=== PATIENT | female | born 1945 | race Caucasian/White ===

== ENCOUNTER 2023-06-02 19:33 | Inpatient (IN) | payer MEDICARE, OTHER, SELFPAY ==
[2023-06-02] VITALS (10 sets, daily range): BP systolic 115–167; BP diastolic 48–99; BMI 25.4; BMI 25.3
[2023-06-02 13:32] LABS: % Immature Granulocytes 0.4 % (0-0.5); % Monocytes 1.4 % (1.7-9.3); % Neutrophils 93.2 % (42.2-75.2); Absolute Lymphocytes 0.4 10^3/uL (1.2-3.4); Absolute Monocytes 0.1 10^3/uL (0.1-0.6); Absolute Neutrophils 6.5 10^3/uL (1.4-6.5); Hematocrit 33.2 % (37.0-47.0); Hemoglobin 11.2 g/dL (12.0-16.0); Mean Corp Hgb Conc. 33.7 g/dL (33.0-37.0); Mean Corpuscular Hgb 29.5 pg (27.0-31.0); Mean Corpuscular Volume 87.4 fL (81.0-99.0); Mean Platelet Volume 9.2 fL (7.4-10.4); Nucleated Red Blood Cells % 0 %; Platelet Count 233 10^3/uL (130-400); Red Cell Dist. Width 14.5 % (11.5-14.5)
--- NOTE | 2023-06-02 13:40 | ED.GENMED ---
History of Present Illness
General
Chief Complaint: Breathing Problem
Source: patient and family
Exam Limitations: none
Time Seen by Provider: 06/02/23 13:26
Nursing documentation reviewed up to this point in time: agreed with
Travel History
Have you had any contact with someone who has COVID-19?: No
Do you have any symptoms of coronavirus? Fever > 100 degrees, chills, cough, shortness of breath, sore throat, loss of taste or smell, muscle aches, or headache?: No
History of Present Illness
History of Present Illness:
77-year-old female presents emergency department complaining of shortness of breath, worsening over the past 3 weeks. She is a history of COPD, CHF, atrial fibrillation. She had a fever last week, but none since. She was hospitalized for similar
shortness of breath at [facility] 3 weeks ago.
Past History
Past History
ED Past Medical History: Arrthythmia, CAD, CHF, COPD, GERD, HTN, Hypercholesterolemia and Other (Peripheral vascular disease)
ED Past Surgical History: Cardiac (Stent), Gynecological (Hysterectomy), Orthopedic and Other (Vascular stents, coronary artery stents)
Social History
Tobacco: Former smoker
Alcohol: Former
Drug: None
Personal:
Living: with family
Review of Systems
Review of Systems
Allergies reviewed?: Yes
All Other Systems: Not applicable
Constitutional: Reports fatigue
EENT: Reports no symptoms
Respiratory: Reports trouble breathing
Cardiac: Reports no symptoms
ABD/GI: Reports no symptoms
: Reports no symptoms
Musculoskeletal: Reports no symptoms
Skin: Reports no symptoms
Endocrine: Reports no symptoms
Hematologic/Lymphatic: Reports no symptoms
Psychiatric: Reports no symptoms
Phy Exam
Physical Exam
Physical Exam:
Physical Exam
General: Moderate respiratory distress, afebrile
Neck: supple. no meningeal signs. normal posterior pharynx
Heart: s1/s2 regular rate and rhythm, no murmur. equal radial
pulses.
HEENT: Pupils equal round reactive to light, EOMI
Lungs: Moderate respiratory distress, decreased breath sounds throughout
Abdomen: normal bowel sounds. not tender. no CVAT
Neuro: alert and oriented. no focal neurological deficits cranial nerves II through XII intact
Skin: no rash
Psychiatric: well kept. interactive and cooperative
Extremities: no edema. no calf tenderness. negative homans. good distal pulses
Scores
Heart Failure Risk
Heart Failure Risk Score: Not Applicable
Course
Orders/Labs/Results
Orders:
Orders
06/02/23 13:01
Electrocardiogram (*1) Urgent
Reason for Study: Shortness of Breath
EKG- Treatment ONCE
06/02/23 13:19
Cardiac Monitoring- Treatment ONCE
IV Insert/Care/Rem.- Treatment PRN
CR Chest - 2 Views Urgent
Comment:
Reason For Exam: respiratory distress
O2 Therapy [RESP] Urgent
Titrate/Wean O2 to maintain O2 sat greater than (%): 93
Special Instructions: TO MAINTAIN CONTINUOUS O2 SATS >/= 93%
Pulse Ox/cont/shift [RESP] Urgent
Quantity: 1
Special Instructions: continuous pulse ox
06/02/23 13:20
Complete Blood Count/With Diff Urgent
Comprehensive Metabolic Panel Urgent
NT-proBNP Urgent
Troponin I Urgent
Blood Culture Q30M
MARLO Source: Blood/Venous
Specimen Description:
06/02/23 13:27
COVID-19 Antigen Urgent
Source: Nasal Swab
INF RAPID [Influenza A+B Rapid Molecular] Urgent
MARLO Source: Nasal Swab
Specimen Description:
06/02/23 13:59
Ipratropium/Albuterol Sulfate [Duoneb] 3 ml INH R NOW STA
06/02/23 14:47
Dexamethasone Sod Phosphate [Decadron] 10 mg IV NOW STA
06/02/23 15:04
Lactic Acid Q4H
Comment: CANCEL 2nd LACTIC ACID IF 1st LACTIC ACID IS LESS THAN 2
06/02/23 15:15
Blood Culture Q30M
MARLO Source: Blood/Venous
Specimen Description:
06/02/23 16:35
Admit/Transfer Patient As Directed
Co-Sign Provider:
Level of Care: Inpatient admission
Assign to:: Telemetry
Physician / Group: dameon metcalf
Diagnosis: acute on chronic copd exac
Reason for Telemetry: Arrhythmia
Date to Stop Telemetry: 06/05/23
Time to Stop Telemetry: 11:00
Reason for Hospitalization: acute on chronic copd exac
Expected length of stay greater than two midnights?: Yes
ELOS- Estimated Length of Stay in days: 4
I certify the patient meets the requirements for IP care: Yes
06/02/23 16:44
PULMONARY CONSULT Routine
Consulting Provider: Emigdio Watt
Was physician already notified: Yes
Reason for consult: acute on chronic copd
06/02/23 16:52
CT Chest Pe Study Urgent
Comment:
Reason For Exam: sob
Potassium Chloride [KCl] 40 meq PO NOW STA
06/02/23 16:56
Sputum Culture [Respiratory Culture/Gram Stain] Routine
MARLO Source: Sputum
Specimen Description:
Date Specimen was Collected: 06/02/23
Time Specimen was Collected: 20:43
06/02/23 17:16
Acapella [Rx Pep / Acapela] [RESP] Routine
06/02/23 17:20
Guaifenesin [Mucinex] 1,200 mg PO Q12
06/02/23 19:31
Code Status As Directed
Resuscitation Status: Do not resuscitate
Reached after discussion with pt or family/Healthcare POA: Yes
Based on pt advanced directive or healthcare POA form: Yes
Decision communicated with: per pt
DNR Bracelet Application ONCE
06/03/23 00:00
Dexamethasone Sod Phosphate [Decadron] 6 mg IV Q8H
06/03/23 06:00
Echo 2D MMode Color/Doppler IN AM
Reason for Study: sob
06/05/23 11:00
DC Protocol for Telemetry ONCE
Abnormal Lab Results
06/02/23
13:20
RBC 3.80 L 10^6/uL
(4.20-5.40)
Hgb 11.2 L g/dL
(12.0-16.0)
Hct 33.2 L %
(37.0-47.0)
Absolute Lymphs (auto) 0.4 L 10^3/uL
(1.2-3.4)
Neutrophils % 93.2 H %
(42.2-75.2)
Lymphocytes % 5.0 L %
(20.5-51.1)
Monocytes % 1.4 L %
(1.7-9.3)
Potassium 3.4 L mmol/L
(3.5-5.1)
BUN 24 H mg/dl
(7-17)
Glucose 116 H mg/dl
(70-99)
Total Protein 6.1 L g/dl
(6.3-8.2)
06/02/23 13:20
06/02/23 13:20
Vital Signs
Initial and Last Documented VS:
Initial Vital Signs
Temp Pulse Resp BP Pulse Ox
98.9 F 78 18 130/59 88
06/02/23 12:54 06/02/23 12:54 06/02/23 12:54 06/02/23 12:54 06/02/23 12:54
Last Documented Vital Signs
Temp Pulse Resp BP Pulse Ox
98.9 F 76 23 124/49 95
06/02/23 12:54 06/02/23 19:24 06/02/23 19:24 06/02/23 19:24 06/02/23 19:24
MDM/Problems Addressed
Differential Diagnosis Includes:
Pneumonia, COPD exacerbation, CHF
MDM/Problems Addressed:
77-year-old female with COPD exacerbation, no signs of CHF, do not suspect PE, no signs of pneumonia on chest x-ray.
Chronic conditions affecting care: COPD
Acute Exacerbation and/or Progression of Chronic Illness: COPD
*Radiology
Radiology exam reviewed: radiology read reviewed (cxr nad)
*Pulse Oximetry
Patient hypoxic: yes
*EKG
Interpreted by ED Provider?: Yes
EKG Intrepretation Date: 06/02/23
EKG Intrepretation Time: 13:03
Interpretation: normal
Comparison EKG: changes noted
Heart Rate: 64
Rate: normal
Rhythm: sinus
[place]: normal axis
Interval: normal interval
QRS Pattern: normal QRS
Ischemia: no ischemia
*Prosthodontist/Owner Interpretation
Rate: normal
Interpretation: normal
Heart Rate: 66
Rhythm: sinus
*Critical Care Note
Total Time (30-74mins, 75-104mins- exclusive of procedures): Not Applicable
Patient Management
Social determinants of health affecting care: Living situation and Strong social support
Discussion with other providers: Hospitalist
Escalation/DeEscalation of care consider admission/obs:
admit indicated
ED Attending Note
-
Portions of this chart may have been created with voice recognition software.� Occasional wrong word or��sound alike� substitutions may have occurred due to the inherent limitations of voice recognition software.
Discharge Plan
Departure
Patient Disposition: Admit
Date of Disposition: 06/02/23
Time of Disposition: 14:47
Admit to: Telemetry
Presentation/result/management discussed w/ accepting MD/DO: Hospitalist
Patient with high blood pressure during this ER visit?: Yes
Discharge Problem:
COPD exacerbation
Interventions
Interventions:
*Risk Screen - Suicide Last Done: 06/02/23 12:59
*General Assessment Last Done: 06/02/23 12:59
*Neglect/Abuse Screening Last Done: 06/02/23 12:59
*ED COVID-19 Vaccine History Last Done: 06/02/23 13:09
ED- Cardiac Assessment Last Done: 06/02/23 15:30
ED- Pulmonary Assessment Last Done: 06/02/23 15:30
[2023-06-02 13:50] LABS: COVID-19 Antigen Negative (Negative)
[2023-06-02 13:55] LABS: ALT (SGPT) 22 U/L (0-35); AST (SGOT) 29 U/L (14-36); Albumin 3.5 g/dl (3.5-5.0); Alkaline Phosphatase 57 U/L (38-126); Blood Urea Nitrogen 24 mg/dl (7-17); Calcium 9.5 mg/dl (8.4-10.2); Carbon Dioxide 26 mmol/L (22-30); Chloride 104 mmol/L (98-107); Estimated Creatinine Clearance 44 ml/min; Glucose 116 mg/dl (70-99); Potassium 3.4 mmol/L (3.5-5.1); Sodium 137 mmol/L (135-145); Total Bilirubin 0.8 mg/dl (0.2-1.3); Total Protein 6.1 g/dl (6.3-8.2); eGFR > 60.00
[2023-06-02 13:56] LABS: NT-proBNP 912 pg/ml; Troponin I < 0.012 ng/ml
[2023-06-02 15:25] LABS: Lactic Acid 1.6 mmol/L (0.7-2.0)
[2023-06-02] MEDS: DECADRON 10 MG IV (15:25)
[2023-06-02] MEDS: DUONEB 3 ML INH ×2 (15:25→22:43)
--- NOTE | 2023-06-02 15:57 | HPS.HSE ---
Addendum entered and electronically signed by Wayne Lopez MD 06/02/23 17:21:
I saw and examined the patient.
The WHEEL BORER or PA's note was reviewed and I agree with the note.
Comment: 77-year-old female with history of COPD, CAD, A-fib, chronic diastolic congestive heart failure, PAD, GERD, arthritis, anxiety, depression, pill esophagitis came to the hospital with shortness of breath. She follows up with ict business development manager
at [facility] and has been on oral steroids. Denies any fever/chills. Consult pulmonary. Continue with IV steroids. Nebs. check chest CT chest. Check echo. proBNP not significantly elevated. Recent watchman in February. Monitor on
telemetry.
General:�Appears in respiratory distress
HEENT:�NormoCephalic, Anicteric, PERRLA and Oxygen
Respiratory:�Wheezes (expiratory) and Decreased Breath Sounds
Cardiac:�S1/S2 and Regular Rhythm; No Murmur, Rub, Gallop or Peripheral Edema
Breast:�Deferred by me
GI:�Soft, Non Tender, Non Distended, Normal Bowel Sounds and No Hepatosplenomegaly
Rectal:�Deferred by Provider
Genito-urinary:�no lake
Musculoskeletal:� No Edema
Neuro:�AO x 3, No Motor Deficits, Nonfocal/grossly intact
Psych:�Calm
I spent a total of 78 minutes with the patient or on the floor. More than 50% of this time involved counseling and coordination of care.
Original Note:
Family Physician
-
Family Physician: Reinier Noel
Chief Complaint
-
Shortness of breath
History of Present Illness
77-year-old female with third episode of COPD exacerbation over the past month. She finished 2 doses of steroids 1 being 2-1/2 weeks ago along with a course of Ceftin to 9 weeks ago. She had a follow-up with her ict business development manager Dr. Hills 1 week
ago with no changes and was recommended that she follow-up with [facility] for further evaluation and options. He was going to schedule some pulmonary function studies. She reports the shortness of breath is worse and not improving at
baseline with 2 to 3 L of oxygen 28/10. She pauses during speaking. She also reports last week she was running a fever several days of 100.8 at nighttime then resolved. Although she is on azithromycin Friday prophylaxis for
recurrent pneumonia over the past 1.5 years.
PMH CAD cardiac stent September 2002, A-fib, chronic diastolic CHF, HTN, HLD, COPD, ex-smoker, home O2 2 to 3 L, sleep apnea, PAD status post fem-femo bypass GERD, arthritis, DJD, anxiety/depression, pill esophagitis.
Medical History
Past Medical History
Past Medical History: Reports Other
Additional Past Medical History:
CAD cardiac stent September 2002
[id number]
chronic diastolic CHF
HTN
HLD
COPD on home O2 3 L
ex-smoker 56 years 1 pack a day quit 2017
sleep apnea
PAD status post fem-femo bypass
GERD
arthritis
DJD
anxiety/depression
pill esophagitis
Past Surgical History: Reports Other
Additional Past Surgical History:
Cardiac stent 09/2002
Watchman device 02/24/2023
Right femorofemoral bypass 2003
Hysterectomy
Left shoulder replacement
Right shoulder replacement
Trigger finger repair
Cataract extraction
Social History
Tobacco: Former Smoker (ex-smoker 56 years 1 pack a day quit 2017)
Alcohol: None
Drug: None
Personal: Single
Living: Alone
Employment: Retired
Family History
Family History: Not pertinent
Allergies / Home Medications
Allergies reflects when Allergies were last updated in [employer].
Home Medications with original date entered in [employer]
Allergy/Medication List:
Allergies
Allergy/AdvReac Type Severity Reaction Status Date / Time
hornet venom Allergy Anaphylaxis Verified 06/02/23 12:54
Penicillins Allergy itching, Verified 06/02/23 12:54
rash,
swelling
sertraline [From Zoloft] Allergy anxiety, Verified 06/02/23 12:54
hyper
venom-honey bee Allergy Anaphylaxis Verified 06/02/23 12:54
Home Medications
metoprolol succinate 25 mg tablet,extended release 24 hr 12.5 mg PO DAILY Blood pressure 06/13/11
aspirin 81 mg tablet,delayed release 81 mg PO DAILY Blood clot prevention/tx 08/01/21
atorvastatin 40 mg tablet 40 mg PO QPM High cholesterol 08/01/21
flecainide 50 mg tablet 50 mg PO Q12H Arrhythmia 08/01/21
furosemide 20 mg tablet 20 mg PO DAILYPRN PRN edema 08/01/21
albuterol sulfate 2.5 mg/3 mL (0.083 %) solution for nebulization 2.5 mg inhalation R DAILY PRN sob 06/02/23
albuterol sulfate 2.5 mg/3 mL (0.083 %) solution for nebulization 2.5 mg inhalation R TID Lung/Breathing Issues 06/02/23
azithromycin 250 mg tablet 250 mg PO MOWEFR@0800 Lung/Breathing Issues 06/02/23
clopidogrel 75 mg tablet 75 mg PO DAILY Blood Clot Prevention/Tx 06/02/23
escitalopram oxalate 20 mg tablet 10 mg PO DAILY depression/anxiety 06/02/23
fluticasone fur. 100 mcg-umeclid 62.5 mcg-vilant 25 mcg inhalat.powder (Trelegy Ellipta) 1 inh inhalation R DAILY Lung/Breathing Issues 06/02/23
fluticasone fur. 200 mcg-umeclid 62.5 mcg-vilant 25 mcg inhalat.powder (Trelegy Ellipta) 1 inh inhalation R DAILY PRN sob 06/02/23
fluticasone propionate 50 mcg/actuation nasal spray,suspension (Flonase Allergy Relief) 2 spray intranasal DAILY PRN allergies 06/02/23
ibuprofen 200 mg tablet (Advil) 400 mg PO BIDPRN PRN mild pain 06/02/23
prednisone 10 mg tablet 10 mg PO .TAPER Anti-Inflammatory 06/02/23
spironolactone 25 mg tablet 25 mg PO DAILY Fluid Retention/Swelling 06/02/23
Review of Systems
-
History Source: Patient and Family (daugther)
A 12 point ROS was completed and negative except as noted: Yes
Constitutional: Denies Fever or Chills
EENT: Denies Tearing, Sore Throat or Mouth Swelling
Respiratory: Reports Trouble Breathing; Denies Cough
Cardiac: Denies Chest Pain, Diaphoresis, Palpitations or Syncope
Abdomen/GI: Denies Abdominal Pain, Nausea, Vomiting, Diarrhea, Constipated, Bloody Stools or Black Stools
: Denies Dysuria, Frequency, Flank Pain, Incontinence or Difficulty Voiding
Musculoskeletal: Denies Joint Pain, Joint Swelling or Edema
Skin: Denies Itching or Rash
Neurological: Denies Dizzy, Headache or Weakness
Endocrine: Reports No Symptoms
Hematologic/Lymphatic: Reports No Symptoms
Psych: Reports Calm
Physical Exam
Vital Signs
Vital Signs
Temp Pulse Resp BP Pulse Ox
98.9 F 62 26 122/89 93
06/02/23 12:54 06/02/23 15:00 06/02/23 15:00 06/02/23 14:27 06/02/23 15:30
Physical Exam
General: Conversant (but short of breath ); No Fever or Chills
HEENT: NormoCephalic, Anicteric, PERRLA and Oxygen (3lnc)
Respiratory: Wheezes (expiratory) and Decreased Breath Sounds
Cardiac: S1/S2 and Regular Rhythm; No Murmur, Rub, Gallop or Peripheral Edema
Breast: Deferred by me
GI: Soft, Non Tender, Non Distended, Normal Bowel Sounds and No Hepatosplenomegaly
Rectal: Deferred by Provider
Genito-urinary: Deferred by me
Musculoskeletal: No Clubbing, No Cyanosis and No Edema
Skin: Warm and Dry; No Rash
Neuro: AO x 3, No Motor Deficits, Nonfocal/grossly intact and No Sensory Deficits; No Slurred Speech, Facial Droop or Tremors
Psych: Calm
Laboratory Results
-
06/02/23 13:20
06/02/23 13:20
Laboratory Results
Lactic Acid 1.6 mmol/L (0.7-2.0) 06/02/23 15:04
Total Bilirubin 0.8 mg/dl (0.2-1.3) 06/02/23 13:20
AST 29 U/L (14-36) 06/02/23 13:20
ALT 22 U/L (0-35) 06/02/23 13:20
Alkaline Phosphatase 57 U/L (38-126) 06/02/23 13:20
Troponin I < 0.012 ng/ml 06/02/23 13:20
Impression/Plan
-
Impression/plan:
Admit to TELE
#Acute on chronic COPD exacerbation on chronic 3 L nasal cannula as needed
#Ex-smoker 56 years 1 pack a day quit 2017
-COVID-negative
93% on 3 liters NC
-Continue DuoNebs scheduled and as needed
-Continue Trelegy Ellipta
-On chronic azithromycin 250 mg Friday
-Sputum culture
-Consult Pulmonary
-Iv decadron 6q 8h
-Patient follows with Dr. Hills at [facility] will obtain records
-2D echo
CXR: No acute cardiopulmonary disease
#Hypokalemia
-K3.4
Will give KCl 40 mEq now
#Sleep apnea Hx
-Used to be on BiPAP several years ago states had additional study years ago no longer needed
-? Repeat outpatient sleep study
#A-fib�paroxysmal
#Watchman device 02/24/2023
-Continue flecainide, aspirin, Plavix
EKG: NSR 64 bpm, QTc 431 MS otherwise normal
#CAD
#Cardiac stents 09/2002
-Continue aspirin, statin, metoprolol succinate 12.5 mg daily
#Chronic diastolic CHF�no acute exacerbation
I/O, daily weight
-Continue spironolactone 25 mg daily, hold prn lasix
#Depression/anxiety
Continue Lexapro
#PAD status post fem-femo bypass
#GERD
#Pill esophagitis Hx
- start protonix 40 mg daily
Other PMH:
arthritis
DJD
dvt proph
Sq lovenox
DNR
[2023-06-02] MEDS: KCL 40 MEQ PO (17:07)
[2023-06-02] MEDS: MUCINEX 1200 MG PO (20:43)
--- NOTE | 2023-06-02 22:15 | PTCARENOTE ---
Received patient from ED via stretcher. Patient stood and pivoted from stretcher to bed with assistance. Patient LYNN, sating 94% on 3L. No current complaints of pain. Oriented patient to room and placed call rangel within reach.
[2023-06-02] MEDS: TAMBOCOR 50 MG PO (22:17)
[2023-06-02] MEDS: LIPITOR 40 MG PO (22:17)
[2023-06-02] MEDS: LOVENOX 40 MG SC (22:18)
[2023-06-03] MEDS: DECADRON 6 MG IV ×2 (00:11→09:45)
[2023-06-03 03:46] VITALS: BP 132/74
[2023-06-03 07:40] VITALS: BP 112/75
[2023-06-03 07:49] LABS: % Immature Granulocytes 0.3 % (0-0.5); % Lymphocytes 7.2 % (20.5-51.1); % Monocytes 2.3 % (1.7-9.3); % Neutrophils 90.2 % (42.2-75.2); Absolute Lymphocytes 0.5 10^3/uL (1.2-3.4); Absolute Monocytes 0.2 10^3/uL (0.1-0.6); Absolute Neutrophils 5.9 10^3/uL (1.4-6.5); Hematocrit 30.4 % (37.0-47.0); Hemoglobin 10.2 g/dL (12.0-16.0); Mean Corp Hgb Conc. 33.6 g/dL (33.0-37.0); Mean Corpuscular Hgb 29.4 pg (27.0-31.0); Mean Corpuscular Volume 87.6 fL (81.0-99.0); Mean Platelet Volume 9.3 fL (7.4-10.4); Nucleated Red Blood Cells % 0 %; Platelet Count 227 10^3/uL (130-400); Red Blood Cell Count 3.47 10^6/uL (4.20-5.40); Red Cell Dist. Width 14.6 % (11.5-14.5); White Blood Cell Count 6.5 10^3/uL (4.8-10.8)
[2023-06-03] MEDS: SYMBICORT 80/4.5 MCG INHALER INH (08:07)
[2023-06-03] MEDS: VENTOLIN NEBULES 2.5 MG INH ×3 (08:07→15:10)
[2023-06-03] MEDS: SPIRIVA RESPIMAT 2.5 MCG INH (08:08)
[2023-06-03 08:23] LABS: Blood Urea Nitrogen 27 mg/dl (7-17); Calcium 9.7 mg/dl (8.4-10.2); Carbon Dioxide 27 mmol/L (22-30); Chloride 104 mmol/L (98-107); Estimated Creatinine Clearance 50 ml/min; Glucose 133 mg/dl (70-99); Sodium 139 mmol/L (135-145); eGFR > 60.00
[2023-06-03] MEDS: TAMBOCOR 50 MG PO ×2 (09:45→20:19)
[2023-06-03] MEDS: ALDACTONE 25 MG PO (09:45)
[2023-06-03] MEDS: PROTONIX 40 MG PO (09:45)
[2023-06-03] MEDS: ASPIR LOW (ENTERIC COATED) 81 MG PO (09:45)
[2023-06-03] MEDS: LEXAPRO 10 MG PO (09:45)
[2023-06-03] MEDS: MUCINEX 1200 MG PO ×2 (09:45→20:18)
[2023-06-03] MEDS: TOPROL XL 12.5 MG PO (09:45)
[2023-06-03] MEDS: PLAVIX 75 MG PO (09:45)
--- NOTE | 2023-06-03 11:24 | CM ---
Patient seen bedside, initial assessment completed. Patient reports she lives with her daughter and son in law in a multiple story home with two steps to enter. Patient reports she has home O2 through [facility] and is typically on 2-3L, denies other
DME. Patient reports she was recently hospitalized at [facility] and was set up with visiting nurses through [facility]. Patient denies SNF. Patient confirms PCP Reinier Noel, pharmacy used [facility] in [place]. CM will continue to follow for
discharge planning needs, watch for PT/OT evaluation.
Plan; home with continuance of [facility] VN.
[2023-06-03 11:30] VITALS: BP 128/74
--- NOTE | 2023-06-03 11:45 | W.PN.HOSP.TC ---
Today's Communication/Plan
-
Monitor vital signs and see plan
Continue with IV steroids,nebs
Pulmonary to see today
echo
Assessment / Plan
Assessment / Plan
General:�Appears in respiratory distress
HEENT:�NormoCephalic, Anicteric, Oxygen
Respiratory:�Wheezes (expiratory) and Decreased Breath Sounds
Cardiac:�S1/S2 and Regular Rhythm; No Murmur, Rub, Gallop or Peripheral Edema
Breast:�Deferred by me
GI:�Soft, Non Tender, Non Distended, Normal Bowel Sounds and No Hepatosplenomegaly
Rectal:�Deferred by Provider
Genito-urinary:�no lake
Musculoskeletal:� No Edema
Neuro:�AO x 3, No Motor Deficits, Nonfocal/grossly intact
Psych:�Calm
Acute on chronic COPD exacerbation on chronic 3 L nasal cannula as needed
#Ex-smoker 56 years 1 pack a day quit 2017
-COVID-negative
93% on 3 liters NC
-Continue DuoNebs scheduled and as needed
-Continue Trelegy Ellipta
-On chronic azithromycin 250 mg Friday
-Sputum culture
-Consult Pulmonary
-Iv decadron 6q 8h
-Patient follows with Dr. Hills at [facility] will obtain records
-2D echo
�� � � CXR: No acute cardiopulmonary disease
#Hypokalemia
Improved
#Sleep apnea Hx
-Used to be on BiPAP several years ago states had additional study years ago no longer needed
-?� Repeat outpatient sleep study, per patient she was told that she does not have sleep apnea anymore
#A-fib�paroxysmal
#Watchman device 02/24/2023
-Continue flecainide, aspirin, Plavix
EKG:�NSR 64 bpm, QTc 431 MS otherwise normal
Check echo
#CAD
#Cardiac stents 09/2002
-Continue aspirin, statin, metoprolol
#Chronic diastolic CHF�no acute exacerbation
I/O, daily weight
-Continue spironolactone, hold prn lasix; give 1 dose Lasix today. Follow clinically
#Depression/anxiety
Continue Lexapro
#PAD status post fem-femo bypass
#GERD
#Pill esophagitis Hx
- start protonix 40 mg daily
Other PMH:
�arthritis
�DJD
dvt proph
Sq lovenox
DNR
I spent a total of 53 minutes with the patient or on the floor. More than 50% of this time involved counseling and coordination of care.
Anticipated Discharge: > 48 hours
Subjective/Interval History
-
Date of Service: June 03, 2023
denies chest pain
Objective Data
-
Labs:
Laboratory Results
06/03/23
07:28
WBC 6.5
Hgb 10.2 L
Hct 30.4 L
Plt Count 227
Sodium 139
Potassium 4.0
Chloride 104
Carbon Dioxide 27
BUN 27 H
Creatinine 0.8
Glucose 133 H
Calcium 9.7
Vital Signs:
Vital Signs
Temp Pulse Resp BP Pulse Ox
98.4 F 76 16 112/75 96
06/03/23 07:40 06/03/23 08:10 06/03/23 08:10 06/03/23 07:40 06/03/23 08:10
I&O
06/02/23 06/03/23 06/04/23
06:59 06:59 06:59
Intake Total 0 / 0
Balance 0 / 0
[2023-06-03] MEDS: SPIRIVA RESPIMAT 2.5 MCG 2 PUFF INH (12:22)
[2023-06-03] MEDS: SYMBICORT 80/4.5 MCG INHALER 2 PUFF INH (12:22)
[2023-06-03] MEDS: LASIX 20 MG PO (12:26)
--- NOTE | 2023-06-03 15:13 | CON.PUL ---
Consultation
Consultation Request
Date/Time Consultation Requested: 06/03/2023
Date/Time Consultation Performed: 06/03/2023
Requesting Provider: Dr. Lopez
Performing Provider: Dr. Emigdio Norton
Reason for Consultation: Acute exacerbation of COPD
Medical History
-
History of Present Illness:
77-year-old woman with history of severe COPD, frequent exacerbations and pulmonary infections, follows up with Dr. Hills. Has been on prolonged course of steroids. Continues to complain shortness of breath. Reported no significant change
despite his steroids. She also is on low-dose azithromycin therapy for anti-inflammatory properties.
She was referred to [facility] for further evaluation.
Past Medical History
Past Medical History: Other (See assessment and plan section)
Social History
Tobacco: Former Smoker ([id number] history quit in 2018)
Alcohol: None
Drug: None
Personal: Single
Living: Alone
Employment: Retired
Family History
Family History: Reviewed & Not Pertinent
Allergies / Home Medications
Allergies
Allergy/AdvReac Type Severity Reaction Status Date / Time
hornet venom Allergy Anaphylaxis Verified 06/02/23 12:54
Penicillins Allergy itching, Verified 06/02/23 12:54
rash,
swelling
sertraline [From Zoloft] Allergy anxiety, Verified 06/02/23 12:54
hyper
venom-honey bee Allergy Anaphylaxis Verified 06/02/23 12:54
Home Medications
Medication Instructions Recorded Confirmed Last Taken Type
metoprolol succinate 25 mg 12.5 mg PO DAILY Blood pressure 06/13/11 06/02/23 06/02/23 History
tablet,extended release 24 hr
aspirin 81 mg tablet,delayed 81 mg PO DAILY Blood clot 08/01/21 06/02/23 06/02/23 History
release prevention/tx
atorvastatin 40 mg tablet 40 mg PO QPM High cholesterol 08/01/21 06/02/2324 History
flecainide 50 mg tablet 50 mg PO Q12H Arrhythmia 08/01/21 06/02/23 06/02/23 History
furosemide 20 mg tablet 20 mg PO DAILYPRN PRN edema 08/01/21 06/02/23 06/01/23 History
albuterol sulfate 2.5 mg/3 mL 2.5 mg inhalation R DAILY PRN sob 06/02/23 06/02/23 Unknown History
(0.083 %) solution for nebulization
albuterol sulfate 2.5 mg/3 mL 2.5 mg inhalation R TID 06/02/23 06/02/23 06/02/23 History
(0.083 %) solution for nebulization Lung/Breathing Issues
azithromycin 250 mg tablet 250 mg PO MOWEFR@0800 06/02/23 06/02/23 05/30/23 History
Lung/Breathing Issues
clopidogrel 75 mg tablet 75 mg PO DAILY Blood Clot 06/02/23 06/02/23 06/02/23 History
Prevention/Tx
escitalopram oxalate 20 mg tablet 10 mg PO DAILY depression/anxiety 06/02/23 06/02/23 06/02/23 History
fluticasone fur. 100 mcg-umeclid 1 inh inhalation R DAILY 06/02/23 06/02/23 06/02/23 History
62.5 mcg-vilant 25 mcg Lung/Breathing Issues
inhalat.powder (Trelegy Ellipta)
fluticasone fur. 200 mcg-umeclid 1 inh inhalation R DAILY PRN sob 06/02/23 06/02/23 1 Week Ago History
62.5 mcg-vilant 25 mcg ~05/26/23
inhalat.powder (Trelegy Ellipta)
fluticasone propionate 50 2 spray intranasal DAILY PRN 06/02/23 06/02/23 Unknown History
mcg/actuation nasal allergies
spray,suspension (Flonase Allergy
Relief)
ibuprofen 200 mg tablet (Advil) 400 mg PO BIDPRN PRN mild pain 0206/02/23 06/02/23 History
prednisone 10 mg tablet 10 mg PO .TAPER Anti-Inflammatory 06/02/23 06/02/23 06/02/23 History
spironolactone 25 mg tablet 25 mg PO DAILY Fluid 06/02/23 06/02/23 06/02/23 History
Retention/Swelling
Review of Systems
-
History Source: Patient
All other systems: Negative unless noted
Vitals / Labs / Diagnostic Testing
Vital Signs
Temp Pulse Resp BP Pulse Ox
98.5 F 84 20 128/74 96
06/03/23 11:30 06/03/23 15:12 06/03/23 15:12 06/03/23 11:30 06/03/23 15:12
Lab Data
06/03/23 07:28
06/03/23 07:28
Microbiology
06/02/23 13:20 Blood/Venous Blood Culture - Preliminary
No Growth in 24 hours- Final report to follow
06/02/23 20:54 Sputum Gram Stain - Preliminary
06/02/23 13:27 Nasal Swab Influenza Types A & B (SOY) - Final
Negative for Influenza A & B, NAAT
Negative results must be combined with clinical observations
and patient history.
Nucleic Acid Amplification test (NAAT)performed on the
[employer] platform.
Diagnostic Testing:
Physical Exam
-
HEENT: Normocephalic
Cardiovascular: S1/S2
Respiratory: Wheeze (n) and Other (Prolonged expiratory phase)
GI: Soft and Non Distended
Neurology: Awake, Oriented, AO x 3 and No Motor Deficits
Skin: Warm
General: Respiratory Distress (n)
Assessment
-
Worsening shortness of breath
CT chest: Reviewed: Showed heterogeneous severe emphysema/stable left upper lobe lung nodule. No evidence for pulmonary embolism.
Acute exacerbation of COPD
Chronic shortness of breath-worsening over time due to COPD and hyperinflation
9 mm NINFA lung nodule stable on 06/02/2023
-
ECHO:
Normal left ventricular chamber size. Normal left ventricular wall thickness.�
�Hyperdynamic left ventricular systolic function. Normal regional wall motion..
�LV ejection fraction is 70-75% by visual assessment. Stage II diastolic
�dysfunction suggestive of abnormal relaxation and increased filling pressures.
�Normal right ventricular size and function.
�Mildly dilated left atrium
�Mild mitral regurgitation.
-
Conditions present prior admission:
Former smoker [id number] history quit in 2018
Severe COPD on 3L NC
Trelegy
Frequent respiratory infection - on Low dose Azithromycin.
Chronic hypoxemic respiratory failure
Frequent exacerbator
Hypertension
Hyperlipidemia
Obstructive sleep apnea- not on CPAP
Peripheral arterial disease with femorofemoral bypass
GERD
DJD
Anxiety depression
Pill esophagitis
Atrial fibrillation-paroxysmal
Coronary Artery disease with a stent in September 2002
Surgical history:
Cardiac stent September 2002
Watchman device 02/2023
Femoral-femoral bypass 2003
Hysterectomy
Left shoulder replacement
Right shoulder replacement
Catheter extraction
Assessment and plan:
Progressive shortness of breath over time, suspect due to hyperinflation-lung function decline with aging on top of her severe COPD.
Possibly currently acute exacerbation.
CT chest noted: No acute infiltrates. Noted hyperinflation and emphysema.
-
Echocardiogram noted: Normal LVEF. Diastolic dysfunction without pulmonary hypertension.
Does not appear volume overloaded
-
Would recommend transition to nebulized therapy as a trial instead of inhalers. DuoNebs/Pulmicort-for better delivery of medication.
Patient has a nebulizer at home.
Whether she is a candidate for lung volume reduction/either surgical or bronchoscopic is not clear at this point. No full PFTs available.
Definitely not a candidate for transplant due to age limitation
Pulmonary rehabilitation recommended if not performed in the past.
Continue with IV corticosteroids with a slow taper.
Continue mucolytic's
Continue low-dose azithromycin for anti-inflammatory properties.
-
Patient stated that she was told by Dr. Hills on the possibly she had asthma. They are willing to discuss biologic therapy.
There is no peripheral eosinophilia on laboratory testing here.
-
Some of the cardiac medications also associated with shortness of breath including metoprolol and flecainide. This will need to be revisited in the outpatient setting.
-
Weight loss recommended.
Obstructive sleep apnea: Not on CPAP therapy. She was told it was not needed in the past.
-
Will continue to follow.
Extensive discussion with patient explaining plan as above.
[2023-06-03 15:50] VITALS: BP 130/76
[2023-06-03] MEDS: DECADRON 4 MG IV (17:42)
[2023-06-03] MEDS: LIPITOR 40 MG PO (17:42)
[2023-06-03] MEDS: LOVENOX 40 MG SC (17:43)
[2023-06-03 19:55] VITALS: BP 165/65
[2023-06-03] MEDS: PULMICORT 0.5 MG INH (20:27)
[2023-06-03] MEDS: DUONEB 3 ML INH (20:27)
[2023-06-03 23:59] VITALS: BP 127/54
[2023-06-04] MEDS: DECADRON 4 MG IV ×3 (01:56→17:43)
[2023-06-04 03:55] VITALS: BP 92/56
[2023-06-04 06:00] VITALS: BMI 25.3
[2023-06-04 07:00] VITALS: BP 116/74
[2023-06-04 07:30] LABS: % Basophils 0.1 % (0-2); % Immature Granulocytes 1.4 % (0-0.5); % Lymphocytes 5.9 % (20.5-51.1); % Monocytes 2.6 % (1.7-9.3); Absolute Immature Granulocytes 0.1 10^3/uL (0-0.05); Absolute Lymphocytes 0.6 10^3/uL (1.2-3.4); Absolute Monocytes 0.3 10^3/uL (0.1-0.6); Hematocrit 31.2 % (37.0-47.0); Hemoglobin 10.5 g/dL (12.0-16.0); Mean Corp Hgb Conc. 33.7 g/dL (33.0-37.0); Mean Corpuscular Volume 86.2 fL (81.0-99.0); Mean Platelet Volume 9.3 fL (7.4-10.4); Nucleated Red Blood Cells % 0 %; Platelet Count 275 10^3/uL (130-400); Red Blood Cell Count 3.62 10^6/uL (4.20-5.40); Red Cell Dist. Width 14.6 % (11.5-14.5)
[2023-06-04] MEDS: DUONEB 3 ML INH ×3 (07:45→19:34)
[2023-06-04] MEDS: PULMICORT 0.5 MG INH ×2 (07:45→19:34)
[2023-06-04 08:32] LABS: Blood Urea Nitrogen 28 mg/dl (7-17); Calcium 9.8 mg/dl (8.4-10.2); Carbon Dioxide 27 mmol/L (22-30); Chloride 105 mmol/L (98-107); Estimated Creatinine Clearance 40 ml/min; Glucose 116 mg/dl (70-99); Sodium 137 mmol/L (135-145); eGFR 57.66
[2023-06-04] MEDS: MUCINEX 1200 MG PO ×2 (09:17→19:47)
[2023-06-04] MEDS: PLAVIX 75 MG PO (09:17)
[2023-06-04] MEDS: TOPROL XL 12.5 MG PO (09:18)
[2023-06-04] MEDS: ZITHROMAX 250 MG PO (09:18)
[2023-06-04] MEDS: PROTONIX 40 MG PO (09:18)
[2023-06-04] MEDS: TAMBOCOR 50 MG PO ×2 (09:18→19:46)
[2023-06-04] MEDS: ASPIR LOW (ENTERIC COATED) 81 MG PO (09:18)
[2023-06-04] MEDS: LEXAPRO 10 MG PO (09:19)
[2023-06-04] MEDS: FLUSH (NSS) 1 FLUSH IV ×2 (10:16→17:43)
[2023-06-04 11:00] VITALS: BP 131/59
[2023-06-04 11:06] VITALS: BMI 25.3
--- NOTE | 2023-06-04 11:44 | CM ---
Patient seen bedside, reports no new concerns at this time. IMM reviewed, signed, placed in patients chart. CM spoke with Cristel from [facility], reports patient is current with VN and PT, [facility]
to [facility] when discharge. CM will continue to follow for discharge planning needs.
Plan; home with [facility] for [facility].
--- NOTE | 2023-06-04 11:48 | CM ---
Patient seen, reports no concerns at this time. CM spoke with Cristel from [facility], patient is current with VN and Pt, will just need updated clinicals sent through [facility] when ready for discharge. CM will continue to follow for discharge
planning needs.
Plan[facility]
--- NOTE | 2023-06-04 12:06 | W.PN.HOSP.TC ---
Today's Communication/Plan
-
Monitor vital signs and see plan
Continue with IV steroids
Continue with nebulizers
Hold aldactone
Assessment / Plan
Assessment / Plan
General:�Appears in respiratory distress
HEENT:�NormoCephalic, Anicteric, Oxygen
Respiratory:�Wheezes (expiratory) and Decreased Breath Sounds
Cardiac:�S1/S2 and Regular Rhythm; No Murmur, Rub, Gallop or Peripheral Edema
GI:�Soft, Non Tender, Non Distended, Normal Bowel Sounds
Genito-urinary:�no lake
Musculoskeletal:� No Edema
Neuro:�AO x 3, No Motor Deficits, Nonfocal/grossly intact
Psych:�Calm
Acute on chronic COPD exacerbation on chronic 3 L nasal cannula as needed
#Ex-smoker 56 years 1 pack a day quit 2017
-COVID-negative
-Continue DuoNebs scheduled and as needed
was on trelegy at home; now switching inhaler to nebulizer. Currently on Pulmicort
-On chronic azithromycin 250 mg Friday
-Sputum culture
-Pulmonary following
-cw decadron
-Patient follows with Dr. Hills at [facility] will obtain records
-2D echo 06/03 with EF 70 to 75%, stage II diastolic dysfunction
�� � � CXR: No acute cardiopulmonary disease
#Hypokalemia
Improved
#Sleep apnea Hx
-Used to be on BiPAP several years ago states had additional study years ago no longer needed
-?� Repeat outpatient sleep study, per patient she was told that she does not have sleep apnea anymore
#A-fib�paroxysmal
#Watchman device 02/24/2023
-Continue flecainide, aspirin, Plavix
#CAD
#Cardiac stents 09/2002
-Continue aspirin, statin, metoprolol
#Chronic diastolic CHF�no acute exacerbation
I/O, daily weight
-hold spironolactone, hold prn lasix; gave 1 dose lasix 06/03. Follow clinically
#Depression/anxiety
Continue Lexapro
#PAD status post fem-femo bypass
#GERD
#Pill esophagitis Hx
- start protonix 40 mg daily
Other PMH:
�arthritis
�DJD
dvt proph
Sq lovenox
DNR
Anticipated Discharge: 24 - 48 hours
Subjective/Interval History
-
Date of Service: June 04, 2023
Denies pain
Objective Data
-
Labs:
Laboratory Results
06/04/23
06:55
WBC 10.0
Hgb 10.5 L
Hct 31.2 L
Plt Count 275 D
Sodium 137
Potassium 4.0
Chloride 105
Carbon Dioxide 27
BUN 28 H
Creatinine 1.0
Glucose 116 H
Calcium 9.8
Vital Signs:
Vital Signs
Temp Pulse Resp BP Pulse Ox
97.8 F 89 16 116/74 94
06/04/23 07:00 06/04/23 09:18 06/04/23 07:50 06/04/23 09:18 06/04/23 10:15
I&O
06/03/23 06/04/23 06/05/23
06:59 06:59 06:59
Intake Total 0 / 0 1200 / 1200
Balance 0 / 0 1200 / 1200
[2023-06-04 15:35] VITALS: BP 139/55
--- NOTE | 2023-06-04 15:48 | W.PN.PUL3 ---
Today's Communication / Plan
-
Continue current medical therapy for 1 additional day
Will try to wean down steroids tomorrow
Increase activity as tolerated
hopefully DC planning soon
Assessment
-
Worsening shortness of breath-over time.
CT chest: Reviewed: Showed heterogeneous severe emphysema/stable left upper lobe lung nodule. No evidence for pulmonary embolism.
Acute exacerbation of COPD
Chronic shortness of breath-worsening over time due to COPD and hyperinflation
9 mm NINFA lung nodule stable on 06/02/2023
-
ECHO:
Normal left ventricular chamber size. Normal left ventricular wall thickness.�
�Hyperdynamic left ventricular systolic function. Normal regional wall motion..
�LV ejection fraction is 70-75% by visual assessment. Stage II diastolic
�dysfunction suggestive of abnormal relaxation and increased filling pressures.
�Normal right ventricular size and function.
�Mildly dilated left atrium
�Mild mitral regurgitation.
-
Conditions present prior admission:
Former smoker [id number] history quit in 2018
Severe COPD on 3L NC
Trelegy
Frequent respiratory infection - on Low dose Azithromycin.
Chronic hypoxemic respiratory failure
Frequent exacerbator
Hypertension
Hyperlipidemia
Obstructive sleep apnea- not on CPAP
Peripheral arterial disease with femorofemoral bypass
GERD
DJD
Anxiety depression
Pill esophagitis
Atrial fibrillation-paroxysmal
Coronary Artery disease with a stent in September 2002
Surgical history:
Cardiac stent September 2002
Watchman device 02/2023
Femoral-femoral bypass 2003
Hysterectomy
Left shoulder replacement
Right shoulder replacement
Catheter extraction
Assessment and plan:
Progressive shortness of breath over time, suspect due to hyperinflation-lung function decline with aging on top of her severe COPD.
Possibly currently acute exacerbation.
CT chest noted: No acute infiltrates. Noted hyperinflation and emphysema.
Echocardiogram noted: Normal LVEF. Diastolic dysfunction without pulmonary hypertension.
Does not appear volume overloaded
-
Would recommend transition to nebulized therapy as a trial instead of inhalers. DuoNebs/Pulmicort-for better delivery of medication.
Patient has a nebulizer at home.
Whether she is a candidate for lung volume reduction/either surgical or bronchoscopic is not clear at this point. No full PFTs available. Patient was referred to [facility] by her primary orthotic assistant.
Definitely not a candidate for transplant due to age limitation
Pulmonary rehabilitation recommended if not performed in the past.
-
Continue with IV corticosteroids with a slow taper. Continue to taper tomorrow.
Continue mucolytic's
Continue low-dose azithromycin for anti-inflammatory properties.
-
Patient stated that she was told by Dr. Hills on the possibly she had asthma. They were discussing biologic therapy.
There is no peripheral eosinophilia on laboratory testing here.
-
Some of the cardiac medications also associated with shortness of breath including metoprolol and flecainide. This will need to be revisited in the outpatient setting.
-
Weight loss recommended.
Obstructive sleep apnea: Not on CPAP therapy. She was told it was not needed in the past.
-
Will continue to follow.
Extensive discussion with patient explaining plan as above.
Subjective Data
-
Date of Service:
Date of Service: June 04, 2023
Chief Complaint: Pulmonary Follow Up (Shortness of breath/COPD with exacerbation)
Subjective:
Continues to report exertional dyspnea
No significant phlegm production
No significant hemoptysis
Her weight has been stable
Review of Systems
General: Fever (n)
Cardiopulmonary: Dyspnea, Dyspnea on Exertion, Cough, Sputum Production (n) and Wheezing (n)
GI: Abdominal Pain (n)
Objective Data
Data Reviewed
Vital Signs / I&O / Oxygen:
Vital Signs
Temp Pulse Resp BP Pulse Ox
97.8 F 76 24 139/55 94
06/04/23 15:35 06/04/23 15:35 06/04/23 15:35 06/04/23 15:35 06/04/23 15:35
Intake and Output
06/03/23 06/04/23 06/05/23
06:59 06:59 06:59
Intake Total 0 / 0 1200 / 1200
Balance 0 / 0 1200 / 1200
SaO2 94
Nasal Cannula flow liters per 1.5
minute
Physical Exam
General: Respiratory Distress (none at rest)
HEENT: Normocephalic
Cardiovascular: S1-S2 and Regular Rhythm
Respiratory: Other (Prolonged expiratory phase.)
GI: Soft and Non Distended
Neurology: Awake, Alert and AO x 3
Skin: Warm
Labs/Micro/Reports
Lab Data
06/04/23 06:55
06/04/23 06:55
Microbiology
06/02/23 13:20 Blood/Venous Blood Culture - Preliminary
No Growth in 48 hours- Final report to follow
06/02/23 20:54 Sputum Respiratory Culture - Preliminary
Usual Respiratory Marta
06/02/23 20:54 Sputum Gram Stain - Preliminary
06/02/23 15:15 Blood/Venous Blood Culture - Preliminary
No Growth in 24 hours- Final report to follow
06/02/23 13:27 Nasal Swab Influenza Types A & B (SOY) - Final
Negative for Influenza A & B, NAAT
Negative results must be combined with clinical observations
and patient history.
Nucleic Acid Amplification test (NAAT)performed on the
[email or web address] platform.
--- NOTE | 2023-06-04 15:58 | PTCARENOTE ---
Pt AAO x3, DAS well, OOB to chair, ambulatory to BR without assistance. VSS. Telemetry:NSR. On nc 2 lpm- pulse ox 94%, pt with (+) LYNN/tachypnea; occ dry, non-productive cough. Abd soft, tal PO well. Voids in BR without difficulty. Resting in
bed at present, no c/o. Will continue to monitor.
[2023-06-04] MEDS: LIPITOR 40 MG PO (17:44)
[2023-06-04] MEDS: LOVENOX 40 MG SC (17:44)
[2023-06-04 19:55] VITALS: BP 133/60
[2023-06-04 23:55] VITALS: BP 130/64
[2023-06-05] VITALS (7 sets, daily range): BP systolic 102–153; BP diastolic 62–105; BMI 25.5
[2023-06-05] MEDS: FLUSH (NSS) 1 FLUSH IV (02:04)
[2023-06-05] MEDS: DECADRON 4 MG IV ×2 (02:04→09:00)
[2023-06-05] MEDS: PULMICORT 0.5 MG INH ×2 (07:05→19:22)
[2023-06-05] MEDS: DUONEB 3 ML INH ×3 (07:05→19:22)
[2023-06-05 08:26] LABS: % Immature Granulocytes 0.5 % (0-0.5); % Lymphocytes 8.1 % (20.5-51.1); % Monocytes 2.8 % (1.7-9.3); % Neutrophils 88.6 % (42.2-75.2); Absolute Lymphocytes 0.7 10^3/uL (1.2-3.4); Absolute Monocytes 0.3 10^3/uL (0.1-0.6); Absolute Neutrophils 7.8 10^3/uL (1.4-6.5); Hematocrit 36.7 % (37.0-47.0); Hemoglobin 11.9 g/dL (12.0-16.0); Mean Corp Hgb Conc. 32.4 g/dL (33.0-37.0); Mean Corpuscular Volume 89.3 fL (81.0-99.0); Mean Platelet Volume 9.3 fL (7.4-10.4); Nucleated Red Blood Cells % 0 %; Platelet Count 307 10^3/uL (130-400); Red Blood Cell Count 4.11 10^6/uL (4.20-5.40); Red Cell Dist. Width 14.5 % (11.5-14.5); White Blood Cell Count 8.8 10^3/uL (4.8-10.8)
[2023-06-05 08:55] LABS: Blood Urea Nitrogen 30 mg/dl (7-17); Calcium 9.7 mg/dl (8.4-10.2); Carbon Dioxide 29 mmol/L (22-30); Chloride 104 mmol/L (98-107); Estimated Creatinine Clearance 36 ml/min; Glucose 133 mg/dl (70-99); Sodium 136 mmol/L (135-145); eGFR 51.43
[2023-06-05] MEDS: TOPROL XL 12.5 MG PO (08:59)
[2023-06-05] MEDS: MUCINEX 1200 MG PO ×2 (08:59→19:53)
[2023-06-05] MEDS: LEXAPRO 10 MG PO (09:00)
[2023-06-05] MEDS: PLAVIX 75 MG PO (09:00)
[2023-06-05] MEDS: ASPIR LOW (ENTERIC COATED) 81 MG PO (09:00)
[2023-06-05] MEDS: TAMBOCOR 50 MG PO ×2 (09:00→19:54)
[2023-06-05] MEDS: PROTONIX 40 MG PO (09:04)
--- NOTE | 2023-06-05 10:10 | CM ---
Patient seen bedside. Referral sent to [facility] for return of care. CM will continue to follow for discharge planning needs.
Plan; home with [facility] VN when stable.
[2023-06-05] MEDS: VENTOLIN NEBULES 2.5 MG INH (11:24)
--- NOTE | 2023-06-05 11:30 | W.PN.HOSP.TC ---
Today's Communication/Plan
-
Monitor vital signs
See plan
Now on 5 L; wean o2 as tolerated
Lasix
Continue with steroids, nebs
Check BNP
bladder scan
Assessment / Plan
Assessment / Plan
General:�Appears in respiratory distress
HEENT:�NormoCephalic, Anicteric, Oxygen
Respiratory:�Wheezes (expiratory) and Decreased Breath Sounds
Cardiac:�S1/S2 and Regular Rhythm
GI:�Soft, Non Tender, Non Distended, Normal Bowel Sounds
Genito-urinary:�no lake
Musculoskeletal:� No Edema
Neuro:�AO x 3, No Motor Deficits, Nonfocal/grossly intact
Psych:�Calm
Acute on chronic COPD exacerbation on chronic 3 L nasal cannula as needed
Acute on chronic hypoxic respiratory failure secondary to above
#Ex-smoker 56 years 1 pack a day quit 2017
-COVID-negative
-Continue DuoNebs scheduled and as needed
was on trelegy at home; now switching inhaler to nebulizer. Currently on Pulmicort
-On chronic azithromycin 250 mg Friday
-Sputum culture
-Pulmonary following
appears more sob today; this morning now put on 5L; trial of lasix
-cw decadron
-Patient follows with Dr. Hills at [facility]
-2D echo 06/03 with EF 70 to 75%, stage II diastolic dysfunction
�� � � CXR: No acute cardiopulmonary disease
#Hypokalemia
Improved
#Sleep apnea Hx
-Used to be on BiPAP several years ago states had additional study years ago no longer needed
-?� Repeat outpatient sleep study, per patient she was told that she does not have sleep apnea anymore
Sandy
monitor
bladder scan
#A-fib�paroxysmal
#Watchman device 02/24/2023
-Continue flecainide, aspirin, Plavix
#CAD
#Cardiac stents 09/2002
-Continue aspirin, statin, metoprolol
#Chronic diastolic CHF�no acute exacerbation
I/O, daily weight
-hold spironolactone, hold prn lasix; gave 1 dose lasix 06/03,. Follow clinically
Check BNP
#Depression/anxiety
Continue Lexapro
#PAD status post fem-femo bypass
#GERD
#Pill esophagitis Hx
- start protonix 40 mg daily
Other PMH:
�arthritis
�DJD
dvt proph
Sq lovenox
DNR
Anticipated Discharge: > 48 hours
Subjective/Interval History
-
Date of Service: June 05, 2023
Shortness of breath right
Objective Data
-
Labs:
Laboratory Results
06/05/23
07:48
WBC 8.8
Hgb 11.9 L
Hct 36.7 L
Plt Count 307
Sodium 136
Potassium 5.0
Chloride 104
Carbon Dioxide 29
BUN 30 H
Creatinine 1.1 H
Glucose 133 H
Calcium 9.7
Vital Signs:
Vital Signs
Temp Pulse Resp BP Pulse Ox
97.7 F 88 22 145/68 97
06/05/23 07:00 06/05/23 11:26 06/05/23 11:26 06/05/23 08:59 06/05/23 11:26
I&O
06/04/23 06/05/23 06/06/23
06:59 06:59 06:59
Intake Total 1200 / 1200 1090 / 1090
Balance 1200 / 1200 1090 / 1090
[2023-06-05] MEDS: LASIX 20 MG PO (12:00)
[2023-06-05 12:55] LABS: NT-proBNP 610 pg/ml
--- NOTE | 2023-06-05 14:31 | W.PN.PUL3 ---
Today's Communication / Plan
-
Transition to prednisone and observe.
Continue nebulizer therapy
So far no evidence of acute abnormalities.
Continue oxygen supplementation-97% on 5 L. Decrease back to 3 to 4 L which is baseline.
Trial of Lasix per primary team, noted proBNP not significantly elevated.
Assessment
-
Worsening shortness of breath-over time.
CT chest: Reviewed: Showed heterogeneous severe emphysema/stable left upper lobe lung nodule. No evidence for pulmonary embolism.
Acute exacerbation of COPD
Chronic shortness of breath-worsening over time due to COPD and hyperinflation
9 mm NINFA lung nodule stable on 06/02/2023
-
ECHO:
Normal left ventricular chamber size. Normal left ventricular wall thickness.�
�Hyperdynamic left ventricular systolic function. Normal regional wall motion..
�LV ejection fraction is 70-75% by visual assessment. Stage II diastolic
�dysfunction suggestive of abnormal relaxation and increased filling pressures.
�Normal right ventricular size and function.
�Mildly dilated left atrium
�Mild mitral regurgitation.
-
Conditions present prior admission:
Former smoker [id number] history quit in 2017
Severe COPD on 3L NC
Trelegy
Frequent respiratory infection - on Low dose Azithromycin.
Chronic hypoxemic respiratory failure
Frequent exacerbator
Hypertension
Hyperlipidemia
Obstructive sleep apnea- not on CPAP
Peripheral arterial disease with femorofemoral bypass
GERD
DJD
Anxiety depression
Pill esophagitis
Atrial fibrillation-paroxysmal
Coronary Artery disease with a stent in September 2002
Surgical history:
Cardiac stent September 2002
Watchman device 02/2023
Femoral-femoral bypass 2003
Hysterectomy
Left shoulder replacement
Right shoulder replacement
Catheter extraction
Assessment and plan:
Progressive shortness of breath over time, suspect due to hyperinflation-lung function decline with aging on top of her severe COPD.
Possibly currently acute exacerbation.
Continues to report shortness of breath. She states that worse than her baseline.
Reports some difficulty expectorating.
-
CT chest noted: No acute infiltrates. Noted hyperinflation and emphysema.
Echocardiogram noted: 06/03/2023, normal LVEF. Diastolic dysfunction without pulmonary hypertension. Stage II diastolic dysfunction.
proBNP not significantly elevated. 06/05/2023
Does not appear volume overloaded
No significant anemia on CBC.
-
From COPD perspective: Lung exam with prolonged expiratory phase, no wheezing.06/05/2023
Transitioned to nebulized therapy: She will continue after discharge. DuoNebs/Pulmicort-for better delivery of medication.
Patient has a nebulizer at home.
Whether she is a candidate for lung volume reduction/either surgical or bronchoscopic is not clear at this point. No full PFTs available. Patient was referred to [facility] by her primary freight service inspector.
Definitely not a candidate for transplant due to age limitation
Pulmonary rehabilitation recommended if not performed in the past.
-
Transition to prednisone 40 mg 06/05/2023, decrease by 10 mg every 72 hours to off. If there is worsening then we will transition back to IV corticosteroids.
Continue mucolytic's
Continue low-dose azithromycin for anti-inflammatory properties.
-
Continue oxygen supplementation usually up to 3-4 L. Earlier today increased to 5 while going to the bathroom developed significant shortness of breath.
Trial of diuretics per primary team
Will obtain a blood gas, evaluate for hypercapnia, doubt. RA in AM
-
Patient stated that she was told by Dr. Hills on the possibly she had asthma. They were discussing biologic therapy.
There is no peripheral eosinophilia on laboratory testing here.
-
Some of the cardiac medications also associated with shortness of breath including metoprolol and flecainide. This will need to be revisited in the outpatient setting. Follows up with cardiology at [facility].
-
Patient was encouraged to engage in physical therapy. She declined to shortness of breath.
-
Weight loss recommended.
Obstructive sleep apnea: Not on CPAP therapy. She was told it was not needed in the past.
-
Will continue to follow.
Extensive discussion with patient explaining plan as above.
-
Dr. Norton updated daughter over the phone extensively.>15 minutes.
Subjective Data
-
Date of Service:
Date of Service: June 05, 2023
Chief Complaint: Pulmonary Follow Up (Shortness of breath/COPD with exacerbation)
Subjective:
Chronic shortness of breath ongoing
No new symptoms
Denies chest pain palpitations
Review of Systems
General: Fever (n)
Cardiopulmonary: Dyspnea, Dyspnea on Exertion, Cough (n) and Sputum Production (n)
GI: Abdominal Pain (n) and Nausea (n)
Objective Data
Data Reviewed
Vital Signs / I&O / Oxygen:
Vital Signs
Temp Pulse Resp BP Pulse Ox
98 F 88 22 148/73 97
06/05/23 11:00 06/05/23 12:00 06/05/23 11:26 06/05/23 12:00 06/05/23 13:01
Intake and Output
06/04/23 06/05/23 06/06/23
06:59 06:59 06:59
Intake Total 1200 / 1200 1090 / 1090
Balance 1200 / 1200 1090 / 1090
SaO2 97
Nasal Cannula flow liters per 5
minute
Physical Exam
General: Respiratory Distress (none at rest)
HEENT: Normocephalic
Cardiovascular: S1-S2 and Regular Rhythm
Respiratory: Other (Prolonged expiratory phase.)
GI: Soft and Non Distended
Neurology: Awake, Alert and AO x 3
Skin: Warm
Labs/Micro/Reports
Lab Data
06/05/23 07:48
06/05/23 07:48
Microbiology
06/02/23 20:54 Sputum Respiratory Culture - Final
Usual Respiratory Marta
06/02/23 20:54 Sputum Gram Stain - Final
06/02/23 15:15 Blood/Venous Blood Culture - Preliminary
No Growth in 48 hours- Final report to follow
06/02/23 13:20 Blood/Venous Blood Culture - Preliminary
No Growth in 48 hours- Final report to follow
06/02/23 13:27 Nasal Swab Influenza Types A & B (SOY) - Final
Negative for Influenza A & B, NAAT
Negative results must be combined with clinical observations
and patient history.
Nucleic Acid Amplification test (NAAT)performed on the
[employer] platform.
[2023-06-05] MEDS: DUONEB INH ×2 (15:04→15:24)
[2023-06-05] MEDS: LOVENOX 40 MG SC (17:02)
[2023-06-05] MEDS: LIPITOR 40 MG PO (17:03)
[2023-06-06] VITALS (7 sets, daily range): BP systolic 113–148; BP diastolic 56–97; PULSE 90; O2SAT 92; BMI 25.2
[2023-06-06] MEDS: VENTOLIN NEBULES 2.5 MG INH (04:10)
[2023-06-06] MEDS: DUONEB 3 ML INH ×4 (07:17→20:10)
[2023-06-06] MEDS: PULMICORT 0.5 MG INH ×2 (07:17→20:10)
[2023-06-06 08:25] LABS: % Basophils 0.1 % (0-2); % Eosinophils 0.2 % (0-6); % Immature Granulocytes 0.8 % (0-0.5); % Lymphocytes 15.3 % (20.5-51.1); % Monocytes 4.9 % (1.7-9.3); % Neutrophils 78.7 % (42.2-75.2); Absolute Immature Granulocytes 0.1 10^3/uL (0-0.05); Absolute Lymphocytes 1.6 10^3/uL (1.2-3.4); Absolute Monocytes 0.5 10^3/uL (0.1-0.6); Hematocrit 35.3 % (37.0-47.0); Hemoglobin 11.7 g/dL (12.0-16.0); Mean Corp Hgb Conc. 33.1 g/dL (33.0-37.0); Mean Corpuscular Hgb 29.3 pg (27.0-31.0); Mean Corpuscular Volume 88.3 fL (81.0-99.0); Mean Platelet Volume 9.3 fL (7.4-10.4); Nucleated Red Blood Cells % 0 %; Platelet Count 310 10^3/uL (130-400); Red Cell Dist. Width 14.5 % (11.5-14.5); White Blood Cell Count 10.1 10^3/uL (4.8-10.8)
[2023-06-06] MEDS: ASPIR LOW (ENTERIC COATED) 81 MG PO (08:33)
[2023-06-06] MEDS: PLAVIX 75 MG PO (08:33)
[2023-06-06] MEDS: LEXAPRO 10 MG PO (08:33)
[2023-06-06] MEDS: ZITHROMAX 250 MG PO (08:33)
[2023-06-06] MEDS: TAMBOCOR 50 MG PO ×2 (08:34→20:32)
[2023-06-06] MEDS: DELTASONE 40 MG PO (08:34)
[2023-06-06] MEDS: MUCINEX 1200 MG PO ×2 (08:34→20:32)
[2023-06-06] MEDS: TOPROL XL 12.5 MG PO (08:34)
[2023-06-06] MEDS: PROTONIX 40 MG PO (08:34)
[2023-06-06 08:51] LABS: Blood Urea Nitrogen 34 mg/dl (7-17); Calcium 9.8 mg/dl (8.4-10.2); Carbon Dioxide 31 mmol/L (22-30); Chloride 99 mmol/L (98-107); Estimated Creatinine Clearance 33 ml/min; Glucose 94 mg/dl (70-99); Potassium 3.5 mmol/L (3.5-5.1); Sodium 136 mmol/L (135-145); eGFR 46.33
--- NOTE | 2023-06-06 11:40 | W.PN.HOSP.TC ---
Today's Communication/Plan
-
monitor vitals
see plan
still with sob;on 5L; wean as tolerated
pulm following
UA
pt/ot
Assessment / Plan
Assessment / Plan
General:�no acute distress
HEENT:�NormoCephalic, Anicteric, Oxygen
Respiratory:�mild Wheezes and Decreased Breath Sounds
Cardiac:�S1/S2 and Regular Rhythm
GI:�Soft, Non Tender, Non Distended, Normal Bowel Sounds
Genito-urinary:�no lake
Musculoskeletal:� No Edema
Neuro:�AO x 3, No Motor Deficits, Nonfocal/grossly intact
Psych:�Calm
Acute on chronic COPD exacerbation on chronic 3 L nasal cannula as needed
Acute on chronic hypoxic respiratory failure secondary to above
#Ex-smoker 56 years 1 pack a day quit 2017
-COVID-negative
-Continue DuoNebs scheduled and as needed
was on trelegy at home; now switching inhaler to nebulizer. Currently on Pulmicort
-On chronic azithromycin 250 mg Friday
-Sputum culture
-Pulmonary following
still has sob; on 5L; wean as tolerated
-decadron changed to prednisone
-Patient follows with Dr. Hills at [facility]
-2D echo 06/03 with EF 70 to 75%, stage II diastolic dysfunction
�� � � CXR: No acute cardiopulmonary disease
vest therapy
#Hypokalemia
Improved
#Sleep apnea Hx
-Used to be on BiPAP several years ago states had additional study years ago no longer needed
-?� Repeat outpatient sleep study, per patient she was told that she does not have sleep apnea anymore
Sandy
monitor
bladder scan
check UA
#A-fib�paroxysmal
#Watchman device 02/24/2023
-Continue flecainide, aspirin, Plavix
#CAD
#Cardiac stents 09/2002
-Continue aspirin, statin, metoprolol
#Chronic diastolic CHF�no acute exacerbation
I/O, daily weight
-hold spironolactone, hold prn lasix; gave 1 dose lasix 06/03,. Follow clinically
Check BNP not significant; hold furhter lasix
#Depression/anxiety
Continue Lexapro
#PAD status post fem-femo bypass
#GERD
#Pill esophagitis Hx
- start protonix 40 mg daily
Other PMH:
�arthritis
�DJD
dvt proph
Sq lovenox
DNR
Anticipated Discharge: 24 - 48 hours
Subjective/Interval History
-
Date of Service: June 06, 2023
denies pain
Objective Data
-
Labs:
Laboratory Results
06/06/23
07:50
WBC 10.1
Hgb 11.7 L
Hct 35.3 L
Plt Count 310
Sodium 136
Potassium 3.5 D
Chloride 99
Carbon Dioxide 31 H
BUN 34 H
Creatinine 1.2 H
Glucose 94
Calcium 9.8
Vital Signs:
Vital Signs
Temp Pulse Resp BP Pulse Ox
97.6 F 90 18 123/90 93
06/06/23 11:28 06/06/23 11:33 06/06/23 11:33 06/06/23 11:28 06/06/23 11:28
I&O
06/05/23 06/06/23 06/07/23
06:59 06:59 06:59
Intake Total 1090 / 1090 1440 / 1440
Balance 1090 / 1090 1440 / 1440
[2023-06-06 14:09] LABS: Urine Albumin Trace (Neg - Trace); Urine Bilirubin Negative (Negative); Urine Character Clear (Clear); Urine Color Yellow; Urine Glucose Negative (Negative); Urine Ketone Negative (Negative); Urine Leukocyte Negative (Negative); Urine Nitrite Negative (Negative); Urine Occult Blood Negative (Negative); Urine Urobilinogen Negative (Neg - 1+)
--- NOTE | 2023-06-06 14:28 | W.PN.PUL3 ---
Today's Communication / Plan
-
Continue with maximal medical therapy for COPD
Physical therapy/Occupational Therapy
Taper prednisone
Eventual follow-up with her oracle analyst Dr. Hills
Assessment
-
77-year-old woman with COPD/emphysema on chronic oxygen therapy. Came to the hospital complaining of shortness of breath. Symptoms have been progressive over time. She sees a oracle analyst at [facility] and supervisor engine repair at [facility].
She underwent a Watchman procedure, started on flecainide last year.
We were consulted for evaluation of her shortness of breath.
Worsening shortness of breath-over time. Suspect progressive COPD/deconditioning.
CT chest: Reviewed: Showed heterogeneous severe emphysema/stable left upper lobe lung nodule. No evidence for pulmonary embolism.
Acute exacerbation of COPD
Chronic shortness of breath-worsening over time due to COPD and hyperinflation
9 mm NINFA lung nodule stable on 06/02/2023
-
ECHO:
Normal left ventricular chamber size. Normal left ventricular wall thickness.�
�Hyperdynamic left ventricular systolic function. Normal regional wall motion..
�LV ejection fraction is 70-75% by visual assessment. Stage II diastolic
�dysfunction suggestive of abnormal relaxation and increased filling pressures.
�Normal right ventricular size and function.
�Mildly dilated left atrium
�Mild mitral regurgitation.
-
Conditions present prior admission:
Former smoker [id number] history quit in 2018
Severe COPD on 3L NC
Trelegy
Frequent respiratory infection - on Low dose Azithromycin.
Chronic hypoxemic respiratory failure
Frequent exacerbator
Hypertension
Hyperlipidemia
Obstructive sleep apnea- not on CPAP
Peripheral arterial disease with femorofemoral bypass
GERD
DJD
Anxiety depression
Pill esophagitis
Atrial fibrillation-paroxysmal
Coronary Artery disease with a stent in September 2002
Surgical history:
Cardiac stent September 2002
Watchman device 02/2023
Femoral-femoral bypass 2003
Hysterectomy
Left shoulder replacement
Right shoulder replacement
Catheter extraction
Assessment and plan:
Progressive shortness of breath over time, suspect due to hyperinflation-lung function decline with aging on top of her severe COPD.
No strong evidence for acute exacerbation. Has remained on steroids since admission.
Reports some difficulty expectorating.
-
Workup so far unrevealing.
CT chest noted: No acute infiltrates. Noted hyperinflation and emphysema.
Echocardiogram noted: 06/03/2023, normal LVEF. Diastolic dysfunction without pulmonary hypertension. Stage II diastolic dysfunction.
proBNP not significantly elevated. 06/05/2023
Does not appear volume overloaded
No significant anemia on CBC.
-
From COPD perspective: Lung exam with prolonged expiratory phase, no wheezing.
on maximal medical therapy.
Transitioned to nebulized therapy: She will continue after discharge. DuoNebs/Pulmicort-for better delivery of medication.
Patient has a nebulizer at home.
Whether she is a candidate for lung volume reduction/either surgical or bronchoscopic is not clear at this point. No full PFTs available. Patient was referred to [facility] by her primary oracle analyst.
Definitely not a candidate for transplant due to age limitation
Pulmonary rehabilitation recommended if not performed in the past.
-
Transitioned to prednisone 40 mg 06/05/2023, decrease by 10 mg every 72 hours to off. If there is worsening then we will transition back to IV corticosteroids.
Continue mucolytic's
Continue low-dose azithromycin for anti-inflammatory properties. Was taking in the outpatient setting)(
-
Continue oxygen supplementation usually up to 3-4 L. Currently on 5 L. Wean down as able.
Trial of diuretics per primary team-no good response at this point.
No evidence for hypercapnia.
-
Patient stated that she was told by Dr. Hills on the possibly she had asthma. They were discussing biologic therapy.
There is no peripheral eosinophilia on laboratory testing here.
-
Some of the cardiac medications also associated with shortness of breath including metoprolol and flecainide. This will need to be revisited in the outpatient setting. Follows up with cardiology at [facility].
-
Patient was encouraged to engage in physical therapy. She declined to shortness of breath.
-
Weight loss recommended.
Obstructive sleep apnea: Not on CPAP therapy. She was told it was not needed in the past.
-
I agree with physical therapy and Occupational Therapy. Patient has been declining due to shortness of breath.
-
Dr. Norton updated daughter over the phone extensively.>15 minutes. On 06/06/2023.
-
Patient was explained that so far no evidence for acute abnormalities. Suspect progressive shortness of breath is mainly due to lung function decline over the years and deconditioning.
Advised her to also make an appointment with her supervisor engine repair upon discharge.
Hopefully can be discharged in the next 24 to 48 hours.
Subjective Data
-
Date of Service:
Date of Service: June 06, 2023
Chief Complaint: Pulmonary Follow Up (Shortness of breath/COPD with exacerbation)
Subjective:
Continues to report exertional dyspnea
No significant phlegm production, feels that at times has difficulty expectorating
Denies back pain or chest pain.
No significant leg edema
Review of Systems
Cardiopulmonary: Dyspnea, Dyspnea on Exertion, Cough, Sputum Production (n) and Wheezing (n low)
GI: Abdominal Pain (n) and Nausea (n)
Objective Data
Data Reviewed
Vital Signs / I&O / Oxygen:
Vital Signs
Temp Pulse Resp BP Pulse Ox
97.6 F 90 18 123/90 93
06/06/23 11:28 06/06/23 11:33 06/06/23 11:33 06/06/23 11:28 06/06/23 11:28
Intake and Output
06/05/23 06/06/2306/06/24
06:59 06:59 06:59
Intake Total 1090 / 1090 1440 / 1440
Balance 1090 / 1090 1440 / 1440
SaO2 93
Nasal Cannula flow liters per 5
minute
Physical Exam
General: Respiratory Distress (none at rest)
HEENT: Normocephalic
Cardiovascular: S1-S2 and Regular Rhythm
Respiratory: Other (Prolonged expiratory phase.)
GI: Soft and Non Distended
Neurology: Awake, Alert and AO x 3
Skin: Warm
Labs/Micro/Reports
Lab Data
06/06/23 07:50
06/06/23 07:50
Microbiology
06/02/23 15:15 Blood/Venous Blood Culture - Preliminary
No Growth in 72 hours- Final report to follow
06/02/23 13:20 Blood/Venous Blood Culture - Preliminary
No Growth in 72 hours- Final report to follow
06/02/23 20:54 Sputum Respiratory Culture - Final
Usual Respiratory Marta
06/02/23 20:54 Sputum Gram Stain - Final
--- NOTE | 2023-06-06 15:19 | CM ---
Chart reviewed
Cont to wean oxygen - now 3L
Known to Jennifer - referral for resumption of service accepted in [facility]
Plan - Jennifer to follow, monitor for home O2 needs
Jennifer -
[2023-06-06] MEDS: LIPITOR 40 MG PO (17:41)
[2023-06-06] MEDS: LOVENOX 40 MG SC (17:41)
[2023-06-07 03:58] VITALS: BP 127/57
[2023-06-07 06:00] VITALS: BMI 25.4
[2023-06-07] MEDS: DUONEB 3 ML INH ×4 (07:56→19:39)
[2023-06-07] MEDS: PULMICORT 0.5 MG INH ×2 (07:56→19:39)
[2023-06-07 07:59] VITALS: BP 116/53
[2023-06-07 08:16] LABS: % Basophils 0.1 % (0-2); % Eosinophils 0.5 % (0-6); % Lymphocytes 13.3 % (20.5-51.1); % Monocytes 3.8 % (1.7-9.3); % Neutrophils 81.3 % (42.2-75.2); Absolute Immature Granulocytes 0.1 10^3/uL (0-0.05); Absolute Lymphocytes 1.2 10^3/uL (1.2-3.4); Absolute Monocytes 0.3 10^3/uL (0.1-0.6); Absolute Neutrophils 7.2 10^3/uL (1.4-6.5); Hematocrit 33.9 % (37.0-47.0); Mean Corp Hgb Conc. 32.4 g/dL (33.0-37.0); Mean Corpuscular Hgb 28.9 pg (27.0-31.0); Mean Corpuscular Volume 89.2 fL (81.0-99.0); Mean Platelet Volume 9.7 fL (7.4-10.4); Nucleated Red Blood Cells % 0 %; Platelet Count 290 10^3/uL (130-400); Red Cell Dist. Width 14.5 % (11.5-14.5); White Blood Cell Count 8.9 10^3/uL (4.8-10.8)
[2023-06-07] MEDS: PLAVIX 75 MG PO (08:47)
[2023-06-07] MEDS: LEXAPRO 10 MG PO (08:47)
[2023-06-07] MEDS: DELTASONE 40 MG PO (08:47)
[2023-06-07] MEDS: TAMBOCOR 50 MG PO ×2 (08:48→20:09)
[2023-06-07] MEDS: TOPROL XL 12.5 MG PO (08:48)
[2023-06-07] MEDS: ASPIR LOW (ENTERIC COATED) 81 MG PO (08:48)
[2023-06-07] MEDS: MUCINEX 1200 MG PO ×2 (08:48→20:09)
[2023-06-07] MEDS: PROTONIX 40 MG PO (08:48)
[2023-06-07 10:15] LABS: Blood Urea Nitrogen 30 mg/dl (7-17); Calcium 9.6 mg/dl (8.4-10.2); Carbon Dioxide 27 mmol/L (22-30); Chloride 104 mmol/L (98-107); Estimated Creatinine Clearance 33 ml/min; Glucose 90 mg/dl (70-99); Potassium 4.9 mmol/L (3.5-5.1); Sodium 136 mmol/L (135-145); eGFR 46.33
--- NOTE | 2023-06-07 11:38 | W.PN.HOSP.TC ---
Today's Communication/Plan
-
Monitor vitals
See plan
Monitor renal function
Continue with prednisone
nebs
Wean oxygen as tolerated
Assessment / Plan
Assessment / Plan
General:�no acute distress
HEENT:�NormoCephalic, Anicteric, Oxygen
Respiratory:�mild Wheezes and Decreased Breath Sounds
Cardiac:�S1/S2 and Regular Rhythm
GI:�Soft, Non Tender, Non Distended, Normal Bowel Sounds
Genito-urinary:�no lake
Musculoskeletal:� No Edema
Neuro:�AO x 3, No Motor Deficits, Nonfocal/grossly intact
Psych:�Calm
Acute on chronic COPD exacerbation on chronic 3 L nasal cannula as needed
Acute on chronic hypoxic respiratory failure secondary to above
#Ex-smoker 56 years 1 pack a day quit 2017
-COVID-negative
-Continue DuoNebs scheduled and as needed
was on trelegy at home; now switching inhaler to nebulizer. Currently on Pulmicort
-On chronic azithromycin 250 mg Friday
-Sputum culture
-Pulmonary following
still has sob; on 5L; wean as tolerated
-decadron changed to prednisone
-Patient follows with Dr. Hills at [facility]
-2D echo 06/03 with EF 70 to 75%, stage II diastolic dysfunction
�� � � CXR: No acute cardiopulmonary disease
vest therapy
#Hypokalemia
Improved
#Sleep apnea Hx
-Used to be on BiPAP several years ago states had additional study years ago no longer needed
-?� Repeat outpatient sleep study, per patient she was told that she does not have sleep apnea anymore
Sandy
monitor
bladder scan
check UA wnl
#A-fib�paroxysmal
#Watchman device 02/24/2023
-Continue flecainide, aspirin, Plavix
#CAD
#Cardiac stents 09/2002
-Continue aspirin, statin, metoprolol
#Chronic diastolic CHF�no acute exacerbation
I/O, daily weight
-hold spironolactone, hold prn lasix; gave 1 dose lasix 06/03,. Follow clinically
Check BNP not significant; hold furhter lasix
#Depression/anxiety
Continue Lexapro
#PAD status post fem-femo bypass
#GERD
#Pill esophagitis Hx
- start protonix 40 mg daily
Other PMH:
�arthritis
�DJD
dvt proph
Sq lovenox
DNR
Anticipated Discharge: Within 24 hours
Subjective/Interval History
-
Date of Service: June 07, 2023
feeling little better today
Objective Data
-
Labs:
Laboratory Results
06/07/23
07:34
WBC 8.9
Hgb 11.0 L
Hct 33.9 L
Plt Count 290
Sodium 136
Potassium 4.9 D
Chloride 104
Carbon Dioxide 27
BUN 30 H
Creatinine 1.2 H
Glucose 90
Calcium 9.6
Vital Signs:
Vital Signs
Temp Pulse Resp BP Pulse Ox
97.9 F 91 18 116/53 94
06/07/23 07:59 06/07/23 11:36 06/07/23 11:36 06/07/23 07:59 06/07/23 11:36
I&O
06/06/23 06/07/23 06/08/23
06:59 06:59 06:59
Intake Total 1440 / 1440
Output Total 580 / 580
Balance 1440 / 1440 -580 / -580
[2023-06-07 11:43] VITALS: BP 110/50
[2023-06-07 15:34] VITALS: BP 128/61
[2023-06-07] MEDS: LIPITOR 40 MG PO (17:18)
[2023-06-07] MEDS: LOVENOX 40 MG SC (17:18)
--- NOTE | 2023-06-07 17:20 | W.PN.PUL3 ---
Today's Communication / Plan
-
Continue with maximal medical therapy for COPD
Physical therapy/Occupational Therapy
Taper prednisone
Eventual follow-up with her tombstone polisher Dr. Hills
Assessment
-
77-year-old woman with COPD/emphysema on chronic oxygen therapy. Came to the hospital complaining of shortness of breath. Symptoms have been progressive over time. She sees a tombstone polisher at [facility] and sulfate drier machine operator at [facility].
She underwent a Watchman procedure, started on flecainide last year.
We were consulted for evaluation of her shortness of breath.
Worsening shortness of breath-over time. Suspect progressive COPD/deconditioning.
CT chest: Reviewed: Showed heterogeneous severe emphysema/stable left upper lobe lung nodule. No evidence for pulmonary embolism.
Acute exacerbation of COPD
Chronic shortness of breath-worsening over time due to COPD and hyperinflation
9 mm NINFA lung nodule stable on 06/02/2023
-
ECHO:
Normal left ventricular chamber size. Normal left ventricular wall thickness.�
�Hyperdynamic left ventricular systolic function. Normal regional wall motion..
�LV ejection fraction is 70-75% by visual assessment. Stage II diastolic
�dysfunction suggestive of abnormal relaxation and increased filling pressures.
�Normal right ventricular size and function.
�Mildly dilated left atrium
�Mild mitral regurgitation.
-
Conditions present prior admission:
Former smoker [id number] history quit in 2018
Severe COPD on 3L NC
Trelegy
Frequent respiratory infection - on Low dose Azithromycin.
Chronic hypoxemic respiratory failure
Frequent exacerbator
Hypertension
Hyperlipidemia
Obstructive sleep apnea- not on CPAP
Peripheral arterial disease with femorofemoral bypass
GERD
DJD
Anxiety depression
Pill esophagitis
Atrial fibrillation-paroxysmal
Coronary Artery disease with a stent in September 2002
Surgical history:
Cardiac stent September 2002
Watchman device 02/2023
Femoral-femoral bypass 2003
Hysterectomy
Left shoulder replacement
Right shoulder replacement
Catheter extraction
Assessment and plan:
Progressive shortness of breath over time, suspect due to hyperinflation-lung function decline with aging on top of her severe COPD.
Has remained on steroids since admission.
Reports some difficulty expectorating.
-
Workup so far unrevealing.
CT chest noted: No acute infiltrates. Noted hyperinflation and emphysema.
Echocardiogram noted: 06/03/2023, normal LVEF. Diastolic dysfunction without pulmonary hypertension. Stage II diastolic dysfunction.
proBNP not significantly elevated. 06/05/2023
Does not appear volume overloaded
No significant anemia on CBC.
-
From COPD perspective: Lung exam with prolonged expiratory phase, no wheezing.
on maximal medical therapy.
Transitioned to nebulized therapy: She will continue after discharge. Kendra/Pulmicort-for better delivery of medication.
Patient has a nebulizer at home.
Whether she is a candidate for lung volume reduction/either surgical or bronchoscopic is not clear at this point. No full PFTs available. Patient was referred to [facility] by her primary tombstone polisher.
Definitely not a candidate for transplant due to age limitation
Pulmonary rehabilitation recommended if not performed in the past.
-
Transitioned to prednisone 40 mg on 06/06/2023 - decrease by 10 mg every 72 hours to off. If there is worsening then we will transition back to IV corticosteroids.
Continue mucolytic's
Continue low-dose azithromycin for anti-inflammatory properties. (Was taking in the outpatient setting)
-
Continue oxygen supplementation usually up to 2-3 L. Currently on 4 L. Wean down as able to maintain SpO2>88%
Trial of diuretics per primary team-no good response at this point.
No evidence for hypercapnia.
-
Patient stated that she was told by Dr. Hills on the possibly she had asthma. They were discussing biologic therapy.
There is no peripheral eosinophilia on laboratory testing here.
-
Some of the cardiac medications also associated with shortness of breath including metoprolol and flecainide. This will need to be revisited in the outpatient setting. Follows up with cardiology at [facility].
-
Patient was encouraged to engage in physical therapy. She declined to shortness of breath.
-
Weight loss recommended.
Obstructive sleep apnea: Not on CPAP therapy. She was told it was not needed in the past.
-
I agree with physical therapy and Occupational Therapy. Patient has been declining due to shortness of breath.
-
Dr. Norton updated daughter over the phone extensively.>15 minutes. On 06/06/2023.
-
Patient was explained that so far no evidence for acute abnormalities. Suspect progressive shortness of breath is mainly due to lung function decline over the years and deconditioning.
Advised her to also make an appointment with her sulfate drier machine operator upon discharge.
Hopefully can be discharged in the next 1-2 days
Pulmonary will continue to follow along while patient remains hospitalized.
Subjective Data
-
Date of Service:
Date of Service: June 07, 2023
Chief Complaint: Pulmonary Follow Up (Shortness of breath/COPD with exacerbation)
Subjective:
Patient seen and evaluated at bedside. Still has dry cough. Overall feels better. Denies chest pain. On 4 L/min nasal cannula (uses 2-3 L/min nasal cannula at home). Denies chest pain, headache, fevers or chills.
Review of Systems
General: Other (Negative unless mentioned above)
Objective Data
Data Reviewed
Vital Signs / I&O / Oxygen:
Vital Signs
Temp Pulse Resp BP Pulse Ox
97.6 F 98 22 137/61 92
06/07/23 19:50 06/07/23 19:50 06/07/23 19:50 06/07/23 19:50 06/07/23 19:50
Intake and Output
03/04/3006/07/23 06/08/23
06:59 06:59 06:59
Intake Total 1440 / 1440 840 / 840
Output Total 580 / 580
Balance 1440 / 1440 -580 / -580 840 / 840
SaO2 92
Nasal Cannula flow liters per 4
minute
Physical Exam
General: Respiratory Distress (none at rest), Comfortable and Good Appetite
HEENT: Normocephalic and Anicteric
Cardiovascular: S1-S2 and Peripheral Edema (+2 LE edema v/l)
Respiratory: Wheeze (negative), Crackles (bilaterally), Non-Labored Respirations and Other (Prolonged expiratory phase.)
GI: Soft and Non Distended
Neurology: AO x 3
Skin: Warm and Dry
Labs/Micro/Reports
Lab Data
06/07/23 07:34
06/07/23 07:34
Microbiology
06/02/23 15:15 Blood/Venous Blood Culture - Final
No Growth - Final Report
06/02/23 13:20 Blood/Venous Blood Culture - Final
No Growth - Final Report
06/02/23 20:54 Sputum Respiratory Culture - Final
Usual Respiratory Marta
06/02/23 20:54 Sputum Gram Stain - Final
[2023-06-07 19:50] VITALS: BP 137/61
[2023-06-07 23:50] VITALS: BP 137/57
[2023-06-08 03:38] VITALS: BP 120/51
[2023-06-08 05:53] VITALS: BMI 25.5
[2023-06-08 07:17] VITALS: BP 123/59
[2023-06-08 07:38] LABS: % Basophils 0.1 % (0-2); % Eosinophils 0.4 % (0-6); % Lymphocytes 11.1 % (20.5-51.1); % Monocytes 3.4 % (1.7-9.3); Absolute Immature Granulocytes 0.1 10^3/uL (0-0.05); Absolute Lymphocytes 0.9 10^3/uL (1.2-3.4); Absolute Monocytes 0.3 10^3/uL (0.1-0.6); Absolute Neutrophils 6.7 10^3/uL (1.4-6.5); Hematocrit 31.9 % (37.0-47.0); Hemoglobin 10.4 g/dL (12.0-16.0); Mean Corp Hgb Conc. 32.6 g/dL (33.0-37.0); Mean Corpuscular Hgb 29.2 pg (27.0-31.0); Mean Corpuscular Volume 89.6 fL (81.0-99.0); Mean Platelet Volume 9.4 fL (7.4-10.4); Nucleated Red Blood Cells % 0 %; Platelet Count 260 10^3/uL (130-400); Red Blood Cell Count 3.56 10^6/uL (4.20-5.40); Red Cell Dist. Width 14.6 % (11.5-14.5)
[2023-06-08] MEDS: PULMICORT 0.5 MG INH ×2 (08:01→19:48)
[2023-06-08] MEDS: DUONEB 3 ML INH ×4 (08:01→19:48)
[2023-06-08] MEDS: TOPROL XL 12.5 MG PO (08:25)
[2023-06-08] MEDS: LEXAPRO 10 MG PO (08:25)
[2023-06-08] MEDS: PROTONIX 40 MG PO (08:25)
[2023-06-08] MEDS: PLAVIX 75 MG PO (08:25)
[2023-06-08] MEDS: TAMBOCOR 50 MG PO ×2 (08:25→20:21)
[2023-06-08] MEDS: DELTASONE 40 MG PO (08:25)
[2023-06-08] MEDS: MUCINEX 1200 MG PO ×2 (08:25→20:21)
[2023-06-08] MEDS: ASPIR LOW (ENTERIC COATED) 81 MG PO (08:25)
[2023-06-08 08:30] LABS: Blood Urea Nitrogen 31 mg/dl (7-17); Calcium 9.5 mg/dl (8.4-10.2); Carbon Dioxide 30 mmol/L (22-30); Chloride 101 mmol/L (98-107); Estimated Creatinine Clearance 40 ml/min; Glucose 78 mg/dl (70-99); Potassium 3.9 mmol/L (3.5-5.1); Sodium 136 mmol/L (135-145); eGFR 57.66
--- NOTE | 2023-06-08 10:51 | CM ---
CM reviewed chart and met with pt at bedside.
Confirmed with pt already on home oxygen, 2-3L baseline through [facility].
Pt accepted by [facility] for Resumption of Care.
Discharge dispo home with [facility].
[2023-06-08 11:10] VITALS: BP 123/51
--- NOTE | 2023-06-08 12:28 | W.PN.HOSP.TC ---
Today's Communication/Plan
-
Monitor vital signs see plan
Oxygen tolerated
Continue with prednisone
Venous Doppler lower extremity
Possible discharge tomorrow if continues to improve
Assessment / Plan
Assessment / Plan
General:�no acute distress
HEENT:�NormoCephalic, Anicteric, Oxygen
Respiratory:�mild Wheezes and Decreased Breath Sounds
Cardiac:�S1/S2 and Regular Rhythm
GI:�Soft, Non Tender, Non Distended, Normal Bowel Sounds
Genito-urinary:�no lake
Musculoskeletal:� No Edema
Neuro:�AO x 3, No Motor Deficits, Nonfocal/grossly intact
Psych:�Calm
Acute on chronic COPD exacerbation on chronic 3 L nasal cannula as needed
Acute on chronic hypoxic respiratory failure secondary to above
#Ex-smoker 56 years 1 pack a day quit 2017
-COVID-negative
-Continue DuoNebs scheduled and as needed
was on trelegy at home; now switching inhaler to nebulizer. Currently on Pulmicort
-On chronic azithromycin 250 mg Friday
-Sputum culture
-Pulmonary following
still has sob; on 4L; wean as tolerated
-decadron changed to prednisone
-Patient follows with Dr. Hills at [facility]
-2D echo 06/03 with EF 70 to 75%, stage II diastolic dysfunction
�� � � CXR: No acute cardiopulmonary disease
vest therapy
#Hypokalemia
Improved
#Sleep apnea Hx
-Used to be on BiPAP several years ago states had additional study years ago no longer needed
-?� Repeat outpatient sleep study, per patient she was told that she does not have sleep apnea anymore
Sandy
monitor
bladder scan
check UA wnl
now improved
LE swelling
US doppler neg
suspect some from renal insufficiency and steroids
#A-fib�paroxysmal
#Watchman device 02/24/2023
-Continue flecainide, aspirin, Plavix
#CAD
#Cardiac stents 09/2002
-Continue aspirin, statin, metoprolol
#Chronic diastolic CHF�no acute exacerbation
I/O, daily weight
-hold spironolactone, hold prn lasix; gave 1 dose lasix 06/03,. Follow clinically
Check BNP not significant; hold furhter lasix
#Depression/anxiety
Continue Lexapro
#PAD status post fem-femo bypass
#GERD
#Pill esophagitis Hx
- start protonix 40 mg daily
Other PMH:
�arthritis
�DJD
dvt proph
Sq lovenox
DNR
Anticipated Discharge: Within 24 hours
Subjective/Interval History
-
Date of Service: June 08, 2023
Denies pain
Objective Data
-
Labs:
Laboratory Results
06/08/23
07:00
WBC 8.0
Hgb 10.4 L
Hct 31.9 L
Plt Count 260
Sodium 136
Potassium 3.9
Chloride 101
Carbon Dioxide 30
BUN 31 H
Creatinine 1.0
Glucose 78
Calcium 9.5
Vital Signs:
Vital Signs
Temp Pulse Resp BP Pulse Ox
97.8 F 84 20 123/51 96
06/08/23 11:10 06/08/23 11:10 06/08/23 11:10 06/08/23 11:10 06/08/23 11:10
I&O
06/07/23 06/08/23 06/09/23
06:59 06:59 06:59
Intake Total 840 / 840
Output Total 580 / 580
Balance -580 / -580 840 / 840
--- NOTE | 2023-06-08 14:10 | W.PN.PUL3 ---
Today's Communication / Plan
-
Continue with maximal medical therapy for COPD
Trial of diuresis
PT/OT
Taper prednisone
CM consult to try to get her chest PT for home
Check CXR in AM and proBNP
Eventual follow-up with her distribution associate Dr. Hills
Assessment
-
77-year-old woman with COPD/emphysema on chronic oxygen therapy. Came to the hospital complaining of shortness of breath. Symptoms have been progressive over time. She sees a distribution associate at [facility] and zipper cutter at [facility].
She underwent a Watchman procedure, started on flecainide last year.
We were consulted for evaluation of her shortness of breath.
Worsening shortness of breath-over time. Suspect progressive COPD/deconditioning vs ADHF (increased filling pressures via TTE from 06/03/2023)
CT chest: Reviewed: Showed heterogeneous severe emphysema/stable left upper lobe lung nodule. No evidence for pulmonary embolism.
Acute exacerbation of COPD
Suspected volume overload
Chronic shortness of breath-worsening over time due to COPD and hyperinflation
9 mm NINFA lung nodule stable on 06/02/2023
-
ECHO:
Normal left ventricular chamber size. Normal left ventricular wall thickness.�
�Hyperdynamic left ventricular systolic function. Normal regional wall motion..
�LV ejection fraction is 70-75% by visual assessment. Stage II diastolic
�dysfunction suggestive of abnormal relaxation and increased filling pressures.
�Normal right ventricular size and function.
�Mildly dilated left atrium
�Mild mitral regurgitation.
-
Conditions present prior admission:
Former smoker [id number] history quit in 2018
Severe COPD on 3L NC
Trelegy
Frequent respiratory infection - on Low dose Azithromycin.
Chronic hypoxemic respiratory failure
Frequent exacerbator
Hypertension
Hyperlipidemia
Obstructive sleep apnea- not on CPAP
Peripheral arterial disease with femorofemoral bypass
GERD
DJD
Anxiety depression
Pill esophagitis
Atrial fibrillation-paroxysmal
Coronary Artery disease with a stent in September 2002
Surgical history:
Cardiac stent September 2002
Watchman device 02/2023
Femoral-femoral bypass 2003
Hysterectomy
Left shoulder replacement
Right shoulder replacement
Catheter extraction
Assessment and plan:
Progressive shortness of breath over time, suspect due to hyperinflation-lung function decline with aging on top of her severe COPD.
She also has increased filling pressures on her echo --> she was given PO and IV lasix on two different occassions --> I will check AM CXR, proBNP and order additional lasix in attempt to diurese and Tx what I feel is volume overload - will give 1st
dose tonight (06/08/2023)
-
CT chest noted: No acute infiltrates. Noted hyperinflation and emphysema.
Echocardiogram noted: 06/03/2023, normal LVEF;Diastolic dysfunction w/o pulmonary hypertension. Stage II diastolic dysfunction; high filling pressures
Does not appear volume overloaded
No significant anemia on CBC.
-
From COPD perspective: Lung exam with prolonged expiratory phase, no wheezing.
on maximal medical therapy.
Transitioned to nebulized therapy: She will continue after discharge. DuoNebs/Pulmicort-for better delivery of medication.
Patient has a nebulizer at home.
Whether she is a candidate for lung volume reduction/either surgical or bronchoscopic is not clear at this point. No full PFTs available. Patient was referred to [facility] by her primary distribution associate.
Definitely not a candidate for transplant due to age limitation
Pulmonary rehabilitation recommended if not performed in the past.
-
Transitioned to prednisone 40 mg on 06/06/2023 - decrease by 10 mg every 72 hours to off. If there is worsening then we will transition back to IV corticosteroids.
Continue mucolytics
Continue low-dose azithromycin for anti-inflammatory properties. (Was taking in the outpatient setting)
-
Continue oxygen supplementation usually up to 2-3 L. Currently on 4 L. Wean down as able to maintain SpO2>88%
Restart diuretics as she appears clinically volume overloaded with orthopnea, bilateral rales on exam and LE edema.
No evidence for hypercapnia.
-
Patient stated that she was told by Dr. Hills on the possibly she had asthma. They were discussing biologic therapy.
There is no peripheral eosinophilia on laboratory testing here.
-
Some of the cardiac medications also associated with shortness of breath including metoprolol and flecainide. This will need to be revisited in the outpatient setting. Follows up with cardiology at [facility].
-
Patient was encouraged to engage in physical therapy.
-
Weight loss recommended.
Obstructive sleep apnea: Not on CPAP therapy. She was told it was not needed in the past.
-
I agree with physical therapy and Occupational Therapy. Patient has been declining due to shortness of breath.
-
Dr. Norton updated daughter over the phone extensively.>15 minutes. On 06/06/2023.
-
Suspect progressive shortness of breath is mainly due to lung function decline over the years and deconditioning.
Advised her to also make an appointment with her zipper cutter upon discharge.
Hopefully can be discharged in the next 24 hrs
Recommend CM consult to help get her set up with vest at home as she says it helps her SOB greatly.
Pulmonary will continue to follow along while patient remains hospitalized.
Patient was seen and examined on 06/08/2023.
Subjective Data
-
Date of Service:
Date of Service: June 08, 2023
Chief Complaint: Pulmonary Follow Up (Shortness of breath/COPD with exacerbation)
Subjective:
Patient seen this afternoon. Says the vest is helping loosen up her phlegm and is making her SOB better. She is currently on 4L/min NC. Sitting in chair, breathing comfortably. Denies chest pain, PIRES, abd pain, N/V/f/c.
Review of Systems
General: Other (negative unless mentioned above)
Objective Data
Data Reviewed
Vital Signs / I&O / Oxygen:
Vital Signs
Temp Pulse Resp BP Pulse Ox
97.8 F 86 18 131/60 94
06/08/23 15:01 06/08/23 15:16 06/08/23 15:16 06/08/23 15:01 06/08/23 15:16
Intake and Output
06/07/23 06/08/23 06/09/23
06:59 06:59 06:59
Intake Total 840 / 840
Output Total 580 / 580
Balance -580 / -580 840 / 840
SaO2 94
Nasal Cannula flow liters per 4
minute
Physical Exam
General: Respiratory Distress (none at rest) and Comfortable
HEENT: Normocephalic and Anicteric
Cardiovascular: S1-S2, Murmur (negative) and Peripheral Edema (+2 LE edema b/l)
Respiratory: Wheeze (negative), Crackles (bilaterally), Rhonchi (negative), Non-Labored Respirations and Other (Prolonged expiratory phase)
GI: Soft, Non Distended, Non Tender and Normal Bowel Sounds
Neurology: AO x 3 and No Motor Deficits
Skin: Warm and Dry
Labs/Micro/Reports
Lab Data
06/08/23 07:00
06/08/23 07:00
Microbiology
06/02/23 15:15 Blood/Venous Blood Culture - Final
No Growth - Final Report
06/02/23 13:20 Blood/Venous Blood Culture - Final
No Growth - Final Report
[2023-06-08 15:01] VITALS: BP 131/60
[2023-06-08] MEDS: LIPITOR 40 MG PO (17:16)
[2023-06-08] MEDS: LOVENOX 40 MG SC (17:16)
[2023-06-08 19:55] VITALS: BP 136/41
[2023-06-08 23:17] VITALS: BP 144/58
[2023-06-09] VITALS (7 sets, daily range): BP systolic 90–133; BP diastolic 58–97; BMI 25.1
[2023-06-09] MEDS: LASIX 40 MG IV ×2 (01:06→09:25)
[2023-06-09] MEDS: PULMICORT 0.5 MG INH ×2 (07:50→19:04)
[2023-06-09] MEDS: DUONEB 3 ML INH ×4 (07:50→19:04)
[2023-06-09 08:14] LABS: % Basophils 0.2 % (0-2); % Eosinophils 0.4 % (0-6); % Immature Granulocytes 1.3 % (0-0.5); % Lymphocytes 11.6 % (20.5-51.1); % Monocytes 3.9 % (1.7-9.3); % Neutrophils 82.6 % (42.2-75.2); Absolute Immature Granulocytes 0.1 10^3/uL (0-0.05); Absolute Lymphocytes 1.1 10^3/uL (1.2-3.4); Absolute Monocytes 0.4 10^3/uL (0.1-0.6); Absolute Neutrophils 7.6 10^3/uL (1.4-6.5); Hematocrit 36.9 % (37.0-47.0); Mean Corp Hgb Conc. 32.5 g/dL (33.0-37.0); Mean Corpuscular Hgb 28.8 pg (27.0-31.0); Mean Corpuscular Volume 88.5 fL (81.0-99.0); Mean Platelet Volume 9.5 fL (7.4-10.4); Nucleated Red Blood Cells % 0 %; Platelet Count 325 10^3/uL (130-400); Red Blood Cell Count 4.17 10^6/uL (4.20-5.40); Red Cell Dist. Width 14.7 % (11.5-14.5); White Blood Cell Count 9.2 10^3/uL (4.8-10.8)
[2023-06-09 08:42] LABS: Blood Urea Nitrogen 30 mg/dl (7-17); Calcium 9.5 mg/dl (8.4-10.2); Carbon Dioxide 31 mmol/L (22-30); Chloride 99 mmol/L (98-107); Estimated Creatinine Clearance 33 ml/min; Glucose 91 mg/dl (70-99); Magnesium 2.3 mg/dl (1.6-2.3); Phosphorus 3.2 mg/dl (2.5-4.5); Potassium 3.9 mmol/L (3.5-5.1); Sodium 136 mmol/L (135-145); eGFR 46.33
[2023-06-09 08:45] LABS: NT-proBNP 529 pg/ml
[2023-06-09] MEDS: ZITHROMAX 250 MG PO (09:24)
[2023-06-09] MEDS: MUCINEX 1200 MG PO ×2 (09:24→21:04)
[2023-06-09] MEDS: PLAVIX 75 MG PO (09:24)
[2023-06-09] MEDS: TOPROL XL 12.5 MG PO (09:24)
[2023-06-09] MEDS: LEXAPRO 10 MG PO (09:24)
[2023-06-09] MEDS: PROTONIX 40 MG PO (09:24)
[2023-06-09] MEDS: TAMBOCOR 50 MG PO ×2 (09:25→21:05)
[2023-06-09] MEDS: ASPIR LOW (ENTERIC COATED) 81 MG PO (09:25)
[2023-06-09] MEDS: DELTASONE 30 MG PO (09:27)
--- NOTE | 2023-06-09 10:02 | W.PN.PUL.V3 ---
Today's Communication / Plan
-
Wean oxygen
Increase activity
Slow steroid taper
Attempt to diurese
Assessment
-
77-year-old woman with COPD/emphysema on chronic oxygen therapy. Came to the hospital complaining of shortness of breath. Symptoms have been progressive over time. She sees a clinical education academic coordinator at [facility] and facing machine operator at [facility].
She underwent a Watchman procedure, started on flecainide last year.
We were consulted for evaluation of her shortness of breath.
Worsening shortness of breath-over time. Suspect progressive COPD/deconditioning vs ADHF (increased filling pressures via TTE from 06/03/2023)
CT chest: Reviewed: Showed heterogeneous severe emphysema/stable left upper lobe lung nodule. No evidence for pulmonary embolism.
Acute exacerbation of COPD
Suspected volume overload
Diastolic CHF-preserved EF
Chronic shortness of breath-worsening over time due to COPD and hyperinflation
9 mm NINFA lung nodule stable on 06/02/2023
-
ECHO:
Normal left ventricular chamber size. Normal left ventricular wall thickness.�
�Hyperdynamic left ventricular systolic function. Normal regional wall motion..
�LV ejection fraction is 70-75% by visual assessment. Stage II diastolic
�dysfunction suggestive of abnormal relaxation and increased filling pressures.
�Normal right ventricular size and function.
�Mildly dilated left atrium
�Mild mitral regurgitation.
-
Conditions present prior admission:
Former smoker [id number] history quit in 2018
Severe COPD on 3L NC
Trelegy
Frequent respiratory infection - on Low dose Azithromycin.
Chronic hypoxemic respiratory failure
Frequent exacerbator
Hypertension
Hyperlipidemia
Obstructive sleep apnea- not on CPAP
Peripheral arterial disease with femorofemoral bypass
GERD
DJD
Anxiety depression
Pill esophagitis
Atrial fibrillation-paroxysmal
Coronary Artery disease with a stent in September 2002
Surgical history:
Cardiac stent September 2002
Watchman device 02/2023
Femoral-femoral bypass 2003
Hysterectomy
Left shoulder replacement
Right shoulder replacement
Catheter extraction
Plan
Respiratory status remains tenuous-significant shortness of breath with minimal exertion-continues to have forced expiratory wheezes and prolonged expiratory time
Supplemental oxygen as needed-on home oxygen 2-3 L and has a POC
DuoNebs 4 times daily
Pulmicort nebulizers
Mucolytic's
Mucus clearing devices
Azithromycin-was taking in the outpatient setting for anti-inflammatory effects
Prednisone-slow taper-was tapered too rapidly at [facility] and was rapidly rehospitalized
Vest therapy continues-patient feels helped significantly-unfortunately would likely not qualify in the outpatient setting due to lack of documented bronchiectasis on CT
Bedside PFT-suspect severe obstruction with significant BD response
Diuresis as tolerated
Monitor renal function, electrolytes, intake/output, lower extremity edema and weight
Replace electrolytes as needed
Chest x-ray 06/09/2023-reviewed mild interstitial edema minimally increased
Echocardiogram 06/03/2023-EF 70-75%, stage II diastolic dysfunction
Outpatient setting transition to nebulizers-DuoNebs and Pulmicort for better education delivery
Patient does have a home nebulizer
Outpatient pulmonary rehabilitation also recommended
Outpatient follow-up by Dr. Hills-has been referred to [facility] for possible bronchoscopic lung volume reduction, etc.
Some of the cardiac medications also associated with shortness of breath including metoprolol and flecainide. This will need to be revisited in the outpatient setting. Follows up with cardiology at [facility].
Weight loss recommended.
Obstructive sleep apnea: Not on CPAP therapy. She was told it was not needed in the past.
DVT prophylaxis-on Lovenox
Nutrition
Physical therapy/Occupational Therapy
Reviewed with nursing
Outpatient cardiology [id number] [facility]
Outpatient pulmonary follow-up- Dr Hills
Subjective Data
-
Date of Service:
Date of Service: June 09, 2023
Chief Complaint: Pulmonary Follow Up (Shortness of breath/COPD with exacerbation) and Dyspnea Follow Up
Subjective:
Still significant shortness of breath with minimal exertion, no chest pain, productive cough, some chest congestion, no abdominal pain and improved lower extremity edema
Review of Systems
General: Other (Per HPI)
Objective Data
Data Reviewed
Vital Signs / I&O:
Vital Signs
Temp Pulse Resp BP Pulse Ox
97.4 F 104 22 133/65 91
06/09/23 07:25 06/09/23 09:30 06/09/23 07:54 06/09/23 09:30 06/09/23 07:54
Intake and Output
06/08/23 06/09/23 06/10/23
06:59 06:59 06:59
Intake Total 840 / 840 660 / 660
Output Total 1050 / 1050
Balance 840 / 840 660 / 660 -1050 / -1050
SaO2: 91
Nasal Cannula flow liters per minute: 4
Physical Exam
General: Respiratory Distress (none at rest) and Comfortable
HEENT: Normocephalic and Anicteric
Cardiovascular: Regular Rhythm, Murmur (negative) and Peripheral Edema (+2 LE edema b/l)
Respiratory: Wheeze (negative), Crackles (bilaterally), Rhonchi (negative), Non-Labored Respirations and Other (Prolonged expiratory phase)
GI: Soft, Non Distended, Non Tender and Normal Bowel Sounds
Neurology: Awake, Alert and No Motor Deficits
Skin: Warm, Dry, Good Color, Cyanosis (n), Jaundice (n) and Rash (n)
Labs/Micro/Reports
Lab Data
06/09/23 07:43
06/09/23 07:43
Microbiology
06/02/23 15:15 Blood/Venous Blood Culture - Final
No Growth - Final Report
06/02/23 13:20 Blood/Venous Blood Culture - Final
No Growth - Final Report
--- NOTE | 2023-06-09 10:54 | W.PN.HOSP.TC ---
Today's Communication/Plan
-
Monitor vital signs and see plan
CXR
wean o2 as tolerated
cw steroids
nebs
pulmonary to see today
Assessment / Plan
Assessment / Plan
General:�no acute distress
HEENT:�NormoCephalic, Anicteric, Oxygen
Respiratory:�mild Wheezes and Decreased Breath Sounds
Cardiac:�S1/S2 and Regular Rhythm
GI:�Soft, Non Tender, Non Distended, Normal Bowel Sounds
Genito-urinary:�no lake
Musculoskeletal:� No Edema
Neuro:�AO x 3, No Motor Deficits, Nonfocal/grossly intact
Psych:�Calm
Acute on chronic COPD exacerbation on chronic 3 L nasal cannula as needed
Acute on chronic hypoxic respiratory failure secondary to above
#Ex-smoker 56 years 1 pack a day quit 2017
-COVID-negative
-Continue DuoNebs scheduled and as needed
was on trelegy at home; now switching inhaler to nebulizer. Currently on Pulmicort
-On chronic azithromycin 250 mg Friday
-Pulmonary following
still has sob; on 4-5L; wean as tolerated
-decadron changed to prednisone
-Patient follows with Dr. Hills at [facility]
-2D echo 06/03 with EF 70 to 75%, stage II diastolic dysfunction
CXR again 06/08
vest therapy
#Hypokalemia
Improved
#Sleep apnea Hx
-Used to be on BiPAP several years ago states had additional study years ago no longer needed
-?� Repeat outpatient sleep study, per patient she was told that she does not have sleep apnea anymore
Sandy
monitor; started on IV lasix by pulmonary 06/07
probnp not high
bladder scan
check UA wnl
LE swelling
US doppler neg
suspect some from renal insufficiency and steroids
#A-fib�paroxysmal
#Watchman device 02/24/2023
-Continue flecainide, aspirin, Plavix
#CAD
#Cardiac stents 09/2002
-Continue aspirin, statin, metoprolol
#Chronic diastolic CHF�no acute exacerbation
I/O, daily weight
-hold spironolactone, hold prn lasix; started on IV lasix by pulmonary 3/3 for couple doses
probnp not high. Follow clinically
CXR
#Depression/anxiety
Continue Lexapro
#PAD status post fem-femo bypass
#GERD
#Pill esophagitis Hx
- start protonix 40 mg daily
Other PMH:
�arthritis
�DJD
dvt proph
Sq lovenox
DNR
Anticipated Discharge: Within 24 hours
Subjective/Interval History
-
Date of Service: June 09, 2023
denies pain
Objective Data
-
Labs:
Laboratory Results
06/09/23
07:43
WBC 9.2
Hgb 12.0
Hct 36.9 L
Plt Count 325 D
Sodium 136
Potassium 3.9
Chloride 99
Carbon Dioxide 31 H
BUN 30 H
Creatinine 1.2 H
Glucose 91
Calcium 9.5
Vital Signs:
Vital Signs
Temp Pulse Resp BP Pulse Ox
97.4 F 104 22 133/65 91
06/09/23 07:25 06/09/23 09:30 06/09/23 07:54 06/09/23 09:30 06/09/23 10:02
I&O
06/08/23 06/09/23 06/10/23
06:59 06:59 06:59
Intake Total 840 / 840 660 / 660
Output Total 1050 / 1050
Balance 840 / 840 660 / 660 -1050 / -1050
--- NOTE | 2023-06-09 11:51 | RESPNOTE ---
Patient currently on 4L wears 2.5L O2 at home. patient sats on 3L 95% sitting in chair. During walk she became extremely SOB only making it to the bathroom door (25ft) and asked to stop. Her sats were 81%. I increased her to 4L O2 to recover.
[2023-06-09] MEDS: LIPITOR 40 MG PO (17:50)
[2023-06-09] MEDS: LOVENOX 40 MG SC (17:50)
[2023-06-10] VITALS (7 sets, daily range): BP systolic 119–137; BP diastolic 52–63; PULSE 94; O2SAT 90; BMI 25.0
[2023-06-10 07:07] LABS: % Basophils 0.1 % (0-2); % Eosinophils 0.5 % (0-6); % Immature Granulocytes 1.4 % (0-0.5); % Lymphocytes 11.6 % (20.5-51.1); % Neutrophils 82.4 % (42.2-75.2); Absolute Immature Granulocytes 0.1 10^3/uL (0-0.05); Absolute Monocytes 0.4 10^3/uL (0.1-0.6); Absolute Neutrophils 7.2 10^3/uL (1.4-6.5); Hematocrit 32.6 % (37.0-47.0); Hemoglobin 10.8 g/dL (12.0-16.0); Mean Corp Hgb Conc. 33.1 g/dL (33.0-37.0); Mean Corpuscular Hgb 28.9 pg (27.0-31.0); Mean Corpuscular Volume 87.2 fL (81.0-99.0); Mean Platelet Volume 9.3 fL (7.4-10.4); Nucleated Red Blood Cells % 0 %; Platelet Count 296 10^3/uL (130-400); Red Blood Cell Count 3.74 10^6/uL (4.20-5.40); Red Cell Dist. Width 14.7 % (11.5-14.5); White Blood Cell Count 8.7 10^3/uL (4.8-10.8)
[2023-06-10] MEDS: PULMICORT 0.5 MG INH ×2 (07:28→19:26)
[2023-06-10] MEDS: DUONEB 3 ML INH ×4 (07:28→19:27)
[2023-06-10 07:31] LABS: Blood Urea Nitrogen 33 mg/dl (7-17); Calcium 9.5 mg/dl (8.4-10.2); Carbon Dioxide 34 mmol/L (22-30); Chloride 97 mmol/L (98-107); Estimated Creatinine Clearance 31 ml/min; Glucose 66 mg/dl (70-99); Potassium 3.6 mmol/L (3.5-5.1); Sodium 135 mmol/L (135-145); eGFR 42.09
[2023-06-10] MEDS: TAMBOCOR 50 MG PO ×2 (09:05→20:42)
[2023-06-10] MEDS: ASPIR LOW (ENTERIC COATED) 81 MG PO (09:06)
[2023-06-10] MEDS: PLAVIX 75 MG PO (09:06)
[2023-06-10] MEDS: LEXAPRO 10 MG PO (09:06)
[2023-06-10] MEDS: PROTONIX 40 MG PO (09:06)
[2023-06-10] MEDS: DELTASONE 30 MG PO (09:07)
[2023-06-10] MEDS: TOPROL XL 12.5 MG PO (09:07)
[2023-06-10] MEDS: MUCINEX 1200 MG PO ×2 (09:08→20:42)
--- NOTE | 2023-06-10 09:54 | W.PN.HOSP.TC ---
Today's Communication/Plan
-
see bold
Assessment / Plan
Assessment / Plan
Gen: NAD, AAOx3.
Eyes: EOMI, PERRLA, no scleral icterus.
Neck: supple.
CV: RRR, +S1/S2, no m/r/g.
Resp: distant BS, CTAB, no rales, wheezes, or rhonchi.
Abd: +BS, soft, NT, ND
Skin: No rashes. 2+ B/L LE edema
Neuro: CN 2-12 intact, non-focal.
Psych: Normal mood and affect.
Acute on chronic hypoxemic respiratory failure due to acute COPD exacerbation:
-on 3L NC O2 at baseline
-COVID-negative
-Continue DuoNebs
-was on IV decadron, now on Prednisone taper
-currently on 4L NC O2
-On chronic azithromycin 250 mg Friday
-Pulmonary following
-CXR 06/09/23AM: Findings suggest very mild interstitial edema/pulmonary edema and minimal pleural fluid, minimally increased compared to the previous exam.
Chronic HFpEF:
-proBNP 529
-CXR above
-s/p 2 doses 40mg IV lasix
-will have cards eval re:opinion on acute HF component. In my opinion the pt currently has acute on chronic HFpEF. Will d/w cards continuing with IV lasix (discussed with AP who is evaluating now).
Other problems:
BRISEYDA: Monitor Cr while on lasix
Hypokalemia, resolved
ASHU, was on BIPAP prior
LE swelling, US doppler neg
PAF: s/p watchman 02/24/2023. Continue flecainide/BB
CAD with h/o stents: cont ASA/plavix/statin/BB
Depression/anxiety: Continue Lexapro
PAD s/p fem-femo bypass: cont ASA/plavix/statin
GERD, h/o pill induced esophagitis: cont PPI
DNR/Lovenox
Anticipated Discharge: 24 - 48 hours
Subjective/Interval History
-
Date of Service: June 10, 2023
Reports SOB has not significantly improved.
Objective Data
-
Labs:
Laboratory Results
06/10/23
06:44
WBC 8.7
Hgb 10.8 L
Hct 32.6 L
Plt Count 296
Sodium 135
Potassium 3.6
Chloride 97 L
Carbon Dioxide 34 H
BUN 33 H
Creatinine 1.3 H
Glucose 66 L
Calcium 9.5
Vital Signs:
Vital Signs
Temp Pulse Resp BP Pulse Ox
97.9 F 101 24 134/57 94
06/10/23 07:00 06/10/23 07:37 06/10/23 07:37 06/10/23 07:00 06/10/23 07:37
I&O
06/09/23 06/10/23 06/11/23
06:59 06:59 06:59
Intake Total 660 / 660 1080 / 1080
Output Total 2700 / 2700
Balance 660 / 660 -1620 / -1620
--- NOTE | 2023-06-10 10:32 | CON.CAR ---
Addendum entered and electronically signed by Pipo Mcdonald MD 06/10/23 12:48:
I saw and examined the patient.
The STICK ROLLER's note was reviewed and I agree with the note.
Comment: Her CXR could be consistent with some congestion. She certainly has LE edema. Some of her dyspnea may well be from acute on chronic HFpEF. Some of her dyspnea may include an orthopnea type of component. Let's see if dyspnea improves with
IV diuresis. If so we will suggest she use daily furosemide and may pursue adding SGLT2-I. She is already on MRA (Aldactone).
Original Note:
Consultation
Consultation Request
Date/Time Consultation Requested: 06/10/23 10:00
Date/Time Consultation Performed: 06/10/23 10:30
Requesting Provider: Dr. Moss
Performing Provider: ROBBY Chinchilla for Dr. Mcdonald
Reason for Consultation: Heart failure
Medical History
-
Chief Complaint: Shortness of breath
History of Present Illness:
Cortney Brewer is a 77-year-old female (known to Dr. Milner [facility]), with paroxysmal atrial fibrillation (on flecainide, with Watchman device), coronary artery disease (left circumflex stenting), HFpEF, COPD, GERD, hypertension, dyslipidemia, and PAD
with prior femorofemoral bypass presented to the emergency department 06/02/2023 with a chief complaint of shortness of breath. She was admitted for acute COPD exacerbation. This would be her third exacerbation in 5 weeks. She has been receiving
intravenous steroids. She has developed lower extremity edema. She received intravenous furosemide 40 mg on 07/05/2023 and again yesterday. Cardiology has been consulted for concern with acute heart failure. Her proBNP has been declining since
hospitalization. CXR does not show overwhelming heart failure.
Past Medical History
Past Medical History: Arrhythmias (Paroxysmal atrial fibrillation [status post watchman]), CAD (With prior stenting), CHF, COPD, GERD, HTN and Hypercholesterolemia
Past Surgical History: Gynecological, Orthopedic and Tonsilectomy
Social History
Tobacco: Former Smoker
Drug: None
Employment: Retired
Family History
Family History: Reviewed & Not Pertinent
Allergies / Home Medications
Allergy/AdvReac Type Severity Reaction Status Date / Time
hornet venom Allergy Anaphylaxis Verified 06/02/23 12:54
Penicillins Allergy itching, Verified 06/02/23 12:54
rash,
swelling
sertraline [From Zoloft] Allergy anxiety, Verified 06/02/23 12:54
hyper
venom-honey bee Allergy Anaphylaxis Verified 06/02/23 12:54
Medication Instructions Recorded Confirmed Type
metoprolol succinate 25 mg 12.5 mg PO DAILY Blood pressure 06/13/11 06/02/23 History
tablet,extended release 24 hr
aspirin 81 mg tablet,delayed 81 mg PO DAILY Blood clot 08/01/21 06/02/23 History
release prevention/tx
atorvastatin 40 mg tablet 40 mg PO QPM High cholesterol 08/01/21 06/02/23 History
flecainide 50 mg tablet 50 mg PO Q12H Arrhythmia 08/01/21 06/02/23 History
furosemide 20 mg tablet 20 mg PO DAILYPRN PRN edema 08/01/21 06/02/23 History
albuterol sulfate 2.5 mg/3 mL 2.5 mg inhalation R DAILY PRN sob 06/02/23 06/02/23 History
(0.083 %) solution for nebulization
albuterol sulfate 2.5 mg/3 mL 2.5 mg inhalation R TID 06/02/23 06/02/23 History
(0.083 %) solution for nebulization Lung/Breathing Issues
azithromycin 250 mg tablet 250 mg PO MOWEFR@0800 06/02/23 06/02/23 History
Lung/Breathing Issues
clopidogrel 75 mg tablet 75 mg PO DAILY Blood Clot 06/02/23 06/02/23 History
Prevention/Tx
escitalopram oxalate 20 mg tablet 10 mg PO DAILY depression/anxiety 06/02/23 06/02/23 History
fluticasone fur. 100 mcg-umeclid 1 inh inhalation R DAILY 06/02/23 06/02/23 History
62.5 mcg-vilant 25 mcg Lung/Breathing Issues
inhalat.powder (Trelegy Ellipta)
fluticasone fur. 200 mcg-umeclid 1 inh inhalation R DAILY PRN sob 06/02/23 06/02/23 History
62.5 mcg-vilant 25 mcg
inhalat.powder (Trelegy Ellipta)
fluticasone propionate 50 2 spray intranasal DAILY PRN 06/02/23 06/02/23 History
mcg/actuation nasal allergies
spray,suspension (Flonase Allergy
Relief)
ibuprofen 200 mg tablet (Advil) 400 mg PO BIDPRN PRN mild pain 06/02/23 06/02/23 History
prednisone 10 mg tablet 10 mg PO .TAPER Anti-Inflammatory 06/02/23 06/02/23 History
spironolactone 25 mg tablet 25 mg PO DAILY Fluid 06/02/23 06/02/23 History
Retention/Swelling
Review of Systems
-
History Source: Patient
All other systems: Negative unless noted
Respiratory: Trouble Breathing
Musculoskeletal: Edema
Physical Exam
Vital Signs
Temp Pulse Resp BP Pulse Ox
97.9 F 101 24 134/57 94
06/10/23 07:00 06/10/23 07:37 06/10/23 07:37 06/10/23 07:00 06/10/23 07:37
Lab Results
06/10/23 06:44
06/10/23 06:44
Troponin I < 0.012 ng/ml 06/02/23 13:20
Vso-F-Dwtybrclfvv Pept 529 pg/ml 06/09/23 07:43
Physical Exam
General: Well Developed, Well Nourished, No Apparent Distress and Comfortable
HEENT: Normocephalic, Anicteric and Moist Mucous Membranes
Respiratory: Accessory Resp Muscle Use
Cardiac: S1/S2, Regular Rhythm and Peripheral Edema (+1 ankle edema)
Breast: Deferred by me
GI: Soft, Non Tender, Non Distended and Normal Bowel Sounds
Rectal: Deferred by Provider
Genito-urinary: No Costovertebral Tender
Musculoskeletal: No Clubbing and No Cyanosis
Skin: Warm and Dry
Neuro: AO x 3
Hematologic/Lymphatic: No Lymphadenopathy
Psych: Calm
Impression / Plan
-
Shortness of breath, multifactorial
-In the setting of acute HFpEF and COPD exac
-Negative for COVID-19
-On Azithromycin MW outpatient
-Echo stable
-CT angio negative for PE 05/16/2023 ([facility])
HFpEF, acute on chronic
-LE edema on exam
-She would benefit from compression
-Follow daily weight, I/Os, and BMP with diuresis
COPD, per pulmonary
Paroxysmal atrial fibrillation
-Maintaining sinus on flecainide
-Oral Anticoagulation: Prior Watchman (on clopidogrel and aspirin)
-[id number]: Score at least 6 (Heart failure, HTN, age 75 or more, Vascular disease, female gender)
CAD
-Prior PCI to left circumflex (2002), continue aspirin
-Outpatient stress testing negative for ischemia in 2021
HTN
PAD with prior fem-fem
Pericardial effusion (2018)
Dyslipidemia, on atorvastatin
Former smoker, continued cessation recommended
Data Reviewed
-
EKG: Report Reviewed by me (Sinus rhythm, rate 64)
Radiology: Report Reviewed by me (CXR: Findings suggest very mild interstitial edema/pulmonary edema and minimal pleural fluid, minimally increased compared to the previous exam.)
Medical Tests (Nuc Med, Echo etc): Report Reviewed by me (Echocardiogram as above)
Labs: Labs Reviewed by me
Old Records: Requested (Outpatient records)
--- NOTE | 2023-06-10 10:52 | W.PN.PUL.V3 ---
Today's Communication / Plan
-
Wean oxygen.
Increase activity.
Diuresis as tolerated.
Cardiology evaluation
Very slow prednisone taper-see note.
Outpatient pulmonary follow-up
Assessment
-
77-year-old woman with COPD/emphysema on chronic oxygen therapy. Came to the hospital complaining of shortness of breath. Symptoms have been progressive over time. She sees a learning and development consultant at [facility] and driver education road instructor at [facility].
She underwent a Watchman procedure, started on flecainide last year.
We were consulted for evaluation of her shortness of breath.
Worsening shortness of breath-over time. Suspect progressive COPD/deconditioning vs ADHF (increased filling pressures via TTE from 06/03/2023)
CT chest: Reviewed: Showed heterogeneous severe emphysema/stable left upper lobe lung nodule. No evidence for pulmonary embolism.
Acute exacerbation of COPD
Suspected volume overload
Diastolic CHF-preserved EF
Chronic shortness of breath-worsening over time due to COPD and hyperinflation
9 mm NINFA lung nodule stable on 06/02/2023
-
ECHO:
Normal left ventricular chamber size. Normal left ventricular wall thickness.�
�Hyperdynamic left ventricular systolic function. Normal regional wall motion..
�LV ejection fraction is 70-75% by visual assessment. Stage II diastolic
�dysfunction suggestive of abnormal relaxation and increased filling pressures.
�Normal right ventricular size and function.
�Mildly dilated left atrium
�Mild mitral regurgitation.
-
Conditions present prior admission:
Former smoker [id number] history quit in 2018
Severe COPD on 3L NC
Trelegy
Frequent respiratory infection - on Low dose Azithromycin.
Chronic hypoxemic respiratory failure
Frequent exacerbator
Hypertension
Hyperlipidemia
Obstructive sleep apnea- not on CPAP
Peripheral arterial disease with femorofemoral bypass
GERD
DJD
Anxiety depression
Pill esophagitis
Atrial fibrillation-paroxysmal
Coronary Artery disease with a stent in September 2002
Surgical history:
Cardiac stent September 2002
Watchman device 02/2023
Femoral-femoral bypass 2003
Hysterectomy
Left shoulder replacement
Right shoulder replacement
Catheter extraction
Plan
Respiratory status improving but remains somewhat tenuous-significant shortness of breath with minimal exertion-continues to have forced expiratory wheezes and prolonged expiratory time
Supplemental oxygen as needed-on home oxygen 2-3 L and has a POC
DuoNebs 4 times daily In addition to Pulmicort nebulizers and mucolytic's continue
Mucus clearing devices
Azithromycin-was taking in the outpatient setting for anti-inflammatory effects
Prednisone-slow taper-was tapered too rapidly at [facility] and was rapidly rehospitalized
Vest therapy continues-patient feels helped significantly-unfortunately would likely not qualify in the outpatient setting due to lack of documented bronchiectasis on CT-Dr. Jerome explained this to her at length
Bedside PFT-suspect severe obstruction with significant BD response
.
Agree with attempts at diuresis
Continue to follow renal function, electrolytes, intake/output, lower extremity edema and weight
Replace electrolytes as needed
Chest x-ray 06/09/2023-reviewed mild interstitial edema minimally increased
Note: Echocardiogram 06/03/2023-EF 70-75%, stage II diastolic dysfunction.
Cardiology consulted 06/10/23-pending
Outpatient setting transition to nebulizers-DuoNebs and Pulmicort for better lower respiratory tract delivery
Patient does have a home nebulizer
Outpatient pulmonary rehabilitation also recommended
Outpatient follow-up by Dr. Hills-has been referred to [place] for possible bronchoscopic lung volume reduction, etc.
Some of the cardiac medications also associated with shortness of breath including metoprolol and flecainide. This will need to be revisited in the outpatient setting. Follows up with cardiology at [facility].
Weight loss recommended.
Obstructive sleep apnea: Not on CPAP therapy. She was told it was not needed in the past.
DVT prophylaxis-on Lovenox
Nutrition
Physical therapy/Occupational Therapy
At the time of discharge, I would discharge her on a very slow prednisone taper-prednisone 40 mg daily for 5 days, then 30 mg daily for 5 days, then 20 mg daily for 5 days and then 10 mg daily until seen by learning and development consultant
Reviewed with nursing
Outpatient cardiology [id number] [facility]
Outpatient pulmonary follow-up- Dr Hills
Subjective Data
-
Date of Service:
Date of Service: June 10, 2023
Chief Complaint: Pulmonary Follow Up (Shortness of breath/COPD with exacerbation) and Dyspnea Follow Up
Subjective:
Still quite short of breath with minimal exertion, still has some wheezing, no chest pain or abdominal pain
Review of Systems
General: Other ( per HPI)
Objective Data
Data Reviewed
Vital Signs / I&O:
Vital Signs
Temp Pulse Resp BP Pulse Ox
97.9 F 101 24 134/57 94
06/10/23 07:00 06/10/23 07:37 06/10/23 07:37 06/10/23 07:00 06/10/23 07:37
Intake and Output
06/09/23 06/10/23 06/11/23
06:59 06:59 06:59
Intake Total 660 / 660 1080 / 1080
Output Total 2700 / 2700
Balance 660 / 660 -1620 / -1620
SaO2: 94
Nasal Cannula flow liters per minute: 4
Physical Exam
General: Respiratory Distress (none at rest) and Comfortable
HEENT: Normocephalic and Anicteric
Cardiovascular: Regular Rhythm, Murmur (negative) and Peripheral Edema (+2 LE edema b/l)
Respiratory: Wheeze (negative), Crackles (bilaterally), Rhonchi (negative), Non-Labored Respirations and Other (Prolonged expiratory phase)
GI: Soft, Non Distended, Non Tender and Normal Bowel Sounds
Neurology: Awake, Alert and No Motor Deficits
Skin: Warm, Dry, Good Color, Cyanosis (n), Jaundice (n) and Rash (n)
Labs/Micro/Reports
Lab Data
06/10/23 06:44
06/10/23 06:44
Microbiology
06/02/23 15:15 Blood/Venous Blood Culture - Final
No Growth - Final Report
06/02/23 13:20 Blood/Venous Blood Culture - Final
No Growth - Final Report
[2023-06-10] MEDS: LASIX 40 MG IV (12:24)
[2023-06-10] MEDS: LOVENOX 40 MG SC (17:57)
[2023-06-10] MEDS: LIPITOR 40 MG PO (17:58)
[2023-06-11] VITALS (7 sets, daily range): BP systolic 99–138; BP diastolic 45–68; PULSE 103; O2SAT 90; BMI 24.8
[2023-06-11] MEDS: DUONEB 3 ML INH ×4 (08:26→19:14)
[2023-06-11] MEDS: PULMICORT 0.5 MG INH ×2 (08:26→19:14)
--- NOTE | 2023-06-11 08:32 | W.PN.PUL.V3 ---
Today's Communication / Plan
-
, very slow prednisone taper.
Diuresis per cardiology.
Wean oxygen.
Increase activity
Assessment
-
77-year-old woman with COPD/emphysema on chronic oxygen therapy. Came to the hospital complaining of shortness of breath. Symptoms have been progressive over time. She sees a traffic monitor specialist at [facility] and tele marketing executive at [facility].
She underwent a Watchman procedure, started on flecainide last year.
We were consulted for evaluation of her shortness of breath.
Worsening shortness of breath-over time. Suspect progressive COPD/deconditioning vs ADHF (increased filling pressures via TTE from 06/03/2023)
CT chest: Reviewed: Showed heterogeneous severe emphysema/stable left upper lobe lung nodule. No evidence for pulmonary embolism.
Acute exacerbation of COPD
Suspected volume overload
Diastolic CHF-preserved EF
Chronic shortness of breath-worsening over time due to COPD and hyperinflation
9 mm NINFA lung nodule stable on 06/02/2023
-
ECHO:
Normal left ventricular chamber size. Normal left ventricular wall thickness.�
�Hyperdynamic left ventricular systolic function. Normal regional wall motion..
�LV ejection fraction is 70-75% by visual assessment. Stage II diastolic
�dysfunction suggestive of abnormal relaxation and increased filling pressures.
�Normal right ventricular size and function.
�Mildly dilated left atrium
�Mild mitral regurgitation.
-
Conditions present prior admission:
Former smoker [id number] history quit in 2018
Severe COPD on 3L NC
Trelegy
Frequent respiratory infection - on Low dose Azithromycin.
Chronic hypoxemic respiratory failure
Frequent exacerbator
Hypertension
Hyperlipidemia
Obstructive sleep apnea- not on CPAP
Peripheral arterial disease with femorofemoral bypass
GERD
DJD
Anxiety depression
Pill esophagitis
Atrial fibrillation-paroxysmal
Coronary Artery disease with a stent in September 2002
Surgical history:
Cardiac stent September 2002
Watchman device 02/2023
Femoral-femoral bypass 2003
Hysterectomy
Left shoulder replacement
Right shoulder replacement
Catheter extraction
Plan
Respiratory status improving but remains somewhat tenuous-significant shortness of breath with minimal exertion-continues to have forced expiratory wheezes and prolonged expiratory time
Supplemental oxygen as needed-on home oxygen 2-3 L and has a POC
DuoNebs 4 times daily In addition to Pulmicort nebulizers and mucolytic's continue
Mucus clearing devices
Azithromycin-was taking in the outpatient setting for anti-inflammatory effects
Prednisone-slow taper-was tapered too rapidly at [facility] and was rapidly rehospitalized-we'll slowly reduce here
Vest therapy continues-patient feels helped significantly-unfortunately would likely not qualify in the outpatient setting due to lack of documented bronchiectasis on CT-Dr. Jerome explained this to her at length
Bedside PFT-suspect severe obstruction with significant BD response
Diuresis as tolerated.
Monitor renal function, electrolytes, intake/output, lower extremity edema and weight
Replace electrolytes as needed
Chest x-ray 06/09/2023-reviewed mild interstitial edema minimally increased
Note: Echocardiogram 06/03/2023-EF 70-75%, stage II diastolic dysfunction.
Cardiology consulted 06/10/23-pending
Outpatient setting transition to nebulizers-DuoNebs and Pulmicort for better lower respiratory tract delivery
Patient does have a home nebulizer
Outpatient pulmonary rehabilitation also recommended
Outpatient follow-up by Dr. Hills-has been referred to [place] for possible bronchoscopic lung volume reduction, etc.
Some of the cardiac medications also associated with shortness of breath including metoprolol and flecainide. This will need to be revisited in the outpatient setting. Follows up with cardiology at [facility].
Weight loss recommended.
Obstructive sleep apnea: Not on CPAP therapy. She was told it was not needed in the past.
DVT prophylaxis-on Lovenox
Nutrition
Physical therapy/Occupational Therapy
At the time of discharge, I would discharge her on a very slow prednisone taper-prednisone 40 mg daily for 5 days, then 30 mg daily for 5 days, then 20 mg daily for 5 days and then 10 mg daily until seen by traffic monitor specialist-Dr. Jerome reviewed this
with patient in detail. On 06/11/23
Reviewed with nursing
Outpatient cardiology [id number] [facility]
Outpatient pulmonary follow-up- Dr Hills
Subjective Data
-
Date of Service:
Date of Service: June 11, 2023
Chief Complaint: Pulmonary Follow Up (Shortness of breath/COPD with exacerbation) and Dyspnea Follow Up
Subjective:
Still with shortness of breath with exertion, no chest pain, some chest congestion, no abdominal pain, leg swelling, improved
Review of Systems
General: Other ( per HPI)
Objective Data
Data Reviewed
Vital Signs / I&O:
Vital Signs
Temp Pulse Resp BP Pulse Ox
98.3 F 87 19 127/58 93
06/11/23 03:37 06/11/23 03:37 06/11/23 03:37 06/11/23 03:37 06/11/23 04:21
Intake and Output
06/10/23 06/11/23 06/12/23
06:59 06:59 06:59
Intake Total 1080 / 1080 1320 / 1320
Output Total 2700 / 2700 325 / 325
Balance -1620 / -1620 995 / 995
SaO2: 93
Nasal Cannula flow liters per minute: 3
Physical Exam
General: Respiratory Distress (none at rest) and Comfortable
HEENT: Normocephalic and Anicteric
Cardiovascular: Regular Rhythm, Murmur (negative) and Peripheral Edema (+2 LE edema b/l)
Respiratory: Wheeze (negative), Crackles (bilaterally), Rhonchi (negative), Non-Labored Respirations and Other (Prolonged expiratory phase)
GI: Soft, Non Distended, Non Tender and Normal Bowel Sounds
Neurology: Awake, Alert and No Motor Deficits
Skin: Warm, Dry, Good Color, Cyanosis (n), Jaundice (n) and Rash (n)
Labs/Micro/Reports
Lab Data
06/10/23 06:44
06/10/23 06:44
[2023-06-11] MEDS: MUCINEX 1200 MG PO ×2 (10:28→21:08)
[2023-06-11] MEDS: TOPROL XL 12.5 MG PO (10:28)
[2023-06-11] MEDS: PROTONIX 40 MG PO (10:28)
[2023-06-11] MEDS: LEXAPRO 10 MG PO (10:29)
[2023-06-11] MEDS: PLAVIX 75 MG PO (10:29)
[2023-06-11] MEDS: ASPIR LOW (ENTERIC COATED) 81 MG PO (10:29)
[2023-06-11] MEDS: ZITHROMAX 250 MG PO (10:29)
[2023-06-11] MEDS: TAMBOCOR 50 MG PO ×2 (10:29→21:08)
--- NOTE | 2023-06-11 11:02 | W.PN.HOSP.TC ---
Today's Communication/Plan
-
see bold
Assessment / Plan
Assessment / Plan
Gen: NAD, AAOx3.
Eyes: EOMI, PERRLA, no scleral icterus.
Neck: supple.
CV: remains RRR, +S1/S2, no m/r/g.
Resp: B/L wheezes
Abd: +BS, soft, NT, ND
Skin: No rashes. 1+ B/L LE edema
Neuro: CN 2-12 intact, non-focal.
Psych: Normal mood and affect.
Acute on chronic hypoxemic respiratory failure due to acute COPD exacerbation and acute on chronic HFpEF:
-on 3L NC O2 at baseline, now weaned down to 3L NC O2
-COVID-negative
-Continue DuoNebs
-was on IV decadron, now on Prednisone taper
-currently on 4L NC O2
-On chronic azithromycin 250 mg Friday
-Pulmonary following
-CXR 06/09/23AM: Findings suggest very mild interstitial edema/pulmonary edema and minimal pleural fluid, minimally increased compared to the previous exam.
-proBNP 529
-s/p 3 doses 40mg IV lasix
-cardiology following
Other problems:
BRISEYDA: Monitor Cr while on lasix
Hypokalemia, resolved
ASHU, was on BIPAP prior
LE swelling, US doppler neg
PAF: s/p watchman 02/24/2023. Continue flecainide/BB
CAD with h/o stents: cont ASA/plavix/statin/BB
Depression/anxiety: Continue Lexapro
PAD s/p fem-femo bypass: cont ASA/plavix/statin
GERD, h/o pill induced esophagitis: cont PPI
DNR/Lovenox
Anticipated Discharge: Within 24 hours
Subjective/Interval History
-
Date of Service: June 11, 2023
Reports shortness of breath might be slightly better than yesterday. States lower extremity edema improving
Objective Data
-
Vital Signs:
Vital Signs
Temp Pulse Resp BP Pulse Ox
98.3 F 103 22 123/68 91
06/11/23 07:10 06/11/23 10:28 06/11/23 08:33 06/11/23 10:28 06/11/23 08:33
I&O
06/10/23 06/11/23 06/12/23
06:59 06:59 06:59
Intake Total 1080 / 1080 1320 / 1320
Output Total 2700 / 2700 325 / 325
Balance -1620 / -1620 995 / 995
--- NOTE | 2023-06-11 12:24 | W.PN.CD ---
Addendum entered and electronically signed by Pipo Mcdonald MD 06/11/23 12:32:
Likely move to PO Lasix tomorrow or the next day
Original Note:
Today's Communication / Plan
-
-Daily Lasix now and at discharge
-Will consider SGLT2-I and MRA as outpatient
-BMP/pBNP in 7-10 days
-She wishes to see me in the outpatient setting. We will arrange F/U
-She has had a ANTHONY post Watchman and plans to stop Plavix in several months
Impression / Plan
-
Shortness of breath, multifactorial
-In the setting of severe COPD with exacerbation and suspected mild acute on chronic HFpEF
-Negative for COVID-19
-On Azithromycin MWF outpatient
-Echo stable
-CT angio negative for PE 05/16/2023 ([facility])
HFpEF, acute on chronic
-LE edema on exam
-She would benefit from compression
-Follow daily weight, I/Os, and BMP with diuresis
-Move Lasix from PRN to daily
-Will consider SGLT2-I as outpatient. She is on MRA (Aldactone)
-BMP/pBNP in 7-10 days
COPD, per pulmonary
Paroxysmal atrial fibrillation
-Maintaining sinus on flecainide
-Oral Anticoagulation: Prior Watchman (on clopidogrel and aspirin)
-[id number]: Score at least 6 (Heart failure, HTN, age 75 or more, Vascular disease, female gender)
CAD
-Prior PCI to left circumflex (2002), continue aspirin
-Outpatient stress testing negative for ischemia in 2021
HTN
PAD with prior fem-fem
Pericardial effusion (2018)
Dyslipidemia, on atorvastatin
Former smoker, continued cessation recommended
Subjective:
Not sure Lasix has improved her symptoms.
Echo 06/10/2023:
Normal left ventricular chamber size. Normal left ventricular wall thickness.�
�Hyperdynamic left ventricular systolic function. Normal regional wall motion..
�LV ejection fraction is 70-75% by visual assessment. Stage II diastolic
�dysfunction suggestive of abnormal relaxation and increased filling pressures.
�Normal right ventricular size and function.
�Mildly dilated left atrium
�Mild mitral regurgitation.
Physical Exam
Vital Signs/Labs
Vital Signs
Temp Pulse Resp BP Pulse Ox
98.3 F 88 18 124/68 96
06/11/23 11:11 06/11/23 11:24 06/11/23 11:24 06/11/23 11:11 06/11/23 11:24
06/10/23 06/11/23 06/12/23
06:59 06:59 06:59
Actual Weight 65.969 kg 65.516 kg
06/10/23 06:44
Magnesium 2.3 mg/dl (1.6-2.3) 06/09/23 07:43
06/02/23 06/05/23 06/09/23
13:20 07:48 07:43
Lml-F-Yngipfgnknv Pept [phone]
Physical Exam
Constitutional: No acute distress
EENT: Anicteric
Cardiovascular: Rhythm & rate is regular and Pedal edema present
Respiratory: Respiratory effort normal and Lungs clear to auscul. (decreased)
GI: Soft and Distention absent
Neuro/Psych: AO x 3
Data Reviewed
-
Date of Service: June 11, 2023
[2023-06-11 12:26] LABS: Blood Urea Nitrogen 32 mg/dl (7-17); Calcium 9.7 mg/dl (8.4-10.2); Carbon Dioxide 33 mmol/L (22-30); Chloride 95 mmol/L (98-107); Estimated Creatinine Clearance 31 ml/min; Glucose 92 mg/dl (70-99); Potassium 3.6 mmol/L (3.5-5.1); Sodium 134 mmol/L (135-145); eGFR 42.09
[2023-06-11] MEDS: LASIX 40 MG IV (13:01)
--- NOTE | 2023-06-11 16:31 | CM ---
Patient seen bedside, patient reports she is hopeful to discharge tomorrow. CM discussed she will update [facility] care on patients discharge so services can resume. IMM reviewed, signed, placed in patients chart. CM will continue to follow for
discharge planning needs.
Plan; home with [facility] -
[2023-06-11] MEDS: LIPITOR 40 MG PO (16:44)
[2023-06-11] MEDS: TYLENOL 650 MG PO (16:44)
[2023-06-11] MEDS: LOVENOX 40 MG SC (16:44)
[2023-06-12] VITALS (7 sets, daily range): BP systolic 101–134; BP diastolic 54–71; PULSE 98; BMI 24.6
[2023-06-12] MEDS: TYLENOL 650 MG PO (05:43)
--- NOTE | 2023-06-12 06:05 | PTCARENOTE ---
Patient c/o body aches, tylenol given. Patient expresses that she is tired of not feeling well and not being home. Emotional support provided, encouraged her to speak with her physician and family today.
[2023-06-12 07:19] LABS: Hematocrit 33.3 % (37.0-47.0); Hemoglobin 11.1 g/dL (12.0-16.0); Mean Corp Hgb Conc. 33.3 g/dL (33.0-37.0); Mean Corpuscular Hgb 28.9 pg (27.0-31.0); Mean Corpuscular Volume 86.7 fL (81.0-99.0); Mean Platelet Volume 9.5 fL (7.4-10.4); Platelet Count 258 10^3/uL (130-400); Red Blood Cell Count 3.84 10^6/uL (4.20-5.40); Red Cell Dist. Width 14.6 % (11.5-14.5); White Blood Cell Count 7.1 10^3/uL (4.8-10.8)
[2023-06-12] MEDS: PULMICORT 0.5 MG INH ×2 (07:45→19:49)
[2023-06-12] MEDS: DUONEB 3 ML INH ×4 (07:45→19:49)
[2023-06-12 08:16] LABS: Blood Urea Nitrogen 36 mg/dl (7-17); Calcium 9.6 mg/dl (8.4-10.2); Carbon Dioxide 31 mmol/L (22-30); Chloride 91 mmol/L (98-107); Estimated Creatinine Clearance 33 ml/min; Glucose 114 mg/dl (70-99); Potassium 3.5 mmol/L (3.5-5.1); Sodium 131 mmol/L (135-145); eGFR 46.33
[2023-06-12] MEDS: LASIX 40 MG IV ×2 (08:51→13:12)
[2023-06-12] MEDS: TOPROL XL 12.5 MG PO (08:51)
[2023-06-12] MEDS: PLAVIX 75 MG PO (08:52)
[2023-06-12] MEDS: MUCINEX 1200 MG PO ×2 (08:52→20:40)
[2023-06-12] MEDS: ASPIR LOW (ENTERIC COATED) 81 MG PO (08:52)
[2023-06-12] MEDS: LEXAPRO 10 MG PO (08:53)
[2023-06-12] MEDS: TAMBOCOR 50 MG PO ×2 (08:53→20:41)
[2023-06-12] MEDS: PROTONIX 40 MG PO (08:53)
--- NOTE | 2023-06-12 08:54 | W.PN.CD ---
Today's Communication / Plan
-
BID diuretics today, likely switch to daily oral diuretics tomorrow
Impression / Plan
-
Shortness of breath, multifactorial
-In the setting of severe COPD with exacerbation and suspected mild acute on chronic HFpEF
-Negative for COVID-19
-On Azithromycin MWF outpatient
-Echo stable
-CT angio negative for PE 05/16/2023 ([facility])
HFpEF, acute on chronic
-LE edema on exam
-She would benefit from compression
-Follow daily weight, I/Os, and BMP with diuresis
-Move Lasix from PRN to daily
-Will consider SGLT2-I as outpatient. She is on MRA (Aldactone)
-BMP/pBNP in 7-10 days
- recommend increasing lasix to 40 bid today and then likely transition to daily tomorrow
COPD, per pulmonary
Paroxysmal atrial fibrillation
-Maintaining sinus on flecainide
-Oral Anticoagulation: Prior Watchman (on clopidogrel and aspirin)
-[id number]: Score at least 6 (Heart failure, HTN, age 75 or more, Vascular disease, female gender)
CAD
-Prior PCI to left circumflex (2002), continue aspirin
-Outpatient stress testing negative for ischemia in 2021
HTN
PAD with prior fem-fem
Pericardial effusion (2018)
Dyslipidemia, on atorvastatin
Former smoker, continued cessation recommended
Subjective:
SOB possibly mildly improved?
Not sleeping well anxious to leave
Echo 06/10/2023:
Normal left ventricular chamber size. Normal left ventricular wall thickness.�
�Hyperdynamic left ventricular systolic function. Normal regional wall motion..
�LV ejection fraction is 70-75% by visual assessment. Stage II diastolic
�dysfunction suggestive of abnormal relaxation and increased filling pressures.
�Normal right ventricular size and function.
�Mildly dilated left atrium
�Mild mitral regurgitation.
Physical Exam
Vital Signs/Labs
Vital Signs
Temp Pulse Resp BP Pulse Ox
98.4 F 93 18 101/59 96
06/12/23 07:00 06/12/23 07:48 06/12/23 07:48 06/12/23 07:00 06/12/23 07:48
06/11/23 06/12/23 06/13/23
06:59 06:59 06:59
Actual Weight 144 lb 7 oz 143 lb 7 oz
06/12/23 06:59
06/12/23 06:59
Magnesium 2.3 mg/dl (1.6-2.3) 06/09/23 07:43
06/02/23 06/05/23 06/09/23
13:20 07:48 07:43
Dev-F-Rpqfhcalrle Pept [phone]
Physical Exam
Constitutional: No acute distress
EENT: Anicteric
Cardiovascular: Rhythm & rate is regular and Pedal edema present (1+ b/l )
Respiratory: Respiratory effort normal (poor air movement b/l)
GI: Soft
Neuro/Psych: AO x 3
Data Reviewed
-
Date of Service: June 12, 2023
EKG: Tracing Personally Visualized and interpreted
Echo: Report Reviewed by me
Labs: Labs Reviewed by me
--- NOTE | 2023-06-12 09:52 | W.PN.PUL.V3 ---
Today's Communication / Plan
-
.
Cardiology consultation noted.
Diuresis
Wean FiO2
Slow prednisone
Assessment
-
77-year-old woman with COPD/emphysema on chronic oxygen therapy. Came to the hospital complaining of shortness of breath. Symptoms have been progressive over time. She sees a pressure tester at [facility] and precision dyer at [facility].
She underwent a Watchman procedure, started on flecainide last year.
We were consulted for evaluation of her shortness of breath.
Worsening shortness of breath-over time. Suspect progressive COPD/deconditioning vs ADHF (increased filling pressures via TTE from 06/03/2023)
CT chest: Reviewed: Showed heterogeneous severe emphysema/stable left upper lobe lung nodule. No evidence for pulmonary embolism.
Acute exacerbation of COPD
Suspected volume overload
Diastolic CHF-preserved EF
Chronic shortness of breath-worsening over time due to COPD and hyperinflation
9 mm NINFA lung nodule stable on 06/02/2023
-
ECHO:
Normal left ventricular chamber size. Normal left ventricular wall thickness.�
�Hyperdynamic left ventricular systolic function. Normal regional wall motion..
�LV ejection fraction is 70-75% by visual assessment. Stage II diastolic
�dysfunction suggestive of abnormal relaxation and increased filling pressures.
�Normal right ventricular size and function.
�Mildly dilated left atrium
�Mild mitral regurgitation.
-
Conditions present prior admission:
Former smoker [id number] history quit in 2018
Severe COPD on 3L NC
Trelegy
Frequent respiratory infection - on Low dose Azithromycin.
Chronic hypoxemic respiratory failure
Frequent exacerbator
Hypertension
Hyperlipidemia
Obstructive sleep apnea- not on CPAP
Peripheral arterial disease with femorofemoral bypass
GERD
DJD
Anxiety depression
Pill esophagitis
Atrial fibrillation-paroxysmal
Coronary Artery disease with a stent in September 2002
Surgical history:
Cardiac stent September 2002
Watchman device 02/2023
Femoral-femoral bypass 2003
Hysterectomy
Left shoulder replacement
Right shoulder replacement
Catheter extraction
Plan
Respiratory status is slowly improving, still has significant dyspnea exertion, no chest pain or abdominal pain
Supplemental oxygen as needed-on home oxygen 2-3 L and has a POC
DuoNebs 4 times daily In addition to Pulmicort nebulizers and mucolytic's continue
Mucus clearing devices
Azithromycin-was taking in the outpatient setting for anti-inflammatory effects
Prednisone-slow taper-was tapered too rapidly at [facility] and was rapidly rehospitalized-we'll slowly reduce here
Vest therapy continues-patient feels helped significantly-unfortunately would likely not qualify in the outpatient setting due to lack of documented bronchiectasis on CT-Dr. Jerome explained this to her at length
Bedside PFT-suspect severe obstruction with significant BD response
Continue diuresis as tolerated.
Follow renal function, electrolytes, intake/output, lower extremity edema and weight
Continue to replace electrolytes as needed
Chest x-ray 06/09/2023-reviewed mild interstitial edema minimally increased
Note: Echocardiogram 06/03/2023-EF 70-75%, stage II diastolic dysfunction.
Cardiology following-correspondence reviewed
Outpatient setting transition to nebulizers-DuoNebs and Pulmicort for better lower respiratory tract delivery
Patient does have a home nebulizer
Outpatient pulmonary rehabilitation also recommended
Outpatient follow-up by Dr. Hills-has been referred to [place] for possible bronchoscopic lung volume reduction, etc.
Some of the cardiac medications also associated with shortness of breath including metoprolol and flecainide. This will need to be revisited in the outpatient setting. Follows up with cardiology at [facility].
Obstructive sleep apnea: Not on CPAP therapy. She was told it was not needed in the past.
DVT prophylaxis-on Lovenox
Nutrition
Physical therapy/Occupational Therapy
At the time of discharge, I would discharge her on a very slow prednisone taper-prednisone 40 mg daily for 5 days, then 30 mg daily for 5 days, then 20 mg daily for 5 days and then 10 mg daily until seen by pressure tester-Dr. Jerome reviewed this
with patient in detail. On 06/11/23
Reviewed with nursing
Outpatient cardiology [id number] [facility]
Outpatient pulmonary follow-up- Dr Hills
Subjective Data
-
Date of Service:
Date of Service: June 12, 2023
Chief Complaint: Pulmonary Follow Up (Shortness of breath/COPD with exacerbation) and Dyspnea Follow Up
Subjective:
Still with some shortness of breath, no chest pain, some nonproductive cough, no abdominal pain
Review of Systems
General: Other ( per HPI)
Objective Data
Data Reviewed
Vital Signs / I&O:
Vital Signs
Temp Pulse Resp BP Pulse Ox
98.4 F 101 18 122/57 96
06/12/23 07:00 06/12/23 08:51 06/12/23 07:48 06/12/23 08:51 06/12/23 09:00
Intake and Output
06/11/23 06/12/23 06/13/23
06:59 06:59 06:59
Intake Total 1320 / 1320 960 / 960
Output Total 325 / 325 1000 / 1000
Balance 995 / 995 -40 / -40
SaO2: 96
Nasal Cannula flow liters per minute: 3
Physical Exam
General: Respiratory Distress (none at rest) and Comfortable
HEENT: Normocephalic and Anicteric
Cardiovascular: Regular Rhythm, Murmur (negative) and Peripheral Edema (+2 LE edema b/l)
Respiratory: Wheeze (negative), Crackles (bilaterally), Rhonchi (negative), Non-Labored Respirations and Other (Prolonged expiratory phase)
GI: Soft, Non Distended, Non Tender and Normal Bowel Sounds
Neurology: Awake, Alert and No Motor Deficits
Skin: Warm, Dry, Good Color, Cyanosis (n), Jaundice (n) and Rash (n)
Labs/Micro/Reports
Lab Data
06/12/23 06:59
06/12/23 06:59
--- NOTE | 2023-06-12 11:34 | W.PN.HOSP.TC ---
Today's Communication/Plan
-
see bold
Assessment / Plan
Assessment / Plan
Gen: NAD, AAOx3.
Eyes: EOMI, PERRLA, no scleral icterus.
Neck: supple.
CV: continues to remain RRR, +S1/S2, no m/r/g.
Resp: remains B/L wheezes
Abd: +BS, soft, NT, ND
Skin: No rashes. trace B/L foot edema
Neuro: CN 2-12 intact, non-focal.
Psych: Normal mood and affect.
Acute on chronic hypoxemic respiratory failure due to acute COPD exacerbation and acute on chronic HFpEF:
-on 3L NC O2 at baseline, now weaned down to 3L NC O2
-COVID-negative
-Continue DuoNebs
-was on IV decadron, now on Prednisone taper
-On chronic azithromycin 250 mg Friday
-Pulmonary following
-CXR 06/09/23AM: Findings suggest very mild interstitial edema/pulmonary edema and minimal pleural fluid, minimally increased compared to the previous exam.
-proBNP 529
-Lasix increased to 40mg IV BID
-wt down 2kg
-cardiology following
Other problems:
Hyponatremia, trend
BRISEYDA: Monitor Cr while on lasix
Hypokalemia, resolved
ASHU, was on BIPAP prior
LE swelling, US doppler neg
PAF: s/p watchman 02/24/2023. Continue flecainide/BB
CAD with h/o stents: cont ASA/plavix/statin/BB
Depression/anxiety: Continue Lexapro
PAD s/p fem-femo bypass: cont ASA/plavix/statin
GERD, h/o pill induced esophagitis: cont PPI
DNR/Lovenox
Anticipated Discharge: 24 - 48 hours
Subjective/Interval History
-
Date of Service: June 12, 2023
SOB is similar to yesterday. c/o cough.
Objective Data
-
Labs:
Laboratory Results
06/12/23
06:59
WBC 7.1
Hgb 11.1 L
Hct 33.3 L
Plt Count 258
Sodium 131 L
Potassium 3.5
Chloride 91 L
Carbon Dioxide 31 H
BUN 36 H
Creatinine 1.2 H
Glucose 114 H
Calcium 9.6
Vital Signs:
Vital Signs
Temp Pulse Resp BP Pulse Ox
98.4 F 96 18 122/57 98
06/12/23 07:00 06/12/23 11:18 06/12/23 11:18 06/12/23 08:51 06/12/23 11:18
I&O
06/11/23 06/12/23 06/13/23
06:59 06:59 06:59
Intake Total 1320 / 1320 960 / 960
Output Total 325 / 325 1000 / 1000
Balance 995 / 995 -40 / -40
[2023-06-12] MEDS: DELTASONE 30 MG PO (12:31)
[2023-06-12] MEDS: LOVENOX 40 MG SC (17:23)
[2023-06-12] MEDS: LIPITOR 40 MG PO (17:23)
[2023-06-13 05:39] VITALS: BMI 24.1
[2023-06-13 07:00] VITALS: BP 115/65
[2023-06-13] MEDS: DUONEB 3 ML INH ×2 (07:22→11:29)
[2023-06-13] MEDS: PULMICORT 0.5 MG INH (07:22)
--- NOTE | 2023-06-13 07:54 | W.PN.CD ---
Today's Communication / Plan
-
- goal weight is 140 lbs. (she feels better today and LE edema much less)
- cardiac issues improved and I will sign off
- Med change: lasix prn goes to Lasix 40 po qd
- Follow up: Rehanamike Lackey Jun 24 at 9:20
- Labs: BMP in 7 days
Impression / Plan
-
Shortness of breath, multifactorial
-In the setting of severe COPD with exacerbation and suspected mild acute on chronic HFpEF
-Negative for COVID-19
-On Azithromycin MWF outpatient
-Echo stable
-CT angio negative for PE 05/16/2023 ([facility])
HFpEF, acute on chronic
-Follow daily weight, I/Os, and BMP with diuresis
-Move Lasix from PRN to 40 po daily
-Will consider SGLT2-I as outpatient. She is on MRA (Aldactone)
-BMP/pBNP in 7-10 days
-goal weight is 140 lbs. (she feels better today and LE edema much less)
COPD, per pulmonary
Paroxysmal atrial fibrillation
-Maintaining sinus on flecainide
-Oral Anticoagulation: Prior Watchman (on clopidogrel and aspirin)
-[id number]: Score at least 6 (Heart failure, HTN, age 75 or more, Vascular disease, female gender)
CAD
-Prior PCI to left circumflex (2002), continue aspirin
-Outpatient stress testing negative for ischemia in 2021
HTN
PAD with prior fem-fem
Pericardial effusion (2018)
Dyslipidemia, on atorvastatin
Former smoker, continued cessation recommended
Dispo
- cardiac issues improved and I will sign off
- Med change: lasix prn goes to Lasix 40 po qd
- Follow up: Rehana Lackey Jun 24 at 9:20
- Labs: BMP in 7 days
Subjective:
Dyspnea clearly improved
Echo 06/10/2023:
Normal left ventricular chamber size. Normal left ventricular wall thickness.�
�Hyperdynamic left ventricular systolic function. Normal regional wall motion..
�LV ejection fraction is 70-75% by visual assessment. Stage II diastolic
�dysfunction suggestive of abnormal relaxation and increased filling pressures.
�Normal right ventricular size and function.
�Mildly dilated left atrium
�Mild mitral regurgitation.
Selected Entries
06/13/23
05:39
Actual Weight 140 lb 7 oz
Generic Name Dose Route Start Last Admin
Trade Name Freq PRN Reason Stop Dose Admin
Clopidogrel Bisulfate 75 mg 06/03/23 08:00
Clopidogrel 75 Mg Tablet PO 07/01/23 07:59
DAILY JOHANNE
Atorvastatin Calcium 40 mg 06/02/23 21:47
Atorvastatin (Lipitor) 40 Mg Tablet PO 06/30/23 21:46
QPM JOHANNE
Flecainide Acetate 50 mg 06/02/23 21:47
Flecainide 50 Mg Tablet PO 06/30/23 21:46
Q12 JOHANNE
Metoprolol Succinate 12.5 mg 06/03/23 08:00
Metoprolol 12.5 Mg Extended Release Dose (1/2 Of 25 Mg Xl Tablet) PO 07/01/23 07:59
DAILY JOHANNE
Aspirin 81 mg 06/03/23 08:00
Aspirin 81 Mg (Enteric Coated) Tablet PO 07/01/23 07:59
DAILY JOHANNE
Furosemide 40 mg 06/12/23 14:00
Furosemide 40 Mg (10 Mg/Ml) 4 Ml Vial IV 07/10/23 13:59
BID@0800,1400 JOHANNE
Physical Exam
Vital Signs/Labs
Vital Signs
Temp Pulse Resp BP Pulse Ox
36.7 C 92 18 116/57 96
06/12/23 23:46 06/13/23 07:26 06/13/23 07:26 06/12/23 23:46 06/13/23 07:26
06/12/23 06/13/23 06/14/23
06:59 06:59 06:59
Actual Weight 143 lb 7 oz 140 lb 7 oz
06/12/23 06:59
Magnesium 2.3 mg/dl (1.6-2.3) 06/09/23 07:43
06/02/23 06/05/23 06/09/23
13:20 07:48 07:43
Dak-Y-Iwcapfjfpmq Pept [phone]
Physical Exam
Constitutional: No acute distress
EENT: Anicteric
Cardiovascular: Rhythm & rate is regular, Systolic murmur absent, Diastolic murmur absent and Pedal edema present
Respiratory: Other (markedly decreased BS)
GI: Soft
Neuro/Psych: Alert
Data Reviewed
-
Date of Service: June 13, 2023
--- NOTE | 2023-06-13 08:06 | W.PN.PUL.V3 ---
Today's Communication / Plan
-
Slow prednisone taper
Diuresis as tolerated
Wean oxygen
Outpatient pulmonary follow-up
Assessment
-
77-year-old woman with COPD/emphysema on chronic oxygen therapy. Came to the hospital complaining of shortness of breath. Symptoms have been progressive over time. She sees a superintendent menagerie at [facility] and classer at [facility].
She underwent a Watchman procedure, started on flecainide last year.
We were consulted for evaluation of her shortness of breath.
Worsening shortness of breath-over time. Suspect progressive COPD/deconditioning vs ADHF (increased filling pressures via TTE from 06/03/2023)
CT chest: Reviewed: Showed heterogeneous severe emphysema/stable left upper lobe lung nodule. No evidence for pulmonary embolism.
Acute exacerbation of Gold stage IV COPD
Suspected volume overload
Diastolic CHF-preserved EF
Chronic shortness of breath-worsening over time due to COPD and hyperinflation
9 mm NINFA lung nodule stable on 06/02/2023
-
ECHO:
Normal left ventricular chamber size. Normal left ventricular wall thickness.�
�Hyperdynamic left ventricular systolic function. Normal regional wall motion..
�LV ejection fraction is 70-75% by visual assessment. Stage II diastolic
�dysfunction suggestive of abnormal relaxation and increased filling pressures.
�Normal right ventricular size and function.
�Mildly dilated left atrium
�Mild mitral regurgitation.
-
Conditions present prior admission:
Former smoker [id number] history quit in 2018
Severe COPD-Gold stage IV on 3L NC
Trelegy
Frequent respiratory infection - on Low dose Azithromycin.
FEV1 750 mL - 38%
Chronic hypoxemic respiratory failure
Frequent exacerbator
Hypertension
Hyperlipidemia
Obstructive sleep apnea- not on CPAP
Peripheral arterial disease with femorofemoral bypass
GERD
DJD
Anxiety depression
Pill esophagitis
Atrial fibrillation-paroxysmal
Coronary Artery disease with a stent in September 2002
Surgical history:
Cardiac stent September 2002
Watchman device 02/2023
Femoral-femoral bypass 2003
Hysterectomy
Left shoulder replacement
Right shoulder replacement
Catheter extraction
Plan
Respiratory status slowly improving-states moving more air and able to mobilize secretions
Supplemental oxygen as needed-on home oxygen 2-3 L and already has a POC
Continue with DuoNebs 4 times daily In addition to Pulmicort nebulizers and mucolytic's
Mucus clearing devices continue as well
Azithromycin-was taking in the outpatient setting for anti-inflammatory effects
Prednisone-slow taper-was tapered too rapidly at [facility] and was rapidly rehospitalized-we'll slowly reduce here
Vest therapy continues-patient feels helped significantly-unfortunately would likely not qualify in the outpatient setting due to lack of documented bronchiectasis on CT-Dr. Jerome explained this to her at length
Bedside PFT- severe obstruction-FEV1 750 mL - 38%
Responding to diuresis
Follow renal function, electrolytes, intake/output, lower extremity edema and weight
Continue to replace electrolytes as needed
Chest x-ray 06/09/2023-reviewed mild interstitial edema minimally increased
Note: Echocardiogram 06/03/2023-EF 70-75%, stage II diastolic dysfunction.
Cardiology following-correspondence reviewed
Outpatient setting transition to nebulizers-DuoNebs and Pulmicort for better lower respiratory tract delivery
Patient does have a home nebulizer
Outpatient pulmonary rehabilitation also recommended
Outpatient follow-up by Dr. Hills-has been referred to [facility] for possible bronchoscopic lung volume reduction, etc.
Some of the cardiac medications also associated with shortness of breath including metoprolol and flecainide. This will need to be revisited in the outpatient setting. Follows up with cardiology at [facility].
Obstructive sleep apnea: Not on CPAP therapy. She was told it was not needed in the past.
DVT prophylaxis-on Lovenox
Nutrition
Physical therapy/Occupational Therapy
At the time of discharge, I would discharge her on a very slow prednisone taper-prednisone 40 mg daily for 5 days, then 30 mg daily for 5 days, then 20 mg daily for 5 days and then 10 mg daily until seen by superintendent menagerie-Dr. Jerome reviewed this
with patient in detail. On 06/11/23
Reviewed with nursing
Outpatient cardiology [id number]
Outpatient pulmonary follow-up- Dr Hills
Subjective Data
-
Date of Service:
Date of Service: June 13, 2023
Chief Complaint: Pulmonary Follow Up (Shortness of breath/COPD with exacerbation) and Dyspnea Follow Up
Subjective:
Feels a little better, less short of breath, diuresing, moving more air, increased mucus production, no chest pain or abdominal pain
Review of Systems
General: Other (Per HPI)
Objective Data
Data Reviewed
Vital Signs / I&O:
Vital Signs
Temp Pulse Resp BP Pulse Ox
98.0 F 92 18 116/57 96
06/12/23 23:46 06/13/23 07:26 06/13/23 07:26 06/12/23 23:46 06/13/23 07:26
Intake and Output
06/12/23 06/13/23 06/14/23
06:59 06:59 06:59
Intake Total 960 / 960 1280 / 1280
Output Total 1000 / 1000 1350 / 1350
Balance -40 / -40 -70 / -70
SaO2: 96
Nasal Cannula flow liters per minute: 3
Physical Exam
General: Respiratory Distress (none at rest) and Comfortable
HEENT: Normocephalic and Anicteric
Cardiovascular: Regular Rhythm, Murmur (negative) and Peripheral Edema (+2 LE edema b/l)
Respiratory: Wheeze (negative), Crackles (bilaterally), Rhonchi (negative), Non-Labored Respirations and Other (Prolonged expiratory phase)
GI: Soft, Non Distended, Non Tender and Normal Bowel Sounds
Neurology: Awake, Alert and No Motor Deficits
Skin: Warm, Dry, Good Color, Cyanosis (n), Jaundice (n) and Rash (n)
Labs/Micro/Reports
Lab Data
06/12/23 06:59
[2023-06-13 08:12] LABS: Blood Urea Nitrogen 32 mg/dl (7-17); Calcium 9.4 mg/dl (8.4-10.2); Carbon Dioxide 33 mmol/L (22-30); Chloride 94 mmol/L (98-107); Estimated Creatinine Clearance 33 ml/min; Glucose 87 mg/dl (70-99); Potassium 3.4 mmol/L (3.5-5.1); Sodium 133 mmol/L (135-145); eGFR 46.33
[2023-06-13] MEDS: TOPROL XL 12.5 MG PO (08:30)
[2023-06-13] MEDS: TAMBOCOR 50 MG PO (08:30)
[2023-06-13] MEDS: PLAVIX 75 MG PO (08:30)
[2023-06-13] MEDS: MUCINEX 1200 MG PO (08:30)
[2023-06-13] MEDS: DELTASONE 30 MG PO (08:30)
[2023-06-13] MEDS: ZITHROMAX 250 MG PO (08:30)
[2023-06-13] MEDS: LASIX 40 MG IV (08:31)
[2023-06-13] MEDS: PROTONIX 40 MG PO (08:31)
[2023-06-13] MEDS: ASPIR LOW (ENTERIC COATED) 81 MG PO (08:31)
[2023-06-13] MEDS: LEXAPRO 10 MG PO (08:31)
--- NOTE | 2023-06-13 09:32 | W.PN.HOSP.TC ---
Today's Communication/Plan
-
d/c
Assessment / Plan
Assessment / Plan
Gen: remains NAD, AAOx3.
Eyes: EOMI, PERRLA, no scleral icterus.
Neck: supple.
CV: RRR, +S1/S2, no m/r/g.
Resp: B/L expiratory wheezes
Skin: No rashes. trace LE edema
Neuro: CN 2-12 intact, non-focal.
Psych: Normal mood and affect.
Acute on chronic hypoxemic respiratory failure due to acute COPD exacerbation and acute on chronic HFpEF:
-on 3L NC O2 at baseline, now weaned down to 3L NC O2
-COVID-negative
-Continue DuoNebs
-was on IV decadron, now on Prednisone taper
-On chronic azithromycin 250 mg Friday
-Pulmonary following
-CXR 06/09/23AM: Findings suggest very mild interstitial edema/pulmonary edema and minimal pleural fluid, minimally increased compared to the previous exam.
-proBNP 529
-has been on IV lasix, change to Lasix 40mg PO daily on d/c
-wt down ~3.5kg
-cardiology following
Other problems:
Hyponatremia, trend
Hypokalemia: PO K
BRISEYDA: Monitor Cr while on lasix
Hypokalemia, resolved
ASHU, was on BIPAP prior
LE swelling, US doppler neg
PAF: s/p watchman 02/24/2023. Continue flecainide/BB
CAD with h/o stents: cont ASA/plavix/statin/BB
Depression/anxiety: Continue Lexapro
PAD s/p fem-femo bypass: cont ASA/plavix/statin
GERD, h/o pill induced esophagitis: cont PPI
DNR/Lovenox
Medically stable for d/c.
Total time spent on d/c = 33 min. This included today's physical exam, progress note, review of laboratory and diagnostic data, preparation of discharge documents and prescriptions, and discussions about the pt's hospital course and discharge plan
with the patient and other medical scientific liaison involved in the patient's care.
Anticipated Discharge: Today
Subjective/Interval History
-
Date of Service: June 13, 2023
Reports SOB has significantly improved.
Objective Data
-
Labs:
Laboratory Results
06/13/23
07:06
Sodium 133 L
Potassium 3.4 L
Chloride 94 L
Carbon Dioxide 33 H
BUN 32 H
Creatinine 1.2 H
Glucose 87
Calcium 9.4
Vital Signs:
Vital Signs
Temp Pulse Resp BP Pulse Ox
97.8 F 64 18 115/65 96
06/13/23 07:00 06/13/23 08:31 06/13/23 07:26 06/13/23 08:31 06/13/23 08:06
I&O
06/12/23 06/13/23 06/14/23
06:59 06:59 06:59
Intake Total 960 / 960 1280 / 1280
Output Total 1000 / 1000 1350 / 1350
Balance -40 / -40 -70 / -70
[2023-06-13] MEDS: KCL 40 MEQ PO (10:11)
--- NOTE | 2023-06-13 10:56 | CM ---
Patient seen beside, reports no new concerns. CM reviewed IMM, signed, placed in patients chart. CM will update [facility] home care upon discharge. CM will continue to follow for discharge planning needs.
Plan; home with restart of [facility]
fax upon discharge:
[facility] -
--- NOTE | 2023-06-13 17:52 | W.DCSUMMARY ---
Discharge Summary
Discharge Data
Date of Admission: 06/02/23
Date of Discharge: 06/13/23
-
Pending Results: No
Hospital Course
Primary diagnoses:
Acute on chronic hypoxemic respiratory failure due to acute chronic obstructive pulmonary disease exacerbation and acute on chronic heart failure with preserved ejection fraction
Secondary diagnoses:
Hyponatremia
Hypokalemia
Acute kidney injury
Obstructive sleep apnea
Paroxysmal atrial fibrillation s/p watchman 02/24/2023
Coronary disease with h/o stents
Depression
Anxiety
Peripheral arterial disease s/p fem-femo bypass
Gastroesophageal reflux disease
H/o pill induced esophagitis
Consultants:
Pulmonary
Cardiology
Imaging:
CTA chest: No evidence of pulmonary embolus. No aortic dissection. Left upper lobe pulmonary nodule/nodules. Stable. This would better be evaluated by PET imaging. Findings suggesting mild emphysematous disease. Stable.
B/L LE U/S: No sonographic evidence for lower extremity venous thrombosis.
CXR: 06/09/23: Findings suggest very mild interstitial edema/pulmonary edema and minimal pleural fluid, minimally increased compared to the previous exam.
Echo: Normal left ventricular chamber size. Normal left ventricular wall thickness.
Hyperdynamic left ventricular systolic function. Normal regional wall motion..
LV ejection fraction is 70-75% by visual assessment. Stage II diastolic
dysfunction suggestive of abnormal relaxation and increased filling pressures.
Normal right ventricular size and function.
Mildly dilated left atrium
Mild mitral regurgitation.
69-year-old female who initially presented with a chief complaint of shortness of breath as outlined in the H&P done on admission. Hospital course by problem list:
Acute on chronic hypoxemic respiratory failure due to acute chronic obstructive pulmonary disease exacerbation and acute on chronic heart failure with preserved ejection fraction: The patient required is much as 5 L nasal cannula oxygen while
hospitalized. By discharge she was weaned down to her baseline 3L NC O2. COVID testing was negative. She was placed on DuoNebs and IV Decadron. She was then transitioned to a prednisone taper. As her shortness of breath was not improving
significantly she had a chest x-ray on June 09, 2023 showing very mild interstitial edema/pulmonary edema and minimal pleural fluid, minimally increased compared to the previous exam. proBNP was 529. Patient was diuresed with IV Lasix and her
symptoms improved significantly. She was transitioned to oral Lasix on discharge.
Discharge Plan
-
Patient Disposition: Home (Routine Discharge)
Discharge Diagnosis/Procedures: Acute on chronic hypoxemic respiratory failure due to acute chronic obstructive pulmonary disease exacerbation and acute on chronic heart failure with preserved ejection fraction
Acute kidney injury
Diet: Other diet
Additional Diets: heart healthy, fluid restrict to 1500cc/day
Activity: With assistance
Driving Restrictions: As prior to admission
Bathing Restrictions: None
Blood Work: BMP in 1 week, script from PCP
Specialty Instructions: Weigh Daily- Call MD for wt gain/loss 3 lbs overnight/5 lbs in 1 week
Activity Restrictions/Additional Instructions:
Please follow-up with your clutch mechanic outpatient
Referrals:
Rehana Lackey CRNP [Specified Professional Personl] - 06/25/23 9:20 am
Reinier Noel DO [Family Provider] - in less than 1 week
Neva Landry MD [Active] - (palliative care eval)
Prescriptions:
New
ipratropium-albuterol 0.5 mg-3 mg(2.5 mg base)/3 mL Solution For Nebulization
3 ml inhalation TID Qty: 180 0RF
guaifenesin 600 mg Tablet Extended Release 12hr
1,200 mg PO Q12 Qty: 28 0RF
budesonide 0.5 mg/2 mL Suspension For Nebulization
0.5 mg inhalation R BID Qty: 60 0RF
albuterol sulfate 2.5 mg /3 mL (0.083 %) Solution For Nebulization
2.5 mg inhalation R Q4HPRN PRN (Reason: SOB/WHEEZING) Qty: 180 0RF
pantoprazole 40 mg Tablet,Delayed Release (Dr/Ec)
40 mg PO DAILY Qty: 30 0RF
furosemide [Lasix] 40 mg tablet
40 mg PO DAILY Qty: 30 0RF
prednisone 10 mg tablet
10 mg PO DAILY Qty: 18 0RF
Rx Instructions:
Taper: 30mg daily x 3 days, 20mg daily x 3 days, 10mg daily x 3 days
Continued
metoprolol succinate 25 MG tablet extended release 24 hr
12.5 mg PO DAILY
Patient Comments:
atorvastatin 40 MG tablet
40 mg PO QPM
aspirin 81 MG tablet,delayed release (DR/EC)
81 mg PO DAILY
flecainide 50 MG tablet
50 mg PO Q12H
azithromycin 250 mg Tablet
250 mg PO MOWEFR@0800
clopidogrel 75 mg Tablet
75 mg PO DAILY
fluticasone propionate [Flonase Allergy Relief] 50 mcg/actuation [place],Suspension
2 spray INTRANASAL DAILY PRN (Reason: allergies)
escitalopram oxalate 20 mg Tablet
10 mg PO DAILY
Trelegy Ellipta 100-62.5-25 mcg Blister With Device
1 inh INHALATION R DAILY
Trelegy Ellipta 200-62.5-25 mcg Blister With Device
1 inh INHALATION R DAILY PRN (Reason: sob)
Patient Comments:
06/02/2023, per pt., they alternate between this med. and the 100-62.5-25 mcg strength of this med., but they use the 100-62.5-25 mcg one more.
Discontinued
furosemide 20 MG tablet
20 mg PO DAILYPRN PRN (Reason: edema)
spironolactone 25 mg Tablet
25 mg PO DAILY
ibuprofen [Advil] 200 mg Tablet
400 mg PO BIDPRN PRN (Reason: mild pain)
albuterol sulfate 2.5 mg /3 mL (0.083 %) Solution For Nebulization
2.5 mg INHALATION R TID
Patient Comments:
06/02/2023, called [facility] to confirm this med.; pt. had this med. shipped to them on 04/29/2023.
albuterol sulfate 2.5 mg /3 mL (0.083 %) Solution For Nebulization
2.5 mg INHALATION R DAILY PRN (Reason: sob)
Patient Comments:
06/02/2023, called [facility] to confirm this med.; pt. had this med. shipped to them on 04/29/2023.
prednisone 10 MG tablet
10 mg PO .TAPER
Patient Comments:
06/02/2023, per pt., they took 2nd day of 30 mg dose today; tomorrow is last dose of 30 mg before starting 20 mg x 3 days.
Rx Instructions:
06/02/2023,
40 mg x 3 days
30 mg x 3 days
20 mg x 3 days
10 mg x 3 days
Discharge Orders:
Discharge Patient (As Directed); Ordered 06/13/23
Ordered By: Ja Moss
Discharge Date and Time
Discharge Date/Time: 06/13/23 13:53
== END 2023-06-13 13:53 | disposition home health service (06) | DRG 190 ==
LOC: 4 EAST ACU 19:33
PROVIDERS: Clinical Nurse Specialist Family Health; Emergency Medicine; Internal Medicine Critical Care Medicine; ADMITTING PHYSICIAN Internal Medicine; ATTENDING PHYSICIAN Internal Medicine; CONSULT PHYSICIAN Internal Medicine Critical Care Medicine; EMERGENCY PHYSICIAN Emergency Medicine; FAMILY PHYSICIAN Family Medicine; OTHER PHYSICIAN Internal Medicine Cardiovascular Disease
DX: J44.1 Chronic obstructive pulmonary disease with (acute) exacerbation (principal); I50.33 Acute on chronic diastolic (congestive) heart failure; J96.21 Acute and chronic respiratory failure with hypoxia; N17.9 Acute kidney failure, unspecified; E87.1 Hypo-osmolality and hyponatremia; Z87.891 Personal history of nicotine dependence; E87.6 Hypokalemia; F41.9 Anxiety disorder, unspecified; F32.A Depression, unspecified; K21.9 Gastro-esophageal reflux disease without esophagitis; Z66 Do not resuscitate; I11.0 Hypertensive heart disease with heart failure; Z79.82 Long term (current) use of aspirin; I25.10 Atherosclerotic heart disease of native coronary artery without angina pectoris; Z95.5 Presence of coronary angioplasty implant and graft; I48.0 Paroxysmal atrial fibrillation; Z11.52 Encounter for screening for COVID-19; E78.00 Pure hypercholesterolemia, unspecified; G47.33 Obstructive sleep apnea (adult) (pediatric); Z95.818 Presence of other cardiac implants and grafts; I73.9 Peripheral vascular disease, unspecified
CPT/HCPCS: 71046; 71275; 80048; 80053; 81003; 83605; 83735; 83880; 84100; 84484; 85025; 85027; 87040; 87070; 87205; 87502; 87811; 93005; 93306; 93970; 94060; 94640; 94669; 96374; 97116; 97162; 97166; 97530; 97535; 99285; Q9967

== ENCOUNTER 2023-10-31 13:33 | Emergency (ER) | payer MEDICARE, OTHER, SELFPAY ==
[2023-10-31] VITALS (8 sets, daily range): BP systolic 109–144; BP diastolic 54–66; BMI 23.9
[2023-10-31 14:00] LABS: % Basophils 0.1 % (0-2); % Eosinophils 0.1 % (0-6); % Immature Granulocytes 0.6 % (0-0.5); % Lymphocytes 10.6 % (20.5-51.1); % Monocytes 2.8 % (1.7-9.3); % Neutrophils 85.8 % (42.2-75.2); Absolute Immature Granulocytes 0.1 10^3/uL (0-0.05); Absolute Lymphocytes 1.6 10^3/uL (1.2-3.4); Absolute Monocytes 0.4 10^3/uL (0.1-0.6); Absolute Neutrophils 12.6 10^3/uL (1.4-6.5); Hematocrit 40.2 % (37.0-47.0); Hemoglobin 13.5 g/dL (12.0-16.0); Mean Corp Hgb Conc. 33.6 g/dL (33.0-37.0); Mean Corpuscular Hgb 28.2 pg (27.0-31.0); Mean Corpuscular Volume 84.1 fL (81.0-99.0); Mean Platelet Volume 8.9 fL (7.4-10.4); Nucleated Red Blood Cells % 0 %; Platelet Count 250 10^3/uL (130-400); Red Blood Cell Count 4.78 10^6/uL (4.20-5.40); Red Cell Dist. Width 15.7 % (11.5-14.5); White Blood Cell Count 14.7 10^3/uL (4.8-10.8)
[2023-10-31 14:16] LABS: APTT 24.6 Sec (23.4-35.0)
[2023-10-31 14:33] LABS: ALT (SGPT) 20 U/L (0-35); AST (SGOT) 24 U/L (14-36); Albumin 4.3 g/dl (3.5-5.0); Alkaline Phosphatase 98 U/L (38-126); Blood Urea Nitrogen 49 mg/dl (7-17); Carbon Dioxide 25 mmol/L (22-30); Chloride 102 mmol/L (98-107); Estimated Creatinine Clearance 27 ml/min; Glucose 103 mg/dl (70-99); Potassium 3.4 mmol/L (3.5-5.1); Sodium 139 mmol/L (135-145); Total Bilirubin 0.6 mg/dl (0.2-1.3); Total Protein 6.6 g/dl (6.3-8.2); eGFR 38.27
[2023-10-31 14:42] LABS: Troponin I < 0.012 ng/ml
--- NOTE | 2023-10-31 16:22 | ED.GENMED ---
History of Present Illness
<Anna Cabello PA-C - Last Filed: 11/01/23 00:11>
General
Chief Complaint: Chest Pain
Source: patient and family
Exam Limitations: none
Time Seen by Provider: 10/31/23 15:48
Nursing documentation reviewed up to this point in time: agreed with
History of Present Illness
History of Present Illness:
Patient is a 78-year-old female with history of COPD on chronic oxygen, CHF, CAD, hypertension, hyperlipidemia presenting to the emergency department for evaluation of left-sided chest pain. Patient states that approximately 2 days ago she started
to feel an intermittent gradual onset pain in her left chest made worse with movement and coughing. Pain progressively worsened and today was extremely intense and constant. Patient states pain is definitely worse with movement, coughing, deep
breathing. Patient did report that last week she started to notice some increasing cough which prompted her primary care provider to prescribe a course of steroids and doxycycline to prevent a developing pneumonia. Cough has improved although she
still is intermittently coughing cream-colored sputum. No associated fever or chills. Patient is on 2 to 3 L oxygen via nasal cannula at her baseline.
Patient denies any increase in shortness of breath from her baseline. Patient denies any exertional chest pain. Patient denies any recent changes in her weight. No recent travel or surgeries.
Patient has been taking ibuprofen without much improvement.
Past History
<Anna Cabello PA-C - Last Filed: 11/01/23 00:11>
Past History
ED Past Medical History: Arrthythmia, CAD, CHF, COPD, GERD, HTN, Hypercholesterolemia and Other (Peripheral vascular disease)
ED Past Surgical History: Cardiac (Stent), Gynecological (Hysterectomy), Orthopedic and Other (Vascular stents, coronary artery stents)
Social History
Tobacco: Former smoker
Alcohol: Former
Drug: None
Personal:
Living: with family
Review of Systems
<Anna Cabello PA-C - Last Filed: 11/01/23 00:11>
Review of Systems
Allergies reviewed?: Yes
All Other Systems: ROS reviewed and negative except as documented in HPI and ROS
Phy Exam
<Anna Cabello PA-C - Last Filed: 11/01/23 00:11>
Physical Exam
Physical Exam:
Vitals: Patient's vital signs are stable. Oxygen 97 on 3 L O2.
General: Patient appears mildly uncomfortable due to pain.
Skin: Warm and dry, no rashes or lesions
Head: Normocephalic, atraumatic
Eyes: Sclera nonicteric. EOMs intact. No nystagmus.
Throat: Protecting airway
Neck: Normal ROM, no cervical spine tenderness, no meningismus
Cardiac: Significant tenderness to left chest wall without any overlying ecchymoses or erythema. Regular rate and rhythm, no murmurs.
Pulm: No apparent respiratory distress. On 3 L nasal cannula with oxygen 97. Decreased breath sounds bilaterally w/ expiratory wheeze.
Abdomen: Abdomen soft. No abdominal tenderness.
Extremities: No evidence of cyanosis or edema. Great distal pulses
Neuro: AAOx3. CN II-XII intact. No focal neurologic deficits.
Psychiatric: Normal affect.
Scores
<Anna Cabello PA-C - Last Filed: 11/01/23 00:11>
Heart Score for Chest Pain Patients
STEMI patient?: No
History: Slightly or Non-Suspicious
ECG: Normal
Age: >/= 65 years
Risk Factors: >/= 3 Risk Factors or History of CAD
Troponin: </= Normal Limit
Heart Score for Chest Pain Patients: 4
Heart Score Risk: 20.3% MACE over next 6 weeks
Course
<Anna Cabello PA-C - Last Filed: 11/01/23 00:11>
Orders/Labs/Results
Orders:
Orders
10/31/23 13:35
Electrocardiogram (*1) Urgent
Reason for Study: Chest Pain
EKG- Treatment ONCE
10/31/23 13:47
CMP [Comprehensive Metabolic Panel] Urgent
Complete Blood Count/With Diff Urgent
D-Dimer Urgent
Comment: D DIMER ADDED ON BY FLOOR 4:30PM 10-31-23
PTT Urgent
Troponin I Urgent
10/31/23 16:13
Acetaminophen [Tylenol] 650 mg PO NOW STA
10/31/23 16:14
CR Chest - 2 Views Urgent
Comment:
Reason For Exam: left sided reproducible chest pain
10/31/23 16:34
Add On- LAB Urgent
Tests Added?: d-dimer
10/31/23 16:41
Morphine Sulfate 2 mg IV NOW STA
10/31/23 17:04
0.9% Sodium Chloride 250 ml [Nss] 250 ml IV BOLUS
10/31/23 17:06
CT Chest Pe Study Urgent
Comment:
Reason For Exam: pleuritic chest pain, elevated dimer
10/31/23 18:43
Morphine Sulfate 2 mg IV NOW STA
10/31/23 19:43
Troponin I Urgent
10/31/23 21:03
Oxycodone/Acetaminophen [Percocet 5/325] 1 tablet PO NOW STA
Abnormal Lab Results
10/31/23
13:47
WBC 14.7 H 10^3/uL
(4.8-10.8)
RDW 15.7 H %
(11.5-14.5)
Abs Immat Gran (auto) 0.1 H 10^3/uL
(0-0.05)
Absolute Neuts (auto) 12.6 H 10^3/uL
(1.4-6.5)
Immature Gran % 0.6 H %
(0-0.5)
Neutrophils % 85.8 H %
(42.2-75.2)
Lymphocytes % 10.6 L %
(20.5-51.1)
D-Dimer 3.42 H ug/mlFEU
(0.00-0.50)
Potassium 3.4 L mmol/L
(3.5-5.1)
BUN 49 H mg/dl
(7-17)
Creatinine 1.4 H mg/dL
(0.6-1.0)
Glucose 103 H mg/dl
(70-99)
10/31/23 13:47
10/31/23 13:47
Vital Signs
Initial and Last Documented VS:
Initial Vital Signs
Temp Pulse Resp BP Pulse Ox
98.2 F 80 16 114/66 94
10/31/23 13:39 10/31/23 13:39 10/31/23 13:39 10/31/23 13:39 10/31/23 13:39
Last Documented Vital Signs
Temp Pulse Resp BP Pulse Ox
98.2 F 54 21 110/66 95
10/31/23 16:46 10/31/23 21:15 10/31/23 21:15 10/31/23 21:00 10/31/23 21:00
<Kaity Juarez MD - Last Filed: 10/31/23 19:48>
Orders/Labs/Results
Orders:
Orders
10/31/23 13:35
Electrocardiogram (*1) Urgent
Reason for Study: Chest Pain
EKG- Treatment ONCE
10/31/23 13:47
CMP [Comprehensive Metabolic Panel] Urgent
Complete Blood Count/With Diff Urgent
D-Dimer Urgent
Comment: D DIMER ADDED ON BY FLOOR 4:30PM 10-31-23
PTT Urgent
Troponin I Urgent
10/31/23 16:13
Acetaminophen [Tylenol] 650 mg PO NOW STA
10/31/23 16:14
CR Chest - 2 Views Urgent
Comment:
Reason For Exam: left sided reproducible chest pain
10/31/23 16:34
Add On- LAB Urgent
Tests Added?: d-dimer
10/31/23 16:41
Morphine Sulfate 2 mg IV NOW STA
10/31/23 17:04
0.9% Sodium Chloride 250 ml [Nss] 250 ml IV BOLUS
10/31/23 17:06
CT Chest Pe Study Urgent
Comment:
Reason For Exam: pleuritic chest pain, elevated dimer
10/31/23 18:43
Morphine Sulfate 2 mg IV NOW STA
10/31/23 19:43
Troponin I Urgent
10/31/23 21:03
Oxycodone/Acetaminophen [Percocet 5/325] 1 tablet PO NOW STA
Abnormal Lab Results
10/31/23
13:47
WBC 14.7 H 10^3/uL
(4.8-10.8)
RDW 15.7 H %
(11.5-14.5)
Abs Immat Gran (auto) 0.1 H 10^3/uL
(0-0.05)
Absolute Neuts (auto) 12.6 H 10^3/uL
(1.4-6.5)
Immature Gran % 0.6 H %
(0-0.5)
Neutrophils % 85.8 H %
(42.2-75.2)
Lymphocytes % 10.6 L %
(20.5-51.1)
D-Dimer 3.42 H ug/mlFEU
(0.00-0.50)
Potassium 3.4 L mmol/L
(3.5-5.1)
BUN 49 H mg/dl
(7-17)
Creatinine 1.4 H mg/dL
(0.6-1.0)
Glucose 103 H mg/dl
(70-99)
10/31/23 13:47
10/31/23 13:47
Vital Signs
Initial and Last Documented VS:
Initial Vital Signs
Temp Pulse Resp BP Pulse Ox
98.2 F 80 16 114/66 94
10/31/23 13:39 10/31/23 13:39 10/31/23 13:39 10/31/23 13:39 10/31/23 13:39
Last Documented Vital Signs
Temp Pulse Resp BP Pulse Ox
98.2 F 54 21 110/66 95
10/31/23 16:46 10/31/23 21:15 10/31/23 21:15 10/31/23 21:00 10/31/23 21:00
<Anna Cabello PA-C - Last Filed: 11/01/23 00:11>
MDM/Problems Addressed
Differential Diagnosis Includes:
Not limited to: Muscle strain, muscle spasm, fractured rib, PE, pneumonia, pneumothorax, COPD exacerbation, myocarditis, pericarditis
MDM/Problems Addressed:
78-year-old female presenting with worsening left-sided chest pain exacerbated by certain movements, coughing, deep breathing. Started gradually earlier this week but has been acutely worsening today. No recent trauma or fall patient does have
COPD and is on 2 to 3 L of O2 at baseline. She denies any worsening in shortness of breath from baseline, exertional chest pain, dizziness, lightheadedness, fever, or chills. Has had mild productive cough since last week for which she was started
on prophylactic course of prednisone and doxycycline by her primary care provider with improvement in symptoms. Vital stable. Patient is saturating well on 3 L nasal cannula in no apparent distress. Physical exam as above. Heart regular rate and
rhythm. Decreased breath sounds bilaterally with scattered wheezing. Patient does have significant tenderness to left chest wall without any overlying erythema, ecchymoses, or obvious deformity. No focal neurologic deficits. Labs were initiated
in triage show a leukocytosis of 14.7�which I suspect to be from current steroid use. Otherwise no clinically significant abnormalities. Initial troponin is normal. ECG with no acute ischemic findings. Given significant discomfort�will check
chest x-ray, D-dimer to rule out PE. Will treat pain symptomatically.
Patient did have improvement following morphine. Unfortunately�D-dimer was elevated 3.42. Will proceed with CTA chest to rule out PE. Patient does have a decreased GFR of 38.27 which I discussed with the radiologist. He is comfortable proceeding
with PE study with some fluids.
CT report reviewed. No evidence of pulmonary embolism no other acute abnormalities noted. There is a 6 mm nodule in the left lower lobe noted for which patient should have followed up with in approximately 6 months. Did print out copy of report
to give to patient and her daughter to ensure is appropriately followed up with imaging.
Workup here essentially negative. A repeat troponin was sent which remained negative. Patient remains with improvement in symptoms following morphine. No indication for admission at this time. Patient oxygen is at baseline. Will discharge with
close return precautions, pain management. Suspect likely musculoskeletal versus pleurisy. Possible costochondritis component given patient's recent coughing. She will follow with primary care and cardiology on Friday.
Chronic conditions affecting care:
COPD on chronic O2
Acute Exacerbation and/or Progression of Chronic Illness:
N/A
<Anna Cabello PA-C - Last Filed: 11/01/23 00:11>
*Radiology
Radiology exam reviewed: preliminary read by ED provider (CXR without any acute abnormality) and radiology read reviewed
*Pulse Oximetry
Patient hypoxic: no
Comment: O2 95 on 3L NC which is baseline per pt
*EKG
Interpreted by ED Provider?: Yes
EKG Intrepretation Date: 10/31/23
Interpretation: normal
Comparison EKG: no changes
Heart Rate: 67
Rate: normal
Rhythm: sinus
Ischemia: no ischemia
*Engineering Surveyor Interpretation
Rate: normal
Interpretation: normal
Heart Rate: 68
Rhythm: sinus
*Critical Care Note
Total Time (30-74mins, 75-104mins- exclusive of procedures): Not Applicable
<Kaity Juarez MD - Last Filed: 10/31/23 19:48>
Update Note
Update Note:
CT REPORT READ BY RADS No evidence of pulmonary embolism.
COPD. Stable 8.5 mm slightly irregular/lobular small nodular wall in the left upper lobe.
In the posterolateral left lower lobe there is a part solid nodule measuring 6 mm, not present previously. Possible focal atelectasis. Recommend follow-up in 6 months.
Mild reflux of injected contrast material into the inferior vena cava, suggesting possibility of elevated right-sided heart pressure or tricuspid valve insufficiency. Also present previously.
Pulmonary Nodule Advisory Board
ED Attending Note
<Anna Cabello PA-C - Last Filed: 11/01/23 00:11>
-
Portions of this chart may have been created with voice recognition software.� Occasional wrong word or��sound alike� substitutions may have occurred due to the inherent limitations of voice recognition software.
<Kaity Juarez MD - Last Filed: 10/31/23 19:48>
ED Attending Note
Patient seen and examined by attending physician: Yes
I performed the substantive portion of visit, reviewed & personally made and approve the management plan that is documented in note by myself or ESHA.: Yes
ED Attending Note:
78-year-old female presents emergency department with complaints of progressive left-sided chest pain, much worse with certain movements and deep breath, associated with slightly worse shortness of breath. Patient has chronic dyspnea and wears
oxygen at home for her COPD. She denies new fever, cough, sore throat, central chest pain, back pain, neck pain, headache, dizziness, leg swelling, recent trauma, or other complaints. Pain got worse today, started earlier in the week, which
prompted her visit here. On exam, patient is obviously very uncomfortable especially with certain movements. She is not acutely dyspneic at this time. No rash noted, no chest wall findings, no bruising redness warmth or swelling of the thorax
area. The area is exquisitely tender to palpation directly at the lateral thorax mid chest area. Workup in progress, will need a PE rule out.
Workup generally unremarkable here, nonspecific white blood cell count elevation. No PE noted. Patient feels better status post morphine. Case discussed with patient, granddaughter who is bedside, and daughter via telephone that I thought aware
of workup, and recommendation for discharge presuming second troponin is unremarkable with a short course of pain medication which they will take with great caution and under supervision. Patient states that she does cough very very hard and
wonders if her symptoms are related to that.
Discharge Plan
Departure
Patient Disposition: Home (Routine Discharge)
Date of Disposition: 10/31/23
Time of Disposition: 20:48
Patient with high blood pressure during this ER visit?: No
Condition: Good
Covid-19: Not Applicable
Discharge Problem:
Chest pain
Instructions: Chest pain, Pleurisy
Prescriptions:
New
oxycodone-acetaminophen [Percocet] 5-325 mg tablet
1 tab PO Q6H PRN (Reason: Pain) Qty: 10 0RF
No Action
metoprolol succinate 25 MG tablet extended release 24 hr
12.5 mg PO DAILY
Patient Comments:
atorvastatin 40 MG tablet
40 mg PO QPM
aspirin 81 MG tablet,delayed release (DR/EC)
81 mg PO DAILY
flecainide 50 MG tablet
50 mg PO Q12H
azithromycin 250 mg Tablet
250 mg PO MOWEFR@0800
clopidogrel 75 mg Tablet
75 mg PO DAILY
fluticasone propionate [Flonase Allergy Relief] 50 mcg/actuation [place],Suspension
2 spray INTRANASAL DAILY PRN (Reason: allergies)
escitalopram oxalate 20 mg Tablet
10 mg PO DAILY
Trelegy Ellipta 100-62.5-25 mcg Blister With Device
1 inh INHALATION R DAILY
Trelegy Ellipta 200-62.5-25 mcg Blister With Device
1 inh INHALATION R DAILY PRN (Reason: sob)
Patient Comments:
06/02/2023, per pt., they alternate between this med. and the 100-62.5-25 mcg strength of this med., but they use the 100-62.5-25 mcg one more.
ipratropium-albuterol 0.5 mg-3 mg(2.5 mg base)/3 mL Solution For Nebulization
3 ml inhalation TID Qty: 180 0RF
guaifenesin 600 mg Tablet Extended Release 12hr
1,200 mg PO Q12 Qty: 28 0RF
budesonide 0.5 mg/2 mL Suspension For Nebulization
0.5 mg inhalation R BID Qty: 60 0RF
albuterol sulfate 2.5 mg /3 mL (0.083 %) Solution For Nebulization
2.5 mg inhalation R Q4HPRN PRN (Reason: SOB/WHEEZING) Qty: 180 0RF
pantoprazole 40 mg Tablet,Delayed Release (Dr/Ec)
40 mg PO DAILY Qty: 30 0RF
furosemide [Lasix] 40 mg tablet
40 mg PO DAILY Qty: 30 0RF
prednisone 10 mg tablet
10 mg PO DAILY Qty: 18 0RF
Rx Instructions:
Taper: 30mg daily x 3 days, 20mg daily x 3 days, 10mg daily x 3 days
Referrals:
Reinier Noel DO [Family Provider] - Follow up in 1 week
Activity Restrictions/Additional Instructions:
RETURN TO THE EMERGENCY DEPARTMENT WITH ANY FEVERS, CHILLS, WORSENING CHEST PAIN, WORSENING SHORTNESS OF BREATH, COUGHING UP BLOOD, DIZZINESS/LIGHTHEADEDNESS, WORSENING IN CURRENT SYMPTOMS, OR ANY OTHER CONCERNS
-A prescription for Percocet has been sent to your pharmacy. You can take this up to every 6 hours as needed for severe pain. This may cause drowsiness. You should not when you are alone you should avoid any NSAIDs including Motrin, ibuprofen,
Aleve, naproxen due to your aspirin and Plavix use.
-Continue all your other medications as prescribed.
-You should keep your follow-up appointment scheduled with cardiology for Friday.
Closely monitor your symptoms and return to department with any acute worsening/new symptom
Interventions
Interventions:
*Risk Screen - Suicide Last Done: 10/31/23 13:39
*General Assessment Last Done: 10/31/23 16:47
*Neglect/Abuse Screening Last Done: 10/31/23 13:39
ED- Fall Risk Assessment Last Done: 10/31/23 13:39
*ED COVID-19 Vaccine History Last Done: 10/31/23 16:47
*Nursing Disposition Last Done: 10/31/23 21:29
ED- Cardiac Assessment Last Done: 10/31/23 17:00
Discharge Date and Time
Discharge Date/Time: 10/31/23 21:30
Print Language: YEMENI
[2023-10-31 16:53] LABS: D-Dimer 3.42 ug/mlFEU (0.00-0.50)
[2023-10-31] MEDS: TYLENOL 650 MG PO (17:12)
[2023-10-31] MEDS: MORPHINE SULFATE 2 MG IV ×2 (17:13→19:02)
[2023-10-31] MEDS: NSS 250 IV (17:24)
[2023-10-31 20:19] LABS: Troponin I < 0.012 ng/ml
[2023-10-31] MEDS: PERCOCET 5/325 1 TABLET PO (21:11)
== END 2023-10-31 21:30 | disposition home or self-care (01) ==
LOC: EMR 13:33
PROVIDERS: Emergency Medicine; EMERGENCY PHYSICIAN Emergency Medicine; FAMILY PHYSICIAN Family Medicine
DX: R07.89 Other chest pain (principal)
CPT/HCPCS: 99285; 96374; 96361; 96376; 71046; 71275; 80053; 84484; 85025; 85379; 85730; 93005; Q9967

== ENCOUNTER 2023-11-30 20:25 | Emergency (ER) | payer MEDICARE, OTHER, SELFPAY ==
[2023-11-30 20:29] VITALS: BP 114/50
[2023-11-30 21:27] VITALS: BP 84/52; BMI 22.7
--- NOTE | 2023-11-30 21:43 | ED.GENMED ---
History of Present Illness
General
Chief Complaint: Ear Problem
Time Seen by Provider: 11/30/23 21:28
History of Present Illness
History of Present Illness:
Patient presents to the emergency department with bleeding from left ear. Symptoms started after she cleaned her ears with Q-tips. She denies any pain. Denies any difficulty hearing. States she uses Q-tips daily to clean her ears. Denies
lightheadedness or shortness of breath worse than baseline
Past History
Past History
ED Past Medical History: Arrthythmia, CAD, CHF, COPD, GERD, HTN, Hypercholesterolemia and Other (Peripheral vascular disease)
ED Past Surgical History: Cardiac (Stent), Gynecological (Hysterectomy), Orthopedic and Other (Vascular stents, coronary artery stents)
Social History
Tobacco: Former smoker
Alcohol: Former
Drug: None
Personal:
Living: with family
Phy Exam
Physical Exam
Physical Exam:
GENERAL APPEARANCE: NAD, well developed/ well nourished
EYES lids/conjunctiva normal
EARS/NOSE/THROAT there is small amount of blood in the left external auditory canal. The TM is intact not erythematous. There is no middle ear effusion. The right external canal has some irritation and excoriations with. TM is normal-appearing
HEAD/NECK normocephalic atraumatic, neck is supple.
RESPIRATORY respiratory effort normal, speaks in full sentences, no accessory muscle use. Lungs clear to auscultation without rhonchi, wheezes, rales
MUSCLES/EXTREMITIES No abnormal range of motion, no swelling.
SKIN Warm, pink and dry. No rashes
NEUROLOGICAL Speech is clear and appropriate. Normal level of consciousness. 5/5 strength in all extremities.
PSYCH Normal mood and affect. Judgement/competence is appropriate
Course
Vital Signs
Initial and Last Documented VS:
Initial Vital Signs
Temp Pulse Resp BP Pulse Ox
98 F 85 24 114/50 92
11/30/23 20:29 11/30/23 20:29 11/30/23 20:29 11/30/23 20:29 11/30/23 20:29
Last Documented Vital Signs
Temp Pulse Resp BP Pulse Ox
98 F 78 20 108/48 92
11/30/23 20:29 11/30/23 21:27 11/30/23 21:27 11/30/23 21:56 11/30/23 21:29
*Critical Care Note
Total Time (30-74mins, 75-104mins- exclusive of procedures): Not Applicable
ED Attending Note
ED Attending Note
ED Attending Note:
Patient with superficial injury to external auditory canal on the left induced by cleaning. TM is intact. Bleeding is minimal. Will prescribe antibiotic eardrops to prevent infection. Will refer to ENT. Instructed patient and counseled her to
avoid the use of Q-tips to clean ear. Patient noted to have isolated low blood pressure while in the ER. She is asymptomatic. Blood pressure improved without intervention.
-
Portions of this chart may have been created with voice recognition software.� Occasional wrong word or��sound alike� substitutions may have occurred due to the inherent limitations of voice recognition software.
Discharge Plan
Departure
Patient Disposition: Home (Routine Discharge)
Date of Disposition: 11/30/23
Time of Disposition: 21:56
Patient with high blood pressure during this ER visit?: No
Discharge Problem:
Injury of external auditory canal
Prescriptions:
New
ofloxacin 0.3 % drops
10 drp otic (ear) DAILY 7 Days Qty: 5 0RF
No Action
metoprolol succinate 25 MG tablet extended release 24 hr
12.5 mg PO DAILY
Patient Comments:
atorvastatin 40 MG tablet
40 mg PO QPM
aspirin 81 MG tablet,delayed release (DR/EC)
81 mg PO DAILY
flecainide 50 MG tablet
50 mg PO Q12H
azithromycin 250 mg Tablet
250 mg PO MOWEFR@0800
clopidogrel 75 mg Tablet
75 mg PO DAILY
fluticasone propionate [Flonase Allergy Relief] 50 mcg/actuation [place],Suspension
2 spray INTRANASAL DAILY PRN (Reason: allergies)
escitalopram oxalate 20 mg Tablet
10 mg PO DAILY
Trelegy Ellipta 100-62.5-25 mcg Blister With Device
1 inh INHALATION R DAILY
Trelegy Ellipta 200-62.5-25 mcg Blister With Device
1 inh INHALATION R DAILY PRN (Reason: sob)
Patient Comments:
06/02/2023, per pt., they alternate between this med. and the 100-62.5-25 mcg strength of this med., but they use the 100-62.5-25 mcg one more.
ipratropium-albuterol 0.5 mg-3 mg(2.5 mg base)/3 mL Solution For Nebulization
3 ml inhalation TID Qty: 180 0RF
guaifenesin 600 mg Tablet Extended Release 12hr
1,200 mg PO Q12 Qty: 28 0RF
budesonide 0.5 mg/2 mL Suspension For Nebulization
0.5 mg inhalation R BID Qty: 60 0RF
albuterol sulfate 2.5 mg /3 mL (0.083 %) Solution For Nebulization
2.5 mg inhalation R Q4HPRN PRN (Reason: SOB/WHEEZING) Qty: 180 0RF
pantoprazole 40 mg Tablet,Delayed Release (Dr/Ec)
40 mg PO DAILY Qty: 30 0RF
furosemide [Lasix] 40 mg tablet
40 mg PO DAILY Qty: 30 0RF
prednisone 10 mg tablet
10 mg PO DAILY Qty: 18 0RF
Rx Instructions:
Taper: 30mg daily x 3 days, 20mg daily x 3 days, 10mg daily x 3 days
oxycodone-acetaminophen [Percocet] 5-325 mg tablet
1 tab PO Q6H PRN (Reason: Pain) Qty: 10 0RF
Referrals:
Reinier Noel DO [Family Provider] -
Augustine Somers MD [Active] -
(trauma to external auditory canal with bleeding
started on ofloxacin ear drops)
Interventions
Interventions:
*Risk Screen - Suicide Last Done: 11/30/23 20:29
*General Assessment Last Done: 11/30/23 21:28
*Neglect/Abuse Screening Last Done: 11/30/23 20:29
ED- Fall Risk Assessment Last Done: 11/30/23 21:29
*ED COVID-19 Vaccine History Last Done: 11/30/23 21:28
Discharge Date and Time
Print Language: LITHUANIAN
[2023-11-30 21:56] VITALS: BP 108/48
[2023-11-30 22:14] VITALS: BP 112/60
== END 2023-11-30 22:15 | disposition home or self-care (01) ==
LOC: EMR 20:25
PROVIDERS: EMERGENCY PHYSICIAN Emergency Medicine; FAMILY PHYSICIAN Family Medicine
DX: S09.91XA Unspecified injury of ear, initial encounter (principal); X58.XXXA Exposure to other specified factors, initial encounter; I25.10 Atherosclerotic heart disease of native coronary artery without angina pectoris; I11.0 Hypertensive heart disease with heart failure; I50.9 Heart failure, unspecified; E78.00 Pure hypercholesterolemia, unspecified; I73.9 Peripheral vascular disease, unspecified; J44.9 Chronic obstructive pulmonary disease, unspecified; K21.9 Gastro-esophageal reflux disease without esophagitis; Z87.891 Personal history of nicotine dependence; Z90.710 Acquired absence of both cervix and uterus; Z95.5 Presence of coronary angioplasty implant and graft
CPT/HCPCS: 99282

== ENCOUNTER 2024-12-17 17:34 | Inpatient (IN) | payer MEDICARE, OTHER, SELFPAY ==
[2024-12-17] VITALS (8 sets, daily range): BP systolic 107–124; BP diastolic 47–76; BMI 23.4; BMI 22.1
--- NOTE | 2024-12-17 15:12 | ED.GENMED ---
History of Present Illness
<Jose Enrique Avila PA-C - Last Filed: 12/17/24 20:30>
General
Chief Complaint: Breathing Problem
Time Seen by Provider: 12/17/24 15:05
History of Present Illness
History of Present Illness:
79-year-old female with history of paroxysmal A-fib, CHF, CAD, hypertension, and hyperlipidemia as well as COPD on chronic oxygen presents to the emergency department for evaluation of general malaise, shortness of breath, and severe weakness.
Diagnosed with COVID-19 as of December 07, began with symptoms the day prior. Denies chest pain or leg swelling. Denies significant coughing at this time. Reports poor p.o. intake. 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
Past History
<Jose Enrique Avila PA-C - Last Filed: 12/17/24 20:30>
Past History
ED Past Medical History: Arrthythmia, CAD, CHF, COPD, GERD, HTN, Hypercholesterolemia and Other (Peripheral vascular disease)
ED Past Surgical History: Cardiac (Stent), Gynecological (Hysterectomy), Orthopedic and Other (Vascular stents, coronary artery stents)
Social History
Tobacco: Former smoker
Alcohol: Former
Drug: None
Personal:
Living: with family
Review of Systems
<Jose Enrique Avila PA-C - Last Filed: 12/17/24 20:30>
Review of Systems
Allergies reviewed?: Yes
All Other Systems: ROS reviewed and negative except as documented in HPI and ROS
Phy Exam
<Jose Enrique Avila PA-C - Last Filed: 12/17/24 20:30>
Physical Exam
Physical Exam:
GEN: Well appearing, NAD, WDWN
HEENT: Oral mucosa moist, no scleral icterus
Cardiac: Regular rate and rhythm, no murmur
Lung: Tachypneic however no accessory muscle use, lungs globally clear
MSK: No gross deformity or injuries, no leg edema
Skin: Good color, no pallor or jaundice, no rashes
Neuro: AO x3, moves all extremities freely
Psych: Calm, cooperative
Scores
<Jose Enrique Avila PA-C - Last Filed: 12/17/24 20:30>
Heart Failure Risk
Heart Failure Risk Score: Not Applicable
Course
<Jose Enrique Avila PA-C - Last Filed: 12/17/24 20:30>
Orders/Labs/Results
Orders:
Orders
12/17/24 Dinner
Cholesterol Lowering
At Your Request: Full Participation
Cholesterol Lowering: Sodium, 2 Gram
12/17/24 15:11
0.9% Sodium Chloride 1000 ml [Nss] 1,000 ml IV BOLUS
12/17/24 15:12
Electrocardiogram (*1) Urgent
Reason for Study: Shortness of Breath
EKG- Treatment ONCE
CR Chest - 2 Views Urgent
Comment:
Reason For Exam: SOB
12/17/24 15:26
Complete Blood Count/With Diff Urgent
Comprehensive Metabolic Panel Urgent
NT-proBNP Urgent
Troponin I Urgent
12/17/24 16:16
CefTRIAXone [Rocephin] 1,000 mg IV NOW STA
Dexamethasone Sod Phosphate [Decadron] 10 mg IV NOW STA
12/17/24 16:41
Admit/Transfer Patient As Directed
Co-Sign Provider:
Level of Care: Inpatient admission
Assign to:: Telemetry
Physician / Group: Tanya
Diagnosis: Pneumonia
Reason for Telemetry: Arrhythmia
Date to Stop Telemetry: 12/20/24
Time to Stop Telemetry: 11:00
Reason for Hospitalization: IV abx
Expected length of stay greater than two midnights?: Yes
ELOS- Estimated Length of Stay in days: 3
I certify the patient meets the requirements for IP care: Yes
PRN Pain Medication Management As Directed
May give lesser potent ordered pain med per pt: Yes
preference::
Protocol:: Medication orders for pain may be administered in a
manner that supports deferring to patient preference
when the pt is:
- Requesting an ordered lesser potent pain medication.
Least to most potent pain medications are defined
as: acetaminophen < NSAID < tramadol < opioids
(morphine, oxycodone, hydromorphone).
- Requesting a lesser dose of the same medication IF
ORDERED.
- Requesting a less intrusive route of administration
if both routes are prescribed by the provider (PO <
IV).
12/17/24 16:51
Code Status As Directed
Resuscitation Status: Do not resuscitate
Reached after discussion with pt or family/Healthcare POA: Yes
STOOL [C difficile Antigen & Toxins] Urgent
MARLO Source: Feces/Stool
Specimen Description:
DNR Bracelet Application ONCE
12/17/24 16:52
Potassium Chloride [KCl] 40 meq PO NOW STA
12/17/24 16:53
Sputum Culture [Respiratory Culture/Gram Stain] Urgent
MARLO Source: Sputum
Specimen Description:
12/17/24 18:23
0.9% Sodium Chloride 1000 ml [Nss] 1,000 ml IV 60 mls/hr
Acetaminophen [Tylenol] 650 mg PO Q4HPRN PRN
Atorvastatin [Lipitor] 40 mg PO QPM
Ipratropium/Albuterol Sulfate [Duoneb] 3 ml INH R Q4HPRN PRN
VANCOMYCIN Pharmacy to Dose [VANCOCIN Pharmacy to Dose] 1 each Pharmacy To Prepare [Call Pharmacy To Prepare] 0 ml IV PER PROTOCOL
12/17/24 18:23
Activity As Directed
Activity Level: Out of Bed-Early Mobility
Intake/ Output As Directed
Frequency: Per unit guidelines
Pneumatic Compression Sleeves As Directed
Type: Knee high
Vital Signs As Directed
Frequency: Per unit guidelines
Weight As Directed
Frequency: Daily
Comment: on admission
O2 Therapy [RESP] Routine
Titrate/Wean O2 to maintain O2 sat greater than (%): 92
Wean Oxygen to Pre Admission Baseline Therapy-if applicable: Yes
Special Instructions: 2-3L at baseline
Pt Eval And Treat Routine
Activity Level: Out of Bed-Early Mobility
DX Deep Vein Thrombosis Video Routine
DX Deep Vein Thrombosis Video Routine
12/17/24 20:00
Budesonide [Pulmicort] 0.5 mg INH R BID
Flecainide [Tambocor] 50 mg PO Q12
Guaifenesin [Mucinex] 600 mg PO Q12
Ipratropium/Albuterol Sulfate [Duoneb] 3 ml INH R QID
12/17/24 22:00
Melatonin 5 mg PO HS
12/18/24 06:00
Basic Metabolic Panel IN AM
Complete Blood Count/No Diff IN AM
Magnesium IN AM
Cefepime HCl [Maxipime] 1,000 mg IV Q12H
12/18/24 08:00
Clopidogrel Bisulfate [Plavix] 75 mg PO DAILY
Dapagliflozin [Farxiga] 10 mg PO DAILY
Escitalopram Oxalate [Lexapro] 10 mg PO DAILY
Metoprolol Xl [Toprol Xl] 12.5 mg PO DAILY
Spironolactone [Aldactone] 12.5 mg PO DAILY
12/20/24 08:00
Azithromycin [Zithromax] 250 mg PO MOWEFR@0800
12/20/24 11:00
DC Protocol for Telemetry ONCE
Abnormal Lab Results
12/17/24
15:26
Abs Immat Gran (auto) 0.1 H 10^3/uL
(0-0.05)
Immature Gran % 1.2 H %
(0-0.5)
Neutrophils % 78.3 H %
(42.2-75.2)
Lymphocytes % 16.5 L %
(20.5-51.1)
Potassium 3.3 L mmol/L
(3.5-5.1)
BUN 27 H mg/dl
(7-17)
Creatinine 1.2 H mg/dL
(0.6-1.0)
12/17/24 15:26
12/17/24 15:26
Vital Signs
Initial and Last Documented VS:
Initial Vital Signs
Temp Pulse Resp BP Pulse Ox
98.2 F 93 22 118/63 94
12/17/24 14:33 12/17/24 14:33 12/17/24 14:33 12/17/24 14:33 12/17/24 14:33
Last Documented Vital Signs
Temp Pulse Resp BP Pulse Ox
98.5 F 92 20 124/65 92
12/17/24 19:47 12/17/24 19:47 12/17/24 19:47 12/17/24 19:47 12/17/24 19:47
<Edward Barba, DO - Last Filed: 12/17/24 16:17>
Orders/Labs/Results
Orders:
Orders
12/17/24 Dinner
Cholesterol Lowering
At Your Request: Full Participation
Cholesterol Lowering: Sodium, 2 Gram
12/17/24 15:11
0.9% Sodium Chloride 1000 ml [Nss] 1,000 ml IV BOLUS
12/17/24 15:12
Electrocardiogram (*1) Urgent
Reason for Study: Shortness of Breath
EKG- Treatment ONCE
CR Chest - 2 Views Urgent
Comment:
Reason For Exam: SOB
12/17/24 15:26
Complete Blood Count/With Diff Urgent
Comprehensive Metabolic Panel Urgent
NT-proBNP Urgent
Troponin I Urgent
12/17/24 16:16
CefTRIAXone [Rocephin] 1,000 mg IV NOW STA
Dexamethasone Sod Phosphate [Decadron] 10 mg IV NOW STA
12/17/24 16:41
Admit/Transfer Patient As Directed
Co-Sign Provider:
Level of Care: Inpatient admission
Assign to:: Telemetry
Physician / Group: Tanya
Diagnosis: Pneumonia
Reason for Telemetry: Arrhythmia
Date to Stop Telemetry: 12/20/24
Time to Stop Telemetry: 11:00
Reason for Hospitalization: IV abx
Expected length of stay greater than two midnights?: Yes
ELOS- Estimated Length of Stay in days: 3
I certify the patient meets the requirements for IP care: Yes
PRN Pain Medication Management As Directed
May give lesser potent ordered pain med per pt: Yes
preference::
Protocol:: Medication orders for pain may be administered in a
manner that supports deferring to patient preference
when the pt is:
- Requesting an ordered lesser potent pain medication.
Least to most potent pain medications are defined
as: acetaminophen < NSAID < tramadol < opioids
(morphine, oxycodone, hydromorphone).
- Requesting a lesser dose of the same medication IF
ORDERED.
- Requesting a less intrusive route of administration
if both routes are prescribed by the provider (PO <
IV).
12/17/24 16:51
Code Status As Directed
Resuscitation Status: Do not resuscitate
Reached after discussion with pt or family/Healthcare POA: Yes
STOOL [C difficile Antigen & Toxins] Urgent
MARLO Source: Feces/Stool
Specimen Description:
DNR Bracelet Application ONCE
12/17/24 16:52
Potassium Chloride [KCl] 40 meq PO NOW STA
12/17/24 16:53
Sputum Culture [Respiratory Culture/Gram Stain] Urgent
MARLO Source: Sputum
Specimen Description:
12/17/24 18:23
0.9% Sodium Chloride 1000 ml [Nss] 1,000 ml IV 60 mls/hr
Acetaminophen [Tylenol] 650 mg PO Q4HPRN PRN
Atorvastatin [Lipitor] 40 mg PO QPM
Ipratropium/Albuterol Sulfate [Duoneb] 3 ml INH R Q4HPRN PRN
VANCOMYCIN Pharmacy to Dose [VANCOCIN Pharmacy to Dose] 1 each Pharmacy To Prepare [Call Pharmacy To Prepare] 0 ml IV PER PROTOCOL
12/17/24 18:23
Activity As Directed
Activity Level: Out of Bed-Early Mobility
Intake/ Output As Directed
Frequency: Per unit guidelines
Pneumatic Compression Sleeves As Directed
Type: Knee high
Vital Signs As Directed
Frequency: Per unit guidelines
Weight As Directed
Frequency: Daily
Comment: on admission
O2 Therapy [RESP] Routine
Titrate/Wean O2 to maintain O2 sat greater than (%): 92
Wean Oxygen to Pre Admission Baseline Therapy-if applicable: Yes
Special Instructions: 2-3L at baseline
Pt Eval And Treat Routine
Activity Level: Out of Bed-Early Mobility
DX Deep Vein Thrombosis Video Routine
DX Deep Vein Thrombosis Video Routine
12/17/24 20:00
Budesonide [Pulmicort] 0.5 mg INH R BID
Flecainide [Tambocor] 50 mg PO Q12
Guaifenesin [Mucinex] 600 mg PO Q12
Ipratropium/Albuterol Sulfate [Duoneb] 3 ml INH R QID
12/17/24 22:00
Melatonin 5 mg PO HS
12/18/24 06:00
Basic Metabolic Panel IN AM
Complete Blood Count/No Diff IN AM
Magnesium IN AM
Cefepime HCl [Maxipime] 1,000 mg IV Q12H
12/18/24 08:00
Clopidogrel Bisulfate [Plavix] 75 mg PO DAILY
Dapagliflozin [Farxiga] 10 mg PO DAILY
Escitalopram Oxalate [Lexapro] 10 mg PO DAILY
Metoprolol Xl [Toprol Xl] 12.5 mg PO DAILY
Spironolactone [Aldactone] 12.5 mg PO DAILY
12/20/24 08:00
Azithromycin [Zithromax] 250 mg PO MOWEFR@0800
12/20/24 11:00
DC Protocol for Telemetry ONCE
Abnormal Lab Results
12/17/24
15:26
Abs Immat Gran (auto) 0.1 H 10^3/uL
(0-0.05)
Immature Gran % 1.2 H %
(0-0.5)
Neutrophils % 78.3 H %
(42.2-75.2)
Lymphocytes % 16.5 L %
(20.5-51.1)
Potassium 3.3 L mmol/L
(3.5-5.1)
BUN 27 H mg/dl
(7-17)
Creatinine 1.2 H mg/dL
(0.6-1.0)
12/17/24 15:26
12/17/24 15:26
Vital Signs
Initial and Last Documented VS:
Initial Vital Signs
Temp Pulse Resp BP Pulse Ox
98.2 F 93 22 118/63 94
12/17/24 14:33 12/17/24 14:33 12/17/24 14:33 12/17/24 14:33 12/17/24 14:33
Last Documented Vital Signs
Temp Pulse Resp BP Pulse Ox
98.5 F 92 20 124/65 92
12/17/24 19:47 12/17/24 19:47 12/17/24 19:47 12/17/24 19:47 12/17/24 19:47
<Jose Enrique Avila PA-C - Last Filed: 12/17/24 20:30>
MDM/Problems Addressed
MDM/Problems Addressed:
79-year-old female presents with general malaise and shortness of breath. Recently over COVID-19. Chest x-ray suspicious for multifocal pneumonia, given compromised pulmonary health at baseline coupled with advanced age and current poor functional
status will admit for IV antibiotics
<Jose Enrique Avila PA-C - Last Filed: 12/17/24 20:30>
*Pulse Oximetry
SaO2: 94
Nasal Cannula flow liters per minute: 2
Patient hypoxic: no
*Critical Care Note
Total Time (30-74mins, 75-104mins- exclusive of procedures): Not Applicable
ED Attending Note
<Jose Enrique Avila PA-C - Last Filed: 12/17/24 20:30>
-
Portions of this chart may have been created with voice recognition software.� Occasional wrong word or��sound alike� substitutions may have occurred due to the inherent limitations of voice recognition software.
<Edward Barba DO - Last Filed: 12/17/24 16:17>
ED Attending Note
Patient seen and examined by attending physician: Yes
I performed the substantive portion of visit, reviewed & personally made and approve the management plan that is documented in note by myself or ESHA.: Yes
ED Attending Note:
I evaluated the patient bedside. Prominent wet sounding cough. Will admit for IV antibiotics and will also add IV steroids.
Discharge Plan
Departure
Patient Disposition: Admit
Date of Disposition: 12/17/24
Time of Disposition: 16:17
Presentation/result/management discussed w/ accepting MD/DO: Hospitalist
Discharge Problem:
Bilateral pneumonia
Interventions
Interventions:
*Risk Screen - Suicide Last Done: 12/17/24 14:33
*General Assessment Last Done: 12/17/24 14:33
*Neglect/Abuse Screening Last Done: 12/17/24 15:33
*ED- Fall Risk Assessment Last Done: 12/17/24 15:33
*ED COVID-19 Vaccine History Last Done: 12/17/24 15:33
*Nursing Disposition Last Done: 12/17/24 17:49
ED- Cardiac Assessment Last Done: 12/17/24 15:33
ED- Pulmonary Assessment Last Done: 12/17/24 15:33
Discharge Date and Time
Discharge Date/Time: 12/17/24 18:23
[2024-12-17] MEDS: NSS 1000 IV ×2 (15:42→23:58)
[2024-12-17 15:46] LABS: Hematocrit 38.2 % (37.0-47.0); Hemoglobin 13.0 g/dL (12.0-16.0); Mean Corp Hgb Conc. 34.0 g/dL (33.0-37.0); Mean Corpuscular Volume 83.4 fL (81.0-99.0); Nucleated Red Blood Cells % 0 %; Platelet Count 178 10^3/uL (130-400); Red Cell Dist. Width 13.9 % (11.5-14.5)
[2024-12-17 15:54] LABS: ALT (SGPT) 21 U/L (0-35); AST (SGOT) 28 U/L (14-36); Albumin 3.7 g/dl (3.5-5.0); Alkaline Phosphatase 88 U/L (38-126); Blood Urea Nitrogen 27 mg/dl (7-17); Calcium 9.7 mg/dl (8.4-10.2); Carbon Dioxide 30 mmol/L (22-30); Chloride 102 mmol/L (98-107); Estimated Creatinine Clearance 27 ml/min; Glucose 93 mg/dl (70-99); Potassium 3.3 mmol/L (3.5-5.1); Sodium 140 mmol/L (135-145); Total Protein 6.3 g/dl (6.3-8.2); eGFR 45.76
[2024-12-17 16:05] LABS: Troponin I < 0.012 ng/ml
[2024-12-17] MEDS: DECADRON 10 MG IV (16:21)
[2024-12-17] MEDS: ROCEPHIN 1000 MG IV (16:21)
--- NOTE | 2024-12-17 16:41 | HPS.HSE ---
Family Physician
-
Family Physician: Reinier Noel
Chief Complaint
-
Shortness of breath and cough
History of Present Illness
Pleasant 79-year-old female accompanied by the daughter and son at the bedside who lives with the daughter and daughter is her POA with known history of chronic hypoxic respiratory failure secondary to COPD on 2 to 3 L oxygen, recent diagnosis of
COVID, A-fib status post Watchman device, chronic congestive heart failure with preserved ejection fraction, presented to the hospital complaining of generalized weakness, worsening shortness of breath with exertion with cough productive of
yellowish phlegm, subjective fever and chill, admitted poor appetite generalized fatigue and malaise and poor sleep.
She was treated by primary care physician and buhr dresser with a course of steroids and doxycycline which she just completed without much relief.
Looks dry and dehydrated, admits poor appetite as mentioned. Also has diarrhea over the last 4 days initially was nonbloody but later on became bloody which per patient this is up in the regular after diarrhea because of hemorrhoids.
Chest x-ray in the ER showed bilateral pneumonia.
Medical History
Past Medical History
Past Medical History: Reports Other
Additional Past Medical History:
Past medical history:
Chronic hypoxic spectra failure secondary to COPD on 2 to 3 L oxygen continuously
A-fib status post Watchman device and on Plavix
Coronary artery disease status post placement
Peripheral vascular disease status femorofemoral bypass
Chronic and intermittent diarrhea
Dyslipidemia
Surgical history:
Cardiac cath and stenting
Femorofemoral bypass
Bilateral shoulder replacement
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
Family history: Positive for hypertension, coronary artery disease
Past Surgical History: Reports Other
Social History
Unable to obtain full social history at this time due to: Other
Family History
Family History: Other
Allergies / Home Medications
Allergies reflects when Allergies were last updated in [employer].
Home Medications with original date entered in [employer]
Allergy/Medication List:
Allergies
Allergy/AdvReac Type Severity Reaction Status Date / Time
hornet venom Allergy Anaphylaxis Verified 12/17/24 14:33
Penicillins Allergy itching, Verified 12/17/24 14:33
rash,
swelling
sertraline (From Zoloft) Allergy anxiety, Verified 12/17/24 14:33
hyper
venom-honey bee Allergy Anaphylaxis Verified 12/17/24 14:33
Home Medications
metoprolol succinate 25 mg tablet,extended release 24 hr 12.5 mg PO DAILY Blood pressure 06/13/11
atorvastatin 40 mg tablet 40 mg PO QPM High cholesterol 08/01/21
flecainide 50 mg tablet 50 mg PO Q12 Arrhythmia 08/01/21
azithromycin 250 mg tablet 250 mg PO MOWEFR@0800 Lung/Breathing Issues 06/02/23
clopidogrel 75 mg tablet 75 mg PO DAILY Blood Clot Prevention/Tx 06/02/23
escitalopram oxalate 20 mg tablet 10 mg PO DAILY depression/anxiety 06/02/23
budesonide 0.5 mg/2 mL suspension for nebulization 0.5 mg (2 mL) inhalation R BID #60 mL 06/08/23
furosemide 40 mg tablet (Lasix) 40 mg PO DAILY #30 tabs 06/13/23
albuterol sulfate 90 mcg/actuation aerosol inhaler 2 puff inhalation Q4HPRN PRN shortness of breath 12/17/24
dapagliflozin propanediol 10 mg tablet (Farxiga) 10 mg PO DAILY 12/17/24
famotidine 20 mg tablet (Pepcid) 20 mg PO BIDPRN PRN acid reflux 12/17/24
guaifenesin 600 mg tablet, extended release 12 hr 1,200 mg PO [id number] PRN congestion 12/17/24
ipratropium 0.5 mg-albuterol 3 mg (2.5 mg base)/3 mL nebulization soln 3 ml inhalation BID 12/17/24
spironolactone 25 mg tablet 12.5 mg PO DAILY 12/17/24
Review of Systems
-
A 12 point ROS was completed and negative except as noted: Yes
Physical Exam
Vital Signs
Vital Signs
Temp Pulse Resp BP Pulse Ox
98.1 F 76 26 109/61 93
12/17/24 15:33 12/17/24 15:33 12/17/24 15:33 12/17/24 15:33 12/17/24 15:33
Physical exam:
General: Awake, tired looking but oriented x3, not in distress and holds appropriate conversation. Cachectic
HEENT: On nasal cannula, no active discharge, ecchymosis or bruising, moist lips, tongue and mucous membrane.
Eyes: No discharge or red conjunctiva, no nystagmus, pupils are reactive and equal
Neck:Supple, no JVD no bruit no goiter.
Respiratory: Normal AP contour and diameter, normal chest wall movement, normal respiratory effort, no respiratory distress,
Lungs: Good air entry bilaterally, no wheezing or rhonchi, fine basilar rales
Heart: S1, S2 regular, normal rate, no added sound.
Gastrointestinal: Positive bowel sounds, soft, nontender, no guarding or rigidity or organomegaly
Musculoskeletal: , no chest wall abnormality or tenderness. All joints and extremities have good range of motion, no muscle tenderness or any joint swelling or tenderness.
Extremities: No pitting edema, good peripheral pulses, good range of motion
Skin: Warm and dry, no ulceration, normal color.
Neurological: Awake, alert and oriented x3, no facial droop,, speech clear and comprehensive, good muscle tone, moves extremities freely
Psychiatric: Normal mood, normal thought and judgment, normal affect,
Physical Exam
General: Other
Laboratory Results
-
12/17/24 15:26
12/17/24 15:26
Laboratory Results
Total Bilirubin 0.9 mg/dl (0.2-1.3) 12/17/24 15:26
AST 28 U/L (14-36) 12/17/24 15:26
ALT 21 U/L (0-35) 12/17/24 15:26
Alkaline Phosphatase 88 U/L (38-126) 12/17/24 15:26
Troponin I < 0.012 ng/ml 12/17/24 15:26
Chest x-ray:Emphysematous changes, similar to prior. There are new opacities within the left lower lung and right perihilar region suspicious for pneumonia.
EKG: Showed normal sinus rhythm rate around 70, MA 200, QT 426 slow progression of the already mentioned in lead II evidence of the prior septal infarct otherwise no acute abnormalities.
Data Reviewed
-
Diagnostic Radiology: Image Personally Visualized and interpreted and Discussed with Patient
Lab Data: Labs Reviewed by me and Discussed with Patient
Old Records: Reviewed
Impression/Plan
-
IMPRESSION:
79-year-old female with multiple comorbidities including COPD and recently had COVID basically a week ago presented to the hospital with worsening shortness of breath and productive cough despite completing a course of prednisone and doxycycline,
CONCERNING FOR BILATERAL PNEUMONIA POST COVID INFECTION.
Bilateral pneumonia: Post COVID
- In immunocompromised patient with history of COPD and recent COVID, concerning for post-COVID bacterial pneumonia.
- Cover with a burst recommended biotic to cover Pseudomonas and MRSA, which usually MRSA, and after viral infection.
- Continue oxygen currently on 4 L usually in 2-3
- Cough medication with Mucinex twice daily
- DuoNeb 4 times daily
- Continue her home dose of the Pulmicort nebulizers
- Hold steroid for now she just completed a course and there is no wheezing
- Sputum culture
Hypokalemia:
- Likely secondary to poor oral intake and diarrhea
- Replace and recheck
Chronic diarrhea:
Bloody diarrhea:
- Patient admitted she had intermittent diarrhea and initially nonbloody but later became bloody because of hemorrhoids.
- Of recent antibiotic intake also get a stool workup to rule out a C. difficile
- Encourage oral hydration
- IV fluid
Acute on chronic COPD exacerbation:
- Likely secondary to pneumonia
- Just completed a course of steroid and last dose was yesterday we will hold off further steroids as she has no wheezing
- DuoNeb 4 times daily
- Pulmicort
- Monitor vital sign
Atrial fibrillation:
- Status post Watchman device
- Continue flecainide
- Plavix and metoprolol
- Monitor vital sign closely.
All discussed with the patient and the daughter in detail at the bedside and expressed understanding and all the question answered
CODE STATUS is discussed with the patient and the daughter, daughter POA she wanted to be DNR/DNI
DVT prophylaxis SCD because of bloody diarrhea.
--- NOTE | 2024-12-17 17:50 | EDRN ---
this RN called the receiving unit and notified them that paper report was going to be tubed up
[2024-12-17] MEDS: KCL 40 MEQ PO (18:26)
--- NOTE | 2024-12-17 18:43 | PHA.VAN.IN ---
Assessment
- Assessment
Renal Function: Appears similar to baseline
Concomitant Antimicrobials: cefepime, azithromycin (for COPD)
Plan
- Plan
Initial / Loading Dose: will give load of 1500mg IV x 1 dose
Maintenance Regimen: dose by level
Monitoring: Random level 12/18 0600
MRSA Screen: Ordered per protocol
Pharmacokinetics Vancomycin I
- -
Patient Age: 79
Patient Sex: Female
Vancomycin Day #: 1
Indication: Pulmonary/Respiratory
Requesting Provider: Isaías Kearns
Pertinent Antimicrobial Allergies:
penicillins - itching, rash, swelling
Height / Weight:
Height 5 ft
Actual Weight 54.431 kg
Pertinent Past Medical History: COPD with recent COVID-19 infection
- Vital Signs / Lab Results
Temp Pulse Resp BP Pulse Ox
97.5 F 82 26 119/49 93
12/17/24 17:54 12/17/24 17:54 12/17/24 17:54 12/17/24 17:54 12/17/24 17:54
Lab Results - Hematology
12/17/24 12/17/24
14:39 15:26
WBC Cancelled 7.3
Lab Results - Chemistry
12/17/24 12/17/24
14:39 15:26
BUN Cancelled 27 H
Creatinine Cancelled 1.2 H
Estimated Creat Clear Cancelled 27
Albumin Cancelled 3.7
[2024-12-17] MEDS: SYMBICORT 80/4.5 MCG INHALER 2 PUFF INH (20:44)
[2024-12-17] MEDS: VANCOCIN 530 MG IV (21:33)
[2024-12-17] MEDS: LIPITOR 40 MG PO (21:35)
[2024-12-17] MEDS: TAMBOCOR 50 MG PO (21:35)
[2024-12-17] MEDS: MUCINEX 600 MG PO (21:35)
[2024-12-17] MEDS: MELATONIN 5 MG PO (23:58)
[2024-12-17] MEDS: OCEAN, SALINE MIST 2 SPRAYS NASAL (23:59)
[2024-12-18] VITALS (9 sets, daily range): BP systolic 87–126; BP diastolic 45–99; BMI 22.3
[2024-12-18] MEDS: STERILE WATER FOR INJECTION 10 ML IV ×2 (06:23→17:02)
[2024-12-18] MEDS: MAXIPIME 1000 MG IV ×2 (06:23→17:02)
--- NOTE | 2024-12-18 07:19 | W.PN.HOSP.TC ---
Today's Communication/Plan
-
Upgraded to IMU
Continue antibiotics, pulmonary toilet
Hypotension -- pulmonary doing bedside echo -- appreciate pulmonary
CT Chest PE study with no PE
Assessment / Plan
Assessment / Plan
Physical Exam
General: Not in acute distress
HEENT: Normocephalic
Neck: Supple
Lungs: Coarse breath sounds
Heart: S1, S2 Regular Rhythm
Gastrointestinal: Positive bowel sounds, soft, nontender
Extremities: No cyanosis
Skin: Warm and dry
Neurological: Awake, alert and oriented x3, nonfocal/grossly intact
Psychiatric: Calm
Assessment/Plan
79-year-old female, her daughter is her POA, with known history of chronic hypoxic respiratory failure secondary to COPD on 2 to 3 L oxygen at home, recent diagnosis of COVID, A-fib status post Watchman device and chronic congestive heart failure
with preserved ejection fraction, presented to the hospital complaining of generalized weakness, worsening shortness of breath with exertion with cough productive of yellowish phlegm, subjective fever and chill, admitted poor appetite generalized
fatigue and malaise and poor sleep. She was treated by primary care physician and composition weatherboard applier with a course of steroids and doxycycline which she just completed without much relief. At the time of admission, she appeared dry and dehydrated, in the
setting of poor appetite. Patient also had diarrhea over the 4 days (prior to presentation) -- initially was nonbloody but later on became bloody which per patient this is up in the regular after diarrhea because of hemorrhoids. Chest x-ray in the
ER showed bilateral pneumonia.
Presentation with generalized weakness, worsening shortness of breath with exertion with cough productive of yellowish phlegm, subjective fever and chill, admitted poor appetite generalized fatigue and malaise and poor sleep
Bilateral pneumonia -- post COVID (COVID diagnosed about 1 week prior to presentation)
Acute Hypoxic Respiratory Failure Secondary to Pneumonia vs. Acute COPD Exacerbation vs. PE vs. other
Acute on chronic COPD exacerbation (on chronic home 2 to 3 L of oxygen)
- Patient received Prednisone and Doxycycline outpatient without much relief
- Continue Cefepime
- Stop Vancomycin as MRSA negative
- Oxygen requirements increased significantly this morning to 12 L mid-flow, patient needed to be transferred on 12/18/24 to IMU where she needed 15 L
- CT Chest ordered given oxygen requirements seem much more than would be explained by CT Chest
- Also recheck EKG and troponins
- Cough medication with Mucinex twice daily
- DuoNeb 4 times daily
- Continue home inhalers
- Solumedrol IV 40 mg daily
- Sputum culture
- Pulmonary consultation appreciated
Hypotension Episodes
- Suspected at least in part secondary to dehydration
- Check CT Chest PE study
- Continue antibiotics
- Dr. Woo will do bedside echo -- very much appreciate Dr. Woo's assistance
History of Pericardial Effusion in 2019
Hypokalemia - RESOLVED
- Likely secondary to poor oral intake and diarrhea
- Replaced
- Continue to monitor BMP
Concern for Acute Kidney Injury
- IV fluids small amount given CHF history
Chronic diarrhea
Bloody diarrhea (bloody because hemorrhoids)
- Patient admitted she had intermittent diarrhea and initially nonbloody but later became bloody because of hemorrhoids.
- Of recent antibiotic intake also get a stool workup to rule out a C. difficile
- Encourage oral hydration
- IV fluids
Paroxysmal Atrial Fibrillation status post Watchman Device 02/24/2023
- Continue flecainide
- Plavix and metoprolol
- Monitor vital sign closely
HFpEF
- proBNP was unremarkable
- Home Lasix on hold for now given history sounding like dehydration
- Continue Aldactone
- Continue Toprol XL
Coronary disease with h/o stents
Peripheral arterial disease s/p fem-femo bypass
- Continue Atorvastatin and Plavix
Hypertension
Obstructive sleep apnea
Depression
Anxiety
-Continue Lexapro
Gastroesophageal reflux disease
H/o pill induced esophagitis
- Can continue PRN Pepcid
CODE STATUS Dr. Martínez discussed with the patient and the daughter, daughter MAKENNA said patient wants to be DNR/DNI. Patient confirmed to me on 12/18/24 that she is DNR/DNI
DVT prophylaxis SCDs only for now because of bloody diarrhea -- if Hgb stable, then will consider ordering chemical DVT prophylaxis
Patient needing 15 L of midflow nasal cannula and monitoring in the IMU is a high risk encounter.
Anticipated Discharge: > 48 hours
Subjective/Interval History
-
Date of Service: December 18, 2024
Patient was seen and examined. She reported not feeling well, and having on and off shortness of breath.
Objective Data
-
Labs:
Laboratory Results
12/18/24
07:18
WBC Pending
Hgb Pending
Hct Pending
Plt Count Pending
Sodium Pending
Potassium Pending
Chloride Pending
Carbon Dioxide Pending
BUN Pending
Creatinine Pending
Glucose Pending
Calcium Pending
Vital Signs:
Vital Signs
Temp Pulse Resp BP Pulse Ox
98.4 F 72 20 108/57 95
12/18/24 07:16 12/18/24 07:16 12/18/24 07:16 12/18/24 07:16 12/18/24 07:16
[2024-12-18 07:31] LABS: Hematocrit 35.0 % (37.0-47.0); Hemoglobin 11.7 g/dL (12.0-16.0); Mean Corp Hgb Conc. 33.4 g/dL (33.0-37.0); Mean Corpuscular Volume 84.1 fL (81.0-99.0); Platelet Count 176 10^3/uL (130-400); Red Cell Dist. Width 14.1 % (11.5-14.5)
[2024-12-18 07:55] LABS: Blood Urea Nitrogen 27 mg/dl (7-17); Calcium 9.2 mg/dl (8.4-10.2); Carbon Dioxide 24 mmol/L (22-30); Chloride 109 mmol/L (98-107); Estimated Creatinine Clearance 34 ml/min; Glucose 155 mg/dl (70-99); Magnesium 2.0 mg/dl (1.6-2.3); Potassium 3.9 mmol/L (3.5-5.1); Sodium 140 mmol/L (135-145); eGFR 50.80
[2024-12-18] MEDS: ALDACTONE 12.5 MG PO (08:11)
[2024-12-18] MEDS: LEXAPRO 10 MG PO (08:11)
[2024-12-18] MEDS: TOPROL XL 12.5 MG PO (08:12)
[2024-12-18] MEDS: PLAVIX 75 MG PO (08:12)
[2024-12-18] MEDS: MUCINEX 600 MG PO ×2 (08:12→20:24)
[2024-12-18] MEDS: FARXIGA 10 MG PO (08:12)
[2024-12-18] MEDS: TAMBOCOR 50 MG PO ×2 (08:12→20:24)
[2024-12-18] MEDS: SYMBICORT 80/4.5 MCG INHALER 2 PUFF INH ×2 (08:16→19:43)
[2024-12-18] MEDS: SOLU-MEDROL PF 40 MG IV (10:09)
[2024-12-18] MEDS: FLUSH (NSS) 2 FLUSH IV (10:10)
[2024-12-18] MEDS: DUONEB INH ×2 (11:45→15:49)
--- NOTE | 2024-12-18 12:29 | PTCARENOTE ---
Patient arrived to IMU from 2N. Patient slid from stretcher to bed. AOx3. Unable to lay flat due to shortness of breath. SpO2 96% on 12L midflow. BP soft, but MAP >65. NSR on monitor. Call rangel within reach, bed in lowest position, and bed of wheels
locked.
--- NOTE | 2024-12-18 15:09 | PTCARENOTE ---
Increased patient to 15L midflow due to SpO2 88%. SpO2 93% after increase liter flow. Patient c/o being short of breath, but she says 'it is nothing new'. Care ongoing.
--- NOTE | 2024-12-18 15:40 | CON.PUL ---
Consultation
Consultation Request
Date/Time Consultation Requested: 12/18/2024907
Date/Time Consultation Performed: 12/18/2024 - 1140
Requesting Provider: Dr. Enriquez
Performing Provider: Dr. Woo
Reason for Consultation: SOB/hypoxia
Medical History
-
Chief Complaint: SOB
History of Present Illness:
79-year-old female former tobacco smoker with [id number] history (quit 2017) with past medical history of COPD on chronic oxygen on 2 L/min ATC, CAD s/p PCI, A-fib on flecainide, chronic HFpEF and hyperlipidemia who presents with worsening SOB,
body aches, fatigue and reduced appetite. Patient's son, Robinson, is present at bedside and assisted with the HPI. Patient was recently diagnosed with COVID-19 on 12/07/2024. The patient has a cancer researcher, Dr. Hills, and she has prednisone +
doxycycline that she can take if needed. She took this which included a 10-day prednisone course when she felt sick on 12/07 although she did not feel markedly improved as she expected. She normally uses this combination of Doxy + prednisone about 2
times a year when she feels like she is having a flareup of her COPD. At home she takes DuoNebs, zithromax TIW and Ohtuvayre. She has been having diarrhea over the last 4 days. In the ER she was afebrile with pulse rate 93, respiratory rate 22,
BP 118/63 and saturating 94% on 2 L/min nasal cannula. Labs showed normal WBC at 7.3, Hb 13, potassium 3.3, creatinine 1.2, proBNP <0.012, proBNP 601, and COVID-19 antigen negative. Blood cultures collected. CXR showed opacities in the left lower
lung and right perihilar region suspicious for pneumonia. CTA chest was negative for an acute PE with patchy parenchymal opacities within both lungs suspicious for pneumonia. In the ER she was given 1 L NS 0.9%, Decadron and ceftriaxone. She was
initially admitted to telemetry for further care and started on antibiotics with ceftriaxone + IV vancomycin. She initially required 4-6 L/min on admission however on 12/18 her oxygen requirements worsened up to 12-15 L/min via mid flow nasal
cannula. She was transferred to the IMU and pulmonary service now consulted for additional management/recommendations.
When I saw the patient she was resting in bed, in no acute distress. Current heart rate 79, BP 119/75 and she was saturating 96% on 15 L/min via mid flow nasal cannula. She continues to feel short of breath. She has also had a worsening cough
over the last 2 weeks with increased amount of phlegm. She currently denies chest pain, PIRES, nausea, fevers or chills
PMHx: Severe COPD on chronic oxygen (2 L/min ATC) on chronic Zithromax + Ohtuvayre, CAD s/p PCI, diarrhea, A-fib, hyperlipidemia, ASHU not on CPAP, PAD, GERD, anxiety/depression, history of pill esophagitis, chronic HFpEF
PSHx: Stent placement (2002), fem-fem bypass, bilateral shoulder replaced, Watchman device (02/2023), hysterectomy, cataract extraction
Past Medical History
Past Medical History: Other (Above as per HPI)
Past Surgical History: Other (Above as per HPI)
Social History
Tobacco: Former Smoker (1 PPD x 50 years, quit approximately in 2017)
Alcohol: None
Drug: None
Family History
Family History: CAD (Father) and Other (Mother: Hypercholesterolemia)
Allergies / Home Medications
Allergies
Allergy/AdvReac Type Severity Reaction Status Date / Time
hornet venom Allergy Anaphylaxis Verified 12/17/24 14:33
Penicillins Allergy itching, Verified 12/17/24 14:33
rash,
swelling
sertraline (From Zoloft) Allergy anxiety, Verified 12/17/24 14:33
hyper
venom-honey bee Allergy Anaphylaxis Verified 12/17/24 14:33
Home Medications
�Medication �Instructions �Recorded �Confirmed �Last Taken �Type
metoprolol succinate 25 mg 12.5 mg PO DAILY Blood pressure 06/13/11 12/17/24 12/17/24 History
tablet,extended release 24 hr
atorvastatin 40 mg tablet 40 mg PO QPM High cholesterol 08/01/21 12/17/24 12/16/24 History
flecainide 50 mg tablet 50 mg PO Q12 Arrhythmia 08/01/21 12/17/24 12/17/24 History
azithromycin 250 mg tablet 250 mg PO MOWEFR@0800 06/02/23 12/17/24 12/17/24 History
Lung/Breathing Issues
clopidogrel 75 mg tablet 75 mg PO DAILY Blood Clot 06/02/23 12/17/24 12/17/24 History
Prevention/Tx
escitalopram oxalate 20 mg tablet 10 mg PO DAILY depression/anxiety 06/02/23 12/17/24 12/17/24 History
budesonide 0.5 mg/2 mL suspension 0.5 mg (2 mL) inhalation R BID #60 06/08/23 12/17/24 12/17/24 Rx
for nebulization mL
furosemide 40 mg tablet (Lasix) 40 mg PO DAILY #30 tabs 06/13/23 12/17/24 12/17/24 Rx
albuterol sulfate 90 mcg/actuation 2 puff inhalation Q4HPRN PRN 12/17/24 12/17/24 12/17/24 History
aerosol inhaler shortness of breath
dapagliflozin propanediol 10 mg 10 mg PO DAILY Diabetes 12/17/24 12/17/24 12/17/24 History
tablet (Farxiga)
famotidine 20 mg tablet (Pepcid) 20 mg PO BIDPRN PRN acid reflux 12/17/24 12/17/24 12/17/24 History
guaifenesin 600 mg tablet, 1,200 mg PO [id number] PRN congestion 12/17/24 12/17/24 12/17/24 History
extended release 12 hr
ipratropium 0.5 mg-albuterol 3 mg 3 ml inhalation BID Lung/Breathing 12/17/24 12/17/24 12/17/24 History
(2.5 mg base)/3 mL nebulization Issues
soln
spironolactone 25 mg tablet 12.5 mg PO DAILY Heart 12/17/24 12/17/24 12/17/24 History
Disease/Condition
Review of Systems
-
History Source: Patient
All other systems: Negative unless noted
Vitals / Labs / Diagnostic Testing
Vital Signs
Temp Pulse Resp BP Pulse Ox
97.9 F 73 21 89/68 95
12/18/24 12:30 12/18/24 17:00 12/18/24 17:00 12/18/24 16:07 12/18/24 17:00
Lab Data
12/18/24 07:18
12/18/24 07:18
Microbiology
12/17/24 23:54 Nose Nasal Screen MRSA (PCR) - Final
MRSA not detected - performed by PCR methodology.
Diagnostic Testing:
Physical Exam
-
HEENT: Normocephalic and Anicteric
Cardiovascular: S1/S2, Peripheral Edema (negative) and Other (Distant cardiac sounds)
Respiratory: Wheeze (negative), Rales (negative), Rhonchi (negative), Non-Labored Respirations and Other (Diminished breath sounds bilaterally)
GI: Soft, Non Distended, Non Tender and Normal Bowel Sounds
Neurology: AO x 3 and Tremors (negative)
Skin: Warm and Dry
General: Respiratory Distress (negative), Comfortable, Fever (negative) and Chills (negative)
Assessment
-
Assessment: 79-year-old female former tobacco smoker with [id number] history (quit 2017) with past medical history of COPD on chronic oxygen on 2 L/min ATC, CAD s/p PCI, A-fib on flecainide, chronic HFpEF and hyperlipidemia who presents with
worsening SOB, body aches, fatigue and reduced appetite. Patient's son, Robinson, is present at bedside and assisted with the HPI. Patient was recently diagnosed with COVID-19 on 12/07/2024. The patient has a cancer researcher, Dr. Hills, and she has
prednisone + doxycycline that she can take if needed. She took this which included a 10-day prednisone course when she felt sick on 12/07 although she did not feel markedly improved as she expected. She normally uses this combination of Doxy +
prednisone about 2 times a year when she feels like she is having a flareup of her COPD. At home she takes DuoNebs, zithromax TIW and Ohtuvayre. She has been having diarrhea over the last 4 days. In the ER she was afebrile with pulse rate 93,
respiratory rate 22, BP 118/63 and saturating 94% on 2 L/min nasal cannula. Labs showed normal WBC at 7.3, Hb 13, potassium 3.3, creatinine 1.2, proBNP <0.012, proBNP 601, and COVID-19 antigen negative. Blood cultures collected. CXR showed
opacities in the left lower lung and right perihilar region suspicious for pneumonia. CTA chest was negative for an acute PE with patchy parenchymal opacities within both lungs suspicious for pneumonia. In the ER she was given 1 L NS 0.9%,
Decadron and ceftriaxone. She was initially admitted to telemetry for further care and started on antibiotics with ceftriaxone + IV vancomycin. She initially required 4-6 L/min on admission however on 12/18 her oxygen requirements worsened up to
12-15 L/min via mid flow nasal cannula. She was transferred to the IMU and pulmonary service now consulted for additional management/recommendations.
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
Impression:
#Community-acquired pneumonia involving posterior right upper lobe + posterior left upper lobe1
#Significant centrilobular emphysema/COPD with acute exacerbation due to above
#Leukopenia
#Anemia
#CKD (baseline creatinine 1.2)
#A-fib on flecainide
#ASHU not on CPAP
#PAD s/p fem-fem bypass
#Anxiety/depression
#Chronic HFpEF
Plan:
- Agree with treatment for pneumonia and COPD exacerbation
- CTA chest today negative for an acute PE as the cause of her worsening hypoxia
- Continue supplemental O2 and titrate to keep SpO2 88-95%
- Aspiration precautions; keep HOB>30-45�
- Continue with systemic steroids and wean as she clinically improves � currently on Solu-Medrol 40 mg IV daily
- Maintain euglycemia with goal BG 140�180 while on steroids
- Continue zithromax TIW (home med)
- Ceftriaxone was increased to cefepime; MRSA swab negative hence IV vancomycin discontinued
- She takes nebulizers at home --> will change her Symbicort to budesonide 0.5mg BID, and continue DuoNebs QID with prn doses in between for breakthrough symptoms
- Continue mucolytics
- If SOB persists/worsens then change to high-flow nasal cannula
- Clinically euvolemic and not in an acute CHF exacerbation
- Given Hx of HFpEF, monitor volume status and rec'd sodium and fluid restricted diet
- Incentive spirometer encouraged q1hr while awake
- Replete electrolytes with K>4, Mg>2
- Trend H/H and transfuse if needed to keep Hb>7g/dL; keep plt>20k, unless there is concern for bleeding then keep plt>50k
- DVT ppx: recommend to start HSQ
Code status: DNR/DNI
Pulmonary service will continue to follow along. She has a cancer researcher at [place] via Dr. Hills, however he is retiring soon. She can follow up with us in [facility] office, which she agreed with.
Data:
CTA Chest 12/18/2024:
Streak artifact from bilateral shoulder prostheses, with streak artifact projecting over the pulmonary arteries, slightly limiting evaluation.
Given this limitation, no convincing evidence for pulmonary embolism.
There is no evidence for thoracic aortic dissection or aneurysm.
Changes of emphysema within both lungs.
Comparing to prior CT angiography of the chest, development of patchy parenchymal opacity within both lungs, most likely pneumonia. No significant pleural effusion bilaterally.
Total time spent today was 78 minutes for this encounter. Time includes reviewing laboratory test/imaging results, reviewing pertinent medical records, obtaining and reviewing medical history, performing an appropriate exam, ordering medications,
tests and procedures. Time also includes documentation of this encounter, coordinating patient care and communicating with other healthcare professionals. Total time does not include separately billed tests performed on this date of service.
[2024-12-18] MEDS: LIPITOR 40 MG PO (17:02)
[2024-12-18 17:21] LABS: COVID-19 Antigen Negative (Negative)
[2024-12-18 17:29] LABS: Troponin I < 0.012 ng/ml
[2024-12-18] MEDS: DUONEB 3 ML INH (19:43)
[2024-12-18] MEDS: MELATONIN 5 MG PO (20:24)
[2024-12-19] VITALS (15 sets, daily range): BP systolic 99–119; BP diastolic 35–72; BMI 22.8
[2024-12-19 01:36] LABS: Hematocrit 34.5 % (37.0-47.0); Hemoglobin 11.8 g/dL (12.0-16.0); Mean Corp Hgb Conc. 34.2 g/dL (33.0-37.0); Mean Corpuscular Volume 84.4 fL (81.0-99.0); Platelet Count 212 10^3/uL (130-400); Red Cell Dist. Width 14.0 % (11.5-14.5)
[2024-12-19 01:42] LABS: Blood Urea Nitrogen 25 mg/dl (7-17); Calcium 9.4 mg/dl (8.4-10.2); Carbon Dioxide 22 mmol/L (22-30); Chloride 110 mmol/L (98-107); Estimated Creatinine Clearance 37 ml/min; Glucose 129 mg/dl (70-99); Potassium 3.9 mmol/L (3.5-5.1); Sodium 140 mmol/L (135-145); eGFR 56.95
[2024-12-19] MEDS: MAXIPIME 1000 MG IV ×2 (06:01→17:01)
[2024-12-19] MEDS: STERILE WATER FOR INJECTION 10 ML IV ×2 (06:02→17:00)
[2024-12-19] MEDS: FLUSH (NSS) 2 FLUSH IV (06:02)
[2024-12-19] MEDS: DUONEB 3 ML INH ×4 (07:34→19:46)
[2024-12-19] MEDS: PULMICORT 0.5 MG INH ×2 (07:34→19:46)
--- NOTE | 2024-12-19 08:34 | W.PN.HOSP.TC ---
Today's Communication/Plan
-
Continue to need significant amount of oxygen
May need high flow oxygen
Continue IV steroids
Continue antibiotics
Assessment / Plan
Assessment / Plan
Physical Exam
General: Not in acute distress
HEENT: Normocephalic
Neck: Supple
Lungs: Coarse breath sounds
Heart: S1, S2 Regular Rhythm
Gastrointestinal: Positive bowel sounds, soft, nontender
Extremities: No cyanosis
Skin: Warm and dry
Neurological: Awake, alert and oriented x3, nonfocal/grossly intact
Psychiatric: Calm
Assessment/Plan
79-year-old female, her daughter is her POA, with known history of chronic hypoxic respiratory failure secondary to COPD on 2 to 3 L oxygen at home, recent diagnosis of COVID, A-fib status post Watchman device and chronic congestive heart failure
with preserved ejection fraction, presented to the hospital complaining of generalized weakness, worsening shortness of breath with exertion with cough productive of yellowish phlegm, subjective fever and chill, admitted poor appetite generalized
fatigue and malaise and poor sleep. She was treated by primary care physician and intermediate manager with a course of steroids and doxycycline which she just completed without much relief. At the time of admission, she appeared dry and dehydrated, in the
setting of poor appetite. Patient also had diarrhea over the 4 days (prior to presentation) -- initially was nonbloody but later on became bloody which per patient this is up in the regular after diarrhea because of hemorrhoids. Chest x-ray in the
ER showed bilateral pneumonia.
Presentation with generalized weakness, worsening shortness of breath with exertion with cough productive of yellowish phlegm, subjective fever and chill, admitted poor appetite generalized fatigue and malaise and poor sleep
Bilateral pneumonia -- post COVID (COVID diagnosed about 1 week prior to presentation)
Acute Hypoxic Respiratory Failure Secondary to Pneumonia vs. Acute COPD Exacerbation vs. PE vs. other
Acute on chronic COPD exacerbation (on chronic home 2 to 3 L of oxygen)
- Patient received Prednisone and Doxycycline outpatient without much relief
- Continue Cefepime
- Stop Vancomycin as MRSA negative
- Oxygen requirements increased significantly to 12 L mid-flow, patient needed to be transferred on 12/18/24 to IMU where she needed 15 L
- CT Chest ordered given oxygen requirements seem much more than would be explained by CT Chest -- no PE, but bilateral pneumonia is confirmed
- Cough medication with Mucinex twice daily
- DuoNeb 4 times daily
- Pulmicort
- Continue home inhalers
- Solumedrol IV 40 mg daily
- Sputum culture
- Pulmonary consultation appreciated
- If SOB persists/worsens then change to high-flow nasal cannula
Hypotension Episodes
- Suspected at least in part secondary to dehydration
- Patient says she has BP fluctuations and gets hypotension sometimes
- Continue antibiotics
- Given history of pericardial effusion, and in setting of significant hypoxia as well as episodes of low BP, check echo
First Degree Heart Block?
- Repeat EKG ordered for tomorrow AM
History of Pericardial Effusion in 2019
Hypokalemia - RESOLVED
- Likely secondary to poor oral intake and diarrhea
- Replaced
- Continue to monitor BMP
Chronic diarrhea
Bloody diarrhea (bloody because hemorrhoids)
- Patient admitted she had intermittent diarrhea and initially nonbloody but later became bloody because of hemorrhoids.
- Of recent antibiotic intake also get a stool workup to rule out a C. difficile
- Encourage oral hydration
Paroxysmal Atrial Fibrillation status post Watchman Device 02/24/2023
- Continue flecainide
- Plavix and metoprolol
- Monitor vital sign closely
HFpEF
- proBNP was unremarkable
- Home Lasix on hold for now given history sounding like dehydration
- Continue Aldactone
- Continue Toprol XL]
- Checking echo as above
Coronary disease with h/o stents
Peripheral arterial disease s/p fem-femo bypass
- Continue Atorvastatin and Plavix
Hypertension
Obstructive sleep apnea
Depression
Anxiety
-Continue Lexapro
Gastroesophageal reflux disease
H/o pill induced esophagitis
- Can continue PRN Pepcid
CODE STATUS Dr. Mratínez discussed with the patient and the daughter, daughter MAKENNA said patient wants to be DNR/DNI. Patient confirmed to me on 12/18/24 that she is DNR/DNI
DVT prophylaxis SCDs. Lovenox (stop Lovenox if patient has more episodes of bloody diarrhea or if Hgb drops)
Patient needing 10 to 15 L of midflow nasal cannula and monitoring in the IMU is a high risk encounter.
Anticipated Discharge: > 48 hours
Subjective/Interval History
-
Date of Service: December 19, 2024
Patient was seen and examined. She was easily SOB on exertion, improved with bronchodilator treatments and rest.
Objective Data
-
Labs:
Laboratory Results
12/19/24
01:19
WBC 12.4 H
Hgb 11.8 L
Hct 34.5 L
Plt Count 212 D
Sodium 140
Potassium 3.9
Chloride 110 H
Carbon Dioxide 22
BUN 25 H
Creatinine 1.0
Glucose 129 H
Calcium 9.4
Vital Signs:
Vital Signs
Temp Pulse Resp BP Pulse Ox
98.0 F 95 24 103/72 90
12/19/24 03:00 12/19/24 08:15 12/19/24 08:15 12/19/24 08:00 12/19/24 08:15
I&O
12/18/24 12/19/24 12/20/24
06:59 06:59 06:59
Intake Total 1080 / 1080 680 / 680
Output Total 600 / 600
Balance 1080 / 1080 80 / 80
[2024-12-19] MEDS: LEXAPRO 10 MG PO (08:42)
[2024-12-19] MEDS: PLAVIX 75 MG PO (08:42)
[2024-12-19] MEDS: FARXIGA 10 MG PO (08:43)
[2024-12-19] MEDS: SOLU-MEDROL PF 40 MG IV ×2 (08:43→23:01)
[2024-12-19] MEDS: MUCINEX 600 MG PO ×2 (08:43→20:05)
[2024-12-19] MEDS: TAMBOCOR 50 MG PO ×2 (08:43→20:05)
[2024-12-19] MEDS: TOPROL XL 12.5 MG PO (08:43)
[2024-12-19] MEDS: ALDACTONE 12.5 MG PO (08:44)
--- NOTE | 2024-12-19 11:04 | CM ---
district sales manager reviewed patient's chart and met with patient and patient reports that she lives with her daughter and son in law in a 2 story home, patient is independent with adl's and ambulation, patient has home oxygen at 2-3 liters from [facility] [employer]
equipment company, patient is current with [facility] and plan is to return to home with visiting nurses, referral sent in [facility].
PCP: Reinier Noel
Pharmacy: [facility]
Plan; Home with [facility] with [facility]
[phone]
--- NOTE | 2024-12-19 15:44 | W.PN.PUL3 ---
Today's Communication / Plan
-
Start NRB during exertion to help hypoxia
Raise steroids to solumedrol 40mg IV q8hr
Budesonide + DuoNebs
Mucolytics
Goal BG >100 and <180mg/dL
Morphine for significant air hunger
Would hold off for another 1-2 days of PT/OT given severe SOB with exertion currently
She will need prolonged steroid taper once ready for discharge
May benefit from biologic therapy given her Group E COPD
Pulmonary service will continue to follow along
Assessment
-
Assessment: 79-year-old female former tobacco smoker with [id number] history (quit 2017) with past medical history of COPD on chronic oxygen on 2 L/min ATC, CAD s/p PCI, A-fib on flecainide, chronic HFpEF and hyperlipidemia who presents with
worsening SOB, body aches, fatigue and reduced appetite. Patient's son, Robinson, is present at bedside and assisted with the HPI. Patient was recently diagnosed with COVID-19 on 12/07/2024. The patient has a bryologist, Dr. Hills, and she has
prednisone + doxycycline that she can take if needed. She took this which included a 10-day prednisone course when she felt sick on 12/07 although she did not feel markedly improved as she expected. She normally uses this combination of Doxy +
prednisone about 2 times a year when she feels like she is having a flareup of her COPD. At home she takes DuoNebs, zithromax TIW and Ohtuvayre. She has been having diarrhea over the last 4 days. In the ER she was afebrile with pulse rate 93,
respiratory rate 22, BP 118/63 and saturating 94% on 2 L/min nasal cannula. Labs showed normal WBC at 7.3, Hb 13, potassium 3.3, creatinine 1.2, proBNP <0.012, proBNP 601, and COVID-19 antigen negative. Blood cultures collected. CXR showed
opacities in the left lower lung and right perihilar region suspicious for pneumonia. CTA chest was negative for an acute PE with patchy parenchymal opacities within both lungs suspicious for pneumonia. In the ER she was given 1 L NS 0.9%,
Decadron and ceftriaxone. She was initially admitted to telemetry for further care and started on antibiotics with ceftriaxone + IV vancomycin. She initially required 4-6 L/min on admission however on 12/18 her oxygen requirements worsened up to
12-15 L/min via mid flow nasal cannula. She was transferred to the IMU and pulmonary service now consulted for additional management/recommendations.
Chronic conditions BIT BENDER: Severe COPD on chronic oxygen (2 L/min ATC) on chronic Zithromax + Ohtuvayre, CAD s/p PCI, diarrhea, A-fib, hyperlipidemia, ASHU not on CPAP, PAD, GERD, anxiety/depression, history of pill esophagitis, chronic HFpEF
Impression:
#Community-acquired pneumonia involving posterior right upper lobe + posterior left upper lobe
#Significant centrilobular emphysema/COPD with acute exacerbation due to above
#Leukopenia
#Anemia
#CKD (baseline creatinine 1.2)
#A-fib on flecainide
#ASHU not on CPAP
#PAD s/p fem-fem bypass
#Anxiety/depression
#Chronic HFpEF
Plan:
- Agree with treatment for pneumonia and COPD exacerbation
- CTA chest on 12/18 negative for an acute PE
- Continue supplemental O2 and titrate to keep SpO2 88-95%
- Recommend to use NRB when she is walking to bathroom to help reduce LYNN and improved hypoxia
- Would also add prn morphine for severe SOB episodes
- Aspiration precautions; keep HOB>30-45�
- Continue with systemic steroids and wean as she clinically improves � currently on Solu-Medrol 40 mg IV daily --> raise to 40mg IV q8hr
- Maintain euglycemia with goal BG >100 and <180 while on steroids
- Continue zithromax TIW (home med)
- Ceftriaxone was broadened to cefepime; MRSA swab negative hence IV vancomycin discontinued
- She takes nebulizers at home --> changed her Symbicort to budesonide 0.5mg BID, and continue DuoNebs QID with prn doses in between for breakthrough symptoms
- Continue mucolytics - she has wet sounding cough
- If SOB persists/worsens then change to high-flow nasal cannula; her hypoxia is mainly exertion-related
- Clinically euvolemic and not in an acute CHF exacerbation
- Given Hx of HFpEF, monitor volume status and rec'd sodium and fluid restricted diet
- Incentive spirometer encouraged q1hr while awake
- Replete electrolytes with K>4, Mg>2
- Trend H/H and transfuse if needed to keep Hb>7g/dL; keep plt>20k, unless there is concern for bleeding then keep plt>50k
- DVT ppx: recommend to start HSQ
Code status: DNR/DNI
Pulmonary service will continue to follow along. She has a bryologist at [place] via Dr. Hills, however he is retiring soon. She can follow up with us in [facility] office, which she agreed with.
Data:
CTA Chest 12/18/2024:
Streak artifact from bilateral shoulder prostheses, with streak artifact projecting over the pulmonary arteries, slightly limiting evaluation.
Given this limitation, no convincing evidence for pulmonary embolism.
There is no evidence for thoracic aortic dissection or aneurysm.
Changes of emphysema within both lungs.
Comparing to prior CT angiography of the chest, development of patchy parenchymal opacity within both lungs, most likely pneumonia. No significant pleural effusion bilaterally.
Total time spent today was 52 minutes for this encounter. Time includes reviewing laboratory test/imaging results, reviewing pertinent medical records, obtaining and reviewing medical history, performing an appropriate exam, ordering medications,
tests and procedures. Time also includes documentation of this encounter, coordinating patient care and communicating with other healthcare professionals. Total time does not include separately billed tests performed on this date of service.
Subjective Data
-
Date of Service:
Date of Service: December 19, 2024
Chief Complaint: Pulmonary Follow Up
Subjective:
Patient was seen and evaluated today bedside (late note entry). Afebrile overnight. Patient down to 12 L/min via mid flow nasal cannula this morning, and then weaned to 10L/min after a neb treatment. She did become severely SOB after walking to
the bathroom, and once she settled down and sat for a few minutes she began to feel better. She otherwise felt well this AM when she woke up. Currently HR 74, SpO2 95% on 15L/min and BP 119/51. She denies chest pain, PIRES, abd pain, N/V/f/c.
Review of Systems
General: Other (Negative unless mentioned above)
Objective Data
Data Reviewed
Vital Signs / I&O / Oxygen:
Vital Signs
Temp Pulse Resp BP Pulse Ox
98.3 F 72 23 102/54 97
12/19/24 07:56 12/19/24 10:15 12/19/24 10:15 12/19/24 10:00 12/19/24 10:15
Intake and Output
12/18/24 12/19/24 12/20/24
06:59 06:59 06:59
Intake Total 1080 / 1080 680 / 680
Output Total 600 / 600
Balance 1080 / 1080 80 / 80
SaO2 97
Nasal Cannula flow liters per 15
minute
Physical Exam
General: Respiratory Distress (negative) and Chills (negative)
HEENT: Normocephalic and Anicteric
Cardiovascular: S1-S2 and Peripheral Edema (trace DANIELLA)
Respiratory: Wheeze (negative), Crackles (negative), Rhonchi (negative), Accessory Resp Muscle Use (mild with exertion) and Other (Severely reduced breath sounds)
GI: Soft, Non Distended, Non Tender and Normal Bowel Sounds
Neurology: Awake, Alert, Oriented and Tremors (negative)
Skin: Warm, Dry, Cyanosis (negative) and Jaundice (negative)
Labs/Micro/Reports
Lab Data
12/19/24 01:19
12/19/24 01:19
Microbiology
12/18/24 18:59 Urine Legionella Urinary Antigen - Final
Negative for Legionella pneumophila Serogroup 1 antigen.
A negative result does not rule out the possiblity of
Legionella infection due to other serogroups or species of
Legionella. Clinical correlation is recommended.
12/18/24 18:59 Urine Streptococcus pneumoniae Antigen (M - Final
Negative for Streptococcus pneumoniae antigen.
A negative result does not exclude infection with
Streptococcus pneumoniae. Clinical correlation is
recommended.
12/17/24 23:54 Nose Nasal Screen MRSA (PCR) - Final
MRSA not detected - performed by PCR methodology.
[2024-12-19] MEDS: LIPITOR 40 MG PO (17:00)
--- NOTE | 2024-12-19 17:39 | PTCARENOTE ---
Patient AOx3. NSR with first degree on monitor. BP stable. 10L midflow. LYNN. Poor appetite. Call ranegl within reach, bed in lowest position, and bed of wheels locked.
[2024-12-19] MEDS: MELATONIN 5 MG PO (20:06)
[2024-12-19] MEDS: LOVENOX 40 MG SC (21:31)
[2024-12-20] VITALS (25 sets, daily range): BP systolic 85–140; BP diastolic 42–99; BMI 23.2
--- NOTE | 2024-12-20 02:14 | PTCARENOTE ---
Pt continues with 10L MF, titrated as tolerated. Denies new complaints at this time. VSS. Call rangel within reach. Care ongoing.
[2024-12-20] MEDS: STERILE WATER FOR INJECTION 10 ML IV ×2 (05:00→18:12)
[2024-12-20] MEDS: SOLU-MEDROL PF 40 MG IV ×3 (05:00→21:21)
[2024-12-20] MEDS: MAXIPIME 1000 MG IV ×2 (05:01→18:11)
[2024-12-20 05:21] LABS: Hematocrit 33.6 % (37.0-47.0); Hemoglobin 11.5 g/dL (12.0-16.0); Mean Corp Hgb Conc. 34.2 g/dL (33.0-37.0); Mean Corpuscular Volume 85.5 fL (81.0-99.0); Platelet Count 220 10^3/uL (130-400); Red Cell Dist. Width 14.0 % (11.5-14.5)
[2024-12-20 06:15] LABS: Blood Urea Nitrogen 24 mg/dl (7-17); Calcium 8.8 mg/dl (8.4-10.2); Carbon Dioxide 20 mmol/L (22-30); Chloride 110 mmol/L (98-107); Estimated Creatinine Clearance 37 ml/min; Glucose 161 mg/dl (70-99); Magnesium 2.2 mg/dl (1.6-2.3); Potassium 4.2 mmol/L (3.5-5.1); Sodium 138 mmol/L (135-145); eGFR 56.95
[2024-12-20] MEDS: PULMICORT 0.5 MG INH ×2 (07:12→19:07)
[2024-12-20] MEDS: DUONEB 3 ML INH ×4 (07:12→19:07)
[2024-12-20] MEDS: MORPHINE SULFATE 1 MG IV (07:59)
[2024-12-20 08:03] LABS: Venous Blood Gas B.E. -1.9 mmol/L (-4 to +4); Venous Blood Gas O2 Sat % 100.0 %
[2024-12-20] MEDS: LOPRESSOR 5 MG IV (08:20)
[2024-12-20 08:25] LABS: Troponin I 0.014 ng/ml
--- NOTE | 2024-12-20 08:28 | W.PN.HOSP.TC ---
Today's Communication/Plan
-
Rapid Afib in 150s, improved to 110s after IV lopressor.
Check CXR
Give oral lopressor in 30 min if BP stable.
echo pending
cardiology eval
continue steroids and abx
Assessment / Plan
Assessment / Plan
Assessment/Plan
79F with COPD on 2L, recent diagnosis of COVID, A-fib status post Watchman device and chronic CHFpEF, p/w SOB and cough, failed outpt steroids and doxycycline.
Acute Hypoxic Respiratory Failure
Pneumonia/Acute COPD Exacerbation
- Failed outpt course of Prednisone and Doxycycline
- Continue Cefepime
- CT Chest shows no PE, but bilateral pneumonia is confirmed
- Cough medication with Mucinex twice daily
- DuoNeb 4 times daily change to xopenex due to rapid AFib
- Pulmicort
- Continue home inhalers
- Solumedrol IV
bcx NGTD, legionella/strep negative
- Pulmonary consultation
recheck CXR given acute onset Afib see below
Afib with RVR
h/o Afib s/p watchman 2022
occurred 12/20 in AM, HR to 150s
treated with IV lopressor 5mg x1
Will recheck BP in 3- min and give oral lopressor
if needed will trial diltiazem
echo is already ordered and pending
cardiology consult
Continue flecainide, Plavix and metoprolol
Hypotension episodes
- Patient says she has BP fluctuations and gets hypotension sometimes
- Given history of pericardial effusion 2018, and in setting of significant hypoxia as well as episodes of low BP, checking echo
Chronic diarrhea
hematochezia 2/2 hemorrhoids
- Encourage oral hydration
HFpEF
- proBNP was unremarkable
- Home Lasix on hold for now given history sounding like dehydration
- Continue Aldactone
- Continue Toprol XL
- Checking echo as above
Coronary disease with h/o stents
Peripheral arterial disease s/p fem-femo bypass
- Continue Atorvastatin and Plavix
Obstructive sleep apnea
Depression
Anxiety
-Continue Lexapro
prn ativan po
Gastroesophageal reflux disease
H/o pill induced esophagitis
PRN Pepcid
CODE STATUS DNR/DNI
DVT prophylaxis SCDs. Lovenox
35 minutes spent in critcal care at patients bedside
Anticipated Discharge: > 48 hours
Subjective/Interval History
-
Date of Service: December 20, 2024
Called to bedside for ANALYTICS SPECIALIST for HR 130s, EKG showed rapid afib with RVR. ON my arrival HR was 150s, pt reported no chest pain, noted anxiety and SOB with difficulty bringin up mucus. She had already received morphine at the time of my arrival. BP was
124/99. 5mg IV lopressor x1 was given and HR improved to low 100s to 110s.
Objective Data
-
Labs:
Laboratory Results
12/20/24
05:05
WBC 9.0
Hgb 11.5 L
Hct 33.6 L
Plt Count 220
Sodium 138
Potassium 4.2
Chloride 110 H
Carbon Dioxide 20 L
BUN 24 H
Creatinine 1.0
Glucose 161 H
Calcium 8.8
Vital Signs:
Vital Signs
Temp Pulse Resp BP Pulse Ox
97.8 F 119 24 115/58 94
12/20/24 02:59 12/20/24 07:17 12/20/24 07:17 12/20/24 06:00 12/20/24 07:59
I&O
12/19/24 12/20/24 12/21/24
06:59 06:59 06:59
Intake Total 680 / 680 480 / 480
Output Total 600 / 600
Balance 80 / 80 480 / 480
--- NOTE | 2024-12-20 08:31 | RR ---
A Rapid Response was called on this patient, please see Rapid Response form.
Pt with increasing SOB, increased to 15L MFNC by disbursing agent RN . Pt unable to recover, sats in the 80's with HR up to 160-170's. Pt in tripod position with increased WOB and in distress. RR called. [employer] to bedside and MD Ibrahim notified via TT.
Orders placed by provider and [employer]. Pt placed on HFNC by RT, sats recovering to mid 90s. EKG showing afib. Stat Lopressor ordered and administered, HR in the 110-120's at this time.
--- NOTE | 2024-12-20 08:55 | CON.CAR ---
Addendum entered and electronically signed by Rajat Jain MD 12/20/24 12:12:
I saw and examined the patient.
The SUPERVISING FIRE MARSHAL's note was reviewed and I agree with the note.
79-year-old woman with history of paroxysmal atrial fibrillation, maintained on flecainide, (not on anticoagulation ),Watchman device, coronary artery disease history of left circumflex stenting heart failure preserved ejection fraction COPD and
PAD. Patient had COVID on 12/07/2024. Outpatient treatment with doxycycline and prednisone and has had progressive shortness of breath and is now admitted with respiratory insufficiency chest x-ray also raising suspicion for pneumonia. Patient
initially in sinus rhythm but then went into atrial fibrillation. Currently on high flow O2 sitting up at bedside awake alert cooperative. Does not appear in strep distress. Cardiac exam is irregular lungs with decreased breath sounds
bilaterally. No significant edema on exam.
.
A-fib. PAF
- [id number] - 5 (age greater than 75, female, hypertension, CAD)
- Watchman device.
- Initially in sinus rhythm but has gone into atrial fibrillation. Currently heart rates reasonably controlled. Heart rate 105 which is appropriate her current illness and respiratory status.
- Continue with current dosing of beta-oli and flecainide. Will monitor on telemetry and see if she spontaneously converts back to sinus rhythm.
Respiratory insufficiency. Patient with a history of O2 dependent COPD, recent COVID and now being treated for pneumonia.
- Treatment of pneumonia and optimization of respiratory status as directed by pulmonary and hospitalist
CAD. Previous history of coronary stenting. Stable without angina continue with medical therapy
HFpEF-patient on Lasix as an outpatient. Continue to monitor volume status and assess need for additional IV Lasix. Can resume outpatient dosing of Lasix.
Original Note:
Consultation
Consultation Request
Date/Time Consultation Requested: 12/20/2024 08:50
Date/Time Consultation Performed: 12/20/2024 08:55
Requesting Provider: Dr. Ibrahim
Performing Provider: ROBBY Chinchilla for Dr. Jain
Reason for Consultation: Atrial fibrillation with rapid ventricular response
Medical History
-
Chief Complaint: Shortness of breath
History of Present Illness:
Cortney Brewer is an 79-year-old female (known to Dr. Wilkins), with paroxysmal atrial fibrillation (on flecainide, with Watchman device), coronary artery disease (left circumflex stenting), HFpEF, COPD, GERD, hypertension, dyslipidemia, and PAD
with prior femorofemoral bypass presented to the emergency department on 12/17/2024 with shortness of breath. She endorsed associated weakness and cough productive of yellow sputum. She also endorsed subjective chills and poor oral intake. She
completed a course of doxycycline and prednisone which was prescribed after she tested positive for COVID-19 on 12/07/2024. CXR suspicious for pneumonia. She reports shortness of breath. No chest pain. No palpitations.
Past Medical History
Past Medical History: Arrhythmias (Paroxysmal atrial fibrillation [status post watchman]), CAD (With prior stenting), CHF, COPD, GERD, HTN, Hypercholesterolemia and Other (PAD)
Past Surgical History: Gynecological, Orthopedic and Tonsilectomy
Social History
Tobacco: Former Smoker
Alcohol: None
Drug: None
Employment: Retired
Family History
Family History: Reviewed & Not Pertinent
Allergies / Home Medications
Allergy/AdvReac Type Severity Reaction Status Date / Time
hornet venom Allergy Anaphylaxis Verified 12/17/24 14:33
Penicillins Allergy itching, Verified 12/17/24 14:33
rash,
swelling
sertraline (From Zoloft) Allergy anxiety, Verified 12/17/24 14:33
hyper
venom-honey bee Allergy Anaphylaxis Verified 12/17/24 14:33
�Medication �Instructions �Recorded �Confirmed �Type
metoprolol succinate 25 mg 12.5 mg PO DAILY Blood pressure 06/13/11 12/17/24 History
tablet,extended release 24 hr
atorvastatin 40 mg tablet 40 mg PO QPM High cholesterol 08/01/21 12/17/24 History
flecainide 50 mg tablet 50 mg PO Q12 Arrhythmia 08/01/21 12/17/24 History
azithromycin 250 mg tablet 250 mg PO MOWEFR@0800 06/02/23 12/17/24 History
Lung/Breathing Issues
clopidogrel 75 mg tablet 75 mg PO DAILY Blood Clot 06/02/23 12/17/24 History
Prevention/Tx
escitalopram oxalate 20 mg tablet 10 mg PO DAILY depression/anxiety 06/02/23 12/17/24 History
budesonide 0.5 mg/2 mL suspension 0.5 mg (2 mL) inhalation R BID #60 06/08/23 12/17/24 Rx
for nebulization mL
furosemide 40 mg tablet (Lasix) 40 mg PO DAILY #30 tabs 06/13/23 12/17/24 Rx
albuterol sulfate 90 mcg/actuation 2 puff inhalation Q4HPRN PRN 12/17/24 12/17/24 History
aerosol inhaler shortness of breath
dapagliflozin propanediol 10 mg 10 mg PO DAILY Diabetes 12/17/24 12/17/24 History
tablet (Farxiga)
famotidine 20 mg tablet (Pepcid) 20 mg PO BIDPRN PRN acid reflux 12/17/24 12/17/24 History
guaifenesin 600 mg tablet, 1,200 mg PO [id number] PRN congestion 12/17/24 12/17/24 History
extended release 12 hr
ipratropium 0.5 mg-albuterol 3 mg 3 ml inhalation BID Lung/Breathing 12/17/24 12/17/24 History
(2.5 mg base)/3 mL nebulization Issues
soln
spironolactone 25 mg tablet 12.5 mg PO DAILY Heart 12/17/24 12/17/24 History
Disease/Condition
Review of Systems
-
History Source: Patient
All other systems: Negative unless noted
Constitutional: Fatigue
EENT: No Symptoms
Respiratory: Cough and Trouble Breathing
Cardiac: No Symptoms
Abdomen/GI: No Symptoms
: No Symptoms
Musculoskeletal: Edema (B/L feet)
Skin: No Symptoms
Neurological: No Symptoms
Endocrine: No Symptoms
Hematologic/Lymphatic: No Symptoms
Physical Exam
Vital Signs
Temp Pulse Resp BP Pulse Ox
97.8 F 119 24 115/58 94
12/20/24 02:59 12/20/24 07:17 12/20/24 07:17 12/20/24 06:00 12/20/24 07:59
Lab Results
12/20/24 05:05
12/20/24 05:05
Troponin I 0.014 ng/ml 12/20/24 07:51
Yal-G-Xwelvhorzps Pept 1880 pg/ml 12/20/24 07:51
Physical Exam
General: Well Developed and Respiratory Distress
HEENT: Normocephalic, Anicteric and Moist Mucous Membranes
Respiratory: Wheezes and Accessory Resp Muscle Use
Cardiac: S1/S2 and Irregular Rhythm
Breast: Deferred by me
GI: Soft, Non Tender, Non Distended and Normal Bowel Sounds
Rectal: Deferred by Provider
Genito-urinary: No Costovertebral Tender
Musculoskeletal: No Clubbing and No Cyanosis
Skin: Warm and Dry
Neuro: Awake and Alert
Hematologic/Lymphatic: No Lymphadenopathy
Psych: Calm
Impression / Plan
-
I/P: 79F with paroxysmal atrial fibrillation (on flecainide, with Watchman device), coronary artery disease (left circumflex stenting), HFpEF, COPD, GERD, hypertension, dyslipidemia, and PAD with prior femorofemoral bypass presented to the emergency
department on 12/17/2024 with shortness of breath.
Primary complaint adjuster: Dr. Wilkins
Acute on chronic hypoxic respiratory failure
- Requiring HFNC (80% FiO2/60LPM)
Atrial fibrillation with rapid ventricular response
- Rates improving
- Continue flecainide 50 mg twice daily and metoprolol succinate 12.5 mg daily
- She has CAD but had a negative stress test in 2021, perhaps flecainide was chosen due to the fact she is on standing doses of azithromycin (interaction with dofetilide)
- Oral Anticoagulation: Watchman (02/2023 at [facility]), on clopidogrel
- [id number]: score at least 6 (Heart failure, HTN, age 75 or more, Vascular disease, female gender)
Heart failure, chronic
- Concerned with dehydration on admission, furosemide on hold, she states her feet feel 'puffy' without significant edema
- CXR and CT did not demonstrate pleural effusions
- Continue dapagliflozin and spironolactone
- Her weight is stable compared to her recent office visit (11/2024, 60 kg)
Hypertension, with hypotension
- No significant hypotension over the last 24 hours
- Primary service concerned about pericardial effusion, nothing significant on CT 12/18/2024
Pneumonia, on antibiotics, per primary/pulmonary
COPD, severe, acute exacerbation, per primary/pulmonary
CAD, stable without chest pain, prior left circumflex stenting, on clopidogrel, no ischemia on stress test in 2021
Pericardial effusion (2018)
PAD, prior femorofemoral bypass
Dyslipidemia, continue atorvastatin 40 mg
Former smoker, continued cessation recommended
SUBJECTIVE:
As above.
Data Reviewed
-
EKG: Report Reviewed by me
Radiology: Report Reviewed by me
Labs: Labs Reviewed by me
Old Records: Reviewed
--- NOTE | 2024-12-20 09:09 | W.PN.PUL3 ---
Today's Communication / Plan
-
Remains on HFNC, wean to baseline O2 use as able
PCT negative, less likely infection, would stop abx
CT findings more interstitial pattern, possible ILD--on IV steroids
proBNP elevated, resume home lasix
Speech eval
Assessment
-
79-year-old female former tobacco smoker with [id number]-vant history (quit 2017) with past medical history of COPD on chronic oxygen on 2 L/min ATC, CAD s/p PCI, A-fib on flecainide, chronic HFpEF and hyperlipidemia who presents with worsening SOB,
body aches, fatigue and reduced appetite. Patient's son, Robinson, is present at bedside and assisted with the HPI. Patient was recently diagnosed with COVID-19 on 12/07/2024. The patient has a spring fitter, Dr. Hills, and she has prednisone +
doxycycline that she can take if needed. She took this which included a 10-day prednisone course when she felt sick on 12/07 although she did not feel markedly improved as she expected. She normally uses this combination of Doxy + prednisone about 2
times a year when she feels like she is having a flareup of her COPD. At home she takes DuoNebs, zithromax TIW and Ohtuvayre. She has been having diarrhea over the last 4 days. In the ER she was afebrile with pulse rate 93, respiratory rate 22,
BP 118/63 and saturating 94% on 2 L/min nasal cannula. Labs showed normal WBC at 7.3, Hb 13, potassium 3.3, creatinine 1.2, proBNP <0.012, proBNP 601, and COVID-19 antigen negative. Blood cultures collected. CXR showed opacities in the left lower
lung and right perihilar region suspicious for pneumonia. CTA chest was negative for an acute PE with patchy parenchymal opacities within both lungs suspicious for pneumonia. In the ER she was given 1 L NS 0.9%, Decadron and ceftriaxone. She was
initially admitted to telemetry for further care and started on antibiotics with ceftriaxone + IV vancomycin. She initially required 4-6 L/min on admission however on 12/18 her oxygen requirements worsened up to 12-15 L/min via mid flow nasal
cannula. She was transferred to the IMU and pulmonary service now consulted for additional management/recommendations.
Impression:
Acute on chronic hypoxic respiratory failure, on HFNC
Acute congestive HF on chronic involving posterior right upper lobe + posterior left upper lobe, proBNP 188
Significant centrilobular emphysema/COPD with acute exacerbation due to above
Leukopenia
Anemia
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
Former smoker [id number] history quit in 2018
Severe COPD-Gold stage IV on 3L NC
Trelegy/chronic Zithromax + Ohtuvayre
Frequent respiratory infection - on Low dose Azithromycin.
Frequent exacerbator
FEV1 750 mL - 38%
Chronic hypoxemic respiratory failure, 3L
Hypertension
Hyperlipidemia
Obstructive sleep apnea- not on CPAP
CAD s/p PCI 2002
Diarrhea
A-fib
CKD (baseline creatinine 1.2)
PAD s/p fem-fem bypass
GERD
anxiety/depression
history of pill esophagitis
Chronic HFpEF
9 mm NINFA lung nodule stable on 06/02/2023
Hysterectomy
Left shoulder replacement
Right shoulder replacement
Catheter extraction
Plan:
Remains on HFNC, but satting 98%--wean as tolerated
She has baseline use of 3L
Empirically treated for pneumonia and COPD exacerbation
CTA chest on 12/18 negative for an acute PE--findings read as possible PNA, but in my opinion appears like interstitial changes possible early ILD findings
PCT negative, this is less likely PNA
On abx, which can be discontinued
R/o aspiration, speech eval
Last VSE 2021 seemed WNL
Aspiration precautions; keep HOB>30-45�
Placed on systemic steroids and wean as she clinically improves � currently on Solu-Medrol 40 mg IV daily --> raised to 40mg IV q8hr
Maintain euglycemia with goal BG >100 and <180 while on steroids
Continue zithromax TIW (home med)
She takes nebulizers at home --> changed her Symbicort to budesonide 0.5mg BID, and continue DuoNebs QID with prn doses in between for breakthrough symptoms
Continue mucolytics - she has wet sounding cough
If SOB persists/worsens then change to high-flow nasal cannula; her hypoxia is mainly exertion-related
proBNP 1879
likely mild acute CHF exacerbation
She takes lasix at home which was not resumed
Given Hx of HFpEF, monitor volume status and rec'd sodium and fluid restricted diet
Incentive spirometer encouraged q1hr while awake
Replete electrolytes with K>4, Mg>2
Trend H/H and transfuse if needed to keep Hb>7g/dL; keep plt>20k, unless there is concern for bleeding then keep plt>50k
DVT ppx: recommend to start HSQ
Code status: DNR/DNI
Pulmonary service will continue to follow along. She has a spring fitter at [place] via Dr. Hills, however he is retiring soon.
She can follow up with us in [facility] office, which she agreed with.
Data:
CTA Chest 12/18/2024: Streak artifact from bilateral shoulder prostheses, with streak artifact projecting over the pulmonary arteries, slightly limiting evaluation. Given this limitation, no convincing evidence for pulmonary embolism.There is no
evidence for thoracic aortic dissection or aneurysm. Changes of emphysema within both lungs. Comparing to prior CT angiography of the chest, development of patchy parenchymal opacity within both lungs, most likely pneumonia. No significant pleural
effusion bilaterally.
ECHO:: Normal left ventricular chamber size. Normal left ventricular wall thickness.��Hyperdynamic left ventricular systolic function. Normal regional wall motion..�LV ejection fraction is 70-75% by visual assessment. Stage II diastolic
dysfunction suggestive of abnormal relaxation and increased filling pressures.�Normal right ventricular size and function.�Mildly dilated left atrium
Mild mitral regurgitation.
-----
Total time spent today was 52 minutes for this encounter. Time includes reviewing laboratory test/imaging results, reviewing pertinent medical records, obtaining and reviewing medical history, performing an appropriate exam, ordering medications,
tests and procedures. Time also includes documentation of this encounter, coordinating patient care and communicating with other healthcare professionals. Total time does not include separately billed tests performed on this date of service.
Subjective Data
-
Date of Service:
Date of Service: December 20, 2024
Chief Complaint: Pulmonary Follow Up
Subjective:
No new complaints, SOB is somewhat improving
Remains on 80% HFNC
Objective Data
Data Reviewed
Vital Signs / I&O / Oxygen:
Vital Signs
Temp Pulse Resp BP Pulse Ox
97.8 F 119 24 115/58 94
12/20/24 07:07 12/20/24 07:17 12/20/24 07:17 12/20/24 06:00 12/20/24 07:59
Intake and Output
12/19/24 12/20/24 12/21/24
06:59 06:59 06:59
Intake Total 680 / 680 480 / 480
Output Total 600 / 600
Balance 80 / 80 480 / 480
SaO2 94
Nasal Cannula flow liters per 60
minute
Physical Exam
General: Respiratory Distress (negative) and Chills (negative)
HEENT: Normocephalic and Anicteric
Cardiovascular: S1-S2, Regular Rhythm and Peripheral Edema (trace DANIELLA)
Respiratory: Wheeze (negative), Crackles (negative), Rhonchi (negative), Accessory Resp Muscle Use (mild with exertion) and Other (Severely reduced breath sounds)
GI: Soft, Non Distended, Non Tender and Normal Bowel Sounds
Neurology: Awake, Alert, Oriented and Tremors (negative)
Skin: Warm, Dry, Cyanosis (negative) and Jaundice (negative)
Labs/Micro/Reports
Lab Data
12/20/24 05:05
12/20/24 05:05
Microbiology
12/18/24 19:30 Blood/Venous Blood Culture - Preliminary
No Growth in 24 hours- Final report to follow
12/18/24 18:53 Blood/Venous Blood Culture - Preliminary
No Growth in 24 hours- Final report to follow
12/18/24 18:59 Urine Legionella Urinary Antigen - Final
Negative for Legionella pneumophila Serogroup 1 antigen.
A negative result does not rule out the possiblity of
Legionella infection due to other serogroups or species of
Legionella. Clinical correlation is recommended.
12/18/24 18:59 Urine Streptococcus pneumoniae Antigen (M - Final
Negative for Streptococcus pneumoniae antigen.
A negative result does not exclude infection with
Streptococcus pneumoniae. Clinical correlation is
recommended.
12/17/24 23:54 Nose Nasal Screen MRSA (PCR) - Final
MRSA not detected - performed by PCR methodology.
[2024-12-20] MEDS: LEXAPRO 10 MG PO (09:31)
[2024-12-20] MEDS: ALDACTONE 12.5 MG PO (09:31)
[2024-12-20] MEDS: MUCINEX 600 MG PO ×2 (09:31→19:52)
[2024-12-20] MEDS: TAMBOCOR 50 MG PO ×2 (09:31→19:52)
[2024-12-20] MEDS: TOPROL XL 12.5 MG PO (09:31)
[2024-12-20] MEDS: PLAVIX 75 MG PO (09:31)
[2024-12-20] MEDS: FARXIGA 10 MG PO (09:31)
[2024-12-20] MEDS: ZITHROMAX 250 MG PO (09:32)
[2024-12-20 11:33] LABS: Procalcitonin < 0.05 ng/ml (0.0-0.25)
[2024-12-20] MEDS: NSS 250 IV (12:25)
--- NOTE | 2024-12-20 12:32 | PTCARENOTE ---
Pt now hypotensive with SBP in the 80's, asymptomatic. Dr. Ibrahim and cardiology VENEER REDRIER notified via TT. Order received for IVF bolus, administered as ordered, see MAR. Pt updated on POC. Pt's daughter updated via phone.
[2024-12-20] MEDS: LASIX 40 MG IV (14:19)
[2024-12-20] MEDS: LIPITOR 40 MG PO (18:12)
[2024-12-20] MEDS: LOVENOX 40 MG SC (18:12)
--- NOTE | 2024-12-20 18:32 | PTCARENOTE ---
HR elevated to the 120-130's, and BP soft. Pt reports feeling well. Dr. Ibrahim notified, no further orders received at this time.
[2024-12-20] MEDS: MELATONIN 5 MG PO (21:20)
[2024-12-21] VITALS (25 sets, daily range): BP systolic 84–148; BP diastolic 39–118; BMI 23.3
[2024-12-21 04:55] LABS: Hematocrit 34.1 % (37.0-47.0); Hemoglobin 11.3 g/dL (12.0-16.0); Mean Corp Hgb Conc. 33.1 g/dL (33.0-37.0); Mean Corpuscular Volume 85.3 fL (81.0-99.0); Platelet Count 252 10^3/uL (130-400); Red Cell Dist. Width 14.1 % (11.5-14.5)
[2024-12-21] MEDS: MAXIPIME 1000 MG IV (05:04)
[2024-12-21] MEDS: STERILE WATER FOR INJECTION 10 ML IV (05:04)
[2024-12-21] MEDS: SOLU-MEDROL PF 40 MG IV ×2 (05:04→20:49)
[2024-12-21 05:21] LABS: Blood Urea Nitrogen 32 mg/dl (7-17); Calcium 9.0 mg/dl (8.4-10.2); Carbon Dioxide 25 mmol/L (22-30); Chloride 109 mmol/L (98-107); Estimated Creatinine Clearance 34 ml/min; Glucose 140 mg/dl (70-99); Potassium 4.0 mmol/L (3.5-5.1); Sodium 139 mmol/L (135-145); eGFR 50.80
--- NOTE | 2024-12-21 06:08 | PTCARENOTE ---
Pt tolerating HFNC. BPs remain soft, but stable. SR-ST on CM. Pt denies new complaints at this time. Call rangel within reach. Care ongoing.
[2024-12-21] MEDS: PULMICORT 0.5 MG INH ×2 (08:07→19:20)
[2024-12-21] MEDS: DUONEB 3 ML INH ×4 (08:07→19:20)
[2024-12-21] MEDS: PLAVIX 75 MG PO (08:33)
[2024-12-21] MEDS: MUCINEX 600 MG PO ×2 (08:34→20:49)
[2024-12-21] MEDS: LEXAPRO 10 MG PO (08:34)
[2024-12-21] MEDS: TAMBOCOR 50 MG PO ×2 (08:34→20:49)
[2024-12-21] MEDS: ALDACTONE 12.5 MG PO (08:34)
[2024-12-21] MEDS: FARXIGA 10 MG PO (08:34)
--- NOTE | 2024-12-21 09:26 | W.PN.PUL3 ---
Today's Communication / Plan
-
HFNC requirements weaning down from 80% to 55%
Lasix resumed, improving oxygenation
Weaned IV steroids today to q12
Encouraged continued IS, OOB, PT
Slow progress
Assessment
-
79-year-old female former tobacco smoker with [id number] history (quit 2017) with past medical history of COPD on chronic oxygen on 2 L/min ATC, CAD s/p PCI, A-fib on flecainide, chronic HFpEF and hyperlipidemia who presents with worsening SOB,
body aches, fatigue and reduced appetite. Patient's son, Robinson, is present at bedside and assisted with the HPI. Patient was recently diagnosed with COVID-19 on 12/07/2024. The patient has a mint wafer depositor, Dr. Hills, and she has prednisone +
doxycycline that she can take if needed. She took this which included a 10-day prednisone course when she felt sick on 12/07 although she did not feel markedly improved as she expected. She normally uses this combination of Doxy + prednisone about 2
times a year when she feels like she is having a flareup of her COPD. At home she takes DuoNebs, zithromax TIW and Ohtuvayre. She has been having diarrhea over the last 4 days. In the ER she was afebrile with pulse rate 93, respiratory rate 22,
BP 118/63 and saturating 94% on 2 L/min nasal cannula. Labs showed normal WBC at 7.3, Hb 13, potassium 3.3, creatinine 1.2, proBNP <0.012, proBNP 601, and COVID-19 antigen negative. Blood cultures collected. CXR showed opacities in the left lower
lung and right perihilar region suspicious for pneumonia. CTA chest was negative for an acute PE with patchy parenchymal opacities within both lungs suspicious for pneumonia. In the ER she was given 1 L NS 0.9%, Decadron and ceftriaxone. She was
initially admitted to telemetry for further care and started on antibiotics with ceftriaxone + IV vancomycin. She initially required 4-6 L/min on admission however on 12/18 her oxygen requirements worsened up to 12-15 L/min via mid flow nasal
cannula. She was transferred to the IMU and pulmonary service now consulted for additional management/recommendations.
Impression:
Acute on chronic hypoxic respiratory failure, on HFNC
Acute congestive HF on chronic involving posterior right upper lobe + posterior left upper lobe, proBNP 188
Significant centrilobular emphysema/COPD with acute exacerbation due to above
Leukopenia
Anemia
Chronic conditions [employer]IVER:
Former smoker [id number] history quit in 2018
Severe COPD-Gold stage IV on 3L NC
Trelegy/chronic Zithromax + Ohtuvayre
Frequent respiratory infection - on Low dose Azithromycin.
Frequent exacerbator
FEV1 750 mL - 38%
Chronic hypoxemic respiratory failure, 3L
Hypertension
Hyperlipidemia
Obstructive sleep apnea- not on CPAP
CAD s/p PCI 2002
Diarrhea
A-fib
CKD (baseline creatinine 1.2)
PAD s/p fem-fem bypass
GERD
anxiety/depression
history of pill esophagitis
Chronic HFpEF
9 mm NINFA lung nodule stable on 06/02/2023
Hysterectomy
Left shoulder replacement
Right shoulder replacement
Catheter extraction
Plan:
Remains on HFNC, but satting 98%--wean as tolerated
HFNC has been weaned from 80% to 55%--transition to midflow as able
She has baseline use of 3L
Empirically treated for pneumonia and COPD exacerbation
CTA chest on 12/18 negative for an acute PE--findings read as possible PNA, but in my opinion appears like interstitial changes possible early ILD findings
PCT negative, this is less likely PNA
On abx, which can be discontinued
R/o aspiration, speech eval
Last VSE 2021 seemed WNL
Aspiration precautions; keep HOB>30-45�
Placed on systemic steroids and wean as she clinically improves � currently on Solu-Medrol 40 mg IV daily --> raised to 40mg IV q8hr
Maintain euglycemia with goal BG >100 and <180 while on steroids
Continue zithromax TIW (home med)
She takes nebulizers at home --> changed her Symbicort to budesonide 0.5mg BID, and continue DuoNebs QID with prn doses in between for breakthrough symptoms
Continue mucolytics - she has wet sounding cough
If SOB persists/worsens then change to high-flow nasal cannula; her hypoxia is mainly exertion-related
proBNP 1879
likely mild acute CHF exacerbation
She takes lasix at home which was not resumed
Given Hx of HFpEF, monitor volume status and rec'd sodium and fluid restricted diet
Resumed on home lasix
Midodrine continued for hypotension
Incentive spirometer encouraged q1hr while awake
Replete electrolytes with K>4, Mg>2
Trend H/H and transfuse if needed to keep Hb>7g/dL; keep plt>20k, unless there is concern for bleeding then keep plt>50k
DVT ppx: recommend to start HSQ
Code status: DNR/DNI
Pulmonary service will continue to follow along. She has a mint wafer depositor at [place] via Dr. Hills, however he is retiring soon.
She can follow up with us in [facility] office, which she agreed with.
Data:
CTA Chest 12/18/2024: Streak artifact from bilateral shoulder prostheses, with streak artifact projecting over the pulmonary arteries, slightly limiting evaluation. Given this limitation, no convincing evidence for pulmonary embolism.There is no
evidence for thoracic aortic dissection or aneurysm. Changes of emphysema within both lungs. Comparing to prior CT angiography of the chest, development of patchy parenchymal opacity within both lungs, most likely pneumonia. No significant pleural
effusion bilaterally.
ECHO:: Normal left ventricular chamber size. Normal left ventricular wall thickness.��Hyperdynamic left ventricular systolic function. Normal regional wall motion..�LV ejection fraction is 70-75% by visual assessment. Stage II diastolic
dysfunction suggestive of abnormal relaxation and increased filling pressures.�Normal right ventricular size and function.�Mildly dilated left atrium
Mild mitral regurgitation.
-----
Total time spent today was 52 minutes for this encounter. Time includes reviewing laboratory test/imaging results, reviewing pertinent medical records, obtaining and reviewing medical history, performing an appropriate exam, ordering medications,
tests and procedures. Time also includes documentation of this encounter, coordinating patient care and communicating with other healthcare professionals. Total time does not include separately billed tests performed on this date of service.
Subjective Data
-
Date of Service:
Date of Service: December 21, 2024
Chief Complaint: Pulmonary Follow Up
Subjective:
Remains on HFNC, improving on FiO2--weaned from 80% to 55%
Sats are tenuous
Objective Data
Data Reviewed
Vital Signs / I&O / Oxygen:
Vital Signs
Temp Pulse Resp BP Pulse Ox
97.9 F 94 21 85/61 94
12/21/24 07:11 12/21/24 08:10 12/21/24 08:10 12/21/24 08:34 12/21/24 08:10
Intake and Output
12/20/24 12/21/24 12/22/24
06:59 06:59 06:59
Intake Total 480 / 480
Output Total 600 / 600
Balance 480 / 480 -600 / -600
SaO2 94
Nasal Cannula flow liters per 45
minute
Physical Exam
General: Respiratory Distress (negative) and Chills (negative)
HEENT: Normocephalic and Anicteric
Cardiovascular: S1-S2, Regular Rhythm and Peripheral Edema (trace DANIELLA)
Respiratory: Wheeze (negative), Crackles (negative), Rhonchi (negative), Accessory Resp Muscle Use (mild with exertion) and Other (Severely reduced breath sounds)
GI: Soft, Non Distended, Non Tender and Normal Bowel Sounds
Neurology: Awake, Alert, Oriented and Tremors (negative)
Skin: Warm, Dry, Cyanosis (negative) and Jaundice (negative)
Labs/Micro/Reports
Lab Data
12/21/24 04:43
12/21/24 04:43
Microbiology
12/18/24 19:30 Blood/Venous Blood Culture - Preliminary
No Growth in 48 hours- Final report to follow
12/18/24 18:53 Blood/Venous Blood Culture - Preliminary
No Growth in 48 hours- Final report to follow
12/18/24 18:59 Urine Legionella Urinary Antigen - Final
Negative for Legionella pneumophila Serogroup 1 antigen.
A negative result does not rule out the possiblity of
Legionella infection due to other serogroups or species of
Legionella. Clinical correlation is recommended.
12/18/24 18:59 Urine Streptococcus pneumoniae Antigen (M - Final
Negative for Streptococcus pneumoniae antigen.
A negative result does not exclude infection with
Streptococcus pneumoniae. Clinical correlation is
recommended.
12/17/24 23:54 Nose Nasal Screen MRSA (PCR) - Final
MRSA not detected - performed by PCR methodology.
--- NOTE | 2024-12-21 09:41 | W.PN.CD ---
Addendum entered and electronically signed by Rajat Jain MD 12/21/24 11:09:
I saw and examined the patient.
The COST MANAGER's note was reviewed and I agree with the note.
Overall patient is feeling better. More energetic. Remains on high flow O2 but decreased from yesterday. Currently on 45 L at 55%. Remains in A-fib with some accelerated rates. Patient has not received her beta-oli this morning. Patient
has a history of a Watchman device but is not currently on anticoagulation only on Plavix. Now the patient is back in A-fib may need to consider short-term use of anticoagulation to give us additional options to get her back in sinus rhythm. In
the meantime we will continue with current dosing of flecainide and metoprolol. Some limitations to metoprolol titration due to blood pressure.
Original Note:
Today's Communication / Plan
-
BP limiting HR management
Follow BPs
Impression / Plan
-
I/P: 79F with paroxysmal atrial fibrillation (on flecainide, with Watchman device), coronary artery disease (left circumflex stenting), HFpEF, COPD, GERD, hypertension, dyslipidemia, and PAD with prior femorofemoral bypass presented to the emergency
department on 12/17/2024 with shortness of breath.
Primary applications developer: Dr. Wilkins
Acute on chronic hypoxic respiratory failure - in the setting of pneumonia
- Requiring HFNC 80% FiO2/60 LPM yesterday, now 55% FiO2/45 LPM
Atrial fibrillation with rapid ventricular response
- Rates above goal
- Continue flecainide 50 mg twice daily and metoprolol succinate 12.5 mg daily - consider increasing flecainide dose
- She has CAD but had a negative stress test in 2021, perhaps flecainide was chosen due to the fact she is on standing doses of azithromycin (interaction with dofetilide)
- Oral Anticoagulation: Watchman (02/2023 at [facility]), on clopidogrel
- [id number]: score at least 6 (Heart failure, HTN, age 75 or more, Vascular disease, female gender)
HFpEF, chronic
- Concerned with dehydration on admission, furosemide on hold, she states her feet feel 'puffy' without significant edema
- CXR and CT did not demonstrate pleural effusions
- Continue dapagliflozin and spironolactone, furosemide resumed by pulmonary
- Her weight is stable compared to her recent office visit (11/2024, 60 kg)
Hypertension, with hypotension
- Not requiring vasopressor support, follow
Pneumonia, on antibiotics, per primary/pulmonary
COPD, severe, oxygen dependent, acute exacerbation, per primary/pulmonary
CAD, stable without chest pain, prior left circumflex stenting, on clopidogrel, no ischemia on stress test in 2021
Pericardial effusion (2018)
PAD, prior femorofemoral bypass
Dyslipidemia, continue atorvastatin 40 mg
Former smoker, continued cessation recommended
SUBJECTIVE:
Denies CP, SOB, and palpitations.
Physical Exam
Vital Signs/Labs
Vital Signs
Temp Pulse Resp BP Pulse Ox
97.9 F 94 21 85/61 94
12/21/24 07:11 12/21/24 08:10 12/21/24 08:10 12/21/24 08:34 12/21/24 08:10
12/20/24 12/21/24 12/22/24
06:59 06:59 06:59
Actual Weight 59.5 kg 59.6 kg
12/21/24 04:43
12/21/24 04:43
Magnesium 2.2 mg/dl (1.6-2.3) 12/20/24 05:05
12/17/24 12/20/24
15:26 07:51
Ero-A-Eenjnhzrqqo Pept 601 1880
LAB Results
12/18/24 12/18/24 12/20/24
16:59 22:30 07:51
Troponin I < 0.012 Cancelled 0.014
Physical Exam
Constitutional: No acute distress and Comfortable
EENT: Anicteric and Moist mucous membranes
Cardiovascular: Pedal edema is absent, Rhythm/rate is irregular and S1S2 is normal
Respiratory: Labored respirations and Rhonchi Present
GI: Soft, Distention absent, Flat, Non tender and Normal bowel sounds
Neuro/Psych: Alert and Oriented
Other: Skin (warm and dry)
Data Reviewed
-
Date of Service: December 21, 2024
EKG: Report Reviewed by me
Echo: Report Reviewed by me
Labs: Labs Reviewed by me
Old Records: Reviewed
--- NOTE | 2024-12-21 10:07 | PTOTSP ---
Dysphagia Evaluation:
Pt at risk for silent aspiration given PMH (COPD Stage IV) and at risk for dysphagia given (current AHRF secondary to PNA, COPD, GERD, pill esophagitis). No immediate overt s/s of aspiration observed during evaluation. Pt demonstrated delayed,
prolonged coughing episode immediately after evaluation.
Recommendations:
1. Regular, Thins.
2. Medications as best tolerated.
3. Strategies: Single sips/small bites, slowed rate of eating, alternating liquid washes, reflux precautions.
4. FEES if concerned for presence of silent aspiration given risk factors.
[2024-12-21] MEDS: LASIX 40 MG IV (10:33)
--- NOTE | 2024-12-21 10:53 | W.PN.HOSP.TC ---
Addendum entered and electronically signed by Lynda Ibrahim MD 12/21/24 15:41:
For CDI�chronic CHF
Original Note:
Today's Communication/Plan
-
wean off HFNC
off abx
BP low but on midodrine
cont metoprolol
change lasix to oral
Assessment / Plan
Assessment / Plan
Assessment/Plan
79F with COPD on 2L, recent diagnosis of COVID, A-fib status post Watchman device and chronic CHFpEF, p/w SOB and cough, failed outpt steroids and doxycycline.
Acute Hypoxic Respiratory Failure
Pneumonia/Acute COPD Exacerbation
- Failed outpt course of Prednisone and Doxycycline
- s/p course of Cefepime, now off
- CT Chest shows no PE, but bilateral pneumonia is confirmed
- Cough medication with Mucinex twice daily
- DuoNeb 4 times daily change to xopenex due to rapid AFib
- Pulmicort
- Continue home inhalers
- Solumedrol IV increased frequency per pulm
bcx NGTD, legionella/strep negative
repeat CXR shows persistent multifocal opacities
wean off HFNC
Afib with RVR
h/o Afib s/p watchman 2022
occurred 12/20 in AM, HR to 150s
treated with IV lopressor 5mg x1. Improved to 100s.
continue oral lopressor
if needed will trial diltiazem
echo 12/20 EF 68%, no RWMA, limited by AF
cardiology consulted appreciate recs/mgmt
Continue flecainide, Plavix and metoprolol
Hypotension episodes
- Patient says she has BP fluctuations and gets hypotension sometimes
on midodrine as well
- Given history of pericardial effusion 2018, and in setting of significant hypoxia as well as episodes of low BP, checked echo as above. No effusions noted.
Chronic diarrhea
hematochezia 2/2 hemorrhoids
- Encourage oral hydration
HFpEF
- proBNP was unremarkable
- Home Lasix on hold for now given history sounding like dehydration
- Continue Aldactone
- Continue Toprol XL
- echo as above EF 68%
Coronary disease with h/o stents
Peripheral arterial disease s/p fem-femo bypass
- Continue Atorvastatin and Plavix
Obstructive sleep apnea
Depression
Anxiety
-Continue Lexapro
prn ativan po
Gastroesophageal reflux disease
H/o pill induced esophagitis
PRN Pepcid
CODE STATUS DNR/DNI
DVT prophylaxis SCDs. Lovenox
Anticipated Discharge: > 48 hours
Subjective/Interval History
-
Date of Service: December 21, 2024
Pt states she is feeling much better.
Objective Data
-
Labs:
Laboratory Results
12/21/24
04:43
WBC 9.8
Hgb 11.3 L
Hct 34.1 L
Plt Count 252
Sodium 139
Potassium 4.0
Chloride 109 H
Carbon Dioxide 25
BUN 32 H
Creatinine 1.1 H
Glucose 140 H
Calcium 9.0
Vital Signs:
Vital Signs
Temp Pulse Resp BP Pulse Ox
97.9 F 94 21 85/61 94
12/21/24 07:11 12/21/24 08:10 12/21/24 08:10 12/21/24 08:34 12/21/24 08:10
I&O
12/20/24 12/21/24 12/22/24
06:59 06:59 06:59
Intake Total 480 / 480
Output Total 600 / 600
Balance 480 / 480 -600 / -600
Review of Systems
-
All other systems: Reviewed and negative
Physical Exam
-
General: No Apparent Distress
HEENT: Moist Mucous Membranes, Anicteric and PERRLA
Respiratory: Clear to Auscultation; Negative Wheezes, Rales or Rhonchi
Cardiac: S1/S2, Irregular Rhythm and Tachycardic; Negative Murmur, Rub or Gallop
GI: Soft, Nontender, Nondistended and Normal Bowel Sounds
Musculoskeletal: No Edema
Skin: Warm and Dry; Negative Rash, Ulcers or Lesions
Neuro: Awake and AO x 3
Hematologic / Lymphatic: No Lymphadenopathy
Psych: Calm
Data Reviewed
-
Diagnostic Radiology: Report Reviewed by me
Labs: Labs Reviewed by me
--- NOTE | 2024-12-21 11:25 | CM ---
Following up on Patient. RN stated that patient is on HFNC. Patient is an upgrade to this floor. VIVIANA Garcia is waiting for PT/OT to evaluate the patient.
PLAN: Home w/ PT/OT vs SNF
--- NOTE | 2024-12-21 14:28 | PN.CDI ---
CDI
- -
CDI:
Physician Documentation Request
Admit Date: 12/17/24 17:34
Dear Doctor Patrice,
Clinical Indicators:
Patient admitted with acute hypoxic respiratory failure.
12/20, 12/21: Lasix 40 mg IV x 2 doses.
12/21 Pulmonary PN, 'likely mild acute CHF exacerbation'
12/21 Cardiology PN, 'HFpEF, chronic'
BNP trend:
12/17/24 12/20/24
07:51
Dcl-O-Cyolzzynnwt Pept 601 1880
Due to potentially conflicting documentation, please clarify the most likely acuity of CHF you are evaluating, treating or monitoring:
Acute on chronic HFpEF
Chronic HFpEF
Other, please specify
Use of terms such as suspected, likely, concern for, or probable (associated with a specific diagnosis that is being evaluated, monitored, or treated as if it exists) are acceptable and can be coded in the inpatient setting, when documented at the
time of discharge.
Thank you,
INDU Gabriel RN
CDI Specialist
available via tiger text
Please use your independent medical judgment in providing your response.
[2024-12-21] MEDS: TOPROL XL 12.5 MG PO (16:37)
[2024-12-21] MEDS: LOVENOX 40 MG SC (18:21)
[2024-12-21] MEDS: LIPITOR 40 MG PO (18:21)
[2024-12-21] MEDS: MELATONIN 5 MG PO (20:49)
--- NOTE | 2024-12-21 21:40 | PTCARENOTE ---
Caring for pt overnight. aaox3, afib on monitor 110-130bpm, continues to have soft blood pressures. Denies pain. C/o LYNN. Continues on HFNC 50% 50L. OOB to BSCX1. No assessment changes. No other issues at this time. Willl monitor.
[2024-12-22] VITALS (23 sets, daily range): BP systolic 89–124; BP diastolic 19–81; BMI 23.1
--- NOTE | 2024-12-22 02:28 | DOWNTIME ---
There was a [employer] Client Processing Lead Downtime on 12/22/2024 from 0100 to 12/22/2024 at 0215. Downtime documentation of patient's care, including medication administrations, has been reconciled in the electronic record per guidelines. Refer to the
patient's paper chart under the miscellaneous tab to see printed paper medication records and downtime forms.
[2024-12-22 05:53] LABS: Hematocrit 35.2 % (37.0-47.0); Hemoglobin 12.0 g/dL (12.0-16.0); Mean Corp Hgb Conc. 34.1 g/dL (33.0-37.0); Mean Corpuscular Volume 85.2 fL (81.0-99.0); Platelet Count 281 10^3/uL (130-400); Red Cell Dist. Width 14.2 % (11.5-14.5)
[2024-12-22 06:27] LABS: Blood Urea Nitrogen 43 mg/dl (7-17); Calcium 9.2 mg/dl (8.4-10.2); Carbon Dioxide 26 mmol/L (22-30); Chloride 106 mmol/L (98-107); Estimated Creatinine Clearance 29 ml/min; Glucose 160 mg/dl (70-99); Potassium 4.0 mmol/L (3.5-5.1); Sodium 138 mmol/L (135-145); eGFR 41.57
[2024-12-22] MEDS: SOLU-MEDROL PF 40 MG IV ×2 (07:20→20:02)
[2024-12-22] MEDS: LEXAPRO 10 MG PO (07:20)
[2024-12-22] MEDS: MUCINEX 600 MG PO ×2 (07:20→20:01)
[2024-12-22] MEDS: PLAVIX 75 MG PO (07:20)
[2024-12-22] MEDS: ZITHROMAX 250 MG PO (07:21)
[2024-12-22] MEDS: FARXIGA 10 MG PO (07:21)
[2024-12-22] MEDS: TAMBOCOR 50 MG PO ×2 (07:22→20:02)
[2024-12-22] MEDS: ALDACTONE PO (07:22)
[2024-12-22] MEDS: TOPROL XL PO (07:23)
[2024-12-22] MEDS: DUONEB 3 ML INH (07:39)
[2024-12-22] MEDS: PULMICORT 0.5 MG INH ×2 (07:42→19:08)
[2024-12-22] MEDS: LASIX 40 MG PO (07:56)
--- NOTE | 2024-12-22 09:07 | W.PN.PUL3 ---
Today's Communication / Plan
-
FEES testing today
Remains on HFNC, weaning down--transition to midflow as tolerated
Will transition IV steroids to PO if clinically improving
Lasix continued
Continue PT/OT, IS
Assessment
-
79-year-old female former tobacco smoker with [id number]-eoln history (quit 2017) with past medical history of COPD on chronic oxygen on 2 L/min ATC, CAD s/p PCI, A-fib on flecainide, chronic HFpEF and hyperlipidemia who presents with worsening SOB,
body aches, fatigue and reduced appetite. Patient's son, Robinson, is present at bedside and assisted with the HPI. Patient was recently diagnosed with COVID-19 on 12/07/2024. The patient has a sales account manager, Dr. Hills, and she has prednisone +
doxycycline that she can take if needed. She took this which included a 10-day prednisone course when she felt sick on 12/07 although she did not feel markedly improved as she expected. She normally uses this combination of Doxy + prednisone about 2
times a year when she feels like she is having a flareup of her COPD. At home she takes DuoNebs, zithromax TIW and Ohtuvayre. She has been having diarrhea over the last 4 days. In the ER she was afebrile with pulse rate 93, respiratory rate 22,
BP 118/63 and saturating 94% on 2 L/min nasal cannula. Labs showed normal WBC at 7.3, Hb 13, potassium 3.3, creatinine 1.2, proBNP <0.012, proBNP 601, and COVID-19 antigen negative. Blood cultures collected. CXR showed opacities in the left lower
lung and right perihilar region suspicious for pneumonia. CTA chest was negative for an acute PE with patchy parenchymal opacities within both lungs suspicious for pneumonia. In the ER she was given 1 L NS 0.9%, Decadron and ceftriaxone. She was
initially admitted to telemetry for further care and started on antibiotics with ceftriaxone + IV vancomycin. She initially required 4-6 L/min on admission however on 12/18 her oxygen requirements worsened up to 12-15 L/min via mid flow nasal
cannula. She was transferred to the IMU and pulmonary service now consulted for additional management/recommendations.
Impression:
Acute on chronic hypoxic respiratory failure, on HFNC
Acute congestive HF on chronic involving posterior right upper lobe + posterior left upper lobe, proBNP 188
Significant centrilobular emphysema/COPD with acute exacerbation due to above
Leukopenia
Anemia
Chronic conditions [employer] INST[employer]ER:
Former smoker [id number] history quit in 2018
Severe COPD-Gold stage IV on 3L NC
Trelegy/chronic Zithromax + Ohtuvayre
Frequent respiratory infection - on Low dose Azithromycin.
Frequent exacerbator
FEV1 750 mL - 38%
Chronic hypoxemic respiratory failure, 3L
Hypertension
Hyperlipidemia
Obstructive sleep apnea- not on CPAP
CAD s/p PCI 2002
Diarrhea
A-fib
CKD (baseline creatinine 1.2)
PAD s/p fem-fem bypass
GERD
anxiety/depression
history of pill esophagitis
Chronic HFpEF
9 mm NINFA lung nodule stable on 06/02/2023
Hysterectomy
Left shoulder replacement
Right shoulder replacement
Catheter extraction
Plan:
Remains on HFNC, but satting 98%--wean as tolerated
HFNC has been weaned from 80% to 50%--transition to midflow as able
She has baseline use of 3L
Empirically treated for pneumonia and COPD exacerbation
CTA chest on 12/18 negative for an acute PE--findings read as possible PNA, but in my opinion appears like interstitial changes possible early ILD findings
PCT negative, this is less likely PNA
On abx, which can be discontinued
IV steroids, weaning down --can likely transition to PO course in next 24 hours if continually improving
R/o aspiration, speech eval
Last VSE 2021 seemed WNL
Aspiration precautions; keep HOB>30-45�
FEES testing at bedside today
Placed on systemic steroids and wean as she clinically improves � currently on Solu-Medrol 40 mg IV daily --> raised to 40mg IV q8hr
Maintain euglycemia with goal BG >100 and <180 while on steroids
Continue zithromax TIW (home med)
She takes nebulizers at home --> changed her Symbicort to budesonide 0.5mg BID, and continue DuoNebs QID with prn doses in between for breakthrough symptoms
Continue mucolytics - she has wet sounding cough
If SOB persists/worsens then change to high-flow nasal cannula; her hypoxia is mainly exertion-related
proBNP 1879
likely mild acute CHF exacerbation
She takes lasix at home which was not resumed
Given Hx of HFpEF, monitor volume status and rec'd sodium and fluid restricted diet
Resumed on home lasix
Midodrine continued for hypotension
Incentive spirometer encouraged q1hr while awake
Replete electrolytes with K>4, Mg>2
Trend H/H and transfuse if needed to keep Hb>7g/dL; keep plt>20k, unless there is concern for bleeding then keep plt>50k
DVT ppx: recommend to start HSQ
Code status: DNR/DNI
Pulmonary service will continue to follow along. She has a sales account manager at [employer] via Dr. Hills, however he is retiring soon.
She can follow up with us in [facility] office, which she agreed with.
Data:
CTA Chest 12/18/2024: Streak artifact from bilateral shoulder prostheses, with streak artifact projecting over the pulmonary arteries, slightly limiting evaluation. Given this limitation, no convincing evidence for pulmonary embolism.There is no
evidence for thoracic aortic dissection or aneurysm. Changes of emphysema within both lungs. Comparing to prior CT angiography of the chest, development of patchy parenchymal opacity within both lungs, most likely pneumonia. No significant pleural
effusion bilaterally.
ECHO:: Normal left ventricular chamber size. Normal left ventricular wall thickness.��Hyperdynamic left ventricular systolic function. Normal regional wall motion..�LV ejection fraction is 70-75% by visual assessment. Stage II diastolic
dysfunction suggestive of abnormal relaxation and increased filling pressures.�Normal right ventricular size and function.�Mildly dilated left atrium
Mild mitral regurgitation.
-----
Total time spent today was 51 minutes for this encounter. Time includes reviewing laboratory test/imaging results, reviewing pertinent medical records, obtaining and reviewing medical history, performing an appropriate exam, ordering medications,
tests and procedures. Time also includes documentation of this encounter, coordinating patient care and communicating with other healthcare professionals. Total time does not include separately billed tests performed on this date of service.
Subjective Data
-
Date of Service:
Date of Service: December 22, 2024
Chief Complaint: Pulmonary Follow Up
Subjective:
Remains on HFNC but sats are better this AM
No changes in her SOB
Objective Data
Data Reviewed
Vital Signs / I&O / Oxygen:
Vital Signs
Temp Pulse Resp BP Pulse Ox
98.4 F 97 26 98/52 93
12/22/24 07:00 12/22/24 07:43 12/22/24 07:43 12/22/24 06:00 12/22/24 07:47
Intake and Output
12/21/24 12/22/24 12/23/24
06:59 06:59 06:59
Output Total 600 / 600 550 / 550
Balance -600 / -600 -550 / -550
SaO2 93
Nasal Cannula flow liters per 50
minute
Physical Exam
General: Respiratory Distress (negative) and Chills (negative)
HEENT: Normocephalic and Anicteric
Cardiovascular: S1-S2, Regular Rhythm and Peripheral Edema (trace DANIELLA)
Respiratory: Wheeze (negative), Crackles (negative), Rhonchi (negative), Accessory Resp Muscle Use (mild with exertion) and Other (Severely reduced breath sounds)
GI: Soft, Non Distended, Non Tender and Normal Bowel Sounds
Neurology: Awake, Alert, Oriented and Tremors (negative)
Skin: Warm, Dry, Cyanosis (negative) and Jaundice (negative)
Labs/Micro/Reports
Lab Data
12/22/24 05:40
12/22/24 05:40
Microbiology
12/18/24 19:30 Blood/Venous Blood Culture - Preliminary
No Growth in 72 hours- Final report to follow
12/18/24 18:53 Blood/Venous Blood Culture - Preliminary
No Growth in 72 hours- Final report to follow
12/18/24 18:59 Urine Legionella Urinary Antigen - Final
Negative for Legionella pneumophila Serogroup 1 antigen.
A negative result does not rule out the possiblity of
Legionella infection due to other serogroups or species of
Legionella. Clinical correlation is recommended.
12/18/24 18:59 Urine Streptococcus pneumoniae Antigen (M - Final
Negative for Streptococcus pneumoniae antigen.
A negative result does not exclude infection with
Streptococcus pneumoniae. Clinical correlation is
recommended.
--- NOTE | 2024-12-22 09:35 | W.PN.CD ---
Today's Communication / Plan
-
change clopidogrel to eliquis 2.5mg bid (age, weight) in anticipation of need for possible DCCV, inpatient vs outpatient to be determined
furosemide was resumed today; elevated BUN/Cr noted
-hold furosemide order for 12/23 AM until labs reviewed in AM
Impression / Plan
-
I/P: 79F with paroxysmal atrial fibrillation (on flecainide, with Watchman device), coronary artery disease (left circumflex stenting), HFpEF, COPD, GERD, hypertension, dyslipidemia, and PAD with prior femorofemoral bypass presented to the emergency
department on 12/17/2024 with shortness of breath.
Primary crop specialist: Dr. Wilkins
Acute on chronic hypoxic respiratory failure - in the setting of pneumonia/COPD
- continues on high flow nasal cannula
Atrial fibrillation with rapid ventricular response
- Rates above goal, but remains on high flow NC
- Continue flecainide 50 mg twice daily and metoprolol succinate 12.5 mg daily - dose limited by BP
- She has CAD but had a negative stress test in 2021, perhaps flecainide was chosen due to the fact she is on standing doses of azithromycin (interaction with dofetilide)
- Oral Anticoagulation: Watchman (02/2023 at [facility]), on clopidogrel as outpatient
-change clopidogrel to eliquis 2.5mg bid (age, weight) in anticipation of need for possible DCCV, inpatient vs outpatient to be determined
-if done as inpatient, would likely need ANTHONY to look at Watchman vs waiting until outpatient after 3-4 wks AC
- [id number]: score at least 6 (Heart failure, HTN, age 75 or more, Vascular disease, female gender)
HFpEF, chronic
-echo 12/20: EF 65-70%, no sig valve abnl
- Concerned with dehydration on admission, furosemide on hold, she states her feet feel 'puffy' without significant edema
- CXR and CT did not demonstrate pleural effusions
- Her weight is stable compared to her recent office visit (11/2024, 60 kg)
- Continue dapagliflozin and spironolactone, furosemide was resumed today; elevated BUN/Cr noted
-hold furosemide order for 12/23 AM until labs reviewed in AM
Prior Hypertension, now with hypotension
- Not requiring vasopressor support, follow
Pneumonia, on antibiotics, per primary/pulmonary
COPD, severe, oxygen dependent, acute exacerbation, per primary/pulmonary
CAD, stable without chest pain, prior left circumflex stenting, on clopidogrel, no ischemia on stress test in 2021
Pericardial effusion (2018)
PAD, prior femorofemoral bypass
Dyslipidemia, continue atorvastatin 40 mg
Former smoker, continued cessation recommended
Physical Exam
Vital Signs/Labs
Vital Signs
Temp Pulse Resp BP Pulse Ox
98.4 F 97 26 98/52 93
12/22/24 07:00 12/22/24 07:43 12/22/24 07:43 12/22/24 06:00 12/22/24 07:47
12/21/24 12/22/24 12/23/24
06:59 06:59 06:59
Actual Weight 59.6 kg 59.1 kg
12/22/24 05:40
12/22/24 05:40
Magnesium 2.2 mg/dl (1.6-2.3) 12/20/24 05:05
12/17/24 12/20/24
15:26 07:51
Ije-R-Hycuczswvky Pept 601 1880
LAB Results
12/20/24
07:51
Troponin I 0.014
Physical Exam
Constitutional: No acute distress
EENT: Moist mucous membranes
Cardiovascular: JVD pressure is normal, Systolic murmur absent, Rhythm/rate is irregular and Pedal edema present
Respiratory: Labored respirations and Wheeze Present
Neuro/Psych: AO x 3
Data Reviewed
-
Date of Service: December 22, 2024
EKG: Other (Tele: A fib 110s)
Labs: Labs Reviewed by me
[2024-12-22] MEDS: ELIQUIS 2.5 MG PO ×2 (09:59→20:01)
--- NOTE | 2024-12-22 15:38 | W.PN.HOSP.TC ---
Today's Communication/Plan
-
wean off HFNC
Plavix changed to Eliquis per cardiology
Weaning IV steroids
Assessment / Plan
Assessment / Plan
Assessment/Plan
79F with COPD on 2L, recent diagnosis of COVID, A-fib status post Watchman device and chronic CHFpEF, p/w SOB and cough, failed outpt steroids and doxycycline.
Acute Hypoxic Respiratory Failure
Pneumonia/Acute COPD Exacerbation
- Failed outpt course of Prednisone and Doxycycline
- s/p course of Cefepime, now off
- CT Chest shows no PE, but bilateral pneumonia is confirmed
- Cough medication with Mucinex twice daily
- DuoNeb 4 times daily change to xopenex due to rapid AFib
- Pulmicort
- Continue home inhalers
- Solumedrol IV frequency per pulm, changed to oral when improving
bcx NGTD, legionella/strep negative
repeat CXR shows persistent multifocal opacities
wean off HFNC as tolerated
Afib with RVR
h/o Afib s/p watchman 2022
occurred 12/20 in AM, HR to 150s
treated with IV lopressor 5mg x1. Improved to 100s.
continue oral lopressor
if needed will trial diltiazem
echo 12/20 EF 68%, no RWMA, limited by AF
cardiology consulted appreciate recs/mgmt
Continue flecainide, and metoprolol
Plavix changed to Eliquis as per cardiology
Possible DCCV, TBD if inpatient versus outpatient
Hypotension episodes
- Patient says she has BP fluctuations and gets hypotension sometimes
on midodrine as well
- Given history of pericardial effusion 2018, and in setting of significant hypoxia as well as episodes of low BP, checked echo as above. No effusions noted.
Chronic diarrhea
hematochezia 2/2 hemorrhoids
- Encourage oral hydration
HFpEF
- proBNP was unremarkable
- Home Lasix on hold pending morning labs, appreciate cardiology management
- Continue Aldactone
- Continue Toprol XL
- echo as above EF 68%
Coronary disease with h/o stents
Peripheral arterial disease s/p fem-femo bypass
- Continue Atorvastatin and Plavix
Obstructive sleep apnea
Depression
Anxiety
-Continue Lexapro
prn ativan po
Gastroesophageal reflux disease
H/o pill induced esophagitis
PRN Pepcid
CODE STATUS DNR/DNI
DVT prophylaxis SCDs. Eliquis
Anticipated Discharge: > 48 hours
Subjective/Interval History
-
Date of Service: December 22, 2024
Feeling overall better
Objective Data
-
Labs:
Laboratory Results
12/22/24
05:40
WBC 8.4
Hgb 12.0
Hct 35.2 L
Plt Count 281
Sodium 138
Potassium 4.0
Chloride 106
Carbon Dioxide 26
BUN 43 H
Creatinine 1.3 H
Glucose 160 H
Calcium 9.2
Vital Signs:
Vital Signs
Temp Pulse Resp BP Pulse Ox
98.5 F 115 26 90/57 97
12/22/24 11:20 12/22/24 13:49 12/22/24 07:43 12/22/24 13:49 12/22/24 11:51
I&O
12/21/24 12/22/24 12/23/24
06:59 06:59 06:59
Output Total 600 / 600 550 / 550
Balance -600 / -600 -550 / -550
Review of Systems
-
All other systems: Reviewed and negative
Physical Exam
-
General: No Apparent Distress
HEENT: Moist Mucous Membranes, Anicteric and PERRLA
Respiratory: Clear to Auscultation and Decreased Breath Sounds; Negative Wheezes, Rales or Rhonchi
Cardiac: S1/S2, Irregular Rhythm and Tachycardic; Negative Murmur, Rub or Gallop
GI: Soft, Nontender, Nondistended and Normal Bowel Sounds
Musculoskeletal: No Edema
Skin: Warm and Dry; Negative Rash, Ulcers or Lesions
Neuro: Awake and AO x 3
Hematologic / Lymphatic: No Lymphadenopathy
Psych: Calm
Data Reviewed
-
Diagnostic Radiology: Report Reviewed by me
Labs: Labs Reviewed by me
--- NOTE | 2024-12-22 16:45 | PTCARENOTE ---
Pt up to side of bed for breakfast and OOB to chair for most of shift. Continues with LYNN, but recovering quickly. Minimal drop in SpO2 with exertion; Was on Highflow nasal cannula 50L/50% with SpO2 ~ 98%; RT notified and Pt placed on Midflow
cannula @ 10L and bale to wean to 6L with sat of 96%; Will continue to monitor and assess.
[2024-12-22] MEDS: LIPITOR 40 MG PO (18:00)
[2024-12-22] MEDS: MELATONIN 5 MG PO (20:01)
--- NOTE | 2024-12-22 21:39 | PTCARENOTE ---
Caring for pt overnight. aaox3, pleasant. Continues on 6LNC, tolerating well, sitting up in chair. VSS, hypotensive at times. Denies pain. No other assessment changes. Will continue to monitor.
[2024-12-23] VITALS (14 sets, daily range): BP systolic 94–136; BP diastolic 48–99; PULSE 103–105; O2SAT 92–94; BMI 23.1
[2024-12-23 04:45] LABS: Hematocrit 38.5 % (37.0-47.0); Hemoglobin 12.9 g/dL (12.0-16.0); Mean Corp Hgb Conc. 33.5 g/dL (33.0-37.0); Mean Corpuscular Volume 85.4 fL (81.0-99.0); Platelet Count 336 10^3/uL (130-400); Red Cell Dist. Width 14.3 % (11.5-14.5)
[2024-12-23 05:20] LABS: Blood Urea Nitrogen 42 mg/dl (7-17); Calcium 9.3 mg/dl (8.4-10.2); Carbon Dioxide 26 mmol/L (22-30); Chloride 107 mmol/L (98-107); Estimated Creatinine Clearance 31 ml/min; Glucose 143 mg/dl (70-99); Potassium 4.0 mmol/L (3.5-5.1); Sodium 140 mmol/L (135-145); eGFR 45.76
[2024-12-23] MEDS: LEXAPRO 10 MG PO (08:32)
[2024-12-23] MEDS: MUCINEX 600 MG PO ×2 (08:36→20:30)
[2024-12-23] MEDS: ELIQUIS 2.5 MG PO ×2 (08:38→20:30)
[2024-12-23] MEDS: TOPROL XL 12.5 MG PO (08:38)
[2024-12-23] MEDS: FARXIGA 10 MG PO (08:39)
[2024-12-23] MEDS: TAMBOCOR 50 MG PO ×2 (08:40→20:30)
[2024-12-23] MEDS: SOLU-MEDROL PF 40 MG IV (08:40)
--- NOTE | 2024-12-23 08:48 | W.PN.HOSP.TC ---
Addendum entered and electronically signed by Lynda Ibrahim MD 12/23/24 11:37:
for cdi: elevated creatinine only
Original Note:
Today's Communication/Plan
-
weaned off HFNC, will attempt to wean down to 2 L as is her baseline
Plavix changed to Eliquis per cardiology anticipation of possible DCCV, however patient is refusing due to risk of intubation which he finds unacceptable
Change IV steroids to oral when okay with pulm
Assessment / Plan
Assessment / Plan
Assessment/Plan
79F with COPD on 2L, recent diagnosis of COVID, A-fib status post Watchman device and chronic CHFpEF, p/w SOB and cough, failed outpt steroids and doxycycline.
Acute Hypoxic Respiratory Failure
Pneumonia/Acute COPD Exacerbation
- Failed outpt course of Prednisone and Doxycycline
- s/p course of Cefepime, now off
- CT Chest shows no PE, but bilateral pneumonia is confirmed
- Cough medication with Mucinex twice daily
- DuoNeb 4 times daily change to xopenex due to rapid AFib
- Pulmicort
- Continue home inhalers
- On Solumedrol IV, patient is improving, change to oral when okay with pulm
bcx NGTD, legionella/strep negative
repeat CXR shows persistent multifocal opacities
Now off HFNC, weaned down back to 2 L as able
Afib with RVR
h/o Afib s/p watchman 2022
occurred 12/20 in AM, HR to 150s
treated with IV lopressor 5mg x1. Improved to 100s.
continue oral lopressor, dose increased to 25 mg daily as per cardiology
if needed will trial diltiazem
echo 12/20 EF 68%, no RWMA, limited by AF
cardiology consulted appreciate recs/mgmt
Continue flecainide, and metoprolol
Plavix changed to Eliquis as per cardiology
Patient is not interested in DCCV due to needing ANTHONY which comes with risk of intubation
Hypotension episodes
- Patient says she has BP fluctuations and gets hypotension sometimes
on midodrine as well
- Given history of pericardial effusion 2018, and in setting of significant hypoxia as well as episodes of low BP, checked echo as above. No effusions noted.
Chronic diarrhea
hematochezia 2/2 hemorrhoids
- Encourage oral hydration
HFpEF
- proBNP was unremarkable
- Home Lasix on hold per cardiology,, appreciate management
- Also holding Aldactone
- Continue Toprol XL
- echo as above EF 68%
Coronary disease with h/o stents
Peripheral arterial disease s/p fem-femo bypass
- Continue Atorvastatin and Plavix
Obstructive sleep apnea
Depression
Anxiety
-Continue Lexapro
prn ativan po
Gastroesophageal reflux disease
H/o pill induced esophagitis
PRN Pepcid
CODE STATUS DNR/DNI
DVT prophylaxis SCDs. Eliquis
Anticipated Discharge: > 48 hours
Subjective/Interval History
-
Date of Service: December 23, 2024
Patient feels overall better, breathing has been off and on
She reports to me that she is not interested in having a ANTHONY, because she does not want to be on the ventilator for the GA
Objective Data
-
Labs:
Laboratory Results
12/23/24
04:27
WBC 11.8 H
Hgb 12.9
Hct 38.5
Plt Count 336
Sodium 140
Potassium 4.0
Chloride 107
Carbon Dioxide 26
BUN 42 H
Creatinine 1.2 H
Glucose 143 H
Calcium 9.3
Vital Signs:
Vital Signs
Temp Pulse Resp BP Pulse Ox
98.1 F 87 21 120/72 96
12/23/24 07:34 12/23/24 06:00 12/23/24 06:00 12/23/24 06:00 12/23/24 06:00
I&O
12/22/24 12/23/24 12/24/24
06:59 06:59 06:59
Output Total 550 / 550 300 / 300
Balance -550 / -550 -300 / -300
Review of Systems
-
All other systems: Reviewed and negative
Physical Exam
-
General: No Apparent Distress
HEENT: Moist Mucous Membranes, Anicteric and PERRLA
Respiratory: Clear to Auscultation and Decreased Breath Sounds; Negative Wheezes, Rales or Rhonchi
Cardiac: S1/S2, Irregular Rhythm and Tachycardic; Negative Murmur, Rub or Gallop
GI: Soft, Nontender, Nondistended and Normal Bowel Sounds
Musculoskeletal: No Edema
Skin: Warm and Dry; Negative Rash, Ulcers or Lesions
Neuro: Awake and AO x 3
Hematologic / Lymphatic: No Lymphadenopathy
Psych: Calm
Data Reviewed
-
Diagnostic Radiology: Report Reviewed by me
Labs: Labs Reviewed by me
--- NOTE | 2024-12-23 08:55 | W.PN.CD ---
Today's Communication / Plan
-
- Rates suboptimally controlled in 100-130s.
- Continue flecainide 50 mg twice daily.
- ANTHONY/cardioversion discussed with patient; however, patient will be at increased risk given her underlying lung disease, which could lead to intubation.
- Patient states that she does not accept that risk of intubation; therefore, she will be managed medically from a cardiac standpoint, and patient understands that her heart rates would likely not be adequately controlled.
- Will increase Toprol-XL from 12.5 mg daily to 25 mg daily; further uptitration will likely be limited secondary to low blood pressure (will discontinue spironolactone as below).
- Can consider elective cardioversion as an outpatient after 3-4 wks AC to avoid ANTHONY.
- Will discontinue spironolactone given renal insufficiency and low blood pressure (patient is on midodrine).
- Hold Lasix again this morning; reevaluate tomorrow--may be able to resume home dose of Lasix 40 mg PO daily.
Impression / Plan
-
I/P: 79F with paroxysmal atrial fibrillation (on flecainide, with Watchman device), coronary artery disease (left circumflex stenting), HFpEF, COPD, GERD, hypertension, dyslipidemia, and PAD with prior femorofemoral bypass presented to the emergency
department on 12/17/2024 with shortness of breath.
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
Acute on chronic hypoxic respiratory failure - in the setting of pneumonia/COPD
- Remains on high flow nasal cannula
- Antibiotics and management as per primary team.
Atrial fibrillation with rapid ventricular response s/p Watchmandevice (02/2023 at [facility]):
- She has CAD but had a negative stress test in 2021, perhaps flecainide was chosen due to the fact she is on standing doses of azithromycin (interaction with dofetilide)
- Rates suboptimally controlled in 100-130s.
- Continue flecainide 50 mg twice daily.
- ANTHONY/cardioversion discussed with patient; however, patient will be at increased risk given her underlying lung disease, which could lead to intubation.
- Patient states that she does not accept that risk of intubation; therefore, she will be managed medically from a cardiac standpoint, and patient understands that her heart rates would likely not be adequately controlled.
- Will increase Toprol-XL from 12.5 mg daily to 25 mg daily; further uptitration will likely be limited secondary to low blood pressure (will discontinue spironolactone as below).
- Can consider elective cardioversion as an outpatient after 3-4 wks AC to avoid ANTHONY.
- [id number]: score at least 6 (Heart failure, HTN, age 75 or more, Vascular disease, female gender)
HFpEF, chronic
- echo 12/20: EF 65-70%, no sig valve abnl
- Concerned with dehydration on admission, furosemide on hold, she states her feet feel 'puffy' without significant edema
- CXR and CT did not demonstrate pleural effusions
- Her weight is stable compared to her recent office visit (11/2024, 60 kg)
- Continue dapagliflozin.
- Will discontinue spironolactone given renal insufficiency and low blood pressure (patient is on midodrine).
- Hold Lasix again this morning; reevaluate tomorrow--may be able to resume home dose of Lasix 40 mg PO daily.
Prior Hypertension, now with hypotension
- Not requiring vasopressor support, follow
- Patient is on midodrine.
Pneumonia, on antibiotics, per primary/pulmonary
COPD, severe, oxygen dependent, acute exacerbation, per primary/pulmonary
CAD, stable without chest pain, no ischemia on stress test in 2021
Pericardial effusion (2018)
PAD, prior femorofemoral bypass
Dyslipidemia, continue atorvastatin 40 mg
Former smoker, continued cessation recommended
Physical Exam
Vital Signs/Labs
Vital Signs
Temp Pulse Resp BP Pulse Ox
98.1 F 87 21 105/58 96
12/23/24 07:34 12/23/24 06:00 12/23/24 06:00 12/23/24 08:38 12/23/24 06:00
12/22/24 12/23/24 12/24/24
06:59 06:59 06:59
Actual Weight 59.1 kg 59.2 kg
12/23/24 04:27
12/23/24 04:27
Magnesium 2.2 mg/dl (1.6-2.3) 12/20/24 05:05
12/17/24 12/20/24
15:26 07:51
Iuk-[id number]-Gymxckikioq Pept 601 1880
Physical Exam
Constitutional: No acute distress and Comfortable
EENT: Anicteric
Cardiovascular: Systolic murmur absent, Rhythm/rate is irregular, Pedal edema present (trace) and S1S2 is normal
Respiratory: Respiratory effort normal and Lungs clear to auscul.
GI: Soft
Neuro/Psych: AO x 3
Other: Skin (Warm, dry, intact)
Data Reviewed
-
Date of Service: December 23, 2024
Labs: Labs Reviewed by me
--- NOTE | 2024-12-23 09:11 | W.PN.PUL3 ---
Today's Communication / Plan
-
Transitioned to midflow 6L, baseline use of 3L
Will transition steroids to PO course
Continue lasix per team
PT/OT, IS ongoing
Slow progress but she is improving
Assessment
-
79-year-old female former tobacco smoker with [id number] history (quit 2017) with past medical history of COPD on chronic oxygen on 2 L/min ATC, CAD s/p PCI, A-fib on flecainide, chronic HFpEF and hyperlipidemia who presents with worsening SOB,
body aches, fatigue and reduced appetite. Patient's son, Robinson, is present at bedside and assisted with the HPI. Patient was recently diagnosed with COVID-19 on 12/07/2024. The patient has a contact lens blocker and cutter, Dr. Hills, and she has prednisone +
doxycycline that she can take if needed. She took this which included a 10-day prednisone course when she felt sick on 12/07 although she did not feel markedly improved as she expected. She normally uses this combination of Doxy + prednisone about 2
times a year when she feels like she is having a flareup of her COPD. At home she takes DuoNebs, zithromax TIW and Ohtuvayre. She has been having diarrhea over the last 4 days. In the ER she was afebrile with pulse rate 93, respiratory rate 22,
BP 118/63 and saturating 94% on 2 L/min nasal cannula. Labs showed normal WBC at 7.3, Hb 13, potassium 3.3, creatinine 1.2, proBNP <0.012, proBNP 601, and COVID-19 antigen negative. Blood cultures collected. CXR showed opacities in the left lower
lung and right perihilar region suspicious for pneumonia. CTA chest was negative for an acute PE with patchy parenchymal opacities within both lungs suspicious for pneumonia. In the ER she was given 1 L NS 0.9%, Decadron and ceftriaxone. She was
initially admitted to telemetry for further care and started on antibiotics with ceftriaxone + IV vancomycin. She initially required 4-6 L/min on admission however on 12/18 her oxygen requirements worsened up to 12-15 L/min via mid flow nasal
cannula. She was transferred to the IMU and pulmonary service now consulted for additional management/recommendations.
Impression:
Acute on chronic hypoxic respiratory failure, on HFNC
Acute congestive HF on chronic involving posterior right upper lobe + posterior left upper lobe, proBNP 188
Significant centrilobular emphysema/COPD with acute exacerbation due to above
Leukopenia
Anemia
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
Former smoker [id number] history quit in 2018
Severe COPD-Gold stage IV on 3L NC
Trelegy/chronic Zithromax + Ohtuvayre
Frequent respiratory infection - on Low dose Azithromycin.
Frequent exacerbator
FEV1 750 mL - 38%
Chronic hypoxemic respiratory failure, 3L
Hypertension
Hyperlipidemia
Obstructive sleep apnea- not on CPAP
CAD s/p PCI 2002
Diarrhea
A-fib
CKD (baseline creatinine 1.2)
PAD s/p fem-fem bypass
GERD
anxiety/depression
history of pill esophagitis
Chronic HFpEF
9 mm NINFA lung nodule stable on 06/02/2023
Hysterectomy
Left shoulder replacement
Right shoulder replacement
Catheter extraction
Plan:
Remains on HFNC, but satting 98%--wean as tolerated
HFNC has been weaned from 80% to 50%--transitioned to 6L midflow
She has baseline use of 3L, can wean further as tolerated
Empirically treated for pneumonia and COPD exacerbation
CTA chest on 12/18 negative for an acute PE--findings read as possible PNA, but in my opinion appears like interstitial changes possible early ILD findings
PCT negative, this is less likely PNA
On abx, which can be discontinued
IV steroids, weaning down --transition to PO prednisone today
R/o aspiration, speech eval
Last VSE 2021 seemed WNL
Aspiration precautions; keep HOB>30-45�
FEES testing at bedside today--appears WNL
Placed on systemic steroids and wean as she clinically improves � currently on Solu-Medrol 40 mg IV daily --> raised to 40mg IV q8hr
Maintain euglycemia with goal BG >100 and <180 while on steroids
Continue zithromax TIW (home med)
She takes nebulizers at home --> changed her Symbicort to budesonide 0.5mg BID, and continue DuoNebs QID with prn doses in between for breakthrough symptoms
Continue mucolytics PRN
proBNP 188
likely mild acute CHF exacerbation
She takes lasix at home which was not resumed
Given Hx of HFpEF, monitor volume status and rec'd sodium and fluid restricted diet
Resumed on home lasix
Midodrine continued for hypotension
Incentive spirometer encouraged q1hr while awake
Replete electrolytes with K>4, Mg>2
Trend H/H and transfuse if needed to keep Hb>7g/dL; keep plt>20k, unless there is concern for bleeding then keep plt>50k
DVT ppx: recommend to start HSQ
Code status: DNR/DNI
Pulmonary service will continue to follow along. She has a contact lens blocker and cutter at [address] via Dr. Hills, however he is retiring soon.
She can follow up with us in [facility] office, which she agreed with.
Data:
CTA Chest 12/18/2024: Streak artifact from bilateral shoulder prostheses, with streak artifact projecting over the pulmonary arteries, slightly limiting evaluation. Given this limitation, no convincing evidence for pulmonary embolism.There is no
evidence for thoracic aortic dissection or aneurysm. Changes of emphysema within both lungs. Comparing to prior CT angiography of the chest, development of patchy parenchymal opacity within both lungs, most likely pneumonia. No significant pleural
effusion bilaterally.
ECHO 06/03/2023: Normal left ventricular chamber size. Normal left ventricular wall thickness.��Hyperdynamic left ventricular systolic function. Normal regional wall motion..�LV ejection fraction is 70-75% by visual assessment. Stage II diastolic
dysfunction suggestive of abnormal relaxation and increased filling pressures.�Normal right ventricular size and function.�Mildly dilated left atrium
Mild mitral regurgitation.
-----
Total time spent today was 51 minutes for this encounter. Time includes reviewing laboratory test/imaging results, reviewing pertinent medical records, obtaining and reviewing medical history, performing an appropriate exam, ordering medications,
tests and procedures. Time also includes documentation of this encounter, coordinating patient care and communicating with other healthcare professionals. Total time does not include separately billed tests performed on this date of service.
Subjective Data
-
Date of Service:
Date of Service: December 23, 2024
Chief Complaint: Pulmonary Follow Up
Subjective:
Improving, now on 6L midflow, off HFNC
She notes she feels steadily better each day
Objective Data
Data Reviewed
Vital Signs / I&O / Oxygen:
Vital Signs
Temp Pulse Resp BP Pulse Ox
98.1 F 87 21 105/58 96
12/23/24 07:34 12/23/24 06:00 12/23/24 06:00 12/23/24 08:38 12/23/24 06:00
Intake and Output
12/22/24 12/23/24 12/24/24
06:59 06:59 06:59
Output Total 550 / 550 300 / 300
Balance -550 / -550 -300 / -300
SaO2 96
Nasal Cannula flow liters per 50
minute
Physical Exam
General: Respiratory Distress (negative) and Chills (negative)
HEENT: Normocephalic and Anicteric
Cardiovascular: S1-S2, Regular Rhythm and Peripheral Edema (trace DANIELLA)
Respiratory: Wheeze (negative), Crackles (negative), Rhonchi (negative), Accessory Resp Muscle Use (mild with exertion) and Other (Severely reduced breath sounds)
GI: Soft, Non Distended, Non Tender and Normal Bowel Sounds
Neurology: Awake, Alert, Oriented and Tremors (negative)
Skin: Warm, Dry, Cyanosis (negative) and Jaundice (negative)
Labs/Micro/Reports
Lab Data
12/23/24 04:27
12/23/24 04:27
Microbiology
12/18/24 19:30 Blood/Venous Blood Culture - Preliminary
No Growth in 4 days- Final report to follow
12/18/24 18:53 Blood/Venous Blood Culture - Preliminary
No Growth in 4 days- Final report to follow
[2024-12-23] MEDS: ALDACTONE PO (09:23)
--- NOTE | 2024-12-23 10:08 | PN.CDI ---
CDI
- -
CDI:
Physician Documentation Request
Admit Date: 12/17/24 17:34
Dear Doctor Patrice,
Clinical Indicators:
Patient admitted with acute hypoxic respiratory failure.
12/20, 12/21: Lasix 40 mg IV x 2 doses.
Cr/GFR trend:
12/17/24 12/18/24 12/19/24
15:26 07:18 01:19
Creatinine 1.2 H 1.1 H 1.0
eGFR 45.76 50.80 56.95
12/20/24 12/21/24 12/22/24
05:05 04:43 05:40
Creatinine 1.0 1.1 H 1.3 H
eGFR 56.95 50.80 41.57
Please clarify which of the following accurately represents the patient's renal status:
BRISEYDA on CKD (please specify stage)
CKD only (please specify stage)
Elevated creatinine only
Other, please specify
Criteria for BRISEYDA*
1 Increase in serum creatinine by > or = to 0.3 mg/dL (> or = to 26.5 micromol/L) within 48 hours, OR
2 Increase in serum creatinine to > or = to 1.5 times baseline, which is known or presumed to have occurred within 7 days, OR
3 Urine volume < 0.5 nL/kg/hour for six hours
Stages of Chronic Kidney Disease*
Level Description GFR
G1 Normal or High >90
G2 Mildly decreased 60-89
G3a Mildly to moderately decreased 45-59
G3b Moderately to severely decreased 30-44
G4 Severely decreased 15-29
G5 Kidney failure <15
Use of terms such as suspected, likely, concern for, or probable (associated with a specific diagnosis that is being evaluated, monitored, or treated as if it exists) are acceptable and can be coded in the inpatient setting, when documented at the
time of discharge.
Thank you,
INDU Gabriel RN
CDI Specialist
available via tiger text
Please use your independent medical judgment in providing your response.
*Source: Kidney Disease: Improving Global Outcomes (KDIGO) 2012
[2024-12-23] MEDS: LIPITOR 40 MG PO (19:14)
[2024-12-23] MEDS: MELATONIN 5 MG PO (20:30)
[2024-12-24] VITALS (15 sets, daily range): BP systolic 85–116; BP diastolic 40–69; BMI 22.9
[2024-12-24 05:46] LABS: Hematocrit 37.4 % (37.0-47.0); Hemoglobin 12.3 g/dL (12.0-16.0); Mean Corp Hgb Conc. 32.9 g/dL (33.0-37.0); Mean Corpuscular Volume 86.0 fL (81.0-99.0); Platelet Count 333 10^3/uL (130-400); Red Cell Dist. Width 14.3 % (11.5-14.5)
--- NOTE | 2024-12-24 05:53 | PTCARENOTE ---
Caring for pt overnight. Afib 80-140's. bp stable. Pt now has a productive cough and is bringing up sputum, sputum culture sent. No other assessment changes. Continues on 6L, desats when moving. No other issues. will monitor.
[2024-12-24 06:14] LABS: Blood Urea Nitrogen 40 mg/dl (7-17); Calcium 9.0 mg/dl (8.4-10.2); Carbon Dioxide 26 mmol/L (22-30); Chloride 109 mmol/L (98-107); Estimated Creatinine Clearance 34 ml/min; Glucose 85 mg/dl (70-99); Potassium 3.7 mmol/L (3.5-5.1); Sodium 138 mmol/L (135-145); eGFR 50.80
[2024-12-24] MEDS: MUCINEX 600 MG PO ×2 (08:22→20:18)
[2024-12-24] MEDS: TOPROL XL 25 MG PO (08:22)
[2024-12-24] MEDS: DELTASONE 50 MG PO (08:22)
[2024-12-24] MEDS: ELIQUIS 2.5 MG PO ×2 (08:23→20:19)
[2024-12-24] MEDS: LEXAPRO 10 MG PO (08:23)
[2024-12-24] MEDS: FARXIGA 10 MG PO (08:23)
[2024-12-24] MEDS: ZITHROMAX 250 MG PO (08:23)
[2024-12-24] MEDS: TAMBOCOR 50 MG PO ×2 (08:23→20:19)
--- NOTE | 2024-12-24 09:03 | W.PN.PUL3 ---
Addendum entered and electronically signed by Jeanne Burgess DO 12/24/24 16:09:
She is back on baseline settings, 3L
No further recommendations
Hopeful discharge per team, we will sign off at this time-pls call with questions
Original Note:
Today's Communication / Plan
-
Wean O2 back to baseline, reviewed with staff
PT/OT assessments ongoing for discharge
Prednisone taper
Can transfer out of IMU
Outpatient FU recommended
Hopeful discharge planning per team
Assessment
-
79-year-old female former tobacco smoker with [id number] history (quit 2017) with past medical history of COPD on chronic oxygen on 2 L/min ATC, CAD s/p PCI, A-fib on flecainide, chronic HFpEF and hyperlipidemia who presents with worsening SOB,
body aches, fatigue and reduced appetite. Patient's son, Robinson, is present at bedside and assisted with the HPI. Patient was recently diagnosed with COVID-19 on 12/07/2024. The patient has a community health representative, Dr. Hills, and she has prednisone +
doxycycline that she can take if needed. She took this which included a 10-day prednisone course when she felt sick on 12/07 although she did not feel markedly improved as she expected. She normally uses this combination of Doxy + prednisone about 2
times a year when she feels like she is having a flareup of her COPD. At home she takes DuoNebs, zithromax TIW and Ohtuvayre. She has been having diarrhea over the last 4 days. In the ER she was afebrile with pulse rate 93, respiratory rate 22,
BP 118/63 and saturating 94% on 2 L/min nasal cannula. Labs showed normal WBC at 7.3, Hb 13, potassium 3.3, creatinine 1.2, proBNP <0.012, proBNP 601, and COVID-19 antigen negative. Blood cultures collected. CXR showed opacities in the left lower
lung and right perihilar region suspicious for pneumonia. CTA chest was negative for an acute PE with patchy parenchymal opacities within both lungs suspicious for pneumonia. In the ER she was given 1 L NS 0.9%, Decadron and ceftriaxone. She was
initially admitted to telemetry for further care and started on antibiotics with ceftriaxone + IV vancomycin. She initially required 4-6 L/min on admission however on 12/18 her oxygen requirements worsened up to 12-15 L/min via mid flow nasal
cannula. She was transferred to the IMU and pulmonary service now consulted for additional management/recommendations.
Impression:
Acute on chronic hypoxic respiratory failure, on HFNC
Acute congestive HF on chronic involving posterior right upper lobe + posterior left upper lobe, proBNP 1879
Significant centrilobular emphysema/COPD with acute exacerbation due to above
Leukopenia
Anemia
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
Former smoker [id number] history quit in 2018
Severe COPD-Gold stage IV on 3L NC
Trelegy/chronic Zithromax + Ohtuvayre
Frequent respiratory infection - on Low dose Azithromycin.
Frequent exacerbator
FEV1 750 mL - 38%
Chronic hypoxemic respiratory failure, 3L
Hypertension
Hyperlipidemia
Obstructive sleep apnea- not on CPAP
CAD s/p PCI 2002
Diarrhea
A-fib
CKD (baseline creatinine 1.2)
PAD s/p fem-fem bypass
GERD
anxiety/depression
history of pill esophagitis
Chronic HFpEF
9 mm NINFA lung nodule stable on 06/02/2023
Hysterectomy
Left shoulder replacement
Right shoulder replacement
Catheter extraction
Plan:
Remains on HFNC, but satting 98%--wean as tolerated
HFNC has been weaned from 80% to 50%--transitioned to 6L midflow
She has baseline use of 3L, can wean further as tolerated
Empirically treated for pneumonia and COPD exacerbation
CTA chest on 12/18 negative for an acute PE--findings read as possible PNA, but in my opinion appears like interstitial changes possible early ILD findings
PCT negative, this is less likely PNA
On abx, which can be discontinued
IV steroids, weaning down --transitioned to PO prednisone
R/o aspiration, speech eval
Last VSE 2021 seemed WNL
Aspiration precautions; keep HOB>30-45�
FEES testing at bedside today--appears WNL
Placed on systemic steroids and wean as she clinically improves � currently on Solu-Medrol 40 mg IV daily --> raised to 40mg IV q8hr
Maintain euglycemia with goal BG >100 and <180 while on steroids
Continue zithromax TIW (home med)
She takes nebulizers at home --> changed her Symbicort to budesonide 0.5mg BID, and continue DuoNebs QID with prn doses in between for breakthrough symptoms
Continue mucolytics PRN
proBNP 1879
likely mild acute CHF exacerbation
She takes lasix at home which was not resumed
Given Hx of HFpEF, monitor volume status and rec'd sodium and fluid restricted diet
Resumed on home lasix
Midodrine continued for hypotension
Incentive spirometer encouraged q1hr while awake
Replete electrolytes with K>4, Mg>2
Trend H/H and transfuse if needed to keep Hb>7g/dL; keep plt>20k, unless there is concern for bleeding then keep plt>50k
DVT ppx: recommend to start HSQ
Code status: DNR/DNI
Pulmonary service will continue to follow along. She has a community health representative at [place] via Dr. Hills, however he is retiring soon.
She can follow up with us in [facility] office, which she agreed with.
Data:
CTA Chest 12/18/2024: Streak artifact from bilateral shoulder prostheses, with streak artifact projecting over the pulmonary arteries, slightly limiting evaluation. Given this limitation, no convincing evidence for pulmonary embolism.There is no
evidence for thoracic aortic dissection or aneurysm. Changes of emphysema within both lungs. Comparing to prior CT angiography of the chest, development of patchy parenchymal opacity within both lungs, most likely pneumonia. No significant pleural
effusion bilaterally.
ECHO 06/03/2023: Normal left ventricular chamber size. Normal left ventricular wall thickness.��Hyperdynamic left ventricular systolic function. Normal regional wall motion..�LV ejection fraction is 70-75% by visual assessment. Stage II diastolic
dysfunction suggestive of abnormal relaxation and increased filling pressures.�Normal right ventricular size and function.�Mildly dilated left atrium
Mild mitral regurgitation.
-----
Total time spent today was 45 minutes for this encounter. Time includes reviewing laboratory test/imaging results, reviewing pertinent medical records, obtaining and reviewing medical history, performing an appropriate exam, ordering medications,
tests and procedures. Time also includes documentation of this encounter, coordinating patient care and communicating with other healthcare professionals. Total time does not include separately billed tests performed on this date of service.
Subjective Data
-
Date of Service:
Date of Service: December 24, 2024
Chief Complaint: Pulmonary Follow Up
Subjective:
Remains on 5-6L NC
No new complaints
Objective Data
Data Reviewed
Vital Signs / I&O / Oxygen:
Vital Signs
Temp Pulse Resp BP Pulse Ox
98.5 F 119 22 116/69 93
12/24/24 07:24 12/24/24 08:22 12/24/24 06:00 12/24/24 08:22 12/24/24 06:00
Intake and Output
12/23/24 12/24/24 12/25/24
06:59 06:59 06:59
Intake Total 240 / 240
Output Total 300 / 300 100 / 100
Balance -300 / -300 140 / 140
SaO2 93
Nasal Cannula flow liters per 5
minute
Physical Exam
General: Respiratory Distress (negative) and Chills (negative)
HEENT: Normocephalic and Anicteric
Cardiovascular: S1-S2, Regular Rhythm and Peripheral Edema (trace DANIELLA)
Respiratory: Wheeze (negative), Crackles (negative), Rhonchi (negative), Accessory Resp Muscle Use (mild with exertion) and Other (Severely reduced breath sounds)
GI: Soft, Non Distended, Non Tender and Normal Bowel Sounds
Neurology: Awake, Alert, Oriented and Tremors (negative)
Skin: Warm, Dry, Cyanosis (negative) and Jaundice (negative)
Labs/Micro/Reports
Lab Data
12/24/24 05:27
12/24/24 05:27
Microbiology
12/18/24 19:30 Blood/Venous Blood Culture - Final
No Growth - Final Report
12/18/24 18:53 Blood/Venous Blood Culture - Final
No Growth - Final Report
--- NOTE | 2024-12-24 09:36 | W.PN.HOSP.TC ---
Today's Communication/Plan
-
weaned off HFNC, down to 6L, will attempt to wean down to 2 L as is her baseline
possible outpt DCCV (to avoid inpt ANTHONY)
oral steroids
Lasix for bilateral foot edema
Assessment / Plan
Assessment / Plan
Assessment/Plan
79F with COPD on 2L, recent diagnosis of COVID, A-fib status post Watchman device and chronic CHFpEF, p/w SOB and cough, failed outpt steroids and doxycycline.
Acute Hypoxic Respiratory Failure
Pneumonia/Acute COPD Exacerbation
- Failed outpt course of Prednisone and Doxycycline
- s/p course of Cefepime, now off
- CT Chest shows no PE, but bilateral pneumonia is confirmed
- Cough medication with Mucinex twice daily
- DuoNeb 4 times daily change to xopenex due to rapid AFib
- Pulmicort
- Continue home inhalers
- s/p Solumedrol IV, patient is improving, changed to oral
bcx NGTD, legionella/strep negative
repeat CXR shows persistent multifocal opacities
Now off HFNC, weaned down back to 2 L as able
Afib with RVR
h/o Afib s/p watchman 2022
occurred 12/20 in AM, HR to 150s
treated with IV lopressor 5mg x1. Improved to 100s.
continue oral lopressor, dose increased to 25 mg daily as per cardiology
if needed will trial diltiazem
echo 12/20 EF 68%, no RWMA, limited by AF
cardiology consulted appreciate recs/mgmt
Continue flecainide, and metoprolol
HR controlled today
Plavix changed to Eliquis as per cardiology
Patient is not interested in inpt DCCV due to needing ANTHONY which comes with risk of intubation
Hypotension episodes
- Patient says she has BP fluctuations and gets hypotension sometimes
on midodrine as well
- Given history of pericardial effusion 2018, and in setting of significant hypoxia as well as episodes of low BP, checked echo as above. No effusions noted.
Chronic diarrhea
hematochezia 2/2 hemorrhoids
- Encourage oral hydration
HFpEF
- proBNP was unremarkable
- Home Lasix on resumed per cardiology,, appreciate management. Noted patient had bilateral foot edema today
- Also holding Aldactone
- Continue Toprol XL
- echo as above EF 68%
Coronary disease with h/o stents
Peripheral arterial disease s/p fem-femo bypass
- Continue Atorvastatin and Plavix
Obstructive sleep apnea
Depression
Anxiety
-Continue Lexapro
prn ativan po
Gastroesophageal reflux disease
H/o pill induced esophagitis
PRN Pepcid
CODE STATUS DNR/DNI
DVT prophylaxis SCDs. Eliquis
Anticipated Discharge: > 48 hours
Subjective/Interval History
-
Date of Service: December 24, 2024
Patient says she is feeling much better and comfortable
Objective Data
-
Labs:
Laboratory Results
12/24/24
05:27
WBC 11.8 H
Hgb 12.3
Hct 37.4
Plt Count 333
Sodium 138
Potassium 3.7
Chloride 109 H
Carbon Dioxide 26
BUN 40 H
Creatinine 1.1 H
Glucose 85
Calcium 9.0
Vital Signs:
Vital Signs
Temp Pulse Resp BP Pulse Ox
98.5 F 119 22 116/69 93
12/24/24 07:24 12/24/24 08:22 12/24/24 06:00 12/24/24 09:33 12/24/24 06:00
I&O
12/23/24 12/24/24 12/25/24
06:59 06:59 06:59
Intake Total 240 / 240
Output Total 300 / 300 100 / 100
Balance -300 / -300 140 / 140
Review of Systems
-
All other systems: Reviewed and negative
Physical Exam
-
General: No Apparent Distress
HEENT: Moist Mucous Membranes, Anicteric and PERRLA
Respiratory: Clear to Auscultation and Decreased Breath Sounds; Negative Wheezes, Rales or Rhonchi
Cardiac: S1/S2, Irregular Rhythm and Tachycardic; Negative Murmur, Rub or Gallop
GI: Soft, Nontender, Nondistended and Normal Bowel Sounds
Musculoskeletal: Edema, Right Lower Extrem and Edema, Left Lower Extrem
Skin: Warm and Dry; Negative Rash, Ulcers or Lesions
Neuro: Awake and AO x 3
Hematologic / Lymphatic: No Lymphadenopathy
Psych: Calm
Data Reviewed
-
Diagnostic Radiology: Report Reviewed by me
Labs: Labs Reviewed by me
--- NOTE | 2024-12-24 10:14 | W.PN.CD ---
Today's Communication / Plan
-
- Rates slightly improved, but elevated at times.
- Continue flecainide 50 mg twice daily.
- Continue Toprol-XL 25 mg daily; further uptitration is limited by low blood pressure.
- Can consider elective cardioversion as an outpatient after 3-4 wks AC to avoid ANTHONY.
- Will resume home dose of Lasix 40 mg PO daily.
- Can discontinue telemetry.
- Outpatient follow-up with Cardiology.
Impression / Plan
-
I/P: 79F with paroxysmal atrial fibrillation (on flecainide, with Watchman device), coronary artery disease (left circumflex stenting), HFpEF, COPD, GERD, hypertension, dyslipidemia, and PAD with prior femorofemoral bypass presented to the emergency
department on 12/17/2024 with shortness of breath.
Primary statistical programmer: Dr. Wilkins
Acute on chronic hypoxic respiratory failure - in the setting of pneumonia/COPD
- Remains on high flow nasal cannula
- Antibiotics and management as per primary team.
Atrial fibrillation with rapid ventricular response s/p Watchmandevice (02/[address] [facility]):
- She has CAD but had a negative stress test in 2021, perhaps flecainide was chosen due to the fact she is on standing doses of azithromycin (interaction with dofetilide)
- Rates slightly improved, but elevated at times.
- Continue flecainide 50 mg twice daily.
- ANTHONY/cardioversion discussed with patient; however, patient will be at increased risk given her underlying lung disease, which could lead to intubation.
- Patient stated that she does not accept that risk of intubation; therefore, she will be managed medically from a cardiac standpoint, and patient understands that her heart rates would likely not be adequately controlled.
- Continue Toprol-XL 25 mg daily; further uptitration is limited by low blood pressure.
- Can consider elective cardioversion as an outpatient after 3-4 wks AC to avoid ANTHONY.
- [id number]: score at least 6 (Heart failure, HTN, age 75 or more, Vascular disease, female gender)
HFpEF, chronic
- echo 12/20: EF 65-70%, no sig valve abnl
- Concerned with dehydration on admission, furosemide on hold, she states her feet feel 'puffy' without significant edema
- CXR and CT did not demonstrate pleural effusions
- Her weight is stable compared to her recent office visit (11/2024, 60 kg)
- Continue dapagliflozin.
- Spironolactone discontinued renal insufficiency and low blood pressure (patient is on midodrine).
- Will resume home dose of Lasix 40 mg PO daily.
Hypertension, now with hypotension
- Not requiring vasopressor support, follow
- Patient is on midodrine.
Pneumonia, on antibiotics, per primary/pulmonary
COPD, severe, oxygen dependent, acute exacerbation, per primary/pulmonary
CAD, stable without chest pain, no ischemia on stress test in 2021
Pericardial effusion (2018)
PAD, prior femorofemoral bypass
Dyslipidemia, continue atorvastatin 40 mg
Former smoker, continued cessation recommended
Physical Exam
Vital Signs/Labs
Vital Signs
Temp Pulse Resp BP Pulse Ox
98.5 F 119 22 116/69 93
12/24/24 07:24 12/24/24 08:22 12/24/24 06:00 12/24/24 09:33 12/24/24 06:00
12/23/24 12/24/24 12/25/24
06:59 06:59 06:59
Actual Weight 59.2 kg 58.6 kg
12/24/24 05:27
12/24/24 05:27
Magnesium 2.2 mg/dl (1.6-2.3) 12/20/24 05:05
12/17/24 12/20/24
15:26 07:51
[id number] Pept 601 7250
Physical Exam
Constitutional: No acute distress and Comfortable
EENT: Anicteric
Cardiovascular: Rhythm & rate is regular, Systolic murmur absent, Pedal edema present (trace) and S1S2 is normal
Respiratory: Respiratory effort normal and Rhonchi Present (Mild bibasilar)
GI: Soft
Neuro/Psych: AO x 3
Other: Skin (Warm, dry, intact)
Data Reviewed
-
Date of Service: December 24, 2024
EKG: Tracing Personally Visualized and interpreted (Telemetry: Atrial fibrillation)
Medical Tests (PFT, Pathology etc): Discussed with Nurse and Discussed with Patient
Labs: Labs Reviewed by me
--- NOTE | 2024-12-24 12:04 | CM ---
Following up on Patient. RN stated that patient is tachycardic on activity, will start on lasix tomorrow again and is still weaning down to 3 liters, on 5 liters now.
VIVIANA Garcia [facility] who is covering #[phone] stating that patient not ready today, unsure about the weekend. PT/OT is recommending Home PT/OT as well.
PLAN: Home w/ VN PT/OT when ready.
[2024-12-24] MEDS: LIPITOR 40 MG PO (18:27)
[2024-12-24] MEDS: MELATONIN 5 MG PO (20:19)
[2024-12-25] VITALS (13 sets, daily range): BP systolic 82–109; BP diastolic 42–70
[2024-12-25] MEDS: ATIVAN 0.5 MG PO (01:06)
--- NOTE | 2024-12-25 03:39 | PTCARENOTE ---
Pt continues on O2, now at baseline of 3L. Desats to 88% on exertion to [facility] but recovers with coaching. Tachycardic on exertion. Pt did request PRN ativan for anxiety, given per JUN. Call rangel within reach.
[2024-12-25 05:51] LABS: Hematocrit 36.9 % (37.0-47.0); Hemoglobin 12.6 g/dL (12.0-16.0); Mean Corp Hgb Conc. 34.1 g/dL (33.0-37.0); Mean Corpuscular Volume 86.6 fL (81.0-99.0); Platelet Count 345 10^3/uL (130-400); Red Cell Dist. Width 14.3 % (11.5-14.5)
[2024-12-25 06:08] LABS: Blood Urea Nitrogen 39 mg/dl (7-17); Calcium 9.2 mg/dl (8.4-10.2); Carbon Dioxide 24 mmol/L (22-30); Chloride 110 mmol/L (98-107); Estimated Creatinine Clearance 34 ml/min; Glucose 85 mg/dl (70-99); Potassium 3.8 mmol/L (3.5-5.1); Sodium 137 mmol/L (135-145); eGFR 50.80
[2024-12-25] MEDS: DELTASONE 50 MG PO (08:54)
[2024-12-25] MEDS: FARXIGA 10 MG PO (08:55)
[2024-12-25] MEDS: LEXAPRO 10 MG PO (08:55)
[2024-12-25] MEDS: TOPROL XL 25 MG PO (08:55)
[2024-12-25] MEDS: MUCINEX 600 MG PO ×2 (08:55→20:52)
[2024-12-25] MEDS: TAMBOCOR 50 MG PO ×2 (08:56→20:52)
[2024-12-25] MEDS: ELIQUIS 2.5 MG PO ×2 (08:56→20:52)
[2024-12-25] MEDS: LASIX 40 MG PO (08:56)
--- NOTE | 2024-12-25 11:20 | W.PN.HOSP.TC ---
Today's Communication/Plan
-
weaned off HFNC, down to 68, will attempt to wean down to 2 L as is her baseline
possible outpt DCCV (to avoid inpt ANTHONY)
oral steroids
Assessment / Plan
Assessment / Plan
Assessment/Plan
79F with COPD on 2L, recent diagnosis of COVID, A-fib status post Watchman device and chronic CHFpEF, p/w SOB and cough, failed outpt steroids and doxycycline.
Acute Hypoxic Respiratory Failure
Pneumonia/Acute COPD Exacerbation
- Failed outpt course of Prednisone and Doxycycline
- s/p course of Cefepime, now off
- CT Chest shows no PE, but bilateral pneumonia is confirmed
- Cough medication with Mucinex twice daily
- DuoNeb 4 times daily change to xopenex due to rapid AFib
- Pulmicort
- Continue home inhalers
- s/p Solumedrol IV, patient is improving, changed to oral
bcx NGTD, legionella/strep negative
repeat CXR shows persistent multifocal opacities
Now off HFNC, weaned down back to 2.5-3.5 L as able, currently 8L
Afib with RVR
h/o Afib s/p watchman 2022
occurred 12/20 in AM, HR to 150s
treated with IV lopressor 5mg x1. Improved to 100s.
continue oral lopressor, dose increased to 25 mg daily as per cardiology
if needed will trial diltiazem
echo 12/20 EF 68%, no RWMA, limited by AF
cardiology consulted appreciate recs/mgmt
Continue flecainide, and metoprolol
HR controlled today
Plavix changed to Eliquis as per cardiology
Patient is not interested in inpt DCCV due to needing ANTHONY which comes with risk of intubation. Will follow up outpt for elective procedure.
Hypotension episodes
- Patient says she has BP fluctuations and gets hypotension sometimes
on midodrine as well
- Given history of pericardial effusion 2018, and in setting of significant hypoxia as well as episodes of low BP, checked echo as above. No effusions noted.
Chronic diarrhea
hematochezia 2/2 hemorrhoids
- Encourage oral hydration
HFpEF
- proBNP was unremarkable
- Home Lasix on resumed per cardiology,, appreciate management. Noted patient had bilateral foot edema today
- Also holding Aldactone
- Continue Toprol XL
- echo as above EF 68%
Coronary disease with h/o stents
Peripheral arterial disease s/p fem-femo bypass
- Continue Atorvastatin and Plavix
Obstructive sleep apnea
Depression
Anxiety
-Continue Lexapro
prn ativan po
Gastroesophageal reflux disease
H/o pill induced esophagitis
PRN Pepcid
CODE STATUS DNR/DNI
DVT prophylaxis SCDs. Eliquis
dispo home with [facility] pt/ot
Anticipated Discharge: 24 - 48 hours
Subjective/Interval History
-
Date of Service: December 25, 2024
Patient states she is feeling well. RN was at bedside noted she had to bump the oxygen to 8 L today
Objective Data
-
Labs:
Laboratory Results
12/25/24
05:36
WBC 11.8 H
Hgb 12.6
Hct 36.9 L
Plt Count 345
Sodium 137
Potassium 3.8
Chloride 110 H
Carbon Dioxide 24
BUN 39 H
Creatinine 1.1 H
Glucose 85
Calcium 9.2
Vital Signs:
Vital Signs
Temp Pulse Resp BP Pulse Ox
98.1 F 103 21 106/54 92
12/25/24 11:00 12/25/24 08:55 12/25/24 06:00 12/25/24 08:56 12/25/24 09:00
I&O
12/24/24 12/25/24 12/26/24
06:59 06:59 06:59
Intake Total 240 / 240 120 / 120
Output Total 100 / 100
Balance 140 / 140 120 / 120
Review of Systems
-
All other systems: Reviewed and negative
Physical Exam
-
General: No Apparent Distress
HEENT: Moist Mucous Membranes, Anicteric and PERRLA
Respiratory: Clear to Auscultation and Decreased Breath Sounds; Negative Wheezes, Rales or Rhonchi
Cardiac: S1/S2, Irregular Rhythm and Tachycardic; Negative Murmur, Rub or Gallop
GI: Soft, Nontender, Nondistended and Normal Bowel Sounds
Musculoskeletal: Edema, Right Lower Extrem and Edema, Left Lower Extrem
Skin: Warm and Dry; Negative Rash, Ulcers or Lesions
Neuro: Awake and AO x 3
Hematologic / Lymphatic: No Lymphadenopathy
Psych: Calm
Data Reviewed
-
Diagnostic Radiology: Report Reviewed by me
Labs: Labs Reviewed by me
[2024-12-25] MEDS: LIPITOR 40 MG PO (17:13)
--- NOTE | 2024-12-25 18:34 | PTCARENOTE ---
Patient out of bed for half of the shift. Denying pain when asked. Oxygen weaned to 4 liters, pulse ox 95%. Patient has a fair appetite, prefers food from home. Continent of bowel and bladder. Compliant with plan of care. Midodrine admiinistered for
blood pressure, at time SBP is in the 80s
[2024-12-25] MEDS: MELATONIN 5 MG PO (20:52)
[2024-12-26] VITALS (11 sets, daily range): BP systolic 101–130; BP diastolic 53–87; BMI 21.9
[2024-12-26 03:48] LABS: Hematocrit 36.5 % (37.0-47.0); Hemoglobin 12.6 g/dL (12.0-16.0); Mean Corp Hgb Conc. 34.5 g/dL (33.0-37.0); Mean Corpuscular Volume 85.1 fL (81.0-99.0); Platelet Count 339 10^3/uL (130-400); Red Cell Dist. Width 14.3 % (11.5-14.5)
[2024-12-26 04:16] LABS: Blood Urea Nitrogen 43 mg/dl (7-17); Calcium 9.1 mg/dl (8.4-10.2); Carbon Dioxide 25 mmol/L (22-30); Chloride 110 mmol/L (98-107); Estimated Creatinine Clearance 34 ml/min; Glucose 101 mg/dl (70-99); Potassium 3.8 mmol/L (3.5-5.1); Sodium 139 mmol/L (135-145); eGFR 50.80
--- NOTE | 2024-12-26 05:27 | PTCARENOTE ---
Pt rested well overnight. Using BSC to void. Continues on 4L MF pox 92-96% at rest. With activity back and forth to BSC pt desats in the mid 80's. Does recover in time to the 90's. Remains tachypneic at times into the 30's. Weight this am 123.10
lbs. Less swelling to LE's this am. No change from previous assessment. Call rangel remains within reach. Will continue to monitor.
[2024-12-26] MEDS: FARXIGA 10 MG PO (08:18)
[2024-12-26] MEDS: TOPROL XL 25 MG PO (08:18)
[2024-12-26] MEDS: DELTASONE 50 MG PO (08:19)
[2024-12-26] MEDS: LASIX 40 MG PO (08:19)
[2024-12-26] MEDS: LEXAPRO 10 MG PO (08:19)
[2024-12-26] MEDS: MUCINEX 600 MG PO ×2 (08:20→20:36)
[2024-12-26] MEDS: TAMBOCOR 50 MG PO ×2 (08:20→20:36)
[2024-12-26] MEDS: ELIQUIS 2.5 MG PO ×2 (08:20→20:36)
--- NOTE | 2024-12-26 10:16 | CM ---
I met with pt bedside. She was sitting on the side of the bed, states feeling much better. Weaning oxygen.
CM will continue to follow for all discharge planning needs.
--- NOTE | 2024-12-26 11:54 | W.PN.HOSP.TC ---
Today's Communication/Plan
-
weaned off HFNC, down to 4L this AM but still dropping sats with, will attempt to wean down to 2.5-3.5 L as is her baseline. This is the first day she is looking a little better.
possible outpt DCCV (to avoid inpt ANTHONY)
oral steroids
possible dc in next day or so
Assessment / Plan
Assessment / Plan
Assessment/Plan
79F with COPD on 2L, recent diagnosis of COVID, A-fib status post Watchman device and chronic CHFpEF, p/w SOB and cough, failed outpt steroids and doxycycline.
Acute Hypoxic Respiratory Failure
Pneumonia/Acute COPD Exacerbation
- Failed outpt course of Prednisone and Doxycycline
- s/p course of Cefepime, now off
- CT Chest shows no PE, but bilateral pneumonia is confirmed
- Cough medication with Mucinex twice daily
- DuoNeb 4 times daily change to xopenex due to rapid AFib
- Pulmicort
- Continue home inhalers
- s/p Solumedrol IV, patient is improving, changed to oral
bcx NGTD, legionella/strep negative
repeat CXR shows persistent multifocal opacities
Now off HFNC, weaned down back to 2.5-3.5 L as able, currently 4L
monitor for improvement with ambulation
Afib with RVR
h/o Afib s/p watchman 2022
occurred 12/20 in AM, HR to 150s
treated with IV lopressor 5mg x1. Improved to 100s.
continue oral lopressor, dose increased to 25 mg daily as per cardiology
if needed will trial diltiazem
echo 12/20 EF 68%, no RWMA, limited by AF
cardiology consulted appreciate recs/mgmt
Continue flecainide, and metoprolol
HR controlled today
Plavix changed to Eliquis as per cardiology
Patient is not interested in inpt DCCV due to needing ANTHONY which comes with risk of intubation. Will follow up outpt for elective procedure.
Hypotension episodes
- Patient says she has BP fluctuations and gets hypotension sometimes
on midodrine as well
- Given history of pericardial effusion 2018, and in setting of significant hypoxia as well as episodes of low BP, checked echo as above. No effusions noted.
Chronic diarrhea
hematochezia 2/2 hemorrhoids
- Encourage oral hydration
HFpEF
- proBNP was unremarkable
- Home Lasix resumed per cardiology,, appreciate management. Noted patient had bilateral foot edema still present today
- Also holding Aldactone
- Continue Toprol XL
- echo as above EF 68%
Coronary disease with h/o stents
Peripheral arterial disease s/p fem-femo bypass
- Continue Atorvastatin and Plavix
Obstructive sleep apnea
Depression
Anxiety
-Continue Lexapro
prn ativan po
Gastroesophageal reflux disease
H/o pill induced esophagitis
PRN Pepcid
CODE STATUS DNR/DNI
DVT prophylaxis SCDs. Eliquis
dispo home with [facility] pt/ot
Anticipated Discharge: 24 - 48 hours
Subjective/Interval History
-
Date of Service: December 26, 2024
Patient states she is feeling okay, just tired. She is on 4 L of O2 but drops to mid 80s when she ambulates.
Objective Data
-
Labs:
Laboratory Results
12/26/24
03:25
WBC 9.0
Hgb 12.6
Hct 36.5 L
Plt Count 339
Sodium 139
Potassium 3.8
Chloride 110 H
Carbon Dioxide 25
BUN 43 H
Creatinine 1.1 H
Glucose 101 H
Calcium 9.1
Vital Signs:
Vital Signs
Temp Pulse Resp BP Pulse Ox
98.0 F 110 20 105/54 93
12/26/24 11:00 12/26/24 08:19 12/26/24 08:00 12/26/24 08:19 12/26/24 08:56
I&O
12/25/24 12/26/24 12/27/24
06:59 06:59 06:59
Intake Total 340 / 340
Output Total 1000 / 1000 225 / 225
Balance -660 / -660 -225 / -225
Review of Systems
-
All other systems: Reviewed and negative
Physical Exam
-
General: No Apparent Distress
HEENT: Moist Mucous Membranes, Anicteric and PERRLA
Respiratory: Clear to Auscultation and Decreased Breath Sounds; Negative Wheezes, Rales or Rhonchi
Cardiac: S1/S2, Irregular Rhythm and Tachycardic; Negative Murmur, Rub or Gallop
GI: Soft, Nontender, Nondistended and Normal Bowel Sounds
Musculoskeletal: Edema, Right Lower Extrem and Edema, Left Lower Extrem
Skin: Warm and Dry; Negative Rash, Ulcers or Lesions
Neuro: Awake and AO x 3
Hematologic / Lymphatic: No Lymphadenopathy
Psych: Calm
Data Reviewed
-
Diagnostic Radiology: Report Reviewed by me
Labs: Labs Reviewed by me
--- NOTE | 2024-12-26 15:05 | PTCARENOTE ---
Rec'd pt this AM. Sitting on side of bed much of the day. down to 4L NC. Pt upset this afternoon stating that the nursing students never came back to help her with hygiene this AM. PCT did then assist her but she continues to be upset by this. Vital
signs stable.
[2024-12-26] MEDS: LIPITOR 40 MG PO (17:50)
[2024-12-26] MEDS: MORPHINE SULFATE 1 MG IV (22:11)
[2024-12-26] MEDS: MELATONIN PO (22:16)
[2024-12-27] VITALS (9 sets, daily range): BP systolic 110–139; BP diastolic 48–82; PULSE 92–95; O2SAT 94; BMI 22.3
--- NOTE | 2024-12-27 01:02 | PTCARENOTE ---
Assumed care of patient from francisca RN. Pt aaox3. Pt anxious at times. Afib on the monitor. SpO2 currently 94% on 3L NC. Pt had a BM on the BSC. Standby assistance while ambulating. Pt tolerated walking to the BSC, but while ambulating back to bed
pt became very dyspneic on exertion. Pt sat on the side of the bed in tripod position with labored breathing. SpO2 92% on 4L NC at that time. PRN IV Morphine administered for SOB (see JUN), which pt stated relieved all symptoms. Pt appears to be
comfortably resting in bed with call rangel in reach.
[2024-12-27 06:54] LABS: Hematocrit 39.8 % (37.0-47.0); Hemoglobin 13.3 g/dL (12.0-16.0); Mean Corp Hgb Conc. 33.4 g/dL (33.0-37.0); Mean Corpuscular Volume 87.5 fL (81.0-99.0); Platelet Count 352 10^3/uL (130-400); Red Cell Dist. Width 14.4 % (11.5-14.5)
[2024-12-27 06:59] LABS: Blood Urea Nitrogen 36 mg/dl (7-17); Calcium 9.1 mg/dl (8.4-10.2); Carbon Dioxide 28 mmol/L (22-30); Chloride 106 mmol/L (98-107); Estimated Creatinine Clearance 41 ml/min; Glucose 81 mg/dl (70-99); Potassium 3.8 mmol/L (3.5-5.1); Sodium 138 mmol/L (135-145); eGFR > 60.00
--- NOTE | 2024-12-27 08:10 | W.PN.HOSP.TC ---
Today's Communication/Plan
-
Discharge today
Assessment / Plan
Assessment / Plan
Physical Exam
General: Not in acute distress
HEENT: Moist Mucous Membranes
Respiratory: Decreased breath sounds bilaterally
Cardiac: S1/S2, Irregular Rhythm and Tachycardic
GI: Soft, Nontender, Nondistended and Normal Bowel Sounds
Musculoskeletal: Edema, Right Lower Extrem and Edema, Left Lower Extrem
Skin: Warm and Dry
Neuro: AAO x 3
Psych: Calm
Assessment/Plan
79 y/o female with COPD on 2L, recent diagnosis of COVID, A-fib status post Watchman device and chronic CHFpEF, presented with SOB and cough, failed outpatient steroids and doxycycline.
Acute Hypoxic Respiratory Failure
Pneumonia/Acute COPD Exacerbation
- Failed outpt course of Prednisone and Doxycycline
- s/p course of Cefepime, now off
- CT Chest shows no PE, but bilateral pneumonia was confirmed
- Cough medication with Mucinex twice daily
- I clarified on 12/27/24 with on-call aeronautical inspector that patient's home regimen should be on nebulizer after discharge: ipratropium 0.5 mg every 6 hours nebulizer (not Duonebs given A-Fib RVR in hospital), along with Budesonide 0.5 mg BID, and PRN
Albuterol
- Pulmicort
- Continue home inhalers
- s/p Solumedrol IV, patient is improving, changed to oral
bcx NGTD, legionella/strep negative
repeat CXR shows persistent multifocal opacities
Now off HFNC, weaned down back to 2.5-3.5 L as able, currently 2L (home baseline oxygen)
monitor for improvement with ambulation
Afib with RVR
h/o Afib s/p watchman 02/2023 at [facility]
occurred 12/20/24 in AM, HR to 150s
treated with IV lopressor 5mg x1. Improved to 100s.
Home Toprol XL dose increased to 25 mg daily as per cardiology
echo 12/20 EF 68%, no RWMA, limited by AF
cardiology consulted appreciate recs/mgmt
Continue flecainide 50mg twice daily, and metoprolol as above
HR controlled today
Plavix changed to Eliquis as per cardiology
Patient is not interested in inpt DCCV due to needing ANTHONY which comes with risk of intubation. Will follow up outpt for elective procedure without ANTHONY.
Hypotension episodes
- Patient says she has BP fluctuations and gets hypotension sometimes
on midodrine as well
- Given history of pericardial effusion 2018, and in setting of significant hypoxia as well as episodes of low BP, checked echo as above. No effusions noted.
Chronic diarrhea
hematochezia 2/2 hemorrhoids
- Encourage oral hydration
HFpEF
- proBNP was unremarkable
- Home Lasix resumed per cardiology,, appreciate management. Noted patient had bilateral foot edema recently this hospitalization
- Also holding Aldactone; Aldactone was discontinued due renal insufficiency and low blood pressure (patient is on midodrine)
- Continue Toprol XL
- echo as above EF 68%
Coronary disease with h/o stents
Peripheral arterial disease s/p fem-femo bypass
- Continue Atorvastatin and Eliquis (Plavix stopped, as per cardiology)
Obstructive sleep apnea
Depression
Anxiety
-Continue Lexapro
prn ativan po
Gastroesophageal reflux disease
H/o pill induced esophagitis
PRN Pepcid
CODE STATUS DNR/DNI
DVT prophylaxis SCDs. Eliquis
dispo home with Home Health
I spoke to patient's daughter Charlotte today, and informed her of patient's discharge, and I answered all of her questions and concerns to satisfaction.
More than 30 minutes spent in discharge including
Final examination of the patient
Summarizing hospital stay
Instructions for continuing care to all relevant caregivers
Preparation of discharge records, prescriptions, and referral forms
Total time spent (in minutes): 45
Anticipated Discharge: Today
Subjective/Interval History
-
Date of Service: December 27, 2024
Patient was seen and examined. She denied any chest pain or worsening shortness of breath.
Objective Data
-
Labs:
Laboratory Results
12/27/24
06:27
WBC 11.7 H
Hgb 13.3
Hct 39.8
Plt Count 352
Sodium 138
Potassium 3.8
Chloride 106
Carbon Dioxide 28
BUN 36 H
Creatinine 0.9
Glucose 81
Calcium 9.1
Vital Signs:
Vital Signs
Temp Pulse Resp BP Pulse Ox
98.1 F 72 20 121/79 97
12/27/24 07:50 12/27/24 00:00 12/27/24 00:00 12/26/24 22:24 12/27/24 00:00
I&O
12/26/24 12/27/24 12/28/24
06:59 06:59 06:59
Intake Total 340 / 340 240 / 240
Output Total 1000 / 1000 900 / 900
Balance -660 / -660 -660 / -660
[2024-12-27] MEDS: ELIQUIS 2.5 MG PO (08:46)
[2024-12-27] MEDS: MUCINEX 600 MG PO (08:46)
[2024-12-27] MEDS: FARXIGA 10 MG PO (08:46)
[2024-12-27] MEDS: TAMBOCOR 50 MG PO (08:46)
[2024-12-27] MEDS: LEXAPRO 10 MG PO (08:47)
[2024-12-27] MEDS: TOPROL XL 25 MG PO (08:47)
[2024-12-27] MEDS: ZITHROMAX 250 MG PO (08:47)
[2024-12-27] MEDS: LASIX 40 MG PO (08:48)
[2024-12-27] MEDS: DELTASONE 50 MG PO (08:48)
--- NOTE | 2024-12-27 11:19 | CM ---
Following up on Patient.
Patient is downgrading so left a message for Jennifer Sabillon [facility] Liaison who is covering #[phone] to s ay that patient is going to [facility]. Patient will need Home PT and Jennifer DOS SANTOS is following.
PLAN: DC Home with HH
--- NOTE | 2024-12-27 11:50 | CM ---
Addendum entered by Madeline Cross 12/27/24 16:35:
daughter to transport
Addendum entered by Madeline Cross 12/27/24 16:33:
patient discharge today
IMM explained & signed. In chart
notified Luis cleray from [facility]
PLAN: Home with [facility] fax #: [phone]
Original Note:
Patient chart reviewed
PT rec Home Health
current with [facility]
left message with Luis [phone] [facility]
PLAN: Home with [facility] when stable
[facility] fax #: [phone]
[2024-12-27] MEDS: ATROVENT NEBULES 0.5 MG INH (15:37)
[2024-12-27] MEDS: LIPITOR 40 MG PO (17:03)
== END 2024-12-27 18:19 | disposition home health service (06) | DRG 193 ==
LOC: 3 WEST ACU 17:34
PROVIDERS: Internal Medicine; Physician Assistant; Physician Assistant Medical; ADMITTING PHYSICIAN Internal Medicine; ATTENDING PHYSICIAN Hospitalist; CONSULT PHYSICIAN Internal Medicine Cardiovascular Disease; CONSULT PHYSICIAN Internal Medicine Critical Care Medicine; EMERGENCY PHYSICIAN Emergency Medicine; FAMILY PHYSICIAN Family Medicine
DX: J18.9 Pneumonia, unspecified organism (principal); J96.21 Acute and chronic respiratory failure with hypoxia; J44.0 Chronic obstructive pulmonary disease with (acute) lower respiratory infection; J44.1 Chronic obstructive pulmonary disease with (acute) exacerbation; I13.0 Hypertensive heart and chronic kidney disease with heart failure and stage 1 through stage 4 chronic kidney disease, or unspecified chronic kidney disease; I50.32 Chronic diastolic (congestive) heart failure; D84.9 Immunodeficiency, unspecified; Z11.52 Encounter for screening for COVID-19; Z86.16 Personal history of COVID-19; Z95.818 Presence of other cardiac implants and grafts; K52.9 Noninfective gastroenteritis and colitis, unspecified; K64.9 Unspecified hemorrhoids; N18.9 Chronic kidney disease, unspecified; E11.22 Type 2 diabetes mellitus with diabetic chronic kidney disease; E11.51 Type 2 diabetes mellitus with diabetic peripheral angiopathy without gangrene; G47.33 Obstructive sleep apnea (adult) (pediatric); F41.9 Anxiety disorder, unspecified; F32.A Depression, unspecified; K21.9 Gastro-esophageal reflux disease without esophagitis; Z66 Do not resuscitate; I25.10 Atherosclerotic heart disease of native coronary artery without angina pectoris; Z96.611 Presence of right artificial shoulder joint; Z96.612 Presence of left artificial shoulder joint; Z87.891 Personal history of nicotine dependence; Z88.0 Allergy status to penicillin; E78.00 Pure hypercholesterolemia, unspecified; Z79.899 Other long term (current) drug therapy; Z79.02 Long term (current) use of antithrombotics/antiplatelets; E87.6 Hypokalemia; D64.9 Anemia, unspecified; I48.0 Paroxysmal atrial fibrillation; J43.2 Centrilobular emphysema; Z79.51 Long term (current) use of inhaled steroids; Z82.49 Family history of ischemic heart disease and other diseases of the circulatory system; Z90.710 Acquired absence of both cervix and uterus; Z95.5 Presence of coronary angioplasty implant and graft; Z99.81 Dependence on supplemental oxygen
CPT/HCPCS: 71045; 71046; 71275; 80048; 80053; 80202; 82805; 83605; 83735; 83880; 84145; 84484; 85025; 85027; 87040; 87070; 87205; 87449; 87641; 87811; 87899; 92610; 92612; 93005; 93306; 94640; 96361; 96374; 96375; 97116; 97163; 97166; 97530; 97535; 99285; Q9967

== ENCOUNTER 2025-02-01 09:26 | Day surgery (SDC) | payer MEDICARE, OTHER, SELFPAY | END 2025-02-01 11:30 | disposition home or self-care (01) | LOC: CATH 09:26 | PROVIDERS: ATTENDING PHYSICIAN Internal Medicine Cardiovascular Disease; FAMILY PHYSICIAN Family Medicine | DX: I48.19 Other persistent atrial fibrillation (principal); Z95.818 Presence of other cardiac implants and grafts; J44.9 Chronic obstructive pulmonary disease, unspecified; Z95.5 Presence of coronary angioplasty implant and graft; I50.32 Chronic diastolic (congestive) heart failure; I11.0 Hypertensive heart disease with heart failure; I73.9 Peripheral vascular disease, unspecified; Z79.899 Other long term (current) drug therapy; Z79.01 Long term (current) use of anticoagulants | CPT/HCPCS: 92960; 93005 ==

== ENCOUNTER 2025-04-05 10:24 | Day surgery (SDC) | payer MEDICARE, OTHER, SELFPAY ==
[2025-04-05] VITALS (7 sets, daily range): BP systolic 95–115; BP diastolic 43–54; BMI 22.1
[2025-04-05] MEDS: VANCOCIN 200 IV (12:29)
[2025-04-05] MEDS: AZACTAM 2000 MG IV (13:21)
--- NOTE | 2025-04-05 15:34 | ITS.CL.PACE ---
[employer] - Pacemaker Implant
Pacemaker Implant
Procedure Report:
Left Bundle Branch pacing dual chamber Permanent Pacemaker Placement:
79 yrs old woman with persistent AF s/p watchman and recurrent AF s/p DCCV and Amiodarone therapy and has now highly symptomatic AF. Pt is here with plan for ablate and pace for her AF. With sinus rhythm achieved, she is in need of atrial pacing as
well to avoid bradycardia induced AF.
Indications:
Persistent atrial fibrillation with recurrent and frequent atrial arrhythmia failed medical therapy with tachy venkatesh syndrome and is undergoing ablate and pace strategy.
Date of the Procedure: 04/05/25
Pre-Operative Diagnosis: Atrial fibrillation and atrial tachycardia with ablate and pace strategy.
Post-Operative Diagnosis: Atrial fibrillation and atrial tachycardia with ablate and pace strategy.
Procedure Performed: LEFT BUNDLE BRANCH PACING WITH DUAL CHAMBER PERMANENT PACEMAKER IMPLANTATION.
Surgeon:
Jeovany Dunham MD
Anesthesia:
See anesthesia records
Detailed Description of the Procedure:
The patient was identified using hospital identification and informed consent obtained for the procedure. The risks were explained to the patient and the family including, but not limited to: Bleeding, infection, arrhythmia, stroke,
vascular/cardiac/lung puncture, surgery, pacemaker dependency/device malfunction. All questions were answered.
Anesthesia service provided sedation as reported separately. Antibiotics administered IV for risk of bacterial colonization. After obtaining informed and written consent, the patient was brought to the electrophysiology laboratory.
The initial rhythm was sinus
A timeout was performed immediately before the procedure. The left chest was prepped from the nipple to the angle of the jaw with chlorhexidine, and draped following sterile technique in usual routine.
A surgical pause and time out was performed immediately prior to the procedure with review of her medical history, recent labs, allergies and medications with site of procedure identified and consent noted in the chart. Antibiotics pre operatively
given. All team members concurred.
The procedure site was meticulously prepared with surgical scrub and allowed to dry with no pooling. Sterile draping was applied to cover the procedure site. The image intensifier was draped with sterile bag and positioned over the patient.
The left infraclavicular region was prepped and draped in the usual sterile fashion. Local anesthesia was administered subcutaneously using 1% lidocaine / Bupivacaine. The left cephalic vein cutdown was attempted. There was a small cephalic noted
but wire could not be advanced through it. The left upper extremity venogram was done and the axillary route identified. There was patent subclavian vein.
Following infiltration with local anesthetic, the axillary vein was accessed under fluoroscopy and the venogram guidance using the micro-puncture apparatus. The guide wires were advanced to the inferior vena cava (IVC) under flouro guidance.
A subcutaneous pocket was created with blunt dissection and use of electrocautery. Hemostasis was excellent.
Attention then was turned to the left bundle branch pacing lead. The guide wire was advanced to the RA and was advanced to the RV. The preformed curved long hemostatic peel away HIS sheath was advanced into the RV cavity. A left bundle pacing wire
was advanced into the sheath to the tip with ventricular signals noted with unipolar manner. The HIS location was identified under guidance of the flouroscopy and the pacing wire signals. The sheath with the pacing lead was moved deeper into the RV
cavity on the septum at a more inferior and distal to the HIS signals.
Once adequate signals were noted on the electrograms of the pacing lead in the sheath with W pattern signals on the RV septum, the lead was advanced and clockwise turns were done under fluoroscopic guidance. The septum was engaged and the lead was
paced intermittently after every 2-3 turns. The Impedance of the lead was measured that remained stable around 700 Ohm and the lead showed inverted injury with increased thresholds. The lead was moved to a different location.
Another septal location was identified with adequate signals noted on the pacing leads and good flouroscopic location. There was sheath approximation conformed on CUBAN view and the pacing lead was advanced with clockwise turns into the septal
location. The septum was successfully engaged. The lead was paced and septal pacing was noted. The sheath was placed again to the septum and the lead was advanced 2-3 turns with pacing with each advancement. The ventricular capture was monitored
throughout and the captures gradually changed from RV pacing to non-selective pacing to LBB pacing with R wave on V1.
With RBBB pattern noted on the pacing lead, it was decided to accept the location as optimal location. The long guiding sheath was cut and removed from the RV without change in lead position, impedance, sensing, or capture. The lead was sutured to
the underlying pectoralis fascia with 2-0 Ti-Cron stitches.
The RA lead was anchored in the right atrial appendage with passive fixation using tines. There was excellent sensing, pacing, and impedance from the leads, with no diaphragmatic stimulation at 10 V output.�Bovie cautery, antibiotics, and
fluoroscopy were used.
The leads were attached to the pulse generator in standard configuration with acceptable sensing and threshold parameters. The pocket was irrigated with antibiotic solution; the pocket was inspected with no active bleeding noted. The device and the
leads were placed in the pocket.
Deep subcutaneous tissues were closed with 3 layers of 2-0V loc sutures; and the dermis was reopposed using a running 4-0 Biosyn subcuticular suture. Sponge counts / sharp counts were appropriate.
Procedure End:
The procedure was tolerated well. Aquacel bandaged was applied. A pressure dressing was applied.
Estimated Blood loss:
5 cc
Specimens Removed:
No cultures and no specimens were obtained. No intraoperative pathology was identified.
Urine output:
None
Packs / Drains/ Tubes:
None
Instrument / Sponge Count Correct:
Yes
Flouro time:
12.7min / 22mGy
Complications of the Procedure:
None
Condition of Patient at Time of Transfer:
Hemodynamically stable with no neurological or vascular compromise.
Device information:�
Generator: [employer]; Model: W1DR01; Serial # [id number]�
Atrial Lead: Medtronic; Model: 4574-45; Serial # [id number]�
Measured data in the right atrium was sensing of 2.0 mV, impedance of 589 ohms and threshold of 1.0 V at 0.4ms�
LBB pacing lead: Medtronic; Model: 3830-69; Serial # [id number]
Measured data on the RV lead was sensing of 3.6mV, impedance of 456 ohms and threshold of 0.5 V at 0.4ms
PROGRAMMING PARAMETERS:�
Venkatesh parameter settings were AAIR <=>DDDR 60-130 �
Paced AV interval: 180ms
Sensed AV interval: 150 ms.
Rate Adaptive A-V Interval: off
Mode switch ON
Summary:
Successful implantation of MRI compatible LBB pacing dual chamber pacemaker.
Results/Recommendations:
-Please follow up CXR�
1. Please provide patient with adequate pain control�
Instructions to be given to patient:�
- Please follow up with [facility] at [address] [place] [address] ([phone]) to get your wound checked in 2 weeks of your discharge. Then follow with
- Do not wet incision site until after it is evaluated at cardiology clinic. No baths or showers until then. Sponge baths / showers are OK but dab dry the dressing after it is wet.�
- Allow 'steri strips' to fall off on their own�
- Do not lift left elbow above shoulder, particularly with sudden jerking movements, for 1 month�
- Do not lift anything weighing more than 5 pounds with the left arm for 1 month�
- If you notice any fevers, shortness of breath, lightheadedness, chest pain, or worsening swelling in the wound site, please contact the arrhythmia clinic, contact your environmental services tech, or present to the hospital for evaluation.�
Jeovany Dunham MD
Electrophysiology
--- NOTE | 2025-04-05 16:11 | CM ---
Chart reviewed. Patient is independent of ADLS, lives with her daughter and SIERRA in a 2 STH, 1st level set up, ambulates with a RW and has a wheelchair. Plan is for the patient to return home. CM to follow
--- NOTE | 2025-04-05 16:41 | PTCARENOTE ---
Pt received post pacer awake and alert. O2 on at 3LNC, sat 94%. Denies any pain or sob. Left chest pacer site with pressure dressing intact and left arm immobilizer intact.
[2025-04-05] MEDS: LIPITOR 40 MG PO (17:10)
[2025-04-05] MEDS: VENTOLIN NEBULES INH (17:27)
[2025-04-05] MEDS: VENTOLIN NEBULES 2.5 MG INH (18:11)
[2025-04-05] MEDS: TOPROL XL 12.5 MG PO (19:46)
--- NOTE | 2025-04-05 20:37 | PTCARENOTE ---
Pt rec'd at change of shift in bed ,no c/o pain at pacer site. Pressure drsg noted with arm in immobilizer. O 2 at 3lit n/c in place (pt wears at home)
Sinus with first degree block.
[2025-04-05] MEDS: TYLENOL 650 MG PO (22:41)
[2025-04-05] MEDS: OCEAN, SALINE MIST 1 SPRAYS NASAL (23:23)
--- NOTE | 2025-04-06 00:53 | PTCARENOTE ---
Pt medicated with Tylenol for pacer site and back discomfort. OOB to recliner chair for an hour back to bed at present.
[2025-04-06 04:31] VITALS: BP 105/50
[2025-04-06] MEDS: TYLENOL 650 MG PO ×3 (04:35→13:28)
--- NOTE | 2025-04-06 05:28 | PTCARENOTE ---
Pt medicated with Tylenol this morning for c/o pain at pacer site. No bleeding or hematoma present.
[2025-04-06 05:29] LABS: Hematocrit 33.0 % (37.0-47.0); Hemoglobin 10.4 g/dL (12.0-16.0); Mean Corp Hgb Conc. 31.5 g/dL (33.0-37.0); Mean Corpuscular Volume 85.9 fL (81.0-99.0); Platelet Count 174 10^3/uL (130-400); Red Cell Dist. Width 14.6 % (11.5-14.5)
[2025-04-06 05:54] LABS: Blood Urea Nitrogen 22 mg/dl (7-17); Calcium 9.4 mg/dl (8.4-10.2); Carbon Dioxide 24 mmol/L (22-30); Chloride 105 mmol/L (98-107); Estimated Creatinine Clearance 27 ml/min; Glucose 82 mg/dl (70-99); Magnesium 2.0 mg/dl (1.6-2.3); Potassium 4.4 mmol/L (3.5-5.1); Sodium 136 mmol/L (135-145); eGFR 38.03
[2025-04-06 07:02] VITALS: BP 104/46
[2025-04-06] MEDS: SPIRIVA RESPIMAT 2.5 MCG 2 PUFF INH (07:41)
[2025-04-06] MEDS: VENTOLIN NEBULES 2.5 MG INH ×3 (07:41→15:26)
[2025-04-06] MEDS: LEXAPRO 10 MG PO (07:55)
[2025-04-06] MEDS: KCL 40 MEQ PO (07:55)
[2025-04-06] MEDS: TOPROL XL 12.5 MG PO (07:56)
[2025-04-06] MEDS: ZITHROMAX 250 MG PO (07:57)
[2025-04-06] MEDS: PACERONE 200 MG PO (07:57)
[2025-04-06] MEDS: FARXIGA 10 MG PO (07:57)
[2025-04-06] MEDS: LASIX 40 MG PO (07:57)
[2025-04-06] MEDS: OCEAN, SALINE MIST 1 SPRAYS NASAL (08:32)
--- NOTE | 2025-04-06 08:34 | W.PN.CD ---
Today's Communication / Plan
-
- Continue Amiodarone
- K is stable - continue K supplement as outpatient
- Lytes check in one week.
- Device clinic follow up
Impression / Plan
-
79 yrs old woman initially thought to have permanent AF presented in sinus rhythm after start of Amiodarone with symptomatic bradycardia and sick sinus with tachy venkatesh syndrome was here for ablate and pace strategy pacemaker implant. With sinus
rhythm noted, patient underwent dual chamber PPM and is pacing atrially
Persistent AF
- elevated CHADSvasc score (6) with Watchman in place
- Recent DCCV - prompted the use of Eliquis - 2.5 mg BID
- Now can stop Eliquis
- The AF has responded to Amiodarone. Pt went back to AF after DCCV but is in sinus now
- now Atrial paced at 60 bpm.
- Plan for AVJ ablation in May - re-evaluate based on the AF burden on the pacemaker.
CAD / PAD
- stable
- h/o fem-fem bypass
- Was on plavix - on hold now due to Eliquis on board
- Can stop Eliquis and start Plavix
- Plavix to resume day after tomorrow.
CHF
- HFpEF
- On farxiga and lasix.
Physical Exam
Vital Signs/Labs
Vital Signs
Temp Pulse Resp BP Pulse Ox
98.7 F 62 20 104/46 93
04/06/25 07:02 04/06/25 07:45 04/06/25 07:02 04/06/25 07:02 04/06/25 07:02
04/05/25 04/06/25 04/07/25
06:59 06:59 06:59
Actual Weight 56.5 kg
04/06/25 04:37
04/06/25 04:37
Magnesium 2.0 mg/dl (1.6-2.3) 04/06/25 04:37
Physical Exam
Constitutional: No acute distress and Comfortable
EENT: Anicteric and Moist mucous membranes
Cardiovascular: Rhythm & rate is regular, Pedal edema is absent and JVD pressure is normal
Respiratory: Respiratory effort normal, Lungs clear to auscul. and Crackles Absent
GI: Soft, Distention absent, Non tender and Normal bowel sounds
Neuro/Psych: Alert, Oriented and AO x 3
Other: Cardiac Device Site (pressure dressings removed. )
Data Reviewed
-
Date of Service: April 06, 2025
Medical Decision Making: Reviewed Test Results, Test Interpretation and Review of Case with other Provider
EKG: Tracing Personally Visualized and interpreted
X-Ray/CT/US/MRI/NUC/PET: Image Personally Visualized and interpreted
Labs: Labs Reviewed by me
Old Records: Reviewed
[2025-04-06 09:27] VITALS: BP 93/44
--- NOTE | 2025-04-06 11:15 | W.DS.TRANS ---
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
-
Discharge Instructions:
Discharge Diagnosis/Procedures Pacemaker implant
Diet Low Cholesterol,Low Sodium
Driving Restrictions No driving for 1 week
Bathing Restrictions OK to Shower
Blood Work Check BMP in 1 week
Specialty Instructions Weigh Daily
Instructions:
Stand-Alone Forms: DC Inst - Implanted Device
Changes to Home Medications: Yes
Discharge Medications:
DC Medications w/original date entered in [employer]
atorvastatin 40 mg tablet 40 mg PO QPM High cholesterol 08/01/21
azithromycin 250 mg tablet 250 mg PO MOWEFR@0800 Lung/Breathing Issues 06/02/23
escitalopram oxalate 20 mg tablet 10 mg PO DAILY depression/anxiety 06/02/23
furosemide 40 mg tablet (Lasix) 40 mg PO DAILY #30 tabs 06/13/23
albuterol sulfate 90 mcg/actuation aerosol inhaler 2 puff inhalation Q4HPRN PRN shortness of breath 12/17/24
dapagliflozin propanediol 10 mg tablet (Farxiga) 10 mg PO DAILY Diabetes 12/17/24
famotidine 20 mg tablet (Pepcid) 20 mg PO BIDPRN PRN acid reflux 12/17/24
midodrine 5 mg tablet 5 mg PO TID@0800,1300,1800 for systolic blood pressure less than 90 mmHg #90 tabs 12/27/24
amiodarone 200 mg tablet 200 mg PO DAILY 04/05/25
ensifentrine 3 mg/2.5 mL suspension for nebulization (Ohtuvayre) 2.5 ml inhalation R BID 04/05/25
formoterol fumarate 20 mcg/2 mL solution for nebulization 2 ml inhalation R BID 04/05/25
metoprolol succinate 25 mg tablet,extended release 24 hr 12.5 mg PO BID 04/05/25
potassium chloride 20 mEq oral packet 40 meq PO DAILY 04/05/25
revefenacin 175 mcg/3 mL solution for nebulization (Yupelri) 175 mcg inhalation R DAILY 04/05/25
clopidogrel 75 mg tablet (Plavix) 75 mg PO DAILY #90 tabs 04/06/25
Home Medication Changes
stop eliquis, restart plavix 75mg
Pending Results: No
[2025-04-06 11:48] VITALS: BP 101/47
[2025-04-06 15:15] VITALS: BP 99/41
== END 2025-04-06 10:17 | disposition home or self-care (01) ==
LOC: CATH 10:24
PROVIDERS: Nurse Practitioner Adult Health; ATTENDING PHYSICIAN Internal Medicine Cardiovascular Disease; FAMILY PHYSICIAN Family Medicine
PROC: 0JH606Z Insertion of Pacemaker, Dual Chamber into Chest Subcutaneous Tissue and Fascia, Open Approach (ICD-10-PCS; 2025-04-05)
PROC: 02H63JZ Insertion of Pacemaker Lead into Right Atrium, Percutaneous Approach (ICD-10-PCS; 2025-04-05)
PROC: 02HK3JZ Insertion of Pacemaker Lead into Right Ventricle, Percutaneous Approach (ICD-10-PCS; 2025-04-05)
DX: I48.19 Other persistent atrial fibrillation (principal); I50.32 Chronic diastolic (congestive) heart failure; I49.5 Sick sinus syndrome; I25.10 Atherosclerotic heart disease of native coronary artery without angina pectoris; I73.9 Peripheral vascular disease, unspecified; I11.0 Hypertensive heart disease with heart failure; J44.9 Chronic obstructive pulmonary disease, unspecified; E78.5 Hyperlipidemia, unspecified; K21.9 Gastro-esophageal reflux disease without esophagitis; G47.33 Obstructive sleep apnea (adult) (pediatric); I47.19 Other supraventricular tachycardia; I44.0 Atrioventricular block, first degree; Z88.0 Allergy status to penicillin; Z91.030 Bee allergy status; Z99.81 Dependence on supplemental oxygen; Z91.199 Patient's noncompliance with other medical treatment and regimen due to unspecified reason; Z79.02 Long term (current) use of antithrombotics/antiplatelets
CPT/HCPCS: 33208; 71045; 80048; 83735; 85027; 93005; 94640; C1785; C1887; C1898; Q9967